=== PATIENT | male | born 1955 | race Caucasian/White ===

== ENCOUNTER → 2018-05-10 00:47 | Outpatient (CLI) | payer MEDICAID, SELFPAY ==
--- NOTE | 2018-05-10 09:48 | DI.REPORT_ITS ---
SYMPTOM/DIAGNOSIS: NECK PAIN, M54.2 MRI CERVICAL SPINE: Routine noncontrast examination was performed. There is patient motion artifact despite multiple repeat sequences. There is normal signal in the spinal cord. No evidence of tonsillar ectopia present. At C7-T1 there is no focal disc herniation, central spinal canal or neural foraminal stenosis. At C6-C7 there is no focal disc herniation, central spinal canal or neural foraminal stenosis present. At C5-C6 there is no focal disc herniation or central spinal canal stenosis. There are hypertrophic changes seen at the uncovertebral joint on the left causing moderate left neural foraminal stenosis. No right neural foraminal stenosis is present. At C4-C5 there is mild prominence of the osteophyte disc complex but no central spinal canal stenosis or focal disc herniation present. There is no significant neural foraminal stenosis. At C3-C4 there is no focal disc herniation or central spinal canal stenosis. There are hypertrophic changes seen at the uncovertebral joints bilaterally causing mild to moderate bilateral neural foraminal stenosis. At C2-C3 there is no focal disc herniation, central spinal canal or neural foraminal stenosis. Marrow signal is within normal limits. IMPRESSION: Multi-level degenerative changes in the cervical spine resulting in multi-level neural foraminal stenosis as described above.
== END ==
PROVIDERS: PCP Physician Assistant Medical; Visit Provider Physician Assistant Medical
DX: M54.2 Cervicalgia (principal); M47.812 Spondylosis without myelopathy or radiculopathy, cervical region; M48.02 Spinal stenosis, cervical region
CPT/HCPCS: 72141

== ENCOUNTER → 2018-05-13 01:04 | Outpatient (CLI) | payer MEDICAID, SELFPAY ==
--- NOTE | 2018-05-13 09:32 | DI.REPORT_ITS ---
SYMPTOM/DIAGNOSIS: ABD PAIN RIGHT UPPER QUADRANT, R10.11 ABDOMINAL ULTRASOUND: The aorta and vena cava are normal. The liver is mildly echogenic consistent with fatty infiltration. The gallbladder is normal. There are no stones or evidence of ductal dilatation. The body and head of the pancreas are echogenic. The tail is not seen. The findings are consistent with fatty infiltration. The spleen is unremarkable. The kidneys are unremarkable. There is no evidence of abdominal free fluid. SUMMARY: There is somewhat limited visualization of the liver which rests quite high in the abdomen. There are findings consistent with fatty infiltration. There is no evidence of gallbladder disease, cholelithiasis or biliary obstruction.
== END ==
PROVIDERS: PCP Physician Assistant Medical; Visit Provider Physician Assistant Medical
DX: R10.11 Right upper quadrant pain (principal); K76.0 Fatty (change of) liver, not elsewhere classified
CPT/HCPCS: 76700

== ENCOUNTER → 2018-05-26 12:03 | Outpatient (REF) | payer MEDICAID, SELFPAY ==
[2018-05-26 20:37] LABS: Abs Immature Grans 0.01 k/cumm (0.0-0.09); Absolute Basophil Count 0.04 k/cumm (0.0-0.2); Absolute Eosinophil Count 0.13 k/cumm (0.0-0.7); Absolute Lymphocyte Count 2.04 k/cumm (1.2-3.4); Absolute Monocyte Count 0.48 k/cumm (0.11-0.7); Absolute Neutrophil Count 1.78 k/cumm (1.2-6.7); Basophils % 0.9; Eosinophils % 2.9; Immature Grans % 0.2; Lymphocytes % 45.5; Mean Corp. HGB Concentration 29.4 g/dL (32.0-36.0); Mean Corpuscular Hemoglobin 21.2 pg (27.0-33.0); Mean Corpuscular Volume 72.2 fL (80-95); Mean Platelet Volume 10.5 fL (8.0-11.0); Monocytes % 10.7; Neutrophils % 39.8; Platelet Count 318 x1000/uL (130-400); RBC 4.71 m/cumm (4.50-6.00); RBC Distribution Width 17.9 % (11.8-14.1); White Blood Cell Count 4.48 k/cumm (4.4-10.8)
[2018-05-28 16:08] LABS: HCV RNA Detection Quantitative Undetected IU/mL (UNDECT)
== END ==
LOC: NCHCN 12:03
PROVIDERS: PCP Physician Assistant Medical; Visit Provider Physician Assistant Medical
DX: K76.0 Fatty (change of) liver, not elsewhere classified (principal); D64.9 Anemia, unspecified
CPT/HCPCS: 86803; 85025; 87522

== ENCOUNTER 2018-05-29 18:34 | Emergency (ER) | payer MEDICAID, SELFPAY ==
[2018-05-29] VITALS (27 sets, daily range): BP systolic 103–137; BP diastolic 63–84; PULSE 67–85; RESP 9–22; TEMP 36.8–37.2; O2SAT 91–99
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
--- NOTE | 2018-05-29 19:22 | DI.RPTCT_ITS ---
SYMPTOM/DIAGNOSIS: DIZZINESS NONCONTRAST HEAD CT: Comparison is made with 10/26/17. A noncontrast cranial CT was performed. The ventricular system is normal in appearance. There is no evidence of an intracranial mass lesion. There is no evidence of a subdural or epidural hematoma. No focal areas of decreased attenuation are seen. CONCLUSION: Normal noncontrast Cranial CT.
--- NOTE | 2018-05-29 19:47 | DI.VRAD_ITS ---
EXAM: CT Head Without Intravenous Contrast CLINICAL HISTORY: 62 years old, male; Signs and symptoms; Dizziness TECHNIQUE: Axial computed tomography images of the head/brain without intravenous contrast. Coronal and sagittal reformatted images were created and reviewed. COMPARISON: CT - HEAD AND CSPINE W/O CONTRAST 10/26/2017 6:58 PM FINDINGS: Brain: No intracranial hemorrhage or extra-axial fluid collection. No evidence of mass effect or midline shift. Vasquez-white matter differentiation is normal. Ventricles: Unremarkable. No ventriculomegaly. Bones/joints: Unremarkable. No acute fracture. Soft tissues: Unremarkable. Sinuses: Unremarkable as visualized. No acute sinusitis. Mastoid air cells: Unremarkable as visualized. No mastoid effusion. IMPRESSION: No acute intracranial pathology. Dictated and Authenticated by: Osorio Oliva MD. Ordering:LATISHA VACA MD
[2018-05-29] MEDS: Meclizine 25 MG TAB PO (19:55)
[2018-05-29] MEDS: MORPHine 10 MG/ML VIAL 4 MG IVP (20:21)
[2018-05-29] MEDS: Normal Saline 1,000 ML 1000 ML IV (20:21)
[2018-05-29 20:30] LABS: Abs Immature Grans 0.01 k/cumm (0.0-0.09); HCT 31.2 % (40.0-50.0); HGB 9.6 g/dL (13.5-17.5); Mean Corp. HGB Concentration 30.8 g/dL (32.0-36.0); Mean Corpuscular Hemoglobin 21.6 pg (27.0-33.0); Mean Corpuscular Volume 70.1 fL (80-95); Mean Platelet Volume 9.4 fL (8.0-11.0); Platelet Count 272 x1000/uL (130-400); RBC 4.45 m/cumm (4.50-6.00); RBC Distribution Width 17.7 % (11.8-14.1); White Blood Cell Count 5.99 k/cumm (4.4-10.8)
[2018-05-29 20:43] LABS: ALT 32 U/L (12-78); AST 24 U/L (15-37); Albumin 3.8 g/dL (3.4-5.0); Alkaline Phosphatase 133 U/L (46-116); Anion Gap 4.6 mmol/L (3-11); BUN 8 mg/dL (7-18); Bilirubin, Total 0.5 mg/dL (0.2-1.0); CO2 29.4 mmol/L (21.0-32.0); CREATININE 0.86 mg/dL (0.70-1.30); Calcium 8.8 mg/dL (8.5-10.1); Chloride 99 mmol/L (98-107); Glucose 87 mg/dL (70-100); Magnesium 1.9 mg/dL (1.8-2.4); Potassium 3.6 mmol/L (3.5-5.1); Sodium 133 mmol/L (136-145); Total Protein 7.8 g/dL (6.4-8.2)
[2018-05-29 20:45] LABS: Troponin I < 0.02 ng/mL (0.00-0.06)
[2018-05-29] MEDS: HYDROcodone 5/Acetaminophen 325 TAB PO (21:07)
[2018-05-29 21:46] LABS: Anisocytosis 2+
[2018-05-29 21:47] LABS: Hypochromasia 2+; Microcytosis 2+; Ovalocytes 2+; Poikilocytes 2+
[2018-05-30 07:19] LABS: Absolute Lymphocyte Count 1.98 k/cumm (1.2-3.4); Absolute Neutrophil Count 3.59 k/cumm (1.2-6.7); Atypical Lymphocytes % 2
[2018-05-30 07:20] LABS: Absolute Eosinophil Count 0.06 k/cumm (0.0-0.7); Absolute Monocyte Count 0.24 k/cumm (0.11-0.7); Nucleated RBC 1 /100WBC
[2018-05-30 07:22] LABS: Diff Comment Manual Differential
--- NOTE | 2018-05-31 09:56 | PDOC.ERCMPRO ---
Care Management Progress Note 05/31-Nohemy Grant, Caregiver for Annette, called stating that Annette had been seen in the ED over the weekend for vertigo. She states that Annette needed more medication for vertigo. Nohemy states she called the ED and was told that Dr. Otero was going to fax a script to [facility] in [place]. [facility] in [place] states they do not have a script. Discussed with Nohemy that Dr Otero was not here and that I would reach out to [facility] and have them call her. Called [facility] and they stated they would reach out to Nohemy about the medication.
--- NOTE | 2018-05-31 09:59 | CMPROGNOTE_ITS ---
Care Management Progress Note 05/31-Nohemy Grant, Caregiver for Annette, called stating that Annette had been seen in the ED over the weekend for vertigo. She states that Annette needed more medication for vertigo. Nohemy states she called the ED and was told that Dr. Otero was going to fax a script to [facility] in [place]. [facility] in [place] states they do not have a script. Discussed with Nohemy that Dr Otero was not here and that I would reach out to [facility] and have them call her. Called [facility] and they stated they would reach out to Nohemy about the medication.
== END 2018-05-29 21:44 | disposition home or self-care (01) ==
PROVIDERS: Emergency Provider Emergency Medicine; PCP Physician Assistant Medical
DX: S16.1XXA Strain of muscle, fascia and tendon at neck level, initial encounter (principal); R42 Dizziness and giddiness; X58.XXXA Exposure to other specified factors, initial encounter
CPT/HCPCS: 36415; 80053; 93005; 96361; 96374; 99285; 70450; 83735; 84484; 85025; 93010; 99284; J2270

== ENCOUNTER 2018-06-17 13:43 | Outpatient (REF) | payer MEDICAID, SELFPAY ==
[2018-06-17 21:49] LABS: Iron 40 ug/dL (50-175); Total Iron Binding Capacity 452 ug/dL (250-450); Transferrin Sat 9 % (20-55)
[2018-06-17 22:04] LABS: Ferritin 10 ng/mL (8-388)
[2018-06-17 22:09] LABS: Folate > 20.0 ng/mL (8.6-20.0)
== END 2018-06-17 14:03 ==
LOC: NCHCN 13:43
PROVIDERS: PCP Physician Assistant Medical; Visit Provider Physician Assistant Medical
DX: D64.9 Anemia, unspecified (principal)
CPT/HCPCS: 82728; 82746; 83540; 83550

== ENCOUNTER 2018-08-06 02:07 | Outpatient (CLI) | payer MEDICAID, SELFPAY ==
[2018-08-06 15:12] LABS: Iron 161 ug/dL (50-175); Total Iron Binding Capacity 371 ug/dL (250-450); Transferrin Sat 43 % (20-55)
[2018-08-06 15:31] LABS: Ferritin 11 ng/mL (8-388)
== END 2018-08-06 02:27 ==
PROVIDERS: PCP Physician Assistant Medical; Visit Provider Family Medicine
DX: D64.9 Anemia, unspecified (principal)
CPT/HCPCS: 36415; 82728; 83540; 83550

== ENCOUNTER 2018-08-23 16:31 | Outpatient (REF) | payer MEDICAID, SELFPAY ==
[2018-08-23 21:07] LABS: Abs Immature Grans 0.03 k/cumm (0.0-0.09); Absolute Basophil Count 0.05 k/cumm (0.0-0.2); Absolute Eosinophil Count 0.36 k/cumm (0.0-0.7); Absolute Lymphocyte Count 2.29 k/cumm (1.2-3.4); Absolute Monocyte Count 0.38 k/cumm (0.11-0.7); Absolute Neutrophil Count 2.74 k/cumm (1.2-6.7); Basophils % 0.9; Eosinophils % 6.2; HCT 38.7 % (40.0-50.0); HGB 12.2 g/dL (13.5-17.5); Immature Grans % 0.5; Lymphocytes % 39.1; Mean Corp. HGB Concentration 31.5 g/dL (32.0-36.0); Mean Corpuscular Hemoglobin 24.2 pg (27.0-33.0); Mean Corpuscular Volume 76.6 fL (80-95); Mean Platelet Volume 9.9 fL (8.0-11.0); Monocytes % 6.5; Neutrophils % 46.8; Platelet Count 339 x1000/uL (130-400); RBC 5.05 m/cumm (4.50-6.00); RBC Distribution Width 20.9 % (11.8-14.1); White Blood Cell Count 5.85 k/cumm (4.4-10.8)
[2018-08-23 21:39] LABS: Anisocytosis 1+
== END 2018-08-23 16:51 ==
LOC: NCHCN 16:31
PROVIDERS: PCP Physician Assistant Medical; Visit Provider Nurse Practitioner Family
DX: D64.9 Anemia, unspecified (principal); R51 Headache
CPT/HCPCS: 85025

== ENCOUNTER 2018-09-02 15:36 | Outpatient (REF) | payer MEDICAID, SELFPAY ==
[2018-09-09 11:55] LABS: Helicobacter pylori Ag, Feces Positive (NEGAT)
== END 2018-09-02 15:56 ==
LOC: NCHCN 15:36
PROVIDERS: PCP Physician Assistant Medical; Visit Provider Nurse Practitioner Family
DX: R14.0 Abdominal distension (gaseous) (principal)
CPT/HCPCS: 87338

== ENCOUNTER 2018-09-16 15:06 | Outpatient (REF) | payer MEDICAID, SELFPAY | END 2018-09-16 15:26 | LOC: NCHCN 15:06 | PROVIDERS: PCP Physician Assistant Medical; Visit Provider Nurse Practitioner Family | DX: J02.9 Acute pharyngitis, unspecified (principal) | CPT/HCPCS: 87077; 87070 ==

== ENCOUNTER 2018-10-27 09:21 | Outpatient (CLI) | payer MEDICAID, SELFPAY ==
--- NOTE | 2018-10-27 09:03 | DI.RAD_ITS ---
SYMPTOMS/DIAGNOSIS: EVALUATE LEFT SHOULDER PAIN LEFT SHOULDER: The bony structures are normally mineralized. There are mild degenerative changes involving the glenohumeral joint and moderately severe DJD involving the acromioclavicular joint. On the frontal image, there is a question regarding a small soft tissue calcification adjacent to the greater tuberosity, which could represent peritendinitis calcarea. There is no evidence in this patient of a fracture or dislocation. 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
== END 2018-10-27 09:41 ==
PROVIDERS: PCP Physician Assistant Medical; Visit Provider Student in an Organized Health Care Education/Training Program
DX: M25.512 Pain in left shoulder (principal); M19.012 Primary osteoarthritis, left shoulder
CPT/HCPCS: 73030

== ENCOUNTER 2018-10-28 09:14 | Outpatient (CLI) | payer MEDICAID, SELFPAY ==
--- NOTE | 2018-10-28 09:23 | DI.RAD_ITS ---
SYMPTOMS/DIAGNOSIS: TENDINITIS OF LEFT ROTATOR CUFF, M75.82, OTHER SHOULDER LESIONS, LEFT SHOULDER LEFT SHOULDER INJECTION: Fluoroscopy Time: 27 sec Under fluoroscopic guidance, Dr. Hammond injected contrast material into the left shoulder joint. Please see the procedure report for further information.
[2018-10-28] MEDS: Omnipaque 300 MG/ML 10 ML BTL IJ (09:54)
[2018-10-28] MEDS: Bupivacaine 0.5% Pres-Free 10 ML VIAL 6 ML IJ (09:55)
[2018-10-28] MEDS: methylPREDNISolone ACETATE 80 MG/ML VIAL IM (09:55)
--- NOTE | 2018-10-28 22:34 | OPPNE_ITS ---
Date of service: 10/28/18 Time of Service: 11:33 Procedure Note Date of procedure: 10/28/18 Procedure: Left Shoulder Injection Surgeon/Proceduralist/Physician: Rogelio Hammond Procedure Indications: Annette has had persistent pain of the LEFT shoulder. Noninvasive measures have been tried. To serve as both diagnostic and therapeutic, an injection under fluoroscopy was recommended. I had discussed the risks of the procedure and the patient elected to proceed. Procedure Description: Annette was greeted in the flouroscopy room. The correct side was identified and the consent was reviewed with the patient and signed. The patient was then placed in the supine position on the fluoroscopy table. The LEFT shoulder was then prepped with Chloraprep. The anterior injection starting point was identiifed by bony landmarks and fluoroscopy. The skin and soft tissue in the tract of the injection was anesthetized with 1% Lidocaine. A spinal needle was then inserted deep into the shoulder joint at the level of the recess between the glenoid and superior humeral head. A small amount of Omnipaque solution was injected to confirm intraarticular placement. Once confirmed, the shoulder was injected with 4cc of 0.5% Bupivicaine and 80mg of Depo-Medrol. A bandaid was placed on the injection site. The patient tolerated the procedure well and noted improvement in pre- injection pain.
== END 2018-10-28 09:34 ==
PROVIDERS: PCP Physician Assistant Medical; Visit Provider Student in an Organized Health Care Education/Training Program
DX: M25.512 Pain in left shoulder (principal); M75.82 Other shoulder lesions, left shoulder
CPT/HCPCS: 20610; 77002; J1040

== ENCOUNTER 2018-11-15 01:04 | Emergency (ER) | payer MEDICAID, SELFPAY ==
[2018-11-15 01:14] VITALS: BP 133/79; PULSE 63; RESP 16; TEMP 36.4; O2SAT 97
[2018-11-15 01:22] VITALS: RESP 16
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
[2018-11-15] MEDS: diphenhydrAMINE 25 MG CAP PO (02:00)
[2018-11-15] MEDS: Acetaminophen 500 MG TAB 1000 MG PO (02:01)
[2018-11-15] MEDS: Meclizine 25 MG TAB PO (02:01)
[2018-11-15] MEDS: Ketorolac 30 MG/ML VIAL 15 MG IVP (02:04)
[2018-11-15] MEDS: methylPREDNISolone SUCC 125 MG VIAL IVP (02:05)
[2018-11-15] MEDS: Normal Saline 1,000 ML 1000 ML IV (02:06)
[2018-11-15] MEDS: Prochlorperazine 10 MG/2 ML VIAL IVP (02:08)
[2018-11-15 03:06] VITALS: BP 115/74; PULSE 66; RESP 16; O2SAT 96
== END 2018-11-15 03:05 | disposition home or self-care (01) ==
PROVIDERS: Emergency Provider Student in an Organized Health Care Education/Training Program; PCP Physician Assistant Medical
DX: G43.909 Migraine, unspecified, not intractable, without status migrainosus (principal); R42 Dizziness and giddiness
CPT/HCPCS: 96361; 96374; 96375; 99284; J0780; J1885; J2930

== ENCOUNTER 2018-11-17 17:18 | Outpatient (REF) | payer MEDICAID, SELFPAY ==
[2018-11-25 14:46] LABS: Helicobacter pylori Ag, Feces Positive (NEGAT)
== END 2018-11-17 17:38 ==
LOC: NCHCN 17:18
PROVIDERS: PCP Physician Assistant Medical; Visit Provider Nurse Practitioner Family
DX: Z87.19 Personal history of other diseases of the digestive system (principal)
CPT/HCPCS: 87338

== ENCOUNTER 2018-12-28 10:00 | Outpatient (REF) | payer MEDICAID, SELFPAY ==
[2018-12-30 14:03] LABS: Helicobacter pylori Ag, Feces Negative (NEGAT)
== END 2018-12-28 10:20 ==
LOC: NCHCN 10:00
PROVIDERS: PCP Physician Assistant Medical; Visit Provider Nurse Practitioner Family
DX: Z87.19 Personal history of other diseases of the digestive system (principal)
CPT/HCPCS: 87338

== ENCOUNTER 2019-02-14 16:00 | Outpatient (REF) | payer MEDICAID, SELFPAY ==
[2019-02-14 22:33] LABS: HGB 14.1 g/dL (13.5-17.5); Mean Corp. HGB Concentration 35.3 g/dL (32.0-36.0); Mean Corpuscular Hemoglobin 29.8 pg (27.0-33.0); Mean Corpuscular Volume 84.6 fL (80-95); Mean Platelet Volume 10.4 fL (8.0-11.0); Platelet Count 268 x1000/uL (130-400); RBC 4.73 m/cumm (4.50-6.00); RBC Distribution Width 13.2 % (11.8-14.1); White Blood Cell Count 4.74 k/cumm (4.4-10.8)
[2019-02-14 22:45] LABS: ALT 32 U/L (12-78); AST 24 U/L (15-37); Albumin 3.7 g/dL (3.4-5.0); Alkaline Phosphatase 118 U/L (46-116); Anion Gap 10.5 mmol/L (3-11); BUN 12 mg/dL (7-18); Bilirubin, Total 0.5 mg/dL (0.2-1.0); CO2 27.5 mmol/L (21.0-32.0); CREATININE 0.78 mg/dL (0.70-1.30); Chloride 101 mmol/L (98-107); Glucose 86 mg/dL (70-100); Potassium 4.2 mmol/L (3.5-5.1); Sodium 139 mmol/L (136-145); Total Protein 6.8 g/dL (6.4-8.2)
== END 2019-02-14 16:20 ==
LOC: NCHCN 16:00
PROVIDERS: PCP Physician Assistant Medical; Visit Provider Nurse Practitioner Family
DX: I95.1 Orthostatic hypotension (principal); R89.9 Unspecified abnormal finding in specimens from other organs, systems and tissues
CPT/HCPCS: 80053; 85027

== ENCOUNTER 2020-07-23 17:47 | Outpatient (REF) | payer MEDICAID, SELFPAY ==
[2020-07-23 19:20] LABS: HCT 39.5 % (40.0-50.0); HGB 13.8 g/dL (13.5-17.5); MCH 30.7 pg (27.0-33.0); MCHC 34.9 % (32.0-36.0); MPV 9.8 fL (8.0-11.0); Platelet Count 181 10^3/uL (130-400); RBC 4.49 10^6/uL (4.36-5.78); RDW 12.5 % (11.8-14.1); RDW-SD 40.2 fL; WBC 3.13 10^3/uL (4.4-10.8)
[2020-07-23 19:48] LABS: ALT 58 U/L (16-63); AST 58 U/L (15-37); Albumin 3.7 g/dL (3.4-5.0); Alkaline Phosphatase 106 U/L (46-116); BUN 12 mg/dL (7-18); Bilirubin, Total 0.5 mg/dL (0.2-1.0); CREATININE 0.82 mg/dL (0.70-1.30); Calcium 8.9 mg/dL (8.5-10.1); Chloride 101 mmol/L (98-107); Cholesterol 271 mg/dL (<200); Glucose 94 mg/dL (74-106); HDL Cholesterol 41 mg/dL (40-60); Potassium 3.9 mmol/L (3.5-5.1); Sodium 140 mmol/L (136-145); TSH (W/Ref FT4) 1.78 uIU/mL (0.36-3.74); Triglyceride 872 mg/dL (<150)
[2020-07-23 20:32] LABS: LDL CHOLESTEROL 93 mg/dL (<100)
== END 2020-07-23 18:07 ==
LOC: NCHCN 17:47
PROVIDERS: PCP Physician Assistant Medical; Visit Provider Nurse Practitioner Family
DX: I10 Essential (primary) hypertension (principal); R14.0 Abdominal distension (gaseous); R89.9 Unspecified abnormal finding in specimens from other organs, systems and tissues; R11.10 Vomiting, unspecified
CPT/HCPCS: 80053; 80061; 83721; 85027; 84443

== ENCOUNTER 2020-07-30 00:39 | Outpatient (CLI) | payer MEDICAID, SELFPAY ==
--- NOTE | 2020-07-30 | DI.US_ITS ---
EXAM: US THYROID CLINICAL HISTORY: F/U THYROID NODULES, E04.1 TECHNIQUE: Ultrasound performed using standard protocol. COMPARISON: US ABDOMEN ULTRASOUND (P) from 05/13/2018 FINDINGS: Thyroid ultrasound was performed according to the usual protocol. Thyroid parenchyma is moderately h eterogeneous. Right thyroid lobe measures 38 x 10 x 16 millimeters and left thyroid lobe measures 35 x 10 x 14 millimeters. There are multiple small nodules, the largest is a 6 millimeter in diameter left thyroid lobe midpole nodule, TR 3 by TI-RADS classification, mildly hypoechoic. No suspicious n odule identified. IMPRESSION: No suspicious thyroid nodule identified. No additional follow-up recommended. DATA REPOSITORY:
== END 2020-07-30 00:59 ==
PROVIDERS: PCP Physician Assistant Medical; Visit Provider Nurse Practitioner Family
DX: E04.2 Nontoxic multinodular goiter (principal)
CPT/HCPCS: 76536

== ENCOUNTER 2020-10-27 23:28 | Observation (INO) | payer OTHER, MEDICAID, SELFPAY ==
[2020-10-27 23:30] VITALS: BP 131/62; PULSE 89; RESP 16; TEMP 36; O2SAT 97
--- NOTE | 2020-10-27 23:30 | DI.RAD_ITS ---
EXAM: XR HAND LT COMPLETE CLINICAL HISTORY: dog bite. TECHNIQUE: 2D digital imaging was performed. COMPARISON: No exams were available for comparison FINDINGS: There is no evidence of obvious fracture nor dislocation no radiopaque foreign body. No osseous lesi ons nor erosions evident. IMPRESSION: DATA REPOSITORY: RADIATION DOSE DELIVERED:
--- NOTE | 2020-10-27 23:30 | DI.RAD_ITS ---
EXAM: XR FOREARM RT CLINICAL HISTORY: dog bite. TECHNIQUE: 2D digital imaging was performed. COMPARISON: No exams were available for comparison FINDINGS: There is no evidence of fracture or dislocation. No abnormal soft tissue densities. Chronic appeari ng finding off the lateral aspect of the radial head and upper lateral epicondyle. IMPRESSION: DATA REPOSITORY: RADIATION DOSE DELIVERED:
--- NOTE | 2020-10-27 23:46 | W.ED.GENAD ---
Discharge Plan Disposition Patient Disposition: [facility] INPATIENT Condition: Fair Discharge Details Clinical Impression: Dog bite of left hand, Alcohol intoxication Primary Care Provider: Abiola Cole ED Provider: Martín Trejo [place] Meds and New Rx's Prescriptions: No Action citalopram [Celexa] 40 MG tablet 40 mg PO HS RF: 0 methocarbamol [Robaxin-750] 750 MG tablet 1,500 mg PO BID RF: 0 sucralfate 1 gram Tablet 1 g PO PRN PRNRF: 0 tryptophan 500 mg Tablet 500 mg PO PRN PRNRF: 0 meclizine 25 mg tablet 25 mg PO TID Qty: 14 RF: 0 hydroxyzine pamoate 50 MG capsule 100 mg PO HS PRNRF: 0 pantoprazole 40 MG tablet,delayed release (DR/EC) 40 mg PO DAILY Qty: 30 RF: 0 Therapeutic-M 1 TAB tablet 1 ea PO DAILY Qty: 30 RF: 0 metoprolol succinate 25 MG tablet extended release 24 hr 50 mg PO DAILY Qty: 30 RF: 0 Medical Decision Making Patient with bilateral upper extremity dog bites. Right arm is not extremely worrisome. Will bruising and slight puncture wound. Left hand significantly injured with concern for joint involvement specifically the long finger. Difficult to ascertain full extent of injury because of pain. Also some alcohol on board. Will place IV and give morphine for pain control. Unasyn for antibiotic coverage. He is up-to-date on tetanus. Will obtain x-rays and will need to discuss with orthopedics. X-rays have returned negative for fracture or foreign body. With morphine on board able to get a little better exam of the hand. There appears to be no Lacs or punctures on the palmar aspect. He has two 1 cm lacerations just proximal to the second metacarpal head. He has laceration puncture into the webspace between the second and third finger. He has deep laceration/puncture dorsally base of the third finger extending to the metacarpal joint, about 1.5 cm. Discussed with orthopedics, Dr. Hammond. Will place in observation status for pain control, arm elevation, antibiotics and evaluation by him in the morning. For now will place in wet-to-dry bulky dressing. We will keep n.p.o. We will start fluids at 150 an hour. HPI General Mode of arrival: ambulatory. Date/Time Provider Initiated Documentation: 10/27/20 23:29. Limitations to Documentation: no limitations. Information obtained by: patient and RN notes reviewed. HPI Narrative: Patient presents to the ED with dog bites to his upper extremities. His dog apparently got into a fight over puppies. He tried to break them up. He suffered dog bites to the right forearm and the left hand. He is right-hand dominant. His right forearm is not that bad. Left hand, however, is extremely painful, swollen, hard to move. The dogs are up-to-date on immunizations. He is up-to-date on tetanus. He denies other injury. He has been drinking alcohol tonight and drinks pretty much every night. Related Data Home Medications Medication Instructions Recorded Confirmed citalopram [Celexa] 40 mg PO HS tab-cap 06/22/17 10/27/20 Therapeutic-M 1 ea PO DAILY #30 tab 11/01/17 11/15/18 metoprolol succinate 50 mg PO DAILY #30 tab.er.24h 11/01/17 10/27/20 pantoprazole 40 mg PO DAILY #30 tabcr 11/01/17 10/27/20 methocarbamol [Robaxin-750] 1,500 mg PO BID tab-cap 01/28/18 10/27/20 meclizine 25 mg PO TID #14 tab 11/15/18 10/27/20 sucralfate 1 g PO PRN PRN 11/15/18 10/27/20 tryptophan 500 mg PO PRN PRN 11/15/18 11/15/18 hydroxyzine pamoate 100 mg PO HS PRN 10/27/20 10/27/20 Previous Rx's Medication Instructions Recorded Therapeutic-M 1 ea PO DAILY #30 tab 11/01/17 metoprolol succinate 50 mg PO DAILY #30 tab.er.24h 11/01/17 pantoprazole 40 mg PO DAILY #30 tabcr 11/01/17 meclizine 25 mg PO TID #14 tab 11/15/18 Allergies Allergy/AdvReac Type Severity Reaction Status Date / Time escitalopram oxalate Allergy Severe Unverified 10/27/20 23:35 [From Lexapro] General Stated Complaint: AnimalBite GLENN: 3 Review of Systems Narrative: As documented in HPI otherwise negative as below. Const: no fever, chills, weakness Resp: no cough, SOB, pleuritic pain CV: no CP, diaphoresis, edema, syncope GI: no abdominal pain, nausea, vomiting, diarrhea Neuro: no headache, numbness, focal weakness, confusion PFSH Medical History Acquired insufficiency of aortic valve Alcohol abuse Animal bite Aortic aneurysm Appendicitis Chest pain Constipation Cough Diverticulosis Electrolyte imbalance Fatigue Fractured nose GERD (gastroesophageal reflux disease) GI bleed Hemorrhoids Hemothorax History of tobacco abuse Hyperlipidemia Hypertension Hypoalbuminemia Left thyroid nodule Nausea Neck pain Phobia Post-traumatic headache Postconcussion syndrome Right rib fracture Seizure after head injury Skin lesion of face Vertigo Visual changes Surgical History Appendectomy EGD - MAC Social History Smoking/Tobacco Use Status: Former Tobacco Use Smoking risk assessment performed?: Yes Alcohol Intake: current Alcohol Intake frequency: 0-2 drinks per day Drug use: Daily Substance use type: marijuana Do you feel safe at home: Yes Do you feel safe in your relationship?: Yes Exam Narrative Exam Narrative: Const: WDWN male in pain. HEENT: NC/AT. Normal facial exam. Neck: Supple. Trachea midline. Lungs: Normal respiratory effort Cor: RRR Good radial pulses. Neuro: A+O x 3. Normal speech, mentation, gait. Cranial nerves II - XII grossly intact. No gross motor or sensory deficit. Ext: Right upper extremity with puncture barber and bruising mid forearm. Neurovascularly intact distally. No apparent tendon injury distally. Left hand with multiple punctures and lacs that are difficult to fully visualize. Marked swelling and pain over the index and long metacarpal heads. Puncture wound appears to go right into the long metacarpal joint. Difficulty extending or flexing any of the fingers because of pain. Reports some decreased sensation along finger only. Wrist normal. Skin: Puncture wound right forearm. Puncture wound and lacerations left hand. Course Vital Signs Vital signs: Vital Signs Temperature 96.8 F L 10/27/20 23:30 Pulse 89 10/27/20 23:30 Respiratory Rate 16 10/27/20 23:30 Blood Pressure 131/62 10/27/20 23:30 Pulse Oximetry 97 10/27/20 23:30 Temperature 96.8 F L 10/27/20 23:30 Temperature Source Skin 10/27/20 23:30 Pulse 89 10/27/20 23:30 Respiratory Rate 16 10/27/20 23:30 Respiratory Effort Non-Labored 10/27/20 23:44 Blood Pressure 131/62 10/27/20 23:30 Blood Pressure Position Sitting 10/27/20 23:30 Pulse Oximetry 97 10/27/20 23:30 Oxygen Delivery Method Room Air 10/27/20 23:30 Oxygen Flow Rate 0 10/27/20 23:30 Pain Level 6 10/27/20 23:30
[2020-10-28] LABS: HCT 41.3 % (40.0-50.0); HGB 14.5 g/dL (13.5-17.5); MCH 30.7 pg (27.0-33.0); MCHC 35.1 % (32.0-36.0); MCV 87.3 fL (80-95); MPV 9.6 fL (8.0-11.0); Platelet Count 262 10^3/uL (130-400); RBC 4.73 10^6/uL (4.36-5.78); RDW 13.2 % (11.8-14.1); WBC 6.96 10^3/uL (4.4-10.8)
[2020-10-28 00:11] LABS: Anion Gap 12.5 mmol/L (3-11); BUN 11 mg/dL (7-18); CO2 23.5 mmol/L (21.0-32.0); CREATININE 0.78 mg/dL (0.70-1.30); Chloride 101 mmol/L (98-107); Glucose 110 mg/dL (74-106); Potassium 4.7 mmol/L (3.5-5.1); Sodium 137 mmol/L (136-145)
[2020-10-28] MEDS: AMPICILLIN/SULBACTAM 3 GM in Normal Saline 100 ML IVPB ×2 (00:18→06:09)
--- NOTE | 2020-10-28 00:20 | DI.VRAD_ITS ---
PROCEDURE INFORMATION: Exam: XR Right Forearm Exam date and time: 10/27/2020 12:16 AM Age: 64 years old Clinical indication: Injury or trauma; Other: Dog bite; Arm, lower; Right TECHNIQUE: Imaging protocol: XR Right forearm. Views: 2 views. COMPARISON: CR RIGHT ELBOW COMPLETE 08/28/2016 8:15 PM FINDINGS: Bones/joints: Normal. Soft tissues: Normal. IMPRESSION: No acute findings. Dictated and Authenticated by: Jeff Genao MD. Ordering:NYDIA Resendiz MD
--- NOTE | 2020-10-28 00:21 | DI.VRAD_ITS ---
PROCEDURE INFORMATION: Exam: XR Left Hand Exam date and time: 10/27/2020 12:16 AM Age: 64 years old Clinical indication: Injury or trauma; Other: Dog bite; Hand; Left TECHNIQUE: Imaging protocol: XR Left hand. Views: 3 or more views. COMPARISON: No relevant prior studies available. FINDINGS: Bones/joints: Normal. Soft tissues: Normal. IMPRESSION: No acute findings. Dictated and Authenticated by: Jeff Genao MD. Ordering:NYDIA Resendiz MD
[2020-10-28] MEDS: Normal Saline Flush 10 ML SYR IVP ×3 (00:26→06:08)
[2020-10-28 00:54] VITALS: BP 119/80; PULSE 96; RESP 20; O2SAT 93
[2020-10-28] MEDS: hydrOXYzine PAMOATE 25 MG CAP 50 MG PO (01:58)
[2020-10-28] MEDS: Normal Saline 1,000 ML 150 ML IV (01:59)
[2020-10-28 02:04] VITALS: BP 136/72; PULSE 91; RESP 22; O2SAT 97
[2020-10-28 02:09] VITALS: TEMP 36.5
[2020-10-28 02:45] VITALS: BP 133/81; PULSE 87; RESP 18; TEMP 36.6; O2SAT 93
[2020-10-28] MEDS: MORPHine 2 MG/ML SYR 4 MG IVP ×4 (03:26→07:17)
[2020-10-28 03:54] VITALS: BP 133/81; PULSE 87; RESP 18; TEMP 36.6; O2SAT 93
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
--- NOTE | 2020-10-28 05:54 | NUR.NOTE ---
opened chart to note acct. 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
[2020-10-28] MEDS: Ondansetron 4 MG/2 ML VIAL IVP (07:17)
[2020-10-28] MEDS: diazePAM 5 MG TAB PO (07:33)
--- NOTE | 2020-10-28 07:55 | W.PM.DS.N ---
Date of service: 10/28/20 Time of Service: 07:55 DS: Diagnosis Discharge Diagnosis (1) Dog bite of left hand: Status: Acute Discharge Plan Disposition Patient Disposition: HOME Condition: Stable Discharge Details Reason For Visit: DOG BITE TO HAND; ALCOHOL INTOXICATION Admit Date/Time: 10/28/20 00:57 Admit Provider: Rogelio Hammond Attending Provider: Rogelio Hammond Primary Care Provider: Marta Bojorquez Hospital Course Hospital Course: Rolf was admitted to the medical surgical floor from the emergency department for pain control and observation. He kept the hand elevated overnight but did have notable pain. His pain regimen was increased to include a narcotic medications to help out with his pain relief. He showed no signs of acute withdrawal while he was hospitalized. I evaluated the hand in the morning and there were no signs of gross infection nor gross tendon involvement. There was some swelling but no continued drainage from the wounds and therefore it was determined that this could be treated conservatively with very close follow-up in another 5 days. He did have some nausea while he was admitted which was treated with ondansetron with good results. His pain regimen included ketorolac, acetaminophen, IV morphine, and oxycodone. Home Meds and New Rx's Prescriptions: New acetaminophen 500 mg tablet 1,000 mg PO Q8H PRN (Reason: pain) Qty: 60 RF: 3 oxycodone 5 mg tablet 5 mg PO Q6H MDD 20mg Qty: 12 RF: 0 meloxicam 15 mg tablet 15 mg PO DAILY Qty: 30 RF: 0 amoxicillin-pot clavulanate [Augmentin] 875-125 mg tablet 1 tab PO BID Qty: 14 RF: 0 Continued citalopram [Celexa] 40 MG tablet 40 mg PO HS RF: 0 sucralfate 1 gram Tablet 1 g PO PRN PRNRF: 0 tryptophan 500 mg Tablet 500 mg PO PRN PRNRF: 0 hydroxyzine pamoate 50 MG capsule 100 mg PO HS PRNRF: 0 multivitamin Tablet 1 tab PO DAILY RF: 0 meclizine 25 mg tablet 25 mg PO TID PRNRF: 0 pantoprazole 20 mg Tablet,Delayed Release (Dr/Ec) 20 mg PO BID RF: 0 Therapeutic-M 1 TAB tablet 1 ea PO DAILY Qty: 30 RF: 0 metoprolol succinate 25 MG tablet extended release 24 hr 50 mg PO DAILY Qty: 30 RF: 0 Discharge Instructions Additional Instructions: Activity: Keep your hand elevated at all times. Use pillows or a chairback to rest the hand where it is always above the elbow. Do not try to move your fingers too much but attempting some gentle motion is okay. Dressings: Keep the initial dressing in place until your follow-up. If the FELIPE wrap or dressing loosens, just rewrap or call Dr. Hammond's office. Medications: - You have Augmentin to take twice a day to prevent against infection. - You should take Tylenol and Meloxicam around the clock as prescribed for baseline pain relief. - You have Oxycodone prescribed for breakthrough pain control. Take only as needed and limit use as much as possible. This may cause constipation. Follow-up: THURSDAY for wound check and dressing change. Stand Alone Forms: Nursing Discharge Form Referrals: Rogelio Hammond MD [ [facility] STAFF PHYSICIAN] - Activity:: Keep left hand elevated Equipment/Supplies:: No Equipment Needed Diet:: As Tolerated Discharge Orders Discharge Orders: Discharge Order (Routine); Ordered 10/28/20 Ordered By: Rogelio Hammond DS: Summary Status at Discharge Functional status at discharge: independent ambulation Overall status at discharge: patient is progressing back to baseline Mental Status: mental status grossly normal Speech and Movement: speech and movement normal Mood: congruent mood Affect: normal affect Exam Psych Mental Status: mental status grossly normal Speech and Movement: speech and movement normal Mood: congruent mood Affect: normal affect DS: Data Vitals/I&O Vitals and I&O: Vital Signs Temperature 36.6 C 10/28/20 03:54 Temperature Source Tympanic 10/28/20 03:54 Pulse 87 10/28/20 03:54 Respiratory Rate 18 10/28/20 03:54 Respiratory Effort Non-Labored 10/28/20 02:45 Respiratory Depth Normal 10/28/20 02:45 Respiratory Pattern Normal 10/28/20 02:45 Blood Pressure 133/81 10/28/20 03:54 Blood Pressure Position Sitting 10/27/20 23:30 Pulse Oximetry 93 10/28/20 03:54 Oxygen Delivery Method Room Air 10/28/20 03:54 Oxygen Flow Rate 0 10/28/20 03:54 Pain Level 7 10/28/20 07:17 Intake & Output 10/27/20 10/27/20 10/28/20 11:59 23:59 11:59 Intake Total 757.5 / 757.5 Output Total 50 / 50 Balance 707.5 / 707.5 Weight 87.543 kg 86 kg Intake: IV 757.5 / 757.5 Output: Urine 50 / 50 Other: Urine Color Yellow Urine Appearance Clear Voiding Methods Urinal Data Completed and Pending Labs on day of discharge: Labs from last 24 hours 10/28/20 10/27/20 10/27/20 01:40 23:50 23:50 WBC 6.96 RBC 4.73 Hgb 14.5 Hct 41.3 MCV 87.3 MCH 30.7 MCHC 35.1 RDW 13.2 Plt Count 262 MPV 9.6 Sodium 137 Potassium 4.7 Chloride 101 Carbon Dioxide 23.5 Anion Gap 12.5 H BUN 11 Creatinine 0.78 Estimated GFR/1.73 m2 >= 60.00 Glucose 110 H Calcium 9.0 Ethyl Alcohol 216.0 SARS-CoV-2 (PCR) Pending Nasopharyn COVID-19 PCR Pending Ref Test Perform Site Pending [facility] Medical History Acquired insufficiency of aortic valve Alcohol abuse Animal bite Aortic aneurysm Appendicitis Chest pain Constipation Cough Diverticulosis Electrolyte imbalance Fatigue Fractured nose GERD (gastroesophageal reflux disease) GI bleed Hemorrhoids Hemothorax History of tobacco abuse Hyperlipidemia Hypertension Hypoalbuminemia Left thyroid nodule Nausea Neck pain Phobia Post-traumatic headache Postconcussion syndrome Right rib fracture Seizure after head injury Skin lesion of face Vertigo Visual changes Surgical History Appendectomy EGD - MAC Social History Smoking/Tobacco Use Status: Former Tobacco Use Smoking risk assessment performed?: Yes Alcohol Intake: current Alcohol Intake frequency: 0-2 drinks per day Drug use: Daily Substance use type: marijuana Do you feel safe at home: Yes Do you feel safe in your relationship?: Yes
[2020-10-28 08:35] VITALS: BP 110/44; PULSE 74; RESP 19; TEMP 36.1; O2SAT 91
--- NOTE | 2020-10-28 09:14 | NUR.NOTE ---
Nursing Note: [facility] Officer Molly To notified of the incident. Animal bite report faxed to [facility] Office. Brandi Humphrey
[2020-10-28] MEDS: Metoprolol CR 50 MG TABCR PO (09:22)
[2020-10-28] MEDS: Pantoprazole 20 MG TABCR PO (09:22)
[2020-10-28] MEDS: Multivitamin w/Minerals TAB 1 TAB PO (09:22)
[2020-10-28] MEDS: Meclizine 25 MG TAB PO (09:46)
--- NOTE | 2020-10-28 12:50 | INITIAL_ITS ---
- If Service Date Differs Date of service: 10/28/20 Time of Service: 12:51 Care Management Initial Assess REASON FOR HOSPITALIZATION:: dog bite PAST MEDICAL HISTORY/PAST SURGICAL HISTORY:: Medical History . Acquired insufficiency of aortic valve. Alcohol abuse. Animal bite. Aortic aneurysm. Appendicitis. Chest pain. Constipation. Cough. Diverticulosis. Electrolyte imbalance. Fatigue. Fractured nose. GERD (gastroesophageal reflux disease). GI bleed. Hemorrhoids. Hemothorax. History of tobacco abuse. Hyperlipidemia. Hypertension. Hypoalbuminemia. Left thyroid nodule. Nausea. Neck pain. Phobia. Post-traumatic headache. Postconcussion syndrome. Right rib fracture. Seizure after head injury. Skin lesion of face. Vertigo. Visual changes. Surgical History . Appendectomy. EGD - [facility] [place] PREVIOUS FUNCTIONAL STATUS/SOCIAL/FAMILY SUPPORTS:: Annette lives in [place] with his flight attendant ramp. He denies that he receives community services. he states that he pays his flight attendant ramp a little money when he can. He is unemployed and receives disability. Annette does not drive but is otherwise independent with ADLs. CURRENT FUNCTIONAL STATUS:: Annette was sitting up in bed when CM met with him. He stated that he was anxious to go home. He shared that he hope he could leave early. When nursing and provider completed paperwork, CM brought him to the entrance to meet his flight attendant ramp who was taking him home. ADVANCE DIRECTIVES:: none Has patient been provided with info about the portal/API?: No Did the patient sign up for the portal?: No CODE STATUS:: Full Code INSURANCE COVERAGE / FINANCIAL ISSUES:: self pay CURRENT HOME/COMMUNITY SERVICES/EQUIPMENT:: none PRIMARY CARE PHYSICIAN:: Marta Bojorquez PATIENT/FAMILY EDUCATION NEEDS:: discharge plan, limitations, follow up plan and appointments, self care concerns, Ask Me [employer] TRANSPORTATION:: via private vehicle with caregiver PLAN:: Annette will be discharged home with no new services. He will follow up with his community providers and transport with his caregiver.
--- NOTE | 2020-10-28 13:00 | PDOC.CMDIS ---
- If Service Date Differs Date of service: 10/28/20 Time of Service: 13:00 LACE Index Scoring Tool - Questions: Length of Stay (in days): 1 Acuity (Admit via E.D.?): Yes E.D. Visits: 1 - Answers: Total Score: 5 Risk of Readmission: Low Risk Care Management Discharge Reason for Hospitalization: dog bite Discharge Plan: Annette will be discharged home with no new services. He will follow up with his community providers and transport with his caregiver. cc: Patient/Family Education Needs: discharge plan, limitations, follow up plan and appointments, self care concerns, Ask Me Three
[2020-10-29 00:05] LABS: COVID-19 RT-PCR UVMMC Result Negative (Negative)
== END 2020-10-28 10:57 | disposition home or self-care (01) ==
LOC: ER 10-28 01:39 → MS 10-28 02:33
PROVIDERS: Admitting Provider Student in an Organized Health Care Education/Training Program; Emergency Provider Emergency Medicine; PCP Nurse Practitioner Family; Visit Provider Student in an Organized Health Care Education/Training Program
DX: S61.452A Open bite of left hand, initial encounter (principal); W54.0XXA Bitten by dog, initial encounter; Z11.52 Encounter for screening for COVID-19; F10.129 Alcohol abuse with intoxication, unspecified; S51.851A Open bite of right forearm, initial encounter; I10 Essential (primary) hypertension; E78.5 Hyperlipidemia, unspecified; K21.9 Gastro-esophageal reflux disease without esophagitis
CPT/HCPCS: 36415; 80048; 85027; 96361; 96365; 96375; 99253; 99285; NC; U0003; 73090; 73130; 80320; 99284; G0378; J0295; J2270; J2405

== ENCOUNTER 2020-11-08 18:28 | Emergency (ER) | payer OTHER, MEDICAID, SELFPAY ==
[2020-11-08 18:34] VITALS: BP 138/93; PULSE 89; TEMP 36.3; O2SAT 97
--- NOTE | 2020-11-08 18:44 | W.ED.GENAD ---
Discharge Plan Disposition Patient Disposition: HOME Condition: Improving Discharge Details Clinical Impression: Dog bite of left hand Primary Care Provider: Marta Bojorquez ED Provider: Sterling Otero Home Meds and New Rx's Prescriptions: New amoxicillin-pot clavulanate 875-125 mg tablet 1 tab PO BID 9 Days Qty: 18 RF: 0 Continued citalopram [Celexa] 40 MG tablet 40 mg PO HS RF: 0 sucralfate 1 gram Tablet 1 g PO PRN PRNRF: 0 tryptophan 500 mg Tablet 500 mg PO PRN PRNRF: 0 hydroxyzine pamoate 50 MG capsule 100 mg PO HS PRNRF: 0 multivitamin Tablet 1 tab PO DAILY RF: 0 meclizine 25 mg tablet 25 mg PO TID PRNRF: 0 pantoprazole 20 mg Tablet,Delayed Release (Dr/Ec) 20 mg PO BID RF: 0 acetaminophen 500 mg tablet 1,000 mg PO Q8H PRN (Reason: pain) Qty: 60 RF: 3 oxycodone 5 mg tablet 5 mg PO Q6H MDD 20mg Qty: 12 RF: 0 meloxicam 15 mg tablet 15 mg PO DAILY Qty: 30 RF: 0 Therapeutic-M 1 TAB tablet 1 ea PO DAILY Qty: 30 RF: 0 metoprolol succinate 25 MG tablet extended release 24 hr 50 mg PO DAILY Qty: 30 RF: 0 Discharge Instructions Instructions: Animal Bite (ED) Additional Instructions: Return if you have a fever, foul-smelling discharge from the wound or any other acute concerns. You need to continue to take the Augmentin as prescribed. I recommend you take an [id number] probiotic once daily in the middle of the day while on the antibiotic. We will refer you back to Dr. Hammond for outpatient follow-up. Please call the office at [phone] for an appointment time. May leave current dressing in place for 48 hours, then remove and replace with bandage. Discharge Data Discharge Date/Time-TO BE ENTERED AT DEPARTURE: 11/08/20 19:26 Medical Decision Making 64-year-old male who has both parents at home as pets. He was bitten in his left hand on October 27 for which she was treated with antibiotics after an overnight admission with successful recovery. Tonight he states he was letting the dog out and again his left hand was bit. The dog has been immunized and has not been ill in any way. Mr. Patrick's tetanus is up-to-date and he has otherwise been well. He does not have any motor weakness or numbness. Primary puncture wounds and superficial lacerations to the index and long finger. No exposed tendons and does not appear to involve the joints. Wound was thoroughly irrigated and cleansed, dressed with Xeroform and bacitracin and I will place the patient back on Augmentin. As he previously saw Dr. Hammond for the previous dog bite I do feel it is reasonable for him to follow-up in clinic for 1 more outpatient checkup. HPI General Mode of arrival: ambulatory. Date/Time Provider Initiated Documentation: 11/08/20 18:28. Limitations to Documentation: no limitations. Information obtained by: patient. History of Present Illness 64 year old M presents to the emergency department with the chief complaint of Left hand dog bite, described as moderate and similar to prior episodes, Quality is described as dull and constant, and is localized to the left and upper extremity. Patient reports no radiation. Patient started experiencing this minute(s) and it has been constant. No relieving factors improve symptom(s), No exacerbating factors reported . Patient notes denies fever/chills. Patient did receive the following treatments prior to arrival, none and other (Tetanus up-to-date) Related Data Home Medications Medication Instructions Recorded Confirmed citalopram [Celexa] 40 mg PO HS tab-cap 06/22/17 11/08/20 Therapeutic-M 1 ea PO DAILY #30 tab 11/01/17 11/08/20 metoprolol succinate 50 mg PO DAILY #30 tab.er.24h 11/01/17 11/08/20 sucralfate 1 g PO PRN PRN 11/15/18 11/08/20 tryptophan 500 mg PO PRN PRN 11/15/18 11/08/20 hydroxyzine pamoate 100 mg PO HS PRN 10/27/20 11/08/20 acetaminophen 1,000 mg PO Q8H PRN #60 tab 10/28/20 11/08/20 meclizine 25 mg PO TID PRN 10/28/20 11/08/20 meloxicam 15 mg PO DAILY #30 tab 10/28/20 11/08/20 multivitamin 1 tab PO DAILY 10/28/20 11/08/20 oxycodone 5 mg PO Q6H #12 tab MDD 20mg 10/28/20 11/08/20 pantoprazole 20 mg PO BID 10/28/20 11/08/20 amoxicillin-pot clavulanate 1 tab PO BID 9 Days #18 tab 11/08/20 Previous Rx's Medication Instructions Recorded Therapeutic-M 1 ea PO DAILY #30 tab 11/01/17 metoprolol succinate 50 mg PO DAILY #30 tab.er.24h 11/01/17 acetaminophen 1,000 mg PO Q8H PRN #60 tab 10/28/20 meloxicam 15 mg PO DAILY #30 tab 10/28/20 oxycodone 5 mg PO Q6H #12 tab MDD 20mg 10/28/20 amoxicillin-pot clavulanate 1 tab PO BID 9 Days #18 tab 11/08/20 Allergies Allergy/AdvReac Type Severity Reaction Status Date / Time escitalopram oxalate Allergy Severe Unverified 11/08/20 18:39 [From Ritot] General Stated Complaint: AnimalBite GLENN: 3 Review of Systems Narrative: Tetanus up-to-date. No numbness or tingling. Previous lacerations have been healing. Not taking antibiotics at this time. The animal is immunized. [facility] Medical History Acquired insufficiency of aortic valve Alcohol abuse Animal bite Aortic aneurysm Appendicitis Chest pain Constipation Cough Diverticulosis Electrolyte imbalance Fatigue Fractured nose GERD (gastroesophageal reflux disease) GI bleed Hemorrhoids Hemothorax History of tobacco abuse Hyperlipidemia Hypertension Hypoalbuminemia Left thyroid nodule Nausea Neck pain Phobia Post-traumatic headache Postconcussion syndrome Right rib fracture Seizure after head injury Skin lesion of face Vertigo Visual changes Surgical History Appendectomy EGD - [facility] Social History Smoking/Tobacco Use Status: Former Tobacco Use Smoking risk assessment performed?: Yes Alcohol Intake: current Alcohol Intake frequency: 0-2 drinks per day Drug use: Daily Substance use type: marijuana Current gender identity: male Do you feel safe at home: Yes Do you feel safe in your relationship?: Yes Exam Narrative Exam Narrative: GEN: awake, alert, oriented 3. Pleasant, well groomed, interactive. HEAD: Normocephalic, atraumatic EYES: PERRL, EOMI CHEST/RESP: No respiratory distress EXT: Full ROM, sensation tact throughout. There are punctate and superficial lacerations of the index and long finger of the left hand. Range of motion is within normal limits, sensation intact throughout, no exposed tendons. Neuro: Grossly normal neurologic exam, conversant, interactive. Psych: Speech fluent, thoughts congruent, affect normal Course Vital Signs Vital signs: Vital Signs Temperature 36.3 C L 11/08/20 18:34 Pulse 89 11/08/20 18:34 Blood Pressure 138/93 H 11/08/20 18:34 Pulse Oximetry 97 11/08/20 18:34 Temperature 36.3 C L 11/08/20 18:34 Pulse 89 11/08/20 18:34 Respiratory Effort Non-Labored 11/08/20 18:38 Blood Pressure 138/93 H 11/08/20 18:34 Blood Pressure Position Sitting 11/08/20 18:34 Pulse Oximetry 97 11/08/20 18:34 Oxygen Delivery Method Room Air 11/08/20 18:34 Oxygen Flow Rate 0 11/08/20 18:34 Pain Level 5 11/08/20 18:34
[2020-11-08] MEDS: Amox. 875/Clav. 125, 2 TABS/BTL 1 TAB PO (19:26)
[2020-11-08 19:27] VITALS: BP 138/93; PULSE 89; TEMP 36.3; O2SAT 97
--- NOTE | 2020-11-08 19:35 | NUR.NOTE ---
Nursing Note: Animal bite report form faxed to [facility]. Message left for [facility] health officer about the animal bite. Brandi Humphrey
== END 2020-11-08 19:26 | disposition home or self-care (01) ==
PROVIDERS: Emergency Provider Emergency Medicine; PCP Nurse Practitioner Family
DX: S61.231A Puncture wound without foreign body of left index finger without damage to nail, initial encounter (principal); S61.233A Puncture wound without foreign body of left middle finger without damage to nail, initial encounter; W54.0XXA Bitten by dog, initial encounter
CPT/HCPCS: 99283

== ENCOUNTER → 2020-11-16 10:33 | Outpatient (BNVA) | payer OTHER, MEDICAID, SELFPAY | PROVIDERS: PCP Nurse Practitioner Family; Referring Provider Student in an Organized Health Care Education/Training Program; Visit Provider Physician Assistant | DX: S61.253A Open bite of left middle finger without damage to nail, initial encounter (principal); W54.0XXA Bitten by dog, initial encounter | CPT/HCPCS: 99214 ==

== ENCOUNTER 2021-01-09 20:12 | Outpatient (REF) | payer OTHER, MEDICAID, SELFPAY ==
[2021-01-09 21:54] LABS: ALT 95 U/L (16-63); AST 73 U/L (15-37); Anion Gap 12.4 mmol/L (3-11); BUN 12 mg/dL (7-18); CO2 27.6 mmol/L (21.0-32.0); CREATININE 0.8 mg/dL (0.70-1.30); Calcium 9.5 mg/dL (8.5-10.1); Calculated LDL 169 mg/dL (<100); Chloride 99 mmol/L (98-107); Cholesterol 274 mg/dL (<200); Glucose 98 mg/dL (74-106); HDL Cholesterol 61 mg/dL (40-60); Sodium 139 mmol/L (136-145); Triglyceride 221 mg/dL (<150)
[2021-01-09 23:11] LABS: Creatine Kinase 93 U/L (39-308)
== END 2021-01-09 20:13 | disposition home or self-care (01) ==
LOC: NCHCN 20:12
PROVIDERS: PCP Nurse Practitioner Family; Visit Provider Nurse Practitioner Family
DX: I10 Essential (primary) hypertension (principal)
CPT/HCPCS: 80048; 80061; 82550; 84450; 84460

== ENCOUNTER 2021-01-17 18:01 | Outpatient (REF) | payer OTHER, MEDICAID, SELFPAY ==
[2021-01-17 18:18] LABS: Anion Gap 8.6 mmol/L (3-11); BUN 11 mg/dL (7-18); CO2 29.4 mmol/L (21.0-32.0); CREATININE 0.8 mg/dL (0.70-1.30); Calcium 9.4 mg/dL (8.5-10.1); Chloride 100 mmol/L (98-107); Glucose 92 mg/dL (74-106); Potassium 4.5 mmol/L (3.5-5.1); Sodium 138 mmol/L (136-145)
== END 2021-01-17 18:02 | disposition home or self-care (01) ==
LOC: NCHCN 18:01
PROVIDERS: PCP Nurse Practitioner Family; Visit Provider Nurse Practitioner Family
DX: I10 Essential (primary) hypertension (principal)
CPT/HCPCS: 80048

== ENCOUNTER 2021-03-27 15:43 | Outpatient (REF) | payer OTHER, MEDICAID, SELFPAY ==
[2021-03-27 20:31] LABS: ALT 86 U/L (16-63); AST 67 U/L (15-37); HDL Cholesterol 87 mg/dL (40-60); LDL CHOLESTEROL 106 mg/dL (<100)
[2021-03-27 21:01] LABS: Creatine Kinase 121 U/L (39-308)
== END 2021-03-27 15:44 | disposition home or self-care (01) ==
LOC: NCHCN 15:43
PROVIDERS: PCP Nurse Practitioner Family; Visit Provider Nurse Practitioner Family
DX: E78.5 Hyperlipidemia, unspecified (principal)
CPT/HCPCS: 82550; 83721; 83718; 84450; 84460

== ENCOUNTER 2021-05-15 18:24 | Emergency (ER) | payer MEDICARE, MEDICAID, SELFPAY ==
[2021-05-15] VITALS (44 sets, daily range): BP systolic 66–108; BP diastolic 36–91; PULSE 75–87; RESP 10–21; TEMP 36.6; O2SAT 89–97
--- NOTE | 2021-05-15 18:45 | RT.EKG_ITS ---
APPROVED REPORT Exam: Resting ECG Reason for Exam: dizzy Patient Location: E HR:77 bpm ECG Measurements Heart Rate 77 AXIS IN 186 P 64 QRSd 110 QRS 1 QT 395 T 23 QTc 446 Conclusion Sinus rhythm...normal P axis, V-rate 60- 99 Anteroseptal infarct, age indeterminate...Q >35mS, T neg, V1-V2 Normal [place] I have reviewed and interpreted ECG and agree with software generated interpretation.
--- NOTE | 2021-05-15 19:00 | DI.CT_ITS ---
Exam(s) CT HEAD WO EXAM: CT HEAD WO CLINICAL HISTORY: headache. TECHNIQUE: Imaging Protocol: Axial computed tomography images with coronal and sagittal reformatted images were created and reviewed COMPARISON: CT HEAD WITHOUT CONTRAST from 05/29/2018 FINDINGS: Ventricles and Extra axial spaces: Normal in size and morphology for the patient's age. Hemorrhage: None. Cerebral parenchyma: No acute territorial infarct is identified. There are areas of decreased attenu ation in the white matter most consistent with mild chronic microvascular ischemic disease. Midline shift: None. Brainstem/Cerebellum: Normal. Calvarium: Normal. Visualized Paranasal sinuses/Mastoids: Clear. Soft Tissues: Unremarkable. IMPRESSION: No acute intracranial process. RADIATION DOSE DELIVERED: 754.82mGy.cm Total DLP DATA REPOSITORY: All CT scans at this facility are submitted to the National Radiology Data Registry (NRDR) Dose Index Registry (DIR) with the [employer] (ACR). RADIATION OPTIMIZATION: All CT scans at this facility use at least one of these dose optimization te chniques: automated exposure control; mA and/or kV adjustment per patient size (includes targeted exa ms where dose is matched to clinical indication); or iterative reconstruction.
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
[2021-05-15] MEDS: Prochlorperazine 10 MG/2 ML VIAL IVP (19:19)
[2021-05-15] MEDS: Lactated Ringers 2,000 ML 1000 ML IV (19:20)
[2021-05-15 19:36] LABS: Abs Immature Grans 0.04 10^3/uL (0.0-0.06); Absolute Basophil Count 0.04 10^3/uL (0.0-0.2); Absolute Lymphocyte Count 2.12 10^3/uL (1.2-3.4); Absolute Monocyte Count 0.47 10^3/uL (0.1-0.8); Absolute Neutrophil Count 3.15 10^3/uL (1.2-6.7); Basophils % 0.7; Eosinophils % 1.7; HCT 35.6 % (40.0-50.0); HGB 12.2 g/dL (13.5-17.5); Immature Grans % 0.7; Lymphocytes % 35.8; MCH 32.4 pg (27.0-33.0); MCHC 34.3 % (32.0-36.0); MCV 94.4 fL (80-95); MPV 9.4 fL (8.0-11.0); Monocytes % 7.9; Neutrophils % 53.2; Nucleated RBC 0 %; Platelet Count 306 10^3/uL (130-400); RBC 3.77 10^6/uL (4.36-5.78); RDW 12.9 % (11.8-14.1); RDW-SD 44.6 fL; WBC 5.92 10^3/uL (4.4-10.8)
[2021-05-15 19:51] LABS: ALT 61 U/L (16-63); AST 50 U/L (15-37); Albumin 3.7 g/dL (3.4-5.0); Alkaline Phosphatase 107 U/L (46-116); Anion Gap 9.8 mmol/L (3-11); BUN 10 mg/dL (7-18); Bilirubin, Total 0.2 mg/dL (0.2-1.0); CO2 26.2 mmol/L (21.0-32.0); CREATININE 1.4 mg/dL (0.70-1.30); Calcium 8.5 mg/dL (8.5-10.1); Chloride 100 mmol/L (98-107); Estimated GFR 51.18 (mL/min/1.73m2); Glucose 99 mg/dL (74-106); Magnesium 2.1 mg/dL (1.8-2.4); Potassium 3.6 mmol/L (3.5-5.1); Sodium 136 mmol/L (136-145); Troponin I < 0.05 ng/mL (<0.06)
[2021-05-15 19:57] LABS: PTT Activated 24.1 sec (21.0-27.5); Prothrombin Time 10.4 sec (9.3-11.0)
--- NOTE | 2021-05-15 20:16 | DI.VRAD_ITS ---
PROCEDURE INFORMATION: Exam: CT Head Without Contrast Exam date and time: 05/15/2021 7:15 PM Age: 65 years old Clinical indication: Pain; Headache TECHNIQUE: Imaging protocol: Computed tomography of the head without contrast. Other technique: STROKE PROTOCOL was implemented. COMPARISON: CT HEAD WITHOUT CONTRAST 05/29/2018 7:24 PM FINDINGS: Brain: There are areas of diminished density in the white matter bilaterally . Findings likely represent foci of chronic small vessel ischemic changes. No acute intracranial hemorrhage. Vasquez/white matter differentiation is unremarkable. Cisterns are unremarkable. Brainstem is unremarkable. No suprasellar mass. No mass lesion. No mass effect. Thalamus and hypothalamus are unremarkable. Cerebellum is unremarkable. Cerebral ventricles: No ventriculomegaly. Paranasal sinuses: Visualized sinuses are unremarkable. No fluid levels. Mastoid air cells: Visualized mastoid air cells are well aerated. Bones/joints: Unremarkable. No acute fracture. Soft tissues: Unremarkable. IMPRESSION: 1. Areas of diminished density in bilateral white matter likely representing chronic small vessel ischemic changes. 2. No evidence of acute pathology. ASSESSMENT: ASPECTS ([place] Stroke Program Early CT Score) is 10. Dictated and Authenticated by: Nunu Quinteros MD. Ordering:NYDIA Resendiz MD
[2021-05-15 20:36] LABS: ETHANOL BLOOD 355.1 mg/dL (<3)
[2021-05-15] MEDS: Lactated Ringers 1,000 ML 200 ML IV (21:30)
[2021-05-15 21:49] LABS: *AMPHETAMINES SCREEN URINE Negative (Negative); *BARBITURATES SCREEN URINE Negative (Negative); *BENZODIAZEPINES SCREEN URINE Negative (Negative); Cannabinoids THC Negative (Negative); Cocaine Screen,Urine Negative (Negative); METHADONE URINE SCREEN Negative (Negative); OPIATES URINE SCREEN Negative (Negative)
[2021-05-15 21:50] LABS: Tricyclic Antidepressants Negative (Negative)
[2021-05-15 22:19] LABS: HCT 33.9 % (40.0-50.0); HGB 11.6 g/dL (13.5-17.5)
[2021-05-15 22:33] LABS: Troponin I < 0.05 ng/mL (<0.06)
== END 2021-05-15 23:00 | disposition home or self-care (01) ==
PROVIDERS: Emergency Provider Emergency Medicine; PCP Nurse Practitioner Family
DX: R51.9 Headache, unspecified (principal); R42 Dizziness and giddiness; E86.0 Dehydration; F10.20 Alcohol dependence, uncomplicated; H53.9 Unspecified visual disturbance; F10.220 Alcohol dependence with intoxication, uncomplicated
CPT/HCPCS: 80053; 80307; 93005; 96361; 96374; 99284; 70450; 80320; 83735; 84484; 85014; 85018; 85025; 85610; 85730; 93010; J0780

== ENCOUNTER 2021-06-03 20:58 | Outpatient (REF) | payer MEDICARE, MEDICAID, SELFPAY ==
[2021-06-03 20:20] LABS: Triglyceride 177 mg/dL (<150)
== END 2021-06-03 20:59 | disposition home or self-care (01) ==
LOC: NCHCN 20:58
PROVIDERS: PCP Nurse Practitioner Family; Visit Provider Nurse Practitioner Family
DX: E78.5 Hyperlipidemia, unspecified (principal); I10 Essential (primary) hypertension; F10.10 Alcohol abuse, uncomplicated
CPT/HCPCS: 84478

== ENCOUNTER 2021-06-29 04:09 | Inpatient (IN) | payer MEDICARE, MEDICAID, SELFPAY ==
[2021-06-29] VITALS (124 sets, daily range): BP systolic 112–161; BP diastolic 55–99; PULSE 70–140; RESP 11–27; TEMP 35.9–36.9; O2SAT 80–97
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
--- NOTE | 2021-06-29 04:30 | RT.EKG_ITS ---
APPROVED REPORT Exam: Resting ECG Reason for Exam: tachycardia Patient Location: E HR:105 bpm ECG Measurements Heart Rate 105 AXIS RI 190 P 83 QRSd 110 QRS -1 QT 355 T 50 QTc 469 Conclusion Sinus tachycardia...rate> [address] [place] [address]-T changes, Nonspecific
[2021-06-29 05:00] LABS: Source Nasal/Nares
[2021-06-29 05:17] LABS: Abs Immature Grans 0.01 10^3/uL (0.0-0.06); Absolute Basophil Count 0.03 10^3/uL (0.0-0.2); Absolute Eosinophil Count 0.03 10^3/uL (0.0-0.7); Absolute Monocyte Count 0.55 10^3/uL (0.1-0.8); Absolute Neutrophil Count 1.57 10^3/uL (1.2-6.7); Basophils % 0.8; Eosinophils % 0.8; HCT 32.3 % (40.0-50.0); HGB 10.9 g/dL (13.5-17.5); Immature Grans % 0.3; MCH 32.7 pg (27.0-33.0); MCHC 33.7 % (32.0-36.0); MPV 8.8 fL (8.0-11.0); Monocytes % 15.3; Neutrophils % 43.8; Nucleated RBC 0 %; Platelet Count 113 10^3/uL (130-400); RBC 3.33 10^6/uL (4.36-5.78); RDW-SD 49.8 fL; WBC 3.59 10^3/uL (4.4-10.8)
[2021-06-29 05:19] LABS: Prothrombin Time 10.5 sec (9.3-11.0)
[2021-06-29 05:20] LABS: *AMPHETAMINES SCREEN URINE Negative (Negative); *BARBITURATES SCREEN URINE Negative (Negative); *BENZODIAZEPINES SCREEN URINE Negative (Negative); ALT 129 U/L (16-63); AST 200 U/L (15-37); Alkaline Phosphatase 118 U/L (46-116); Anion Gap 10.5 mmol/L (3-11); BUN 8 mg/dL (7-18); Bilirubin, Total 0.6 mg/dL (0.2-1.0); CO2 29.5 mmol/L (21.0-32.0); CREATININE 0.8 mg/dL (0.70-1.30); Calcium 8.5 mg/dL (8.5-10.1); Cannabinoids THC Positive (Negative); Chloride 102 mmol/L (98-107); Cocaine Screen,Urine Negative (Negative); Glucose 105 mg/dL (74-106); Lipase 237 U/L (73-393); METHADONE URINE SCREEN Negative (Negative); Magnesium 1.7 mg/dL (1.8-2.4); OPIATES URINE SCREEN Negative (Negative); Potassium 3.7 mmol/L (3.5-5.1); Sodium 142 mmol/L (136-145); Total Protein 7.1 g/dL (6.4-8.2)
[2021-06-29 05:23] LABS: ETHANOL BLOOD 342.4 mg/dL (<3); Tricyclic Antidepressants Negative (Negative)
[2021-06-29] MEDS: Lactated Ringers 1,000 ML 1000 ML IV (05:53)
[2021-06-29] MEDS: MAGNESIUM SULFATE 8.12 MEQ, MULTIVITAMIN 10 ML, THIAMINE 100 MG, FOLIC ACID 1 MG in Nor... 168.867 MG IV (06:16)
[2021-06-29 09:00] LABS: COVID-19 PCR Negative (Negative)
[2021-06-29] MEDS: Metoprolol CR 25 MG TABCR PO (10:15)
[2021-06-29] MEDS: Pantoprazole 20 MG TABCR PO ×2 (10:15→20:35)
[2021-06-29] MEDS: Acetaminophen 500 MG TAB 1000 MG PO (10:22)
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
[2021-06-29] MEDS: Magnesium Citrate 300 ML BTL 150 ML PO (13:15)
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
--- NOTE | 2021-06-29 16:16 | NUR.NOTE ---
Seizure pads are applied to bed. Patient is sleeping.Nursing Note:
[2021-06-29] MEDS: Normal Saline Flush 10 ML SYR IVP ×2 (16:28→18:02)
[2021-06-29] MEDS: PHENobarbital 130 MG/ML VIAL IVP (18:02)
[2021-06-29] MEDS: Pravastatin 20 MG TAB PO (20:35)
[2021-06-29] MEDS: Citalopram 20 MG TAB 40 MG PO (20:35)
[2021-06-30] VITALS (63 sets, daily range): BP systolic 67–160; BP diastolic 49–97; PULSE 71–102; RESP 13–24; TEMP 35.9–37.5; O2SAT 90–98
[2021-06-30] MEDS: PHENobarbital 130 MG/ML VIAL IVP ×2 (04:20→08:44)
[2021-06-30 07:25] LABS: ALT 112 U/L (16-63); AST 148 U/L (15-37); Albumin 3.4 g/dL (3.4-5.0); Alkaline Phosphatase 119 U/L (46-116); Anion Gap 9.4 mmol/L (3-11); BUN 3 mg/dL (7-18); Bilirubin, Direct 0.2 mg/dL (0.0-0.2); Bilirubin, Total 1.1 mg/dL (0.2-1.0); CO2 26.6 mmol/L (21.0-32.0); CREATININE 0.6 mg/dL (0.70-1.30); Calcium 8.3 mg/dL (8.5-10.1); Chloride 100 mmol/L (98-107); Glucose 85 mg/dL (74-106); Magnesium 2.2 mg/dL (1.8-2.4); Potassium 3.6 mmol/L (3.5-5.1); Sodium 136 mmol/L (136-145); Total Protein 6.7 g/dL (6.4-8.2)
[2021-06-30] MEDS: Thiamine 100 MG TAB PO (08:44)
[2021-06-30] MEDS: Metoprolol CR 25 MG TABCR PO (08:44)
[2021-06-30] MEDS: Multivitamin TAB 1 TAB PO (08:44)
[2021-06-30] MEDS: Pantoprazole 20 MG TABCR PO ×2 (08:44→20:19)
--- NOTE | 2021-06-30 09:59 | PGE_ITS ---
Date of Service Date of service: 06/30/21 Time of Service: 09:59 Assessment and Plan Assessment and plan (1) Acute alcoholic hepatitis: Status: Acute Assessment and plan: Alcohol abstinence. AST and ALT improving. Bilirubin now mildly elevated at 1.1 Monitor LFTs Sparingly will use acetaminophen if needed. (2) Pancytopenia: Status: Acute Assessment and plan: Related to Etoh abuse. Monitor. No bleeding noted other than some BRB with hard BM. Monitor CBC (3) Alcohol intoxication: Status: Acute Assessment and plan: Restlessness noted on admission. Phenobarbitol protocol for Etoh withdrawal. Banana bag initiated in ED x 1 liter. Oral thiamine, folate and MVI initiated. Received one dose of IV phenobarbitol yesterday afternoon and one overnight. Improvement in generalized restlessness. Remains oriented. (4) Benign hypertension: Status: Active Assessment and plan: SBP 130's - 150's today Cont metoprolol and restart lisinopril 10mg daily. Monitor. (5) Hypercholesterolemia: Status: Active Assessment and plan: Cont pravastatin. (6) Constipation: Status: None Assessment and plan: Romance bloated yesterday. Mgcitrate administered. Has had 2 soft BMs. Miralax daily starting today Dulcolox suppository prn. M.O.M. prn. Subjective Subjective Patient reports: no new complaints, tolerating a regular diet and afebrile; denies nausea and vomiting Interval history since last seen: Intermittently restless. Exam Const General: cooperative, disheveled and other (restless) Nutritional Appearance: average body habitus Orientation: alert and oriented x3 HENMT Head: normocephalic and atraumatic Eyes Sclera: sclerae normal Pupils: PERRL Resp Effort & Inspection: normal respiratory effort Auscultation: clear to auscultation bilaterally Cardio Rate: tachycardic Rhythm: regular rhythm Heart Sounds: S1 normal and S2 normal GI Inspection: distended (mild) Palpation: nontender Auscultation: normal bowel sounds Skin General skin exam: no rashes or lesions noted Extrem General: no pedal edema and no calf tenderness Psych Appearance: grossly normal Mental Status: mental status grossly normal Speech and Movement: speech clear Affect: anxious affect (Mild) Objective Last Vital Signs Temp 35.9 C L 06/30/21 08:55 Pulse 95 H 06/30/21 08:55 Resp 19 06/30/21 08:55 BP 130/82 06/30/21 08:55 Pulse Ox 97 06/30/21 08:55 Laboratory Results - last 24 hr 06/30/21 06:18 Sodium 136 Potassium 3.6 Chloride 100 Carbon Dioxide 26.6 Anion Gap 9.4 BUN 3 L Creatinine 0.6 L Estimated GFR/1.73 m2 >= 60.00 Glucose 85 Calcium 8.3 L Magnesium 2.2 Total Bilirubin 1.1 H Conjugated Bilirubin 0.2 AST 148 H ALT 112 H Alkaline Phosphatase 119 H Total Protein 6.7 Albumin 3.4
[2021-06-30] MEDS: Lisinopril 10 MG TAB PO (11:12)
[2021-06-30] MEDS: Normal Saline Flush 10 ML SYR IVP ×2 (14:34→20:31)
--- NOTE | 2021-06-30 14:43 | NUR.NOTE ---
18 gauge in patient's right AC was causing patient pain. Per patient's request, said IV is dc'd.Nursing Note:
[2021-06-30] MEDS: hydrOXYzine HCL 25 MG TAB PO ×2 (16:13→20:18)
[2021-06-30] MEDS: Citalopram 20 MG TAB 40 MG PO (20:18)
[2021-06-30] MEDS: Pravastatin 20 MG TAB PO (20:19)
[2021-07-01] VITALS (24 sets, daily range): BP systolic 103–129; BP diastolic 59–82; PULSE 67–92; RESP 13–24; TEMP 36.3–36.7; O2SAT 82–100
[2021-07-01] MEDS: hydrOXYzine HCL 25 MG TAB PO ×2 (06:24→11:11)
[2021-07-01 07:12] LABS: Abs Immature Grans 0.01 10^3/uL (0.0-0.06); Absolute Basophil Count 0.02 10^3/uL (0.0-0.2); Absolute Eosinophil Count 0.17 10^3/uL (0.0-0.7); Absolute Lymphocyte Count 1.19 10^3/uL (1.2-3.4); Absolute Monocyte Count 0.35 10^3/uL (0.1-0.8); Absolute Neutrophil Count 1.84 10^3/uL (1.2-6.7); Basophils % 0.6; Eosinophils % 4.7; HCT 37.1 % (40.0-50.0); HGB 12.5 g/dL (13.5-17.5); Immature Grans % 0.3; Lymphocytes % 33.2; MCH 32.5 pg (27.0-33.0); MCHC 33.7 % (32.0-36.0); MCV 96.4 fL (80-95); MPV 10.2 fL (8.0-11.0); Monocytes % 9.8; Neutrophils % 51.4; Nucleated RBC 0 %; Platelet Count 121 10^3/uL (130-400); RBC 3.85 10^6/uL (4.36-5.78); RDW 13.1 % (11.8-14.1); RDW-SD 46.1 fL; WBC 3.58 10^3/uL (4.4-10.8)
[2021-07-01 07:44] LABS: ALT 95 U/L (16-63); AST 86 U/L (15-37); Albumin 3.4 g/dL (3.4-5.0); Alkaline Phosphatase 119 U/L (46-116); Anion Gap 9.6 mmol/L (3-11); BUN 7 mg/dL (7-18); Bilirubin, Total 0.9 mg/dL (0.2-1.0); CO2 26.4 mmol/L (21.0-32.0); CREATININE 0.8 mg/dL (0.70-1.30); Calcium 8.6 mg/dL (8.5-10.1); Chloride 100 mmol/L (98-107); Glucose 93 mg/dL (74-106); Potassium 3.7 mmol/L (3.5-5.1); Sodium 136 mmol/L (136-145)
[2021-07-01] MEDS: Multivitamin TAB 1 TAB PO (08:05)
[2021-07-01] MEDS: Thiamine 100 MG TAB PO (08:06)
[2021-07-01] MEDS: Metoprolol CR 25 MG TABCR PO (08:06)
[2021-07-01] MEDS: Lisinopril 10 MG TAB PO (08:06)
[2021-07-01] MEDS: Pantoprazole 20 MG TABCR PO (08:06)
[2021-07-01] MEDS: Polyethylene Glycol 3350 17 GM PACKET PO (08:06)
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
--- NOTE | 2021-07-01 10:26 | CMDISCH_ITS ---
- If Service Date Differs Date of service: 07/01/21 Time of Service: 10:26 LACE Index Scoring Tool - Questions: Length of Stay (in days): 2 Acuity (Admit via E.D.?): Yes Comorbidities: Congestive Heart Failure E.D. Visits: 4 - Answers: Total Score: 11 Risk of Readmission: High Risk Care Management Discharge Reason for Hospitalization: Alcohol Withdrawal Discharge Plan: Discharge home via private vehicle with caregiver after meeting with the rhythmic gymnastics coach coordinated by CM. Out patient follow up with rhythmic gymnastics coach, PCP and discharge plan of care. Patient/Family Education Needs: Review discharge instructions and plan to follow up with community providers. ask me three.
--- NOTE | 2021-07-01 10:58 | NUR.NOTE ---
Pt preparing for discharge- all monitoring equipment removed, IV d/c. pt dressing for discharge.
== END 2021-07-01 11:45 | disposition home or self-care (01) | DRG 433 ==
LOC: ER 08:10 → ICU 08:22
PROVIDERS: Admitting Provider Family Medicine; Emergency Provider Emergency Medicine; PCP Nurse Practitioner Family; Visit Provider Family Medicine
DX: K70.10 Alcoholic hepatitis without ascites (principal); D61.818 Other pancytopenia; F10.139 Alcohol abuse with withdrawal, unspecified; E78.00 Pure hypercholesterolemia, unspecified; I10 Essential (primary) hypertension; K59.00 Constipation, unspecified; F10.129 Alcohol abuse with intoxication, unspecified; I35.0 Nonrheumatic aortic (valve) stenosis; K21.9 Gastro-esophageal reflux disease without esophagitis; E78.5 Hyperlipidemia, unspecified; Z87.891 Personal history of nicotine dependence; Z20.822 Contact with and (suspected) exposure to COVID-19
CPT/HCPCS: 36415; 80048; 80053; 80076; 80307; 83690; 87635; 93005; 96361; 96365; 96366; 99291; 80320; 83735; 85025; 85610; 93010; 99223; 99233; 99239; J2560

== ENCOUNTER 2021-09-02 14:53 | Outpatient (REF) | payer MEDICARE, MEDICAID, SELFPAY ==
[2021-09-02 20:28] LABS: HCT 38.8 % (40.0-50.0); HGB 13.1 g/dL (13.5-17.5); MCH 31.2 pg (27.0-33.0); MCHC 33.8 % (32.0-36.0); MCV 92.4 fL (80-95); MPV 10.2 fL (8.0-11.0); Platelet Count 263 10^3/uL (130-400); RDW 12.3 % (11.8-14.1); RDW-SD 41.8 fL; WBC 5.33 10^3/uL (4.4-10.8)
[2021-09-02 20:36] LABS: ALT 34 U/L (16-63); AST 27 U/L (15-37); Albumin 3.8 g/dL (3.4-5.0); Alkaline Phosphatase 82 U/L (46-116); Bilirubin, Direct 0.1 mg/dL (0.0-0.2); Bilirubin, Total 0.4 mg/dL (0.2-1.0); Total Protein 6.9 g/dL (6.4-8.2)
== END 2021-09-02 14:54 | disposition home or self-care (01) ==
LOC: NCHCN 14:53
PROVIDERS: PCP Nurse Practitioner Family; Visit Provider Nurse Practitioner Family
DX: D64.9 Anemia, unspecified (principal); K76.0 Fatty (change of) liver, not elsewhere classified
CPT/HCPCS: 80076; 85027

== ENCOUNTER 2021-10-28 09:17 | Emergency (ER) | payer MEDICARE, MEDICAID, SELFPAY ==
[2021-10-28] VITALS (30 sets, daily range): BP systolic 126–164; BP diastolic 78–103; PULSE 69–84; RESP 12–26; TEMP 36.7; O2SAT 95–98
--- NOTE | 2021-10-28 09:30 | RT.EKG_ITS ---
APPROVED REPORT Exam: Resting ECG Reason for Exam: covid Patient Location: E HR:81 bpm ECG Measurements Heart Rate 81 AXIS MA 199 P 64 QRSd 117 QRS 1 QT 391 T 43 QTc 456 Conclusion Sinus rhythm...normal P axis, V-rate 60- 99 Nonspecific intraventricular conduction delay...QRSd >115mS, not LBBB/RBBB sinus rhythm at 81, normal axis, no STEMI, nondiagnostic EKG
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
[2021-10-28 10:12] LABS: Lactate 1.3 mmol/L (0.6-1.4)
[2021-10-28 10:13] LABS: Abs Immature Grans 0.06 10^3/uL (0.0-0.06); Absolute Basophil Count 0.02 10^3/uL (0.0-0.2); Absolute Eosinophil Count 0.11 10^3/uL (0.0-0.7); Absolute Monocyte Count 0.58 10^3/uL (0.1-0.8); Basophils % 0.4; Eosinophils % 1.9; HCT 38.4 % (40.0-50.0); Immature Grans % 1.1; Lymphocytes % 47.6; MCHC 33.9 % (32.0-36.0); MCV 88.7 fL (80-95); MPV 9.4 fL (8.0-11.0); Monocytes % 10.2; Neutrophils % 38.8; Nucleated RBC 0 %; Platelet Count 223 10^3/uL (130-400); RBC 4.33 10^6/uL (4.36-5.78); RDW 13.2 % (11.8-14.1); RDW-SD 42.4 fL; WBC 5.67 10^3/uL (4.4-10.8)
[2021-10-28] MEDS: THIAMINE 100 MG in Normal Saline 100 ML 200 MG IVPB (10:30)
[2021-10-28] MEDS: Normal Saline 1,000 ML 1000 ML IV (10:30)
[2021-10-28 10:34] LABS: ALT 49 U/L (16-63); AST 40 U/L (15-37); Albumin 3.8 g/dL (3.4-5.0); Alkaline Phosphatase 105 U/L (46-116); BUN 16 mg/dL (7-18); Bilirubin, Total 0.3 mg/dL (0.2-1.0); CREATININE 0.8 mg/dL (0.70-1.30); Chloride 101 mmol/L (98-107); ETHANOL BLOOD 209.5 mg/dL (<10); Glucose 107 mg/dL (74-106); Magnesium 2.1 mg/dL (1.8-2.4); PHOSPHORUS 3.7 mg/dL (2.6-4.7); Potassium 3.7 mmol/L (3.5-5.1); Sodium 137 mmol/L (136-145); Total Protein 7.7 g/dL (6.4-8.2); Troponin I < 50 ng/L (<or=60)
[2021-10-28 10:51] LABS: D-Dimer 648 ng/mlFEU (<500)
--- NOTE | 2021-10-28 11:00 | DI.CT_ITS ---
Exam(s) CT CHEST PE CTA EXAM: CT CHEST PE CTA CLINICAL HISTORY: SOB, COVID +. TECHNIQUE: Imaging Protocol: CT angiography of the chest was performed using pulmonary embolus ritesh col. Multi planar reconstructions were performed. CONTRAST MATERIAL: Intravenous: Omnipaque 350 Contrast volume: 73 cc COMPARISON: CT CHEST ABD PELVIS WITH CONTRAST from 03/03/2017 FINDINGS: CHEST: PULMONARY ARTERIES: There are no intraluminal filling defects to suggest acute pulmonary emboli. LUNGS: Mild patchy infiltrate left upper lobe. No prominent bilateral infiltrates and no pleural eff usions. No pneumothorax. No significant focal findings in trachea and mainstem bronchi.. There are no pleural effusions. MEDIASTINUM: There is no hilar nor mediastinal adenopathy. Visualized thyroid unremarkable. CARDIAC: Heart size is upper normal. There is no pericardial effusion.Caliber of the sending thoraci c aorta is enlarged, measuring 5 cm. There is no significant shift of the interventricular septum. PARTIALLY VISUALIZED UPPERMOST ABDOMEN: Partially included finding in the left hepatic lobe probably a cyst measuring 2.5 x 2.3 cm, not fully included in the field of view of this study OSSEOUS: Multiple right-sided rib fusion plates evident.Also multiple healed fractures of the opposit e-left rib cage. No obvious acute rib fractures. No compression fractures. IMPRESSION: 1. No evidence of acute pulmonary emboli. No evidence of pulmonary infarction.No pleural effusions. 2. Mild increased markings in the left lung. 3. No intrathoracic adenopathy. Enlarged ascending thoracic aorta which exhibits maximum diameter 5 cm. RADIATION DOSE DELIVERED: 379.2mGy.cm Total DLP DATA REPOSITORY: All CT scans at this facility are submitted to the National Radiology Data Registry (NRDR) Dose Index Registry (DIR) with the [employer] ([employer]). RADIATION OPTIMIZATION: All CT scans at this facility use at least one of these dose optimization te chniques: automated exposure control; mA and/or kV adjustment per patient size (includes targeted exa ms where dose is matched to clinical indication); or iterative reconstruction.
[2021-10-28] MEDS: Omnipaque 350 MG/ML 100 ML BTL IJ (12:54)
--- NOTE | 2021-10-28 13:00 | RT.EKG_ITS ---
APPROVED REPORT Exam: Resting ECG Reason for Exam: second EKG Patient Location: E HR:76 bpm ECG Measurements Heart Rate 76 AXIS OR 196 P 4 QRSd 104 QRS -7 QT 403 T 26 QTc 453 Conclusion Sinus rhythm...normal P axis, V-rate 60- 99 sinus rhythm at 76, normal axis, no acute ischemic changes, nondiagnostic EKG
[2021-10-28 13:42] LABS: Troponin I < 50 ng/L (<or=60)
== END 2021-10-28 14:30 | disposition home or self-care (01) ==
PROVIDERS: Emergency Provider Student in an Organized Health Care Education/Training Program; PCP Nurse Practitioner Family
DX: U07.1 COVID-19 (principal); R06.02 Shortness of breath; F10.20 Alcohol dependence, uncomplicated; F10.229 Alcohol dependence with intoxication, unspecified; Y90.7 Blood alcohol level of 200-239 mg/100 ml
CPT/HCPCS: 36415; 71275; 80053; 87040; 93005; 96361; 96365; 99285; 80320; 83605; 83735; 84100; 84484; 85025; 85379; 93010; 99284; J3490

== ENCOUNTER 2022-02-12 14:14 | Outpatient (REF) | payer MEDICARE, MEDICAID, SELFPAY ==
[2022-02-12 20:58] LABS: CREATININE 0.9 mg/dL (0.70-1.30)
== END 2022-02-12 14:15 | disposition home or self-care (01) ==
LOC: NCHCN 14:14
PROVIDERS: PCP Nurse Practitioner Family; Visit Provider Nurse Practitioner Family
DX: I71.4 Abdominal aortic aneurysm, without rupture (principal); I71.2 Thoracic aortic aneurysm, without rupture
CPT/HCPCS: 82565

== ENCOUNTER 2022-02-12 14:36 | Outpatient (REF) | payer MEDICARE, MEDICAID, SELFPAY | END 2022-02-12 14:37 | disposition home or self-care (01) | LOC: LBN 14:36 | PROVIDERS: PCP Nurse Practitioner Family; Visit Provider Thoracic Surgery (Cardiothoracic Vascular Surgery) ==

== ENCOUNTER 2022-03-27 17:46 | Outpatient (REF) | payer MEDICARE, MEDICAID, SELFPAY ==
[2022-03-27 20:30] LABS: Abs Immature Grans 0.01 10^3/uL (0.0-0.06); Absolute Basophil Count 0.03 10^3/uL (0.0-0.2); Absolute Eosinophil Count 0.07 10^3/uL (0.0-0.7); Absolute Monocyte Count 0.36 10^3/uL (0.1-0.8); Absolute Neutrophil Count 1.75 10^3/uL (1.2-6.7); Basophils % 0.8; Eosinophils % 1.8; HCT 40.9 % (40.0-50.0); HGB 14.4 g/dL (13.5-17.5); Immature Grans % 0.3; Lymphocytes % 41.9; MCH 32.5 pg (27.0-33.0); MCHC 35.2 % (32.0-36.0); MCV 92 fL (80-95); MPV 9.5 fL (8.0-11.0); Monocytes % 9.4; Neutrophils % 45.8; Platelet Count 184 10^3/uL (130-400); RBC 4.43 10^6/uL (4.36-5.78); RDW 13.1 % (11.8-14.1); RDW-SD 44.4 fL; WBC 3.82 10^3/uL (4.4-10.8)
[2022-03-27 21:23] LABS: ALT 62 U/L (16-63); AST 65 U/L (15-37); Alkaline Phosphatase 116 U/L (46-116); Anion Gap 12.3 mmol/L (3-11); BUN 12 mg/dL (7-18); Bilirubin, Total 0.6 mg/dL (0.2-1.0); CO2 26.7 mmol/L (21.0-32.0); Calcium 8.6 mg/dL (8.5-10.1); Chloride 99 mmol/L (98-107); Glucose 108 mg/dL (74-106); Potassium 4.2 mmol/L (3.5-5.1); Sodium 138 mmol/L (136-145); Total Protein 7.3 g/dL (6.4-8.2)
== END 2022-03-27 17:47 | disposition home or self-care (01) ==
LOC: LBN 17:46
PROVIDERS: PCP Nurse Practitioner Family; Visit Provider Physician Assistant Medical
DX: K62.5 Hemorrhage of anus and rectum (principal); F10.10 Alcohol abuse, uncomplicated; I10 Essential (primary) hypertension; D64.9 Anemia, unspecified
CPT/HCPCS: 80053; 85025

== ENCOUNTER 2022-04-26 07:29 | Inpatient (IN) | payer MEDICARE, MEDICAID, SELFPAY ==
[2022-04-26] VITALS (28 sets, daily range): BP systolic 107–156; BP diastolic 67–127; PULSE 71–103; RESP 15–28; TEMP 35.4–37.5; O2SAT 91–99
--- NOTE | 2022-04-26 07:45 | DI.CT_ITS ---
Exam(s) CT ABDOMEN PELVIS WO EXAM: CT ABDOMEN PELVIS WO CLINICAL HISTORY: severe abdominal pain, etoh binge hx of laparotomy. TECHNIQUE: Imaging Protocol: Axial computed tomography images with coronal and sagittal reformatted images were created and reviewed. COMPARISON: CT CHEST ABD PELVIS WITH CONTRAST from 03/03/[address] CHEST PE CTA from 10/28/2021 FINDINGS: ABDOMEN: Lung Bases: Multiple calcified granuloma and parenchymal scarring. Coronary artery calcification is present. Liver: There is fatty infiltration of the liver. There are stable hypodensities in the liver. These were present on the examination from 03/03/2017 and consistent with cysts. The hypodense lesion in t he posterior segment of the right lobe of the liver may represent hemangioma. Gallbladder and biliary tract: No radiodense calculus or biliary ductal dilation. Pancreas: There are inflammatory changes seen around the body in the tail of the pancreas. No focal fluid collection is seen to suggest an abscess. The findings are suspicious for acute pancreatitis. Spleen: Calcified granuloma are seen in the spleen. Kidneys: Normal size, contour and axis.No radiodense stones or obstructive uropathy. No masses seen. Adrenal glands: No mass is seen. Lymph nodes: Within normal limits. Abdominal Aorta: Abdominal portion non-dilated. Atherosclerosis is present. PELVIS: Bladder:Symmetric distention, no gross wall thickening. Bowel: No obstruction or bowel wall thickening. There is no evidence of appendicitis. There is divert iculosis seen in the sigmoid colon, but no evidence of acute diverticulitis. Peritoneal cavity: There is infiltration in the mesentery particularly around the pancreas. No focal fluid collection is seen. No free air. Reproductive organs: Unremarkable as visualized. Bones: Within normal limits. There again seen side plates and screws transfixing old right rib fractu res. There is L5 spondylolysis but no evidence of a spondylolisthesis. Soft Tissues: Within normal limits. There are small bilateral fat containing inguinal hernia. IMPRESSION: Findings most suggestive of acute pancreatitis. RADIATION DOSE DELIVERED: 900.54mGy.cm Total DLP DATA REPOSITORY: All CT scans at this facility are submitted to the National Radiology Data Registry (NRDR) Dose Index Registry (DIR) with the [employer] ([employer]). RADIATION OPTIMIZATION: All CT scans at this facility use at least one of these dose optimization te chniques: automated exposure control; mA and/or kV adjustment per patient size (includes targeted exa ms where dose is matched to clinical indication); or iterative reconstruction.
[2022-04-26] MEDS: Normal Saline 1,000 ML 1000 ML IV (08:03)
[2022-04-26 08:06] LABS: Abs Immature Grans 0.06 10^3/uL (0.0-0.06); Absolute Basophil Count 0.02 10^3/uL (0.0-0.2); Absolute Lymphocyte Count 0.81 10^3/uL (1.2-3.4); Absolute Neutrophil Count 10.35 10^3/uL (1.2-6.7); Basophils % 0.2; HCT 43.9 % (40.0-50.0); HGB 15.4 g/dL (13.5-17.5); Immature Grans % 0.5; Lymphocytes % 6.8; MCH 32.3 pg (27.0-33.0); MCHC 35.1 % (32.0-36.0); MCV 92 fL (80-95); MPV 9.8 fL (8.0-11.0); Monocytes % 5.1; Neutrophils % 87.4; Platelet Count 168 10^3/uL (130-400); RBC 4.77 10^6/uL (4.36-5.78); RDW 13.1 % (11.8-14.1); RDW-SD 44.4 fL; WBC 11.84 10^3/uL (4.4-10.8)
[2022-04-26] MEDS: Ondansetron 4 MG/2 ML VIAL IVP (08:10)
[2022-04-26] MEDS: MORPHine 4 MG/ML SYR IVP ×5 (08:10→20:57)
[2022-04-26] MEDS: FAMOTIDINE 20 MG in Normal Saline 100 ML 400 MG IVPB (08:10)
[2022-04-26] MEDS: Famotidine 20 MG/2 ML VIAL IV (08:26)
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
[2022-04-26 08:58] LABS: Bilirubin Small (Negative); Blood Negative (Negative); Clarity Clear (Clear); Glucose Negative (Negative); Ketones Trace mg/dL (Negative); Leukocyte Esterase Negative (Negative); Nitrite Negative (Negative); Specific Gravity >= 1.030 (1.005-1.025)
[2022-04-26] MEDS: LORazepam 20 MG/10 ML VIAL IVP (09:02)
[2022-04-26 09:10] LABS: Bacteria Negative HPF (Negative); C & S Indicated? No; Casts 10-20 Hyaline LPF (Negative); Crystals Negative HPF (Negative); Epithelial Cells Negative HPF (Negative); Mucus Heavy (Negative); RBC 0-2 HPF (0-2); WBC 0-2 HPF (0-5)
[2022-04-26 09:35] LABS: ALT 131 U/L (16-63); Albumin 2.9 g/dL (3.4-5.0); Alkaline Phosphatase 129 U/L (46-116); Anion Gap 11.1 mmol/L (3-11); BUN 20 mg/dL (7-18); Bilirubin, Total 1.5 mg/dL (0.2-1.0); CO2 21.9 mmol/L (21.0-32.0); CREATININE 1.1 mg/dL (0.70-1.30); Calcium 7.8 mg/dL (8.5-10.1); Chloride 101 mmol/L (98-107); ETHANOL BLOOD < 3.0 mg/dL (<10); Glucose 129 mg/dL (74-106); Potassium 3.5 mmol/L (3.5-5.1); Sodium 134 mmol/L (136-145); Troponin I < 50 ng/L (<or=60)
--- NOTE | 2022-04-26 09:41 | DI.VRAD_ITS ---
PROCEDURE INFORMATION: Exam: CT Abdomen And Pelvis Without Contrast Exam date and time: 04/26/2022 8:21 AM Age: 66 years old Clinical indication: Other: Severe abdominal pain, ETOH binge HX of laparotomy TECHNIQUE: Imaging protocol: Computed tomography of the abdomen and pelvis without contrast. COMPARISON: CT CHEST ABD PELVIS WITH CONTRAST 03/03/2017 5:40 PM FINDINGS: Lungs: Parenchymal scarring at the right lung base is stable. Liver: Low-density lesions in the left lobe of the liver representing cysts are unchanged from 10/28/2021. Gallbladder and bile ducts: Normal. No calcified stones. No ductal dilation. Pancreas: There is extensive inflammatory change about the pancreatic tail, with small layering fluid in the left paracolic gutter, likely representing acute pancreatitis. Spleen: Normal. No splenomegaly. Adrenal glands: Normal. No mass. Kidneys and ureters: Normal. No hydronephrosis. Stomach and bowel: Unremarkable. No obstruction. No mucosal thickening. Appendix: No evidence of appendicitis. Intraperitoneal space: There is no intra-abdominal free air. There is no extraluminal fluid collection. Vasculature: Unremarkable. No abdominal aortic aneurysm. Lymph nodes: Unremarkable. No enlarged lymph nodes. Urinary bladder: Unremarkable as visualized. Reproductive: Unremarkable as visualized. Bones/joints: Screw and plate fixation of right lateral lower ribs are in place, and unchanged from 10/28/2021. There are multilevel degenerative changes of the visualized thoracolumbar spine. There is no acute osseous pathology. Soft tissues: Unremarkable. IMPRESSION: 1. Findings consistent with acute pancreatitis. 2. Stable hepatic cysts. No further follow-up is recommended. 3. Degenerative changes. Dictated and Authenticated by: Steve Ibanez MD. Ordering:VELASQUEZ Tamayo MD
[2022-04-26] MEDS: Lidocaine 2% Viscous 15 ML CUP PO (09:42)
[2022-04-26] MEDS: Mylanta Suspension 30 ML CUP PO (09:42)
[2022-04-26 09:47] LABS: AST 147 U/L (15-37)
[2022-04-26 09:48] LABS: Lipase 4553 U/L (73-393)
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
[2022-04-26 11:03] LABS: Source Nasal/Nares
[2022-04-26] MEDS: Enoxaparin 40 MG/0.4 ML SYR SC (11:47)
[2022-04-26 11:55] LABS: COVID-19 PCR Negative (Negative)
[2022-04-26 13:44] LABS: *AMPHETAMINES SCREEN URINE Negative (Negative); *BARBITURATES SCREEN URINE Negative (Negative); *BENZODIAZEPINES SCREEN URINE Negative (Negative); Cannabinoids THC Negative (Negative); Cocaine Screen,Urine Negative (Negative); METHADONE URINE SCREEN Negative (Negative); OPIATES URINE SCREEN Positive (Negative)
[2022-04-26 13:45] LABS: Tricyclic Antidepressants Negative (Negative)
[2022-04-26] MEDS: Folic Acid 1 MG TAB PO (14:08)
[2022-04-26] MEDS: Thiamine 100 MG TAB PO (14:08)
[2022-04-26] MEDS: Normal Saline Flush 10 ML SYR ×3 (14:08→20:56)
[2022-04-26] MEDS: Pantoprazole 40 MG VIAL IVP (15:37)
[2022-04-26] MEDS: Lactated Ringers 1,000 ML 100 ML IV (15:38)
[2022-04-26 16:41] LABS: PHOSPHORUS 2.7 mg/dL (2.6-4.7)
[2022-04-26] MEDS: PHENobarbital 130 MG in Normal Saline 50 ML 100 MG IVPB ×2 (16:48→19:29)
[2022-04-26] MEDS: Pravastatin 40 MG TAB (20:46)
[2022-04-26] MEDS: Polyethylene Glycol 3350 17 GM PACKET PO (20:56)
[2022-04-26] MEDS: Citalopram 20 MG TAB 40 MG PO (22:42)
[2022-04-27] VITALS (15 sets, daily range): BP systolic 97–138; BP diastolic 8–94; PULSE 94–118; RESP 14–24; TEMP 35.9–37.9; O2SAT 87–96
[2022-04-27] MEDS: MORPHine 4 MG/ML SYR IVP ×4 (00:53→10:57)
[2022-04-27] MEDS: Normal Saline Flush 10 ML SYR IVP ×6 (01:01→22:53)
[2022-04-27] MEDS: Acetaminophen 325 MG TAB PO ×2 (01:04→10:57)
[2022-04-27] MEDS: Lactated Ringers 1,000 ML 100 ML IV ×3 (02:24→21:50)
[2022-04-27] MEDS: PHENobarbital 130 MG/ML VIAL 260 MG IVP ×4 (02:43→22:53)
[2022-04-27 06:49] LABS: Abs Immature Grans 0.07 10^3/uL (0.0-0.06); Absolute Basophil Count 0.03 10^3/uL (0.0-0.2); Absolute Eosinophil Count 0.04 10^3/uL (0.0-0.7); Absolute Lymphocyte Count 1.12 10^3/uL (1.2-3.4); Absolute Neutrophil Count 8.68 10^3/uL (1.2-6.7); Basophils % 0.3; Eosinophils % 0.4; HCT 36.4 % (40.0-50.0); HGB 12.5 g/dL (13.5-17.5); Immature Grans % 0.7; Lymphocytes % 10.7; MCH 32.7 pg (27.0-33.0); MCHC 34.3 % (32.0-36.0); MCV 95 fL (80-95); MPV 9.9 fL (8.0-11.0); Monocytes % 4.8; Neutrophils % 83.1; Platelet Count 101 10^3/uL (130-400); RBC 3.82 10^6/uL (4.36-5.78); RDW 13.4 % (11.8-14.1); RDW-SD 46.9 fL; WBC 10.44 10^3/uL (4.4-10.8)
[2022-04-27 07:09] LABS: ALT 87 U/L (16-63); AST 71 U/L (15-37); Albumin 2.7 g/dL (3.4-5.0); Alkaline Phosphatase 103 U/L (46-116); BUN 14 mg/dL (7-18); Bilirubin, Total 1.9 mg/dL (0.2-1.0); CREATININE 1.2 mg/dL (0.70-1.30); Calcium 7.8 mg/dL (8.5-10.1); Chloride 95 mmol/L (98-107); Glucose 93 mg/dL (74-106); Magnesium 1.2 mg/dL (1.8-2.4); Potassium 4.2 mmol/L (3.5-5.1); Sodium 132 mmol/L (136-145); Total Protein 5.9 g/dL (6.4-8.2)
[2022-04-27] MEDS: Ondansetron 4 MG/2 ML VIAL IVP ×2 (08:31→21:50)
[2022-04-27] MEDS: Metoprolol CR 25 MG TABCR 50 MG PO (08:33)
[2022-04-27] MEDS: Polyethylene Glycol 3350 17 GM PACKET PO (08:33)
[2022-04-27] MEDS: Magnesium Chloride 64 MG TABCR PO ×2 (08:33→18:22)
[2022-04-27] MEDS: Multivitamin TAB 1 TAB PO (08:33)
[2022-04-27] MEDS: Folic Acid 1 MG TAB PO (08:33)
[2022-04-27] MEDS: Lisinopril 10 MG TAB PO (08:34)
[2022-04-27] MEDS: Thiamine 100 MG TAB PO (08:34)
[2022-04-27] MEDS: Umeclidinium 7 CAP INHALER IH (09:18)
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
[2022-04-27] MEDS: MAGNESIUM SULFATE 4 GM/100 ML BAG IVPB (10:57)
[2022-04-27] MEDS: Enoxaparin 40 MG/0.4 ML SYR SC (12:10)
--- NOTE | 2022-04-27 12:30 | W.PM.PROGNOT ---
Date of Service Date of service: 04/27/22 Time of Service: 12:30 Assessment and Plan Assessment and plan (1) Pancreatitis, acute: Status: Acute Assessment and plan: cont. clear liquids, he is not ready to advance his diet yet. cont. analgesic, antiemetic; PPI, monitor daily labs Professional time spent interviewing and examining patient, discussion of goals of care with hospital team (care management, nursing and consulting professionals) was 30 minutes. (2) Alcohol dependence with withdrawal: Status: Acute Assessment and plan: patient needs more parenteral phenobarbital. I will dc any po orders since he has the pancreatitis and I am not sure he is fully absorbing the meds. Given his higher scoring, I will give him a now dose of phenobarbital 260 mg. He can go up to 2100 mg total before we would need to stop giving the phenobarbital w/out checking levels. (3) Benign hypertension: Status: Active Assessment and plan: Patient is metoprolol succinate and lisinopril (4) Acute alcoholic hepatitis: Status: Acute Assessment and plan: improving; continue to monitor; giving protonix for GI protection (5) DVT prophylaxis: Status: Acute Assessment and plan: Lovenox subcu Subjective Subjective Interval history since last seen: Patient denies any nausea or vomiting although he is only had a little bit of oral fluid intake. He still required narcotic analgesics for his abdominal pain from his pancreatitis. He still scoring on the CIWA scale Scores a 13 last night and up to 12 at noon. He is diaphoretic but is not hallucinating. He is only up to 970 mg cumulative dose of phenobarbital. His soft stop is 1400 mg in the hard stop at 2100 mg. Exam Narrative Exam Narrative: Alert and oriented person place time circumstance. He was able to correctly state the name of the hospital the month year. He understands he is going through alcohol withdrawal. He denies hallucinations. Skin is diaphoretic Lungs are clear to auscultation Heart is regular rate and rhythm Abdomen is distended with hyperactive bowel sounds mild epigastric tenderness with no rebound tenderness. Extremities without edema or cyanosis Objective Last Vital Signs Temp 36.6 C 04/27/22 12:06 Pulse 110 H 04/27/22 12:06 Resp 20 04/27/22 12:06 BP 104/66 04/27/22 12:06 Pulse Ox 95 04/27/22 12:06 Laboratory Results - last 24 hr 04/26/22 04/26/22 04/27/22 08:35 16:20 06:14 WBC RBC Hgb Hct MCV MCH MCHC RDW Plt Count MPV Immature Gran % Neutrophils % Lymphocytes % Monocytes % Eosinophils % Basophils % Nucleated RBC % Absolute Neutrophils Absolute Lymphocytes Absolute Monocytes Absolute Eosinophils Absolute Basophils Sodium 132 L Potassium 4.2 Chloride 95 L Carbon Dioxide 29.0 Anion Gap 8.0 BUN 14 Creatinine 1.2 Estimated GFR/1.73 m2 >= 60.00 Glucose 93 Calcium 7.8 L Phosphorus 2.7 Magnesium 1.2 L Total Bilirubin 1.9 H AST 71 H ALT 87 H Alkaline Phosphatase 103 Total Protein 5.9 L Albumin 2.7 L Urine Opiates Screen Positive A Urine Methadone Screen Negative Ur Barbiturates Screen Negative Ur Tricyclics Screen Negative Ur Amphetamines Screen Negative U Benzodiazepines Scrn Negative Urine Cocaine Screen Negative Ur THC Screen Negative 04/27/22 06:14 WBC 10.44 RBC 3.82 L Hgb 12.5 L D Hct 36.4 L MCV 95 MCH 32.7 MCHC 34.3 RDW 13.4 Plt Count 101 L MPV 9.9 Immature Gran % 0.7 Neutrophils % 83.1 Lymphocytes % 10.7 Monocytes % 4.8 Eosinophils % 0.4 Basophils % 0.3 Nucleated RBC % 0.0 Absolute Neutrophils 8.68 H Absolute Lymphocytes 1.12 L Absolute Monocytes 0.50 Absolute Eosinophils 0.04 Absolute Basophils 0.03 Sodium Potassium Chloride Carbon Dioxide Anion Gap BUN Creatinine Estimated GFR/1.73 m2 Glucose Calcium Phosphorus Magnesium Total Bilirubin AST ALT Alkaline Phosphatase Total Protein Albumin Urine Opiates Screen Urine Methadone Screen Ur Barbiturates Screen Ur Tricyclics Screen Ur Amphetamines Screen U Benzodiazepines Scrn Urine Cocaine Screen Ur THC Screen PAWSS Have you Been Recently Intoxicated or Drunk Within the Last 30 days?: Yes Have you Ever Experienced Previous Episodes of Alcohol Withdrawal?: Yes Have you ever Experienced Withdrawal Seizures?: Unable to Obtain Have you ever Experienced Delirium Tremens(DT)s?: Unable to Obtain Have you ever undergone Alcohol Rehabilitation Treatment (i.e, inpt ot outpatient treatment programs)?: Yes Have you ever Experienced Blackouts?: Yes Have you ever Combined Alcohol with other Downers within the last 90 days?: No Have you ever Combined Alcohol with any other Substance of Abuse during the last 90 days?: No Positive Blood Alcohol level on Presentation? [PCS.BAL]: No Evidence of Increased Autonomic Activity (i.e. HR>120, tremor, sweating, agitation, nausea)?: Yes Result: 5
[2022-04-27] MEDS: Pantoprazole 40 MG VIAL IVP (14:06)
[2022-04-27] MEDS: Bisacodyl 10 MG SUPP PR (14:07)
[2022-04-27] MEDS: Methylnaltrexone 12 MG/0.6 ML VIAL SC (14:07)
--- NOTE | 2022-04-27 20:06 | NUR.NOTE ---
Nursing Note: This afternoon when this CODING MANAGER came on shift, I went in to assess patient, found him to be very altered and sleepy. Unable to hold a conversation at this time. Periodically rambling but unable to understand what he is saying. Found him trying to get out of bed and states I'm going home. Patient continues to be increasingly irritable this afternoon. Ate his dinner, did not remember and demanding we feed him more dinner. Pt offered food consistent with his clear liquid diet which made him upset and was demanding a fish dinner. Patient would then be grabbing at the air and claims he is eating. Pt denies hallucinations but has been grabbing at the air and talking/mumbling to self at times. Has been pulling at IV tubing, IV has been thoroughly wrapped. Pt has also been trying to push buttons on IV pump. Patient was then given phenobarbital, while scanning medications, this CODING MANAGER observed the patient grab his urinal and start drinking from hit. Patient immediately spit it out. Patient states he thought it was beer so he was going to drink it. Continues to be very impulsive and forgetful. Alarms on. SARAHN Ming colby.
[2022-04-27] MEDS: Pravastatin 20 MG TAB PO (20:39)
[2022-04-27] MEDS: Ketoconazole 2% CREAM 15 GM TUBE TP (20:40)
[2022-04-27] MEDS: Citalopram 20 MG TAB 40 MG PO (21:50)
--- NOTE | 2022-04-27 23:00 | W.EVENT ---
Date of service: 04/27/22 Time of Service: 23:00 Event Note: Patient developed increasing agitation, tachycardia, diaphoresis and hallucinations associated w/ his alcohol withdrawal. Patient has been titrated on his phenobarbital protocol and is approaching a hard stop cumulative dose of 30 mg/kg IBW which amounts to 215 mg (he has had 1870 mg total). Patient is being transferred to ICU for dexmedetomidine drip. He was medicated w/ ativan 2 mg IVP to acutely control his agitation for CIWA score of 23. He is now sedated. We will use low dose Precedex to keep him calm. Phenobarbital level will be measured in the morning w/ his other labs. The hard stop level was based on his IBW not his actual body weight, therefore his actual phenobarbital levels may not be above the upper threshold of 40. Time Spent with Patient Time spent in critical care(minutes): 30 Time Spent Included: Coordination of care, Documenting critically ill care, Time at immediate bedside and Discussing critically ill care with other medical staff
--- NOTE | 2022-04-27 23:24 | NUR.NOTE ---
Nursing Note: CIWA score 23. Continued agitation. MD states to give his last dose of phenobarb which will put him at his hard limit. Patient trying to pull out IVs, getting out of bed, trying to rip anything he can get his hands on including IV tubing, IV dressing, kerlix, seizure pads. Beginning to become more aggressive with nursing staff. Trying to go fishing with his IV. Thinks there is fish and beer in his bed. Thrashing around in bed, unable to rest or sit still. Uncooperative with nursing staff. Patient transferred to ICU at this time.
[2022-04-28] VITALS (43 sets, daily range): BP systolic 108–157; BP diastolic 57–114; PULSE 71–152; RESP 16; TEMP 36.6–37.2; O2SAT 85–99
[2022-04-28] MEDS: THIAMINE 500 MG in Normal Saline 100 ML 200 MG IVPB ×2 (00:33→10:19)
[2022-04-28] MEDS: MORPHine 4 MG/ML SYR IVP (00:34)
[2022-04-28] MEDS: LORazepam 20 MG/10 ML VIAL IVP (00:47)
[2022-04-28] MEDS: dexmedeTOMidine IN 0.9 % NACL 400 MCG/100 ML BTL IVPB ×2 (02:00→20:27)
[2022-04-28 08:14] LABS: Abs Immature Grans 0.11 10^3/uL (0.0-0.06); Absolute Basophil Count 0.01 10^3/uL (0.0-0.2); Absolute Eosinophil Count 0.15 10^3/uL (0.0-0.7); Absolute Lymphocyte Count 0.92 10^3/uL (1.2-3.4); Absolute Monocyte Count 0.68 10^3/uL (0.1-0.8); Absolute Neutrophil Count 6.97 10^3/uL (1.2-6.7); Basophils % 0.1; Eosinophils % 1.7; HCT 30.7 % (40.0-50.0); HGB 10.5 g/dL (13.5-17.5); Immature Grans % 1.2; Lymphocytes % 10.4; MCH 32.6 pg (27.0-33.0); MCHC 34.2 % (32.0-36.0); MCV 95 fL (80-95); MPV 10.3 fL (8.0-11.0); Monocytes % 7.7; Neutrophils % 78.9; RBC 3.22 10^6/uL (4.36-5.78); RDW 13.2 % (11.8-14.1); WBC 8.84 10^3/uL (4.4-10.8)
[2022-04-28 08:27] LABS: Platelet Count 76 10^3/uL (130-400)
[2022-04-28 08:28] LABS: ALT 63 U/L (16-63); AST 49 U/L (15-37); Albumin 2.3 g/dL (3.4-5.0); Alkaline Phosphatase 92 U/L (46-116); BUN 8 mg/dL (7-18); Bilirubin, Total 1.6 mg/dL (0.2-1.0); CREATININE 0.7 mg/dL (0.70-1.30); Calcium 7.7 mg/dL (8.5-10.1); Chloride 95 mmol/L (98-107); Glucose 81 mg/dL (74-106); Potassium 3.3 mmol/L (3.5-5.1); Sodium 129 mmol/L (136-145); Total Protein 5.5 g/dL (6.4-8.2)
[2022-04-28 08:38] LABS: PHENOBARBITAL 31.4 ug/mL (15.0-40.0)
[2022-04-28] MEDS: Lactated Ringers 1,000 ML 100 ML IV (09:00)
--- NOTE | 2022-04-28 09:13 | PUCC_ITS ---
General Date of Service Date of service: 04/28/22 Time of Service: 09:13 Reason for Admission to ICU: EtOH withdrawl Pancreatitis Assessment and Plan Assessment and plan (1) Pancreatitis, acute: Status: Acute (2) Acute alcoholic hepatitis: Status: Acute (3) Alcohol dependence with withdrawal: Status: Acute (4) Delirium: Status: Acute (5) Agitation: Status: Acute (6) Hypokalemia: Status: Acute Assessment and plan: This is a 66 yo man admitted to the ICU for EtOH withdrawl and pancreatitis with agitation. He has received enough phenobarbital to treat withdrawal and prevent seizures. He is on Precedex for agitation but was over sedated this morning so recommended weaning this down. This was done but he became more agitated and so the Precedex was increased again. His EtOH withdrawl was treated with phenobarb and I think what remains is agitation from hyperactive delerium and possibly pain. I will add some PO options for agitation to help liberate him from Precedex. Recommendations Pulmonary: Mild hypoxia - titrate sats >90% - I doubt he truly needs the oxygen - likely combination of sedation and splinting from abdominal pain COPD - continue Incruse - prn Proair Cardiac: Will get EKG to monitor QTc Renal: No acute concerns I&O: Intake & Output 04/25/22 04/26/22 04/27/22 04/28/22 23:59 23:59 23:59 23:59 Intake Total 1102.3077 / 1102.3077 3756.333 / 3756.333 105 / 105 Output Total 50 / 50 2175 / 2300 125 / 125 Balance 1052.3077 / 1052.3077 1581.333 / 1456.333 -20 / -20 Weight 83.915 kg 90.2 kg Daily Fluid Goal:: even GI Nutrition: Pancreatitis - Tylenol and morphine for pain control - has been resuscitated - D/C LR - normal diet Date of Last Bowel Movement: 04/27/22 Infectious Disease: No acute concerns Hematologic: No acute concerns Neurologic: EtOH Withdrawl - s/p phenobarbital - no further doses needed - avoid benzo's Delirium with agitation - on Precedex gtt - ordered background clinodine 0.1mg tid - Seroquel at night - EKG to monitor QTc Endocrine: No acute concerns Lines: PIV Prophylaxis: Lovenox Protonix - home med Code Status: Resuscitation Status Full Code Subjective Critical and life-threatening events over the past 24 hours: This is a 66 yo man admitted to the ICU for EtOH withdrawl and pancreatitis. He presented to the ED with abdominal pain, nausea and vomiting after an alcohol binge. Last drink was 04/25/22. His abdominal scan was consistent with pancreatitis and his lipase was very elevated. He was actively withdrawing and was started on a phenobarbital protocol and did receive the maximum dose. He was also started Precedex for agitation. On my assessment he is over sedated. He likely does not need more phenobarb so I d/c'ed this. I also had nursing wean down the Precedex as he was clearly over sedated. He did not awaken for interview. Exam Narrative Exam Narrative: Gen: NAD, sleeping, normal respiratory effort, well-nourished HENT: PERRL Chest: No respiratory distress, normal appearance of chest, clear to auscultation bilaterally, no crackles or wheezes, normal inspiratory effort Heart: regular rate and rhythym, no murmurs, rubs or gallops Abdomen: Non-distended, soft, non tender Extremities: No clubbing, edema, cyanosis, rashes Neuro: AAOx3 , non focal Psych: cooperative, appropriate mental affect Most Recent VS/Results Last Vital Signs Temp 36.6 C 04/28/22 00:00 Pulse 92 H 04/28/22 06:02 Resp 18 04/27/22 19:15 BP 157/98 H 04/28/22 06:02 Pulse Ox 99 04/28/22 06:02 Laboratory Results - last 24 hr 04/28/22 04/28/22 04/28/22 07:45 07:45 07:45 WBC 8.84 RBC 3.22 L Hgb 10.5 L D Hct 30.7 L MCV 95 MCH 32.6 MCHC 34.2 RDW 13.2 Plt Count 76 L MPV 10.3 Immature Gran % 1.2 Neutrophils % 78.9 Lymphocytes % 10.4 Monocytes % 7.7 Eosinophils % 1.7 Basophils % 0.1 Nucleated RBC % 0.0 Absolute Neutrophils 6.97 H Absolute Lymphocytes 0.92 L Absolute Monocytes 0.68 Absolute Eosinophils 0.15 Absolute Basophils 0.01 Sodium 129 L Potassium 3.3 L Chloride 95 L Carbon Dioxide 28.0 Anion Gap 6.0 BUN 8 Creatinine 0.7 Estimated GFR/1.73 m2 >= 60.00 Glucose 81 Calcium 7.7 L Magnesium Cancelled 2.0 Total Bilirubin 1.6 H AST 49 H ALT 63 Alkaline Phosphatase 92 Total Protein 5.5 L Albumin 2.3 L Phenobarbital 04/28/22 07:45 WBC RBC Hgb Hct MCV MCH MCHC RDW Plt Count MPV Immature Gran % Neutrophils % Lymphocytes % Monocytes % Eosinophils % Basophils % Nucleated RBC % Absolute Neutrophils Absolute Lymphocytes Absolute Monocytes Absolute Eosinophils Absolute Basophils Sodium Potassium Chloride Carbon Dioxide Anion Gap BUN Creatinine Estimated GFR/1.73 m2 Glucose Calcium Magnesium Total Bilirubin AST ALT Alkaline Phosphatase Total Protein Albumin Phenobarbital 31.4 Review of Systems Unobtainable due to mental status Time spent with patient Time spent in Critical Care: 40 Time spent in Critical care included: Chart review, Documenting critically ill care, Time at immediate bedside and Discussing critically ill care with other medical staff Multi-Disciplinary Checklist Lines/Tubes CENTRAL LINE: no ARTERIAL LINE: no COREAS: no ENDOTRACHEAL TUBE: no ICU Maintenance GLUCOSE 140-180mg/dL: yes NUTRITION AT GOAL: no, Reason/Intervention: delirium - not normal intake PRESSURE ULCER: no RESTRAINTS: no ANTIBIOTICS(if yes, consider Stewardship): No Social Issues FAMILY UPDATED: no, Reason/Intervention: deferred to hospitalist team GOALS/DISPOSITION/MANAGER SUPPLIER: yes CODE STATUS: Full Prophylaxis DVT PROPHYLAXIS: yes GI PROPHYLAXIS: yes, Indication: home med
--- NOTE | 2022-04-28 11:08 | CMPROGNOTE_ITS ---
- If Service Date Differs Date of service: 04/28/22 Time of Service: 11:08 Care Management Progress Note S/O: Annette is being closely monitored and treated in the ICU for ETOH withdrawal and pancreatitis. He is on CIWA, agitated and has limited comprehension. CM will discuss referral's to LADC and wrestling coach when patient is medically ready. A: 66 year old male admitted to [facility] on 04/26/22 for Pancreatitis. P: Annette will be discharged home with no new services when medically cleared by . He will follow up with his community providers and transport with his caregiver. LADC and Press Operator Heavy Duty consults to be initiated.
[2022-04-28] MEDS: Magnesium Chloride 64 MG TABCR PO (11:13)
[2022-04-28] MEDS: Folic Acid 1 MG TAB PO (11:13)
[2022-04-28] MEDS: Metoprolol CR 25 MG TABCR 50 MG PO (11:14)
[2022-04-28] MEDS: Multivitamin TAB 1 TAB PO (11:14)
--- NOTE | 2022-04-28 14:00 | RT.EKG_ITS ---
APPROVED REPORT Exam: Resting ECG Reason for Exam: QTc monitoring Patient Location: I HR:89 bpm ECG Measurements Heart Rate 89 AXIS NJ 196 P 70 QRSd 111 QRS 7 QT 367 T 23 QTc 447 Conclusion Sinus rhythm...normal P axis, V-rate 50- 99 Baseline wander in lead(s) V4,V6
[2022-04-28] MEDS: Normal Saline Flush 10 ML SYR IVP (14:12)
[2022-04-28] MEDS: cloNIDine 0.1 MG TAB PO ×2 (14:12→20:27)
[2022-04-28] MEDS: Pantoprazole 40 MG VIAL IVP (14:12)
[2022-04-28] MEDS: Enoxaparin 40 MG/0.4 ML SYR SC (14:12)
--- NOTE | 2022-04-28 14:59 | W.PM.PROGNOT ---
Date of Service Date of service: 04/28/22 Time of Service: 14:59 Assessment and Plan Assessment and plan (1) Pancreatitis, acute: Status: Acute Assessment and plan: Cont. clear liquids (however, he is somnolent). Cont. analgesic, antiemetic; PPI, monitor daily labs . (2) Alcohol dependence with withdrawal: Status: Acute Assessment and plan: He has obtained phenobarbitol for alcohol withdrawal; maximized dosage. Receivin precedex for agitation. (3) Benign hypertension: Status: Active Assessment and plan: Patient is metoprolol succinate and lisinopril (4) Acute alcoholic hepatitis: Status: Acute Assessment and plan: Improved. Can d/c monitoring. (5) DVT prophylaxis: Status: Acute Assessment and plan: Lovenox subcu Subjective Subjective Patient reports: afebrile; denies diarrhea or vomiting Interval history since last seen: Pt is lethargic d/t sedating medications. Exam Narrative Exam Narrative: Lying quietly in bed. Asleep Const General: no acute distress Orientation: not awake Resp Effort & Inspection: normal respiratory effort Auscultation: clear to auscultation bilaterally Cardio Rate: regular rate Rhythm: regular rhythm Heart Sounds: S1 normal and S2 normal Extrem General: no pedal edema Objective Last Vital Signs Temp 37.2 C 04/28/22 12:00 Pulse 92 H 04/28/22 06:02 Resp 16 04/28/22 08:00 BP 157/98 H 04/28/22 06:02 Pulse Ox 94 04/28/22 12:00 Laboratory Results - last 24 hr 04/28/22 04/28/22 04/28/22 07:45 07:45 07:45 WBC 8.84 RBC 3.22 L Hgb 10.5 L D Hct 30.7 L MCV 95 MCH 32.6 MCHC 34.2 RDW 13.2 Plt Count 76 L MPV 10.3 Immature Gran % 1.2 Neutrophils % 78.9 Lymphocytes % 10.4 Monocytes % 7.7 Eosinophils % 1.7 Basophils % 0.1 Nucleated RBC % 0.0 Absolute Neutrophils 6.97 H Absolute Lymphocytes 0.92 L Absolute Monocytes 0.68 Absolute Eosinophils 0.15 Absolute Basophils 0.01 Sodium 129 L Potassium 3.3 L Chloride 95 L Carbon Dioxide 28.0 Anion Gap 6.0 BUN 8 Creatinine 0.7 Estimated GFR/1.73 m2 >= 60.00 Glucose 81 Calcium 7.7 L Magnesium Cancelled 2.0 Total Bilirubin 1.6 H AST 49 H ALT 63 Alkaline Phosphatase 92 Total Protein 5.5 L Albumin 2.3 L Phenobarbital 04/28/22 04/28/22 07:45 09:56 WBC RBC Hgb Hct MCV MCH MCHC RDW Plt Count MPV Immature Gran % Neutrophils % Lymphocytes % Monocytes % Eosinophils % Basophils % Nucleated RBC % Absolute Neutrophils Absolute Lymphocytes Absolute Monocytes Absolute Eosinophils Absolute Basophils Sodium Potassium Chloride Carbon Dioxide Anion Gap BUN Creatinine Estimated GFR/1.73 m2 Glucose Calcium Magnesium Total Bilirubin AST ALT Alkaline Phosphatase Total Protein Albumin Phenobarbital 31.4 Cancelled PAWSS Have you Been Recently Intoxicated or Drunk Within the Last 30 days?: Yes Have you Ever Experienced Previous Episodes of Alcohol Withdrawal?: Yes Have you ever Experienced Withdrawal Seizures?: Unable to Obtain Have you ever Experienced Delirium Tremens(DT)s?: Unable to Obtain Have you ever undergone Alcohol Rehabilitation Treatment (i.e, inpt ot outpatient treatment programs)?: Yes Have you ever Experienced Blackouts?: Yes Have you ever Combined Alcohol with other Downers within the last 90 days?: No Have you ever Combined Alcohol with any other Substance of Abuse during the last 90 days?: No Positive Blood Alcohol level on Presentation? [PCS.BAL]: No Evidence of Increased Autonomic Activity (i.e. HR>120, tremor, sweating, agitation, nausea)?: Yes Result: 5
[2022-04-28] MEDS: Pravastatin 20 MG TAB PO (20:27)
[2022-04-28] MEDS: Citalopram 20 MG TAB 40 MG PO (21:11)
[2022-04-29] VITALS (42 sets, daily range): BP systolic 95–148; BP diastolic 59–106; PULSE 77–121; RESP 17–22; TEMP 36.4–37; O2SAT 83–94
[2022-04-29] MEDS: dexmedeTOMidine IN 0.9 % NACL 400 MCG/100 ML BTL IVPB (04:20)
--- NOTE | 2022-04-29 08:26 | CMPROGNOTE_ITS ---
- If Service Date Differs Date of service: 04/29/22 Time of Service: 08:26 Care Management Progress Note S/O: Annette is being closely monitored and treated in the ICU for ETOH withdrawal and pancreatitis. RASS protocol is in place. CM will discuss referral's to LADC and instructional coach when patient is medically ready. A: 66 year old male admitted to [facility] on 04/26/22 for Pancreatitis. P: Annette will be discharged home with no new services when medically cleared by . He will follow up with his community providers and transport with his caregiver. LADC and Automatic Riveting Machine Operator consults to be initiated.
[2022-04-29] MEDS: Magnesium Chloride 64 MG TABCR PO ×2 (08:57→20:24)
[2022-04-29] MEDS: Multivitamin TAB 1 TAB PO (08:57)
[2022-04-29] MEDS: cloNIDine 0.1 MG TAB PO ×3 (08:57→20:25)
[2022-04-29] MEDS: Folic Acid 1 MG TAB PO (08:57)
[2022-04-29] MEDS: Thiamine 100 MG TAB PO (08:58)
[2022-04-29] MEDS: Metoprolol CR 25 MG TABCR 50 MG PO (08:58)
[2022-04-29] MEDS: dexmedeTOMidine IN 0.9 % NACL 400 MCG/100 ML BTL 15.243 MCG IVPB (10:27)
[2022-04-29] MEDS: Haloperidol 5 MG/ML VIAL IM (11:06)
[2022-04-29] MEDS: Enoxaparin 40 MG/0.4 ML SYR SC (11:06)
--- NOTE | 2022-04-29 11:23 | W.PULMCC ---
General Date of Service Date of service: 04/29/22 Time of Service: 08:00 Reason for Admission to ICU: EtOH withdrawl Pancreatitis Assessment and Plan Assessment and plan (1) Pancreatitis, acute: Status: Acute (2) Acute alcoholic hepatitis: Status: Acute (3) Alcohol dependence with withdrawal: Status: Acute (4) Delirium: Status: Acute (5) Agitation: Status: Acute (6) Hypokalemia: Status: Acute Assessment and plan: This is a 66 yo man admitted to the ICU for EtOH withdrawl and pancreatitis with agitation. He has received enough phenobarbital to treat withdrawal and prevent seizures. He is on Precedex for agitation but was over sedated this morning so recommended weaning this down. This was done but he became more agitated and so the Precedex was increased again. His EtOH withdrawl was treated with phenobarb and I think what remains is agitation from hyperactive delirium and possibly pain. He remains to be agitated and delirious. We will add Haldol bid to try and liberate him from Precedex. Recommendations Pulmonary: Mild hypoxia, improving - titrate sats >90% - I doubt he truly needs the oxygen - likely combination of sedation and splinting from abdominal pain COPD - continue Incruse - prn Proair Cardiac: EKG to monitor QTc Renal: No acute concerns I&O: Intake & Output 04/26/22 04/27/22 04/28/22 04/29/22 23:59 23:59 23:59 23:59 Intake Total 1102.3077 / 1102.3077 3756.333 / 3756.333 1789.605 / 1789.605 98.533 / 98.533 Output Total 50 / 50 2175 / 2300 875 / 875 Balance 1052.3077 / 1052.3077 1581.333 / 1456.333 914.605 / 914.605 98.533 / 98.533 Weight 83.915 kg 90.2 kg 87 kg Daily Fluid Goal:: even GI Nutrition: Pancreatitis - Tylenol and morphine for pain control - has been resuscitated - normal diet Date of Last Bowel Movement: 04/27/22 Infectious Disease: No acute concerns Hematologic: No acute concerns Neurologic: EtOH Withdrawl - s/p phenobarbital - no further doses needed - avoid benzo's Delirium with agitation - on Precedex gtt - would not recommend more than 5 days - ordered background clinodine 0.1mg tid - Seroquel at night - add Haldol PO 2mg bid - EKG to monitor QTc Endocrine: No acute concerns Lines: PIV Prophylaxis: Lovenox Protonix - home med Code Status: Resuscitation Status Full Code Subjective Critical and life-threatening events over the past 24 hours: He was weaned from Precedex and became very agitated to the point of being unsafe and so the Precedex did have to increase again. This morning again he is sleeping and oversedated. Exam Narrative Exam Narrative: Gen: NAD, sleeping, normal respiratory effort, well-nourished HENT: PERRL Chest: No respiratory distress, normal appearance of chest, clear to auscultation bilaterally, no crackles or wheezes, some rhonchi, normal inspiratory effort Heart: regular rate and rhythym, no murmurs, rubs or gallops Abdomen: Non-distended, soft, non tender Extremities: No clubbing, edema, cyanosis, rashes Neuro: AAOx3 , non focal Psych: cooperative, appropriate mental affect Most Recent VS/Results Last Vital Signs Temp 36.4 C L 04/29/22 09:00 Pulse 88 04/29/22 11:01 Resp 17 04/29/22 11:01 BP 131/74 04/29/22 11:01 Pulse Ox 94 04/29/22 07:27 Review of Systems Unobtainable due to mental status Time spent with patient Time spent in Critical Care: 35 Time spent in Critical care included: Coordination of care, Chart review, Documenting critically ill care, Time at immediate bedside and Discussing critically ill care with other medical staff
--- NOTE | 2022-04-29 12:00 | RT.EKG_ITS ---
APPROVED REPORT Exam: Resting ECG Reason for Exam: monitor QTc Patient Location: I HR:82 bpm ECG Measurements Heart Rate 82 AXIS OH 200 P 62 QRSd 114 QRS -2 QT 394 T 34 QTc 461 Conclusion Sinus rhythm...normal P axis, V-rate 50- 99 Incomplete right bundle branch block...QRSd >112, terminal axis(90,270)
--- NOTE | 2022-04-29 12:51 | PHA.REVIEW ---
Pharmacy Admission Review - Admission Clinical Review (Last Updated 04/28/22 @ 13:55 by April Bonds MD) Delirium (Acute) Hypokalemia (Acute) Agitation (Acute) DVT prophylaxis (Acute) Pancreatitis, acute (Acute) Acute alcoholic hepatitis (Acute) Benign hypertension (Active) Alcohol dependence with withdrawal (Acute) escitalopram oxalate [From Lexapro] Allergy (Severe, Unverified 04/26/22 07:38) Resuscitation Status Full Code Height 5 ft 9 in Weight 87 kg - Renal Dosing Renal Dosing: BUN 8 mg/dL (7-18) 04/28/22 07:45 Creatinine 0.7 mg/dL (0.70-1.30) 04/28/22 07:45 Medications needing adjustments: N/A (crcl = 93, no dose adjustments necessary) - Anticoagulation Anticoagulation: Hgb 10.5 g/dL (13.5-17.5) L D 04/28/22 07:45 Hct 30.7 % (40.0-50.0) L 04/28/22 07:45 Plt Count 76 10^3/uL (130-400) L 04/28/22 07:45 Creatinine 0.7 mg/dL (0.70-1.30) 04/28/22 07:45 DVT Prophylaxis: Reviewed Medications: Enoxaparin (40 mg daily) - Opiate Usage Evaluate Pain Scale/Pains Meds: N/A (not on any opiates) - Relevant Labs Sodium 129 mmol/L (136-145) L 04/28/22 07:45 Potassium 3.3 mmol/L (3.5-5.1) L 04/28/22 07:45 Chloride 95 mmol/L (98-107) L 04/28/22 07:45 Phosphorus 2.7 mg/dL (2.6-4.7) 04/26/22 16:20 Magnesium 2.0 mg/dL (1.8-2.4) 04/28/22 07:45 Magnesium Cancelled 04/28/22 07:45 Electrolytes, C-Reactive P, ESR: Reviewed (Na+, K+ low) - DM Control DM Control: Glucose 81 mg/dL (74-106) 04/28/22 07:45 Insulin Dosing: N/A - Heart Failure/MN Heart Failure/MN: Troponin I < 50 ng/L (<or=60) 04/26/22 08:50 EF%, FELIPE's, B-Blockers, Diuretics: Reviewed (metoprolol succ 50 mg daily (home dose) ordered, also on lisinopril at home (not currently ordered) - BP is ok) - BP Control BP Control: Blood Pressure 131/74 Blood Pressure 131/74 Blood Pressure 148/81 Blood Pressure 130/80 Blood Pressure 148/81 If elevated: N/A List meds needing interventions: WNL - Qtc Review If Elevated: Reviewed (QTc = 461, watch closely as multiple medications can elongate QTc (citalopram, haldol, quetiapine) - IV to PO Switch IV Medications: Reviewed - Home Meds Home Med List reviewed: Reviewed - Current meds Current Medication Order Review: Reviewed (still on precedex drip, attempt was made to wean but he became agitated so rate was increased back. Now on scheduled haldol (2 mg TID) which should help the ability to wean precedex. Clonidine 0.1 mg TID also added. Was on phenobarb for EtOh WD, now dc'd (reached 30 mg/kg hard stop)) - Comments Comments/Follow Ups: watch QT
[2022-04-29] MEDS: Pantoprazole 40 MG VIAL IVP (13:38)
[2022-04-29] MEDS: Haloperidol 1 MG TAB 2 MG PO ×2 (13:40→20:24)
--- NOTE | 2022-04-29 17:58 | W.PM.PROGNOT ---
Date of Service Date of service: 04/29/22 Time of Service: 17:58 Assessment and Plan Assessment and plan (1) Pancreatitis, acute: Status: Acute Assessment and plan: No longer c/o abd pain. No N/V Tolerating intake. . (2) Alcohol dependence with withdrawal: Status: Acute Assessment and plan: He has obtained phenobarbitol for alcohol withdrawal; maximized dosage. Receiving precedex for agitation. To assist in weaning off precedex clonidine 0.1mg TID initiated. Also given IM haldol 5mg then 2mg po TID. Monitor QTc. (3) Benign hypertension: Status: Active Assessment and plan: Patient is metoprolol succinate and lisinopril (4) Acute alcoholic hepatitis: Status: Acute Assessment and plan: Improved. Can d/c monitoring. (5) DVT prophylaxis: Status: Acute Assessment and plan: Lovenox subcu Subjective Subjective Patient reports: afebrile; denies diarrhea, vomiting or shortness of breath Interval history since last seen: Pt sedated with Precedex. Wakes with verbal stimulation but doesn't verbalize. Has verbalized to nursing and has taken pills and had some po food/drink intake. Required ongoing Precex d/t agitation, but now weaning off. Has required soft restraints. Exam Narrative Exam Narrative: Lying quietly in bed. Asleep. Wakens to verbal stimuli. Const General: no acute distress Nutritional Appearance: overweight Resp Effort & Inspection: normal respiratory effort Auscultation: clear to auscultation bilaterally Cardio Rate: regular rate Rhythm: regular rhythm Heart Sounds: S1 normal and S2 normal Extrem General: no pedal edema Objective Last Vital Signs Temp 36.6 C 04/29/22 15:46 Pulse 87 04/29/22 16:01 Resp 17 04/29/22 15:00 BP 131/73 04/29/22 16:01 Pulse Ox 92 04/29/22 11:45 PAWSS Have you Been Recently Intoxicated or Drunk Within the Last 30 days?: Yes Have you Ever Experienced Previous Episodes of Alcohol Withdrawal?: Yes Have you ever Experienced Withdrawal Seizures?: Unable to Obtain Have you ever Experienced Delirium Tremens(DT)s?: Unable to Obtain Have you ever undergone Alcohol Rehabilitation Treatment (i.e, inpt ot outpatient treatment programs)?: Yes Have you ever Experienced Blackouts?: Yes Have you ever Combined Alcohol with other Downers within the last 90 days?: No Have you ever Combined Alcohol with any other Substance of Abuse during the last 90 days?: No Positive Blood Alcohol level on Presentation? [PCS.BAL]: No Evidence of Increased Autonomic Activity (i.e. HR>120, tremor, sweating, agitation, nausea)?: Yes Result: 5
[2022-04-29] MEDS: Pravastatin 20 MG TAB PO (20:25)
[2022-04-29] MEDS: Acetaminophen 325 MG TAB PO (22:40)
[2022-04-29] MEDS: Citalopram 20 MG TAB 40 MG PO (22:41)
--- NOTE | 2022-04-29 23:06 | NUR.NOTE ---
Nursing Note: pt's partner Adelfo called to check on pt. Adelfo states she is a recovered alcoholic and her niece and niece's partner are also in recovery. She reports that they will both be happy to take him to AA meetings with them. Pt could use contact with recovery\AA discharge planning. Adelfo reports she knows he has to quit drinking now, she is very supportive of him being sober.
[2022-04-30] VITALS (21 sets, daily range): BP systolic 98–127; BP diastolic 46–76; PULSE 0–98; RESP 18–24; TEMP 36.4–38.2; O2SAT 92–96
[2022-04-30 06:53] LABS: Abs Immature Grans 0.13 10^3/uL (0.0-0.06); Absolute Basophil Count 0.02 10^3/uL (0.0-0.2); Absolute Eosinophil Count 0.12 10^3/uL (0.0-0.7); Absolute Lymphocyte Count 1.01 10^3/uL (1.2-3.4); Absolute Monocyte Count 0.71 10^3/uL (0.1-0.8); Absolute Neutrophil Count 5.37 10^3/uL (1.2-6.7); Basophils % 0.3; Eosinophils % 1.6; HCT 28.6 % (40.0-50.0); Immature Grans % 1.8; Lymphocytes % 13.7; MCV 94 fL (80-95); MPV 9.7 fL (8.0-11.0); Monocytes % 9.6; Platelet Count 112 10^3/uL (130-400); RBC 3.03 10^6/uL (4.36-5.78); RDW 13.5 % (11.8-14.1); RDW-SD 46.5 fL; WBC 7.36 10^3/uL (4.4-10.8)
[2022-04-30 07:09] LABS: Lipase 443 U/L (73-393)
[2022-04-30 07:12] LABS: ALT 80 U/L (16-63); AST 79 U/L (15-37); Albumin 2.2 g/dL (3.4-5.0); Alkaline Phosphatase 150 U/L (46-116); Anion Gap 5.2 mmol/L (3-11); BUN 6 mg/dL (7-18); Bilirubin, Total 0.9 mg/dL (0.2-1.0); CO2 30.8 mmol/L (21.0-32.0); CREATININE 0.8 mg/dL (0.70-1.30); Calcium 8.3 mg/dL (8.5-10.1); Chloride 97 mmol/L (98-107); Glucose 96 mg/dL (74-106); Sodium 133 mmol/L (136-145)
[2022-04-30 07:18] LABS: Magnesium 1.8 mg/dL (1.8-2.4)
[2022-04-30] MEDS: Metoprolol CR 25 MG TABCR 50 MG PO (07:39)
[2022-04-30] MEDS: Multivitamin TAB 1 TAB PO (07:39)
[2022-04-30] MEDS: cloNIDine 0.1 MG TAB PO ×2 (07:39→20:52)
[2022-04-30] MEDS: Haloperidol 1 MG TAB 2 MG PO ×2 (07:39→20:52)
[2022-04-30] MEDS: Thiamine 100 MG TAB PO (07:39)
[2022-04-30] MEDS: Folic Acid 1 MG TAB PO (07:40)
[2022-04-30] MEDS: Magnesium Chloride 64 MG TABCR PO (07:40)
[2022-04-30] MEDS: Umeclidinium 7 CAP INHALER IH (08:05)
--- NOTE | 2022-04-30 08:44 | PDOC.CMPRO ---
- If Service Date Differs Date of service: 04/30/22 Time of Service: 08:44 Care Management Progress Note S/O: Annette is being closely monitored and treated for ETOH withdrawal and pancreatitis. At this time, Annette is awake, alert and is interested in discussing inpatient treatment options. [place] [facility] met with patient today and provided him with recourses and contact numbers. Annette verbalized understanding that inpatient treatment will need to be initiated by him personally and is encouraged to reach out to [facility]. In addition, SANDRA sent a referral to [facility] and a [employer] will also meet with Annette today. A: 66 year old male admitted to [facility] on 04/26/22 for Pancreatitis. P: Anticipate, Annette will be discharged home with no new services when medically cleared by MD. [facility] and [place] [facility] are consulting patient during this admission. Annette is looking into inpatient treatment.
--- NOTE | 2022-04-30 11:46 | CMPROGNOTE_ITS ---
- If Service Date Differs Date of service: 04/30/22 Time of Service: 11:47 Care Management Progress Note SBIRT screen in ICU. Positive for Alcohol severe (AUDIT 41), Depression severe (PHQ-9:17), Anxiety severe( BENJA 18). Pt reports no other drug use except cannabis once or twice in the past year. Pt endorses all items on the trauma scale. Pt reports difficulty with sleep, nightmares, startle response, avoidance, detachment. We discussed alcohol as an ineffective coping mechanism. Pt expresses a desire for inpatient treatment and states he wants to stop drinking. Pt mentioned [facility] [place] as a program that has been recommended to him and SBIRT staff supplied Pt and other staff with numbers for treatment programs in [place] and encouraged him to call for a phone intake when he is able to.
[2022-04-30] MEDS: Enoxaparin 40 MG/0.4 ML SYR SC (12:28)
--- NOTE | 2022-04-30 13:02 | W.PM.PROGNOT ---
Date of Service Date of service: 04/30/22 Time of Service: 13:02 Assessment and Plan Assessment and plan (1) Pancreatitis, acute: Status: Acute Assessment and plan: No longer c/o abd pain. No N/V Lipase down from 4553 to 443. Tolerating intake. . (2) Alcohol dependence with withdrawal: Status: Acute Assessment and plan: Now off precedex. No behavioral issues. Cont oral haldol 2mg BID today then stop. Cont nightly Seroquel. Cont. clonidine BID today then stop. No QT prolongation noted. He is interested in inpatient alcohol dependence treatment. SBIRT screen obtained. (3) Benign hypertension: Status: Active Assessment and plan: Patient is metoprolol succinate and lisinopril (4) Acute alcoholic hepatitis: Status: Acute Assessment and plan: Improved. Can d/c monitoring. (5) DVT prophylaxis: Status: Acute Assessment and plan: Lovenox subcu (6) Discharge planning issues: Status: Acute Assessment and plan: Now med-surg status. Likely d/c tomorrow. He has information on inpatient treatment options for alcohol dependence. Subjective Subjective Patient reports: no new complaints, feels better, tolerating a regular diet and afebrile; denies nausea or vomiting Exam Narrative Exam Narrative: Sitting in chair eating. Const General: cooperative and no acute distress Nutritional Appearance: overweight Orientation: alert, oriented to person and oriented to place (Hospital) Eyes General: appearance normal, both eyes and all related structures Sclera: sclerae normal Resp Effort & Inspection: normal respiratory effort Auscultation: clear to auscultation bilaterally Cardio Rate: regular rate Rhythm: regular rhythm Heart Sounds: S1 normal and S2 normal Extrem General: no pedal edema Objective Last Vital Signs Temp 37.6 C H 04/30/22 12:32 Pulse 79 04/30/22 12:15 Resp 24 04/30/22 12:32 BP 98/46 L 04/30/22 12:15 Pulse Ox 96 04/30/22 12:32 Laboratory Results - last 24 hr 04/30/22 04/30/22 04/30/22 06:02 06:02 06:02 WBC 7.36 RBC 3.03 L Hgb 10.0 L Hct 28.6 L MCV 94 MCH 33.0 MCHC 35.0 RDW 13.5 Plt Count 112 L MPV 9.7 Immature Gran % 1.8 Neutrophils % 73.0 Lymphocytes % 13.7 Monocytes % 9.6 Eosinophils % 1.6 Basophils % 0.3 Nucleated RBC % 0.0 Absolute Neutrophils 5.37 Absolute Lymphocytes 1.01 L Absolute Monocytes 0.71 Absolute Eosinophils 0.12 Absolute Basophils 0.02 Sodium 133 L Potassium 3.0 L Chloride 97 L Carbon Dioxide 30.8 Anion Gap 5.2 BUN 6 L Creatinine 0.8 Estimated GFR/1.73 m2 >= 60.00 Glucose 96 Calcium 8.3 L Magnesium Total Bilirubin 0.9 AST 79 H ALT 80 H Alkaline Phosphatase 150 H Total Protein 6.0 L Albumin 2.2 L Lipase 443 H 04/30/22 06:02 WBC RBC Hgb Hct MCV MCH MCHC RDW Plt Count MPV Immature Gran % Neutrophils % Lymphocytes % Monocytes % Eosinophils % Basophils % Nucleated RBC % Absolute Neutrophils Absolute Lymphocytes Absolute Monocytes Absolute Eosinophils Absolute Basophils Sodium Potassium Chloride Carbon Dioxide Anion Gap BUN Creatinine Estimated GFR/1.73 m2 Glucose Calcium Magnesium 1.8 Total Bilirubin AST ALT Alkaline Phosphatase Total Protein Albumin Lipase PAWSS Have you Been Recently Intoxicated or Drunk Within the Last 30 days?: Yes Have you Ever Experienced Previous Episodes of Alcohol Withdrawal?: Yes Have you ever Experienced Withdrawal Seizures?: Unable to Obtain Have you ever Experienced Delirium Tremens(DT)s?: Unable to Obtain Have you ever undergone Alcohol Rehabilitation Treatment (i.e, inpt ot outpatient treatment programs)?: Yes Have you ever Experienced Blackouts?: Yes Have you ever Combined Alcohol with other Downers within the last 90 days?: No Have you ever Combined Alcohol with any other Substance of Abuse during the last 90 days?: No Positive Blood Alcohol level on Presentation? [PCS.BAL]: No Evidence of Increased Autonomic Activity (i.e. HR>120, tremor, sweating, agitation, nausea)?: Yes Result: 5
[2022-04-30] MEDS: Pantoprazole 40 MG VIAL IVP (14:58)
[2022-04-30] MEDS: Potassium Chloride 20 MEQ TABCR PO ×2 (17:00→20:52)
[2022-04-30] MEDS: Citalopram 20 MG TAB 40 MG PO (20:52)
[2022-04-30] MEDS: Ketoconazole 2% CREAM 15 GM TUBE TP (20:52)
[2022-04-30] MEDS: Pravastatin 20 MG TAB PO (20:53)
[2022-04-30] MEDS: Normal Saline Flush 10 ML SYR IVP (20:53)
[2022-05-01 03:35] VITALS: BP 129/71; PULSE 89; RESP 18; TEMP 37.1; O2SAT 95
[2022-05-01 07:00] LABS: Anion Gap 5.4 mmol/L (3-11); BUN 6 mg/dL (7-18); CO2 28.6 mmol/L (21.0-32.0); Calcium 8.8 mg/dL (8.5-10.1); Chloride 100 mmol/L (98-107); Glucose 105 mg/dL (74-106); Sodium 134 mmol/L (136-145)
[2022-05-01 07:10] LABS: Potassium 5.2 mmol/L (3.5-5.1)
[2022-05-01 07:32] VITALS: BP 97/61; PULSE 100
[2022-05-01] MEDS: Umeclidinium 7 CAP INHALER IH (08:20)
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
[2022-05-01] MEDS: Multivitamin TAB 1 TAB PO (09:08)
[2022-05-01] MEDS: Thiamine 100 MG TAB PO (09:08)
[2022-05-01] MEDS: Folic Acid 1 MG TAB PO (09:08)
[2022-05-01] MEDS: Magnesium Chloride 64 MG TABCR PO (09:09)
[2022-05-01] MEDS: Metoprolol CR 25 MG TABCR 50 MG PO (09:09)
[2022-05-01] MEDS: Ketoconazole 2% CREAM 15 GM TUBE TP (09:10)
[2022-05-01] MEDS: Normal Saline Flush 10 ML SYR IVP (09:10)
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
--- NOTE | 2022-05-01 09:40 | PDOC.HHF2F_ITS ---
Home Health Certification Home Health Certification: 1. Encounter Date and Reason I certify that Annette Patrick was seen by Roni Aguilar MD on 05/01/22 and that I had a [id number] encounter with this patient that meets the physician face to face encounter requirements. 2. Clinical Findings Supporting Skilled Need and Homebound Status I certify that home health services are medically necessary, include either intermittent prison and/or physical/speech therapy, and that this harleye nt is homebound in that absences from the home require considerable and taxing effort and are infrequent or of short duration, or are attributable to the need to receive medical care. [X] (a) Attached documentation from encounter provides clinical findings supporting skilled need and homebound status (including what assistance patient requires to leave the home). The encounter with the patient was in whole, or in part, for the following medical condition, which is the primary reason for home health care: Acute Pancreatitis, Alcohol withdrawal Shelter: Monitor condition post-ICU hospitalization for alcohol withdrawal. Physical Therapy:Evaluate and treat for generalized deconditioned state post-ICU hospitalization. Speech Therapy: Homebound: Requires assistance of another person out of the home. 3. Certification and Authentication I certify that I composed the above information based on my clinical judgement relating to this patient's medical condition and, if applicable, clinical findings communicated to me by the NPP or inpatient physician who performed the Home Health Referral. All further orders will be obtained through Marta Bojorquez (Community Based Physician - PCP)
--- NOTE | 2022-05-01 10:51 | PDOC.CMDIS ---
- If Service Date Differs Date of service: 05/01/22 Time of Service: 10:51 LACE Index Scoring Tool - Questions: Length of Stay (in days): 4 - 6 Acuity (Admit via E.D.?): Yes E.D. Visits: 4 - Answers: Total Score: 11 Risk of Readmission: High Risk Care Management Discharge Reason for Hospitalization: Pancreatitis Discharge Plan: Annette is discharged home following his phone interview with Arun Gomez. New [facility] RN/PT services are ordered. New RXs transmitted to [facility] in [place]. Annette will follow up with his PCP on 05/14/22, as scheduled. Annette will follow up with [facility] and is encouraged to continue to seek inpatient treatment. Annette understands that it remains his personal responsibility to reach out to ct facilities. In addition, [facility] has offered to help support Annette through this process. Patient/Family Education Needs: Review discharge instructions, limitations, medications and plan to follow up with community providers. ask me three.
--- NOTE | 2022-05-01 13:27 | PDOC.CMPRO ---
- If Service Date Differs Date of service: 05/01/22 Time of Service: 13:27 Care Management Progress Note SBIRT follow up visit with Pt regarding next steps ins recovery. SBIRT facilitated patient contact with Arun Gomez and set up a phone intake at 11:30 today. Time and extention # were written down for Pt. Pt agreed to have SBIRT follow up with him by phone tomorrow for continued support and encouragement to follow through with referral.
--- NOTE | 2022-05-02 09:32 | PDOC.HHF2F_ITS ---
Home Health Certification Home Health Certification: 1. Encounter Date and Reason I certify that Annette Patrick was seen by Roni Aguilar MD on 05/01/22 and that I had a [id number] encounter with this patient that meets the physician face to face encounter requirements. 2. Clinical Findings Supporting Skilled Need and Homebound Status I certify that home health services are medically necessary, include either intermittent senior care and/or physical/speech therapy, and that this patie nt is homebound in that absences from the home require considerable and taxing effort and are infrequent or of short duration, or are attributable to the need to receive medical care. [X] (a) Attached documentation from encounter provides clinical findings supporting skilled need and homebound status (including what assistance patient requires to leave the home). The encounter with the patient was in whole, or in part, for the following medical condition, which is the primary reason for home health care: Acute Pancreatitis, Alcohol withdrawal [facility]: Assess for exacerbation of medical condition, instruct patient/caregivers on signs and symptoms to report for early detection. Physical Therapy:To restore the patient's ability to ambulate independently and safely. Speech Therapy: Homebound:He requires assitance with ambulation when outside of the home; d/t recent deterioration of strength and stability after hospitalization. 3. Certification and Authentication I certify that I composed the above information based on my clinical judgement relating to this patient's medical condition and, if applicable, clinical findings communicated to me by the NPP or inpatient physician who performed the Home Health Referral. All further orders will be obtained through Mrata Bojorquez (Community Based Physician - PCP)
== END 2022-05-01 10:22 | disposition home health service (06) | DRG 896 ==
LOC: ER 10:36 → MS 11:12 → ICU 04-27 23:43
PROVIDERS: Family Medicine; Admitting Provider Internal Medicine; Emergency Provider Emergency Medicine; PCP Nurse Practitioner Family; Visit Provider Internal Medicine
DX: F10.231 Alcohol dependence with withdrawal delirium (principal); K85.20 Alcohol induced acute pancreatitis without necrosis or infection; D61.818 Other pancytopenia; F10.251 Alcohol dependence with alcohol-induced psychotic disorder with hallucinations; K70.10 Alcoholic hepatitis without ascites; I10 Essential (primary) hypertension; I71.9 Aortic aneurysm of unspecified site, without rupture; J44.9 Chronic obstructive pulmonary disease, unspecified; E04.1 Nontoxic single thyroid nodule; R09.02 Hypoxemia; E86.0 Dehydration; F12.90 Cannabis use, unspecified, uncomplicated; M54.2 Cervicalgia; G89.29 Other chronic pain; E87.6 Hypokalemia; D53.9 Nutritional anemia, unspecified; E78.00 Pure hypercholesterolemia, unspecified; I35.0 Nonrheumatic aortic (valve) stenosis; K21.9 Gastro-esophageal reflux disease without esophagitis; Z87.891 Personal history of nicotine dependence; E78.5 Hyperlipidemia, unspecified; K64.8 Other hemorrhoids
CPT/HCPCS: 36410; 36415; 80048; 80053; 80307; 83690; 87635; 94640; 96361; 96374; 96375; 97161; 97530; 99285; J1650; 74176; 80184; 80320; 81003; 81015; 83735; 84100; 84484; 85025; 93005; 93010; 99222; 99232; 99233; 99239; 99291; J1630; J2270; J2405; J2560; J3475; J3490

== ENCOUNTER 2022-06-11 14:35 | Outpatient (REF) | payer MEDICARE, MEDICAID, SELFPAY ==
[2022-06-11 21:35] LABS: ALT 40 U/L (16-63); AST 27 U/L (15-37); HDL Cholesterol 46 mg/dL (40-60); LDL CHOLESTEROL 136 mg/dL (<100)
[2022-06-11 21:48] LABS: Creatine Kinase 146 U/L (39-308)
== END 2022-06-11 14:36 | disposition home or self-care (01) ==
LOC: NCHCN 14:35
PROVIDERS: PCP Nurse Practitioner Family; Visit Provider Nurse Practitioner Family
DX: E78.5 Hyperlipidemia, unspecified (principal)
CPT/HCPCS: 82550; 83721; 83718; 84450; 84460

== ENCOUNTER 2022-09-03 15:39 | Outpatient (REF) | payer MEDICARE, MEDICAID, SELFPAY ==
[2022-09-03 17:08] LABS: ALT 41 U/L (16-63); AST 35 U/L (15-37); HDL Cholesterol 57 mg/dL (40-60); LDL CHOLESTEROL 115 mg/dL (<100)
[2022-09-03 17:22] LABS: Creatine Kinase 212 U/L (39-308)
== END 2022-09-03 15:40 | disposition home or self-care (01) ==
LOC: NCHCN 15:39
PROVIDERS: PCP Nurse Practitioner Family; Visit Provider Nurse Practitioner Family
DX: E78.5 Hyperlipidemia, unspecified (principal)
CPT/HCPCS: 82550; 83721; 83718; 84450; 84460

== ENCOUNTER 2022-10-01 14:56 | Outpatient (REF) | payer MEDICARE, MEDICAID, SELFPAY ==
[2022-10-01 20:17] LABS: HCT 39.9 % (40.0-50.0); HGB 13.5 g/dL (13.5-17.5); MCH 29.9 pg (27.0-33.0); MCHC 33.8 % (32.0-36.0); MCV 88 fL (80-95); MPV 10.2 fL (8.0-11.0); Platelet Count 236 10^3/uL (130-400); RBC 4.52 10^6/uL (4.36-5.78); RDW 12.4 % (11.8-14.1); RDW-SD 40.2 fL; WBC 3.73 10^3/uL (4.4-10.8)
[2022-10-01 20:42] LABS: Ferritin 40 ng/mL (26-388)
== END 2022-10-01 14:57 | disposition home or self-care (01) ==
LOC: NCHCN 14:56
PROVIDERS: PCP Nurse Practitioner Family; Visit Provider Nurse Practitioner Family
DX: K62.5 Hemorrhage of anus and rectum (principal)
CPT/HCPCS: 85027; 82728

== ENCOUNTER 2022-11-06 15:15 | Emergency (ER) | payer MEDICARE, MEDICAID, SELFPAY ==
[2022-11-06 15:27] VITALS: BP 122/76; PULSE 80; RESP 18; TEMP 36.8; O2SAT 96
--- NOTE | 2022-11-06 15:30 | DI.RAD_ITS ---
Exam(s) XR WRIST RT COMPLETE EXAM: XR WRIST RT COMPLETE CLINICAL HISTORY: Radial wrist pain. TECHNIQUE: 2D digital imaging was performed. Three views. COMPARISON: CR XR HAND RT COMPLETE from 11/06/2022 FINDINGS: BONES: No acute fracture is present. No bony destructive lesion is seen. JOINTS: The carpal bones are normally aligned. Moderate degenerative changes SOFT TISSUE: Normal. IMPRESSION: No acute abnormality. DATA REPOSITORY: RADIATION DOSE DELIVERED:
--- NOTE | 2022-11-06 15:30 | DI.RAD_ITS ---
Exam(s) XR HAND RT COMPLETE EXAM: XR HAND RT COMPLETE CLINICAL HISTORY: 1st and 2nd digit pain. TECHNIQUE: 2D digital imaging was performed. Three views. COMPARISON: CR,XR XR HAND LT COMPLETE from 10/28/2020 FINDINGS: BONES: No acute fracture is present. No bony destructive lesion is seen. JOINTS: No dislocation present. Degenerative changes of the interphalangeal joints of the fingers. SOFT TISSUE: Normal. IMPRESSION: No acute abnormality. DATA REPOSITORY: RADIATION DOSE DELIVERED:
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
[2022-11-06] MEDS: oxyCODONE 5 mg/Acetaminophen 325 mg TAB 1 TAB PO (15:53)
== END 2022-11-06 16:43 | disposition home or self-care (01) ==
PROVIDERS: Emergency Provider Registered Nurse Emergency; PCP Nurse Practitioner Family
DX: M19.031 Primary osteoarthritis, right wrist (principal); I10 Essential (primary) hypertension
CPT/HCPCS: 29125; 99283; 73110; 73130; 99284

== ENCOUNTER → 2022-12-01 11:15 | Outpatient (BNVA) | payer MEDICARE, MEDICAID, SELFPAY | PROVIDERS: PCP Nurse Practitioner Family; Referring Provider Nurse Practitioner Family; Visit Provider Physician Assistant | DX: M19.031 Primary osteoarthritis, right wrist (principal); M18.11 Unilateral primary osteoarthritis of first carpometacarpal joint, right hand; M65.4 Radial styloid tenosynovitis [de Quervain] | CPT/HCPCS: 20550; J1030 ==

== ENCOUNTER 2022-12-03 16:44 | Outpatient (REF) | payer MEDICARE, MEDICAID, SELFPAY ==
[2022-12-03 20:13] LABS: HDL Cholesterol 57 mg/dL (40-60); LDL CHOLESTEROL 120 mg/dL (<100)
== END 2022-12-03 16:45 | disposition home or self-care (01) ==
LOC: NCHCN 16:44
PROVIDERS: PCP Nurse Practitioner Family; Visit Provider Nurse Practitioner Family
DX: R07.89 Other chest pain (principal)
CPT/HCPCS: 83721; 83718

== ENCOUNTER 2022-12-21 21:49 | Emergency (ER) | payer MEDICARE, MEDICAID, SELFPAY ==
[2022-12-21 21:58] VITALS: BP 117/67; PULSE 65; RESP 16; TEMP 35.8; O2SAT 97
--- NOTE | 2022-12-21 22:00 | DI.RAD_ITS ---
Exam(s) XR HIP LT COMPLETE AP PELVIS EXAM: XR HIP LT COMPLETE AP PELVIS CLINICAL HISTORY: Left hip pain. TECHNIQUE: 2D digital imaging was performed. COMPARISON: CT CT CHEST PE CTA from 10/28/2021 FINDINGS: 3 views No evidence of acute pelvic nor hip fracture. However, there are degenerative changes in the hips, m ore so on the left side where there is moderate narrowing of the superior aspect of hip joint space a nd degenerative subarticular cysts in the superior aspect of the acetabulum. No osteophytes. Degene rative change also noted in the opposite-right hip but appearing slightly less than on the side. No fractures. No osseous lesions. IMPRESSION: Osteoarthritic degenerative changes of both hips, more so on the left side. No fractures evident. DATA REPOSITORY: RADIATION DOSE DELIVERED:
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
[2022-12-21] MEDS: Cyclobenzaprine 10 MG TAB PO (22:38)
[2022-12-21] MEDS: oxyCODONE 5 mg/Acetaminophen 325 mg TAB 1 TAB PO (22:38)
[2022-12-21] MEDS: Lidocaine 5% Patch 1 PATCH TP (22:39)
--- NOTE | 2022-12-21 23:10 | DI.VRAD_ITS ---
PROCEDURE INFORMATION: Exam: XR Left Hip Exam date and time: 12/21/2022 10:54 PM Age: 67 years old Clinical indication: Patient HX: Left hip pain TECHNIQUE: Imaging protocol: Radiologic exam of the left hip. Views: 2 or 3 views hip with pelvis when performed. COMPARISON: CT ABDOMEN PELVIS WO 04/26/2022 8:21 AM FINDINGS: Bones/joints: No fracture. Osteophytes at both hips. Moderate superior joint space narrowing on the left. [id number] superior joint space narrowing on the right. Soft tissues: No significant abnormality IMPRESSION: 1. Moderate left hip osteoarthritis. 2. [id number] right hip osteoarthritis Dictated and Authenticated by: Jose Trinh MD. Ordering:RODRIGO Liang MD
[2022-12-21] MEDS: Cyclobenzaprine 10 MG TAB, 3 TABS/BTL PO (23:51)
[2022-12-22 00:03] LABS: Bilirubin Negative (Negative); Blood Negative (Negative); Clarity Clear (Clear); Glucose Negative (Negative); Ketones Negative (Negative); Leukocyte Esterase Negative (Negative); Nitrite Negative (Negative); Specific Gravity >= 1.030 (1.005-1.025); Urobilinogen 0.2 mg/dL (Up to 0.2); pH 5.5 (5-8)
== END 2022-12-21 23:47 | disposition home or self-care (01) ==
PROVIDERS: Emergency Provider Registered Nurse Emergency; PCP Nurse Practitioner Family
DX: M16.12 Unilateral primary osteoarthritis, left hip (principal); I10 Essential (primary) hypertension; Z79.899 Other long term (current) drug therapy
CPT/HCPCS: 99283; 73502; 81003; 99284

== ENCOUNTER → 2022-12-29 13:58 | Outpatient (BNVA) | payer MEDICARE, MEDICAID, SELFPAY | PROVIDERS: PCP Nurse Practitioner Family; Referring Provider Nurse Practitioner Family; Visit Provider Student in an Organized Health Care Education/Training Program | DX: M16.12 Unilateral primary osteoarthritis, left hip; M18.11 Unilateral primary osteoarthritis of first carpometacarpal joint, right hand | CPT/HCPCS: 99213 ==

== ENCOUNTER 2023-01-01 01:17 | Outpatient (CLI) | payer MEDICARE, MEDICAID, SELFPAY ==
--- NOTE | 2023-01-01 15:32 | W.PROCNOTE ---
Date of service: 01/01/23 Time of Service: 15:32 Procedure Note Procedure: Left Hip Injection with Fluoroscopic Guidance Surgeon/Proceduralist/Physician: Rogelio Hammond Procedure Diagnosis: Left Hip Osteoarthritis Procedure Indications: Annette has had persistent pain of the LEFT hip and groin. Noninvasive measures have been tried. To serve as both diagnostic and therapeutic, an injection under fluoroscopy was recommended. I had discussed the risks of the procedure and the patient elected to proceed. Procedure Description: Annette was greeted in the flouroscopy room. The correct side was identified and the consent was reviewed with the patient and signed. The patient was then placed in the supine position on the fluoroscopy table. The LEFT hip was then prepped with Chloraprep. The anterolateral injection starting point was identiifed by bony landmarks and fluoroscopy. The skin and soft tissue in the tract of the injection was anesthetized with 1% Lidocaine. A spinal needle was then inserted deep into the hip joint at the level of the lateral femoral neck under fluoroscopic guidance. A small amount of Omnipaque solution was injected to confirm intraarticular placement. Once confirmed, the hip was injected with 5cc of 0.5% Bupivicaine and 80mg of Depo-Medrol. A bandaid was placed on the injection site. The patient tolerated the procedure well and noted improvement in pre-injection pain.
--- NOTE | 2023-01-01 15:33 | DI.RAD_ITS ---
Exam(s) RF JOINT INJECTION FLUORO GUID EXAM: RF JOINT INJECTION FLUORO GUID CLINICAL HISTORY: L HIP INJ UNDER FLUORO,oa, m16.9. TECHNIQUE: 2D and realtime digital imaging was performed. COMPARISON: No exams were available for comparison FINDINGS: Fluoroscopy was provided for Dr. Hammond for guidance with performing a left hip injection. Please see procedure note for details. Fluoro time: 6seconds RADIATION DOSE DELIVERED: Jose Ar=2.08 mGy
[2023-01-01] MEDS: Bupivacaine 0.5% Pres-Free 10 ML VIAL 5 ML IJ (15:38)
[2023-01-01] MEDS: methylPREDNISolone ACETATE 80 MG/ML VIAL IM (15:39)
== END 2023-01-01 01:37 ==
LOC: DI 01:17
PROVIDERS: PCP Nurse Practitioner Family; Visit Provider Student in an Organized Health Care Education/Training Program
DX: M25.552 Pain in left hip
CPT/HCPCS: 20610; 77002; J1040

== ENCOUNTER → 2023-01-28 12:48 | Outpatient (BNVA) | payer MEDICARE, MEDICAID, SELFPAY | PROVIDERS: PCP Nurse Practitioner Family; Referring Provider Nurse Practitioner Family; Visit Provider Physician Assistant | DX: M16.12 Unilateral primary osteoarthritis, left hip (principal); M70.62 Trochanteric bursitis, left hip | CPT/HCPCS: 20610; J1040 ==

== ENCOUNTER 2023-02-02 07:39 | Emergency (ER) | payer MEDICARE, MEDICAID, SELFPAY ==
[2023-02-02 07:55] VITALS: BP 173/100; PULSE 115; RESP 20; TEMP 37.1; O2SAT 95
--- NOTE | 2023-02-02 08:30 | RT.EKG_ITS ---
APPROVED REPORT Exam: Resting ECG Reason for Exam: Patient Location: E HR:100 bpm ECG Measurements Heart Rate 100 AXIS MN 183 P 63 QRSd 108 QRS -18 QT 356 T 41 QTc 463 Conclusion Sinus tachycardia...rate> 99 Ventricular premature complex...V complex w/ short R-R interval
--- NOTE | 2023-02-02 08:30 | W.ED.GENAD ---
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 Intake: current Alcohol Intake frequency: 3 or more drinks per day Alcohol type: hard liquor Drug use: Daily Substance use type: marijuana and opiates Details: states last drink 2 days ago Current gender identity: male Do you feel safe at home: Yes Do you feel safe in your relationship?: Yes Exam <MARIA DEL ROSARIO Gonzalez - Last Filed: 02/09/23 09:13> Const General: well developed, acute distress mild (very anxious, pacing), anxious, disheveled and intoxicated appearing Nutritional Appearance: average body habitus and well nourished Orientation: alert, awake and oriented x3 HENMT Head: normal to inspection Ears: hearing grossly normal bilaterally Mouth: moist mucous membranes Chest Chest: normal inspection of the chest, normal palpation of entire chest wall and no crepitus Resp Effort & Inspection: normal respiratory effort, able to speak in complete sentences and no respiratory distress Auscultation: clear to auscultation bilaterally, no rales, no rhonchi and no wheezes Cardio Rate: regular rate Rhythm: regular rhythm Heart Sounds: S1 normal and S2 normal GI Inspection: normal to inspection, no edema and non-distended Palpation: soft, no hepatosplenomegaly, not firm, no guarding, not rigid and nontender Auscultation: normal bowel sounds Back/Spine/Pelvis Back: no CVA tenderness Thoracic/Lumbar Spine: thoracic and lumbar spine normal to inspection Skin General skin exam: no rashes or lesions noted Trauma: no lacerations or abrasions Neuro General: patient alert, patient awake and patient oriented x3 Cognition: normal cognition Speech: speech normal Gait: normal gait Extrem General: normal to inspection, capillary refill normal, no pedal edema, no calf tenderness and normal gait Psych Appearance: disheveled Mental Status: mental status grossly normal Speech and Movement: agitated and restless Mood: anxious mood and irritable mood Affect: anxious affect Attitude: cooperative Thought Process: normal Thought Content: suicidality Insight: poor Judgment: poor Course <MARIA DEL ROSARIO Gonzalez - Last Filed: 02/09/23 09:13> Vital Signs Vital signs: Vital Signs Temperature 37.1 C 02/02/23 07:55 Pulse 115 H 02/02/23 07:55 Respiratory Rate 20 02/02/23 07:55 Blood Pressure 173/100 H 02/02/23 07:55 Pulse Oximetry 95 02/02/23 07:55 Temperature 37.1 C 02/02/23 07:55 Temperature Source Temporal Artery Scan 02/02/23 07:55 Pulse 115 H 02/02/23 07:55 Respiratory Rate 20 02/02/23 07:55 Respiratory Effort Normal, Non-Labored 02/02/23 08:11 Respiratory Pattern Normal 02/02/23 08:13 Blood Pressure 173/100 H 02/02/23 07:55 Blood Pressure Position Sitting 02/02/23 07:55 Pulse Oximetry 95 02/02/23 07:55 Oxygen Delivery Method Room Air 02/02/23 07:55 Oxygen Flow Rate 0 02/02/23 07:55 Sign Out <MARIA DEL ROSARIO Gonzalez - Last Filed: 02/09/23 09:13> Sign Out Data: Sign Out Comment: Care transition to Yoly Cole NP with mental health assessment pending. Patient here wanting to detox from alcohol. However, the time that patient was initially seen, he did express suicidal ideations. Waiting for him to sober up which would be about 12 hours from the time of arrival, for mental health evaluation. We will also request success coach to speak with patient. He would prefer outpatient management if possible based on mental health status. Last updated by Zulay Walden PA at 02/02/23 16:09
--- NOTE | 2023-02-02 08:45 | DI.CT_ITS ---
Exam(s) CT THORAX ABD/PEL CTA EXAM: CT THORAX ABD/PEL CTA CLINICAL HISTORY: CP, known ascending AA, last 5cm Lauro last year. TECHNIQUE: Imaging Protocol: Axial CT angiography was performed with multi-slice acquisition and m ulti-planar and/or 3D reconstructions. CONTRAST MATERIAL: Intravenous: Omnipaque 350 contrast volume:100 mL Oral: No COMPARISON: CT CT ABDOMEN PELVIS WO from 04/26/2022 FINDINGS: The examination is limited due to patient motion artifact. CHEST: Tracheobronchial tree: Patent where visualized. Pulmonary parenchyma: There are calcified granuloma. No focal consolidating infiltrates are seen. N o architectural distortion. Pulmonary Arteries: The segmental and subsegmental pulmonary arteries are not ideally visualized due to patient motion artifact. No central pulmonary embolus is seen. Mediastinum and Elisha: No dominant adenopathy or fluid collection. Visualized thyroid: Unremarkable. Pleura: No effusion or pneumothorax. Heart: The heart is not dilated. Coronary artery calcification is present. No pericardial effusion. Aorta: There is a 5 x 5.1 cm ascending thoracic aortic aneurysm. There is mild atherosclerosis. No evidence of dissection. Soft Tissues: Unremarkable. Bones: Within normal limits for the patient's age.Sideplate and screws are seen transfixing old right rib fractures. ABDOMEN AND PELVIS: Abdomen: Celiac axis/mesenteric arteries: No evidence of occlusion or significant stenosis. Renal Arteries: No evidence of occlusion or significant stenosis. There is a single renal artery per fusing each kidney. Mild atherosclerosis at the origin of the left renal artery. Aorta: No evidence of occlusion or significant stenosis. No aneurysm or dissection. Atherosclerosi s. Pelvis: Iliac Arteries: No evidence of occlusion or significant stenosis. Atherosclerosis. Common Femoral Arteries: No evidence of occlusion or significant stenosis. Atherosclerosis. ABDOMEN: Liver: Normal density. There are stable hepatic cysts. Gallbladder and Biliary Tract: No radiodense calculus or dilation. Pancreas: Normal density, no abnormal calcifications or inflammatory process. Spleen: Normal. Adrenals: No masses seen. Kidneys: Normal size, contour and axis. No radiodense stones or obstructive uropathy. No masses seen. Bowel: There is diverticulosis seen in the colon, however there is no evidence of acute diverticuliti s. No evidence of bowel obstruction or inflammation. No evidence of appendicitis. Peritoneal Cavity: No ascites, collection or mesenteric inflammatory response. No free air. Lymph Nodes: Within normal limits. Bones: Within normal limits for the patient's age. 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 Soft Tissues: Unremarkable. PELVIS: Bladder: Symmetric distention, no gross wall thickening. Reproductive Organs: Unremarkable as visualized. Lymph Nodes: Within normal limits. Bones: Within normal limits for the patient's age. IMPRESSION: 1. 5.1 x 5 cm ascending thoracic aortic aneurysm. No evidence of dissection. 2. Atherosclerosis in the abdominal aorta but no evidence of dissection or aneurysm. 3. No acute pulmonary process. No acute abdominal or pelvic process. 4. Findings were discussed with Zulay Walden at 10:10 a.m. on 02/02/2023. RADIATION DOSE DELIVERED: 1,340.44mGy.cm Total DLP DATA REPOSITORY: All CT scans at this facility are submitted to the National Radiology Data Registry (NRDR) Dose Index Registry (DIR) with the [employer] (ACR). RADIATION OPTIMIZATION: All CT scans at this facility use at least one of these dose optimization te chniques: automated exposure control; mA and/or kV adjustment per patient size (includes targeted exa ms where dose is matched to clinical indication); or iterative reconstruction.
[2023-02-02 08:49] LABS: Abs Immature Grans 0.05 10^3/uL (0.0-0.06); Absolute Basophil Count 0.03 10^3/uL (0.0-0.2); Absolute Eosinophil Count 0.01 10^3/uL (0.0-0.7); Absolute Lymphocyte Count 1.77 10^3/uL (1.2-3.4); Absolute Monocyte Count 0.41 10^3/uL (0.1-0.8); Basophils % 0.5; Eosinophils % 0.2; HCT 38.4 % (40.0-50.0); HGB 13.6 g/dL (13.5-17.5); Immature Grans % 0.9; Lymphocytes % 30.7; MCH 30.6 pg (27.0-33.0); MCHC 35.4 % (32.0-36.0); MCV 86 fL (80-95); MPV 8.8 fL (8.0-11.0); Monocytes % 7.1; Neutrophils % 60.6; Platelet Count 213 10^3/uL (130-400); RBC 4.45 10^6/uL (4.36-5.78); RDW 14.1 % (11.8-14.1); RDW-SD 43.8 fL; WBC 5.77 10^3/uL (4.4-10.8)
[2023-02-02] MEDS: LORazepam 2 MG/ML VIAL 0.5 MG IVP ×3 (08:55→21:25)
[2023-02-02] MEDS: LORazepam 2 MG/ML VIAL (08:56)
[2023-02-02] MEDS: Ondansetron 4 MG/2 ML VIAL IVP ×2 (08:58→21:25)
[2023-02-02] MEDS: Omnipaque 350 MG/ML 500 ML BTL-Imaging package IJ (09:11)
[2023-02-02] MEDS: Normal Saline - Diluent 50 ML VIAL IJ (09:12)
[2023-02-02 09:16] LABS: Acetaminophen < 2 ug/mL (10-30); Salicylate < 2.8 mg/dL (<2.8)
[2023-02-02 09:18] LABS: ALT 52 U/L (16-63); AST 40 U/L (15-37); Albumin 3.7 g/dL (3.4-5.0); Alkaline Phosphatase 128 U/L (46-116); Anion Gap 8.7 mmol/L (3-11); BUN 21 mg/dL (7-18); Bilirubin, Total 0.4 mg/dL (0.2-1.0); CO2 27.3 mmol/L (21.0-32.0); CREATININE 0.8 mg/dL (0.70-1.30); Calcium 8.3 mg/dL (8.5-10.1); Chloride 102 mmol/L (98-107); ETHANOL BLOOD 246.4 mg/dL (<10); Estimated GFR 98.21 (mL/min/1.73m2); Glucose 115 mg/dL (74-106); Potassium 3.7 mmol/L (3.5-5.1); Sodium 138 mmol/L (136-145); TSH (W/Ref FT4) 2.27 uIU/mL (0.36-3.74); Total Protein 7.3 g/dL (6.4-8.2); Troponin I < 50 ng/L (<or=60)
[2023-02-02] MEDS: Lactated Ringers 1,000 ML 250 ML IV (09:48)
[2023-02-02 11:07] VITALS: BP 169/83; PULSE 104; RESP 18; TEMP 36.6; O2SAT 96
[2023-02-02] MEDS: Lisinopril 10 MG TAB PO (11:22)
[2023-02-02] MEDS: Metoprolol 50 MG TAB PO (11:22)
[2023-02-02] MEDS: Thiamine 100 MG TAB PO (11:22)
[2023-02-02] MEDS: Meclizine 25 MG TAB PO (11:22)
[2023-02-02 12:08] LABS: Troponin I < 50 ng/L (<or=60)
[2023-02-02 12:55] LABS: Bilirubin Negative (Negative); Blood Trace-intact (Negative); Clarity Clear (Clear); Glucose Negative (Negative); Ketones Negative (Negative); Leukocyte Esterase Negative (Negative); Nitrite Negative (Negative); Specific Gravity 1.015 (1.005-1.025); Urobilinogen 0.2 mg/dL (Up to 0.2)
[2023-02-02 13:02] LABS: *AMPHETAMINES SCREEN URINE Negative (Negative); *BARBITURATES SCREEN URINE Negative (Negative); *BENZODIAZEPINES SCREEN URINE Negative (Negative); Cannabinoids THC Positive (Negative); Cocaine Screen,Urine Negative (Negative); METHADONE URINE SCREEN Negative (Negative); OPIATES URINE SCREEN Negative (Negative)
[2023-02-02 13:03] LABS: Tricyclic Antidepressants Negative (Negative)
[2023-02-02 13:06] LABS: Bacteria Negative HPF (Negative); C & S Indicated? No; Casts Negative LPF (Negative); Crystals Negative HPF (Negative); Epithelial Cells Rare HPF (Negative); Mucus Negative (Negative); RBC 0-2 HPF (0-2); WBC Negative HPF (0-5)
[2023-02-02] MEDS: LORazepam 2 MG/ML VIAL 1 MG IVP (13:17)
[2023-02-02 17:05] VITALS: BP 109/67; PULSE 79; RESP 14; TEMP 36.8; O2SAT 92
[2023-02-02 20:02] LABS: ETHANOL BLOOD 32.8 mg/dL (<10)
--- NOTE | 2023-02-02 20:21 | NUR.NOTE ---
Nursing Note:patient stood by side of bed to use urinal, was unsteady on feet, had to stabilize self on stretcher
[2023-02-02 20:32] VITALS: BP 137/84; PULSE 68; RESP 20; O2SAT 92
--- NOTE | 2023-02-02 21:53 | NUR.NOTE ---
Nursing Note: this nurse took patient to use toilet, patient had x1 small bm with small amount of cristine blood present in toilet. Provider SJ notified
--- NOTE | 2023-02-02 21:58 | PDOC.MHCN ---
Date of service: 02/02/23 Time of Service: 21:15 PHQ-9 Over the last 2 weeks, how often have you been bothered by any of the following problems? 1. Little interest or pleasure in doing things: nearly every day 2. Feeling down, depressed, or hopeless: several days 3. Trouble falling or staying asleep, or sleeping too much: nearly every day 4. Feeling tired or having little energy: nearly every day 5. Poor appetite or overeating: more than half the days 6. Feeling bad about yourself - or that you are a failure or have let yourself and your family down: more than half the days 7. Trouble concentrating on things, such as reading the newspaper or watching television: several days 8. Moving or speaking so slowly that other people could have noticed? - Or the opposite - being so fidgety or restless that you have been moving around a lot more than usual: several days 9. Thoughts that you would be better off or of hurting yourself in some way: several days Total score: 17 If you checked off any problems, how difficult have these problems made it for you to do your work, take care of things at home, or get along with other people?: somewhat difficult PHQ-9 Results: Positive Source: Developed by Drs. Martín Leon, Karen Fraser, Ish Shukla and colleagues, with an educational candace from [employer]. Suicide Severity Rate CSSRS Have you wished you were or wished you could go to sleep and not wake up?: Yes Have you actually had any thoughts of killing yourself?: Yes CSSRS2 Have you been thinking about how you might do this?: Yes Have you had these thoughts and had some intention of acting on them?: No Have you started to work out or worked out the details of how to kill yourself? Do you intend to carry out this plan?: No CSSRS3 Have you ever done anything, started to do anything or prepared to do anything to end your life?: No CSSRS4 Was this within the past three months?: No Screening Score Total Score: 4 Screening: Positive Mental Health Emergency Note Release [facility] release signed:: Yes Reason for Visit Client is a closed client of [facility]. Client presented to [facility] this morning intoxicated and reporting that he wanted to detox and to stop using alcohol daily. During triage at the hospital the client reports that he was having fleeting thoughts of suicide and reported that his plan would be to shoot himself with a firearm, however per his report he does not own a firearm and does not have access to firearms. At the time of this assessment client is medically cleared and clinically sober. This curriculum writer assesses the client via zoom. In the last 2 weeks has the pt presented for ES prior to today?: No Client Information Client is: New Non Suicidal Self Injury Current: No History: No Safety Risk/Harm to Self or Others Current Ideation to Harm Self or Others: No Risk: Does risk to harm exist?: No Risk: N/A Duty to warn indicated: No Asssessment/Mental Status Appearance: Disheveled and Poor hygiene Attitude: Cooperative Behavior: Unremarkable Speech: Soft, Slow and Hesitant Affect: Flat and Cogruent with mood Mood: Depressed and Anxious Thought process: Unremarkable Hallucinations: No Delusions: No Attention: Inattention Perception: Not impaired Orientation: Fully orientated Memory: Intact Insight: Poor Judgement: Poor Neurovegetative Symptoms Sleep: No change (Client reports that he was drinking liquor until he passed out. ) Appetitie: Decrease (Client reports poor appetite. ) Interests: No change Energy: Decrease (Client reports poor energy. ) Libido: Not applicable Substance Use: ETOH dependence (Client reports that he drinks 1/2 gallon of vodka daily. ) and Blood alcohol level (Upon arrival at the hospital this morning clients TAMIE was .264. ) Do you use nicotine?: No Have you used substances in the last 7 days?: yes, 1/2 gallon of vodka daily, marijuana and occasionally oxycodone. Additional Issues: Assaultive/Threatening Behavior: No Medical Concerns: No Client engaged in active self harm w/weapon: No Threatening to run away: No Child reported abuse/neglect: No Voluntarily presenting for services: Yes Domestic violence is a concern: No Extreme Psychosis or extreme behavior is present: No Impression Client is a 67 y/o single male that lives in [place], [place] independently. Per the clients report he is currently unemployed. Client presents with symptoms most congruent to alcohol misuse disorder as evidenced by Resources Reosurces reviewed and given:: 988 and [facility] (Referral for substance abuse therapy. ) Plan/Disposition Recommended Disposition: [facility] Services (Substance abuse therapy. ) [facility] Services: Therapy. Plan: Client denies SI/HI as well as intent and plan. The client reports that he does not wish to seek inpatient treatment, but is agreeable to a referral at [facility] for substance abuse therapy. Pro-active safety plan in place with the client. This curriculum writer will complete referral for substance abuse therapy and the client is provided with [facility] 24 hour phone number as well as [phone] to utilize as resources if needed. Person reported agreement to plan: Yes
== END 2023-02-02 23:24 | disposition home or self-care (01) ==
PROVIDERS: Physician Assistant; Emergency Provider Registered Nurse Emergency; PCP Nurse Practitioner Family
DX: F10.239 Alcohol dependence with withdrawal, unspecified (principal); I10 Essential (primary) hypertension; R45.851 Suicidal ideations; R07.9 Chest pain, unspecified; I71.20 Thoracic aortic aneurysm, without rupture, unspecified; Z79.899 Other long term (current) drug therapy
CPT/HCPCS: 36415; 71275; 80053; 80307; 93005; 96361; 96374; 96375; 96376; 99285; 74174; 80320; 80329; 81003; 81015; 83735; 84443; 84484; 85025; 93010; J2060; J2405

== ENCOUNTER 2023-02-03 21:48 | Emergency (ER) | payer MEDICARE, MEDICAID, SELFPAY ==
[2023-02-03] VITALS (14 sets, daily range): BP systolic 127–167; BP diastolic 74–126; PULSE 62–94; RESP 20; TEMP 36.3; O2SAT 92–98
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
[2023-02-03] MEDS: Normal Saline 1,000 ML 1000 ML IV (22:31)
[2023-02-03] MEDS: Ondansetron 4 MG/2 ML VIAL IVP (22:33)
[2023-02-03] MEDS: Pantoprazole 40 MG VIAL IVP (22:33)
[2023-02-03 22:51] LABS: ETHANOL BLOOD < 3.0 mg/dL (<10); Lipase > 375 U/L (16-77)
[2023-02-03] MEDS: MORPHine 4 MG/ML SYR IVP (23:37)
[2023-02-04] VITALS: O2SAT 94
[2023-02-04 00:01] VITALS: BP 144/99; PULSE 71; O2SAT 94
[2023-02-04 00:10] VITALS: O2SAT 91
[2023-02-04 00:16] VITALS: BP 127/107; PULSE 80; O2SAT 93
[2023-02-04 00:37] VITALS: BP 127/107; PULSE 80; RESP 20; O2SAT 93
== END 2023-02-04 00:40 | disposition home or self-care (01) ==
PROVIDERS: Emergency Provider Registered Nurse Emergency; PCP Nurse Practitioner Family
DX: R10.9 Unspecified abdominal pain (principal); K29.70 Gastritis, unspecified, without bleeding
CPT/HCPCS: 83690; 96361; 96374; 96375; 99284; 80320; J2270; J2405

== ENCOUNTER 2023-02-04 10:29 | Inpatient (IN) | payer MEDICARE, MEDICAID, SELFPAY ==
[2023-02-04] VITALS (25 sets, daily range): BP systolic 112–146; BP diastolic 68–89; PULSE 83–105; RESP 11–23; TEMP 36.5–37.9; O2SAT 82–96
[2023-02-04 11:30] LABS: Abs Immature Grans 0.06 10^3/uL (0.0-0.06); Absolute Basophil Count 0.02 10^3/uL (0.0-0.2); Absolute Eosinophil Count 0.02 10^3/uL (0.0-0.7); Absolute Lymphocyte Count 0.76 10^3/uL (1.2-3.4); Absolute Monocyte Count 0.33 10^3/uL (0.1-0.8); Basophils % 0.2; Eosinophils % 0.2; HCT 41.5 % (40.0-50.0); HGB 14.7 g/dL (13.5-17.5); Immature Grans % 0.6; MCH 30.6 pg (27.0-33.0); MCHC 35.4 % (32.0-36.0); MCV 87 fL (80-95); MPV 9.4 fL (8.0-11.0); Platelet Count 193 10^3/uL (130-400); RDW 14.2 % (11.8-14.1); RDW-SD 44.9 fL; WBC 10.87 10^3/uL (4.4-10.8)
--- NOTE | 2023-02-04 11:30 | RT.EKG_ITS ---
APPROVED REPORT Exam: Resting ECG Reason for Exam: abdominal pain Patient Location: E HR:90 bpm ECG Measurements Heart Rate 90 AXIS VA 166 P 68 QRSd 104 QRS -21 QT 362 T 30 QTc 444 Conclusion Sinus rhythm...normal P axis, V-rate 60- 99. Sinus. No STEMI. I have reviewed and interpreted ECG and agree with software generated interpretation.
[2023-02-04 11:32] LABS: Absolute Neutrophil Count 9.67 10^3/uL (1.2-6.7)
[2023-02-04 11:45] LABS: ALT 42 U/L (16-63); AST 23 U/L (15-37); Albumin 3.6 g/dL (3.4-5.0); Alkaline Phosphatase 113 U/L (46-116); Anion Gap 10.1 mmol/L (3-11); BUN 18 mg/dL (7-18); Bilirubin, Total 0.8 mg/dL (0.2-1.0); CO2 25.9 mmol/L (21.0-32.0); CREATININE 0.9 mg/dL (0.70-1.30); Calcium 9.3 mg/dL (8.5-10.1); Chloride 102 mmol/L (98-107); Estimated GFR 94.78 (mL/min/1.73m2); Glucose 115 mg/dL (74-106); Potassium 3.7 mmol/L (3.5-5.1); Sodium 138 mmol/L (136-145); Total Protein 7.3 g/dL (6.4-8.2)
[2023-02-04 11:50] LABS: Lipase > 375 U/L (16-77)
[2023-02-04] MEDS: Prochlorperazine 10 MG/2 ML VIAL IVP ×2 (11:59→14:54)
[2023-02-04] MEDS: HYDROmorphone 2 MG/ML SYR 1 MG IVP ×2 (12:04→18:01)
[2023-02-04 13:11] LABS: ETHANOL BLOOD < 3.0 mg/dL (<10)
[2023-02-04] MEDS: Normal Saline Flush 10 ML SYR ×2 (14:50→18:00)
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
[2023-02-04] MEDS: Pravastatin 20 MG TAB 40 MG PO (21:27)
[2023-02-04] MEDS: QUEtiapine 50 MG TAB PO (21:27)
[2023-02-04] MEDS: Citalopram 20 MG TAB 40 MG PO (21:27)
[2023-02-05] VITALS: PULSE 103
[2023-02-05] MEDS: HYDROmorphone 2 MG/ML SYR 1 MG IVP ×4 (02:19→18:06)
[2023-02-05] MEDS: Normal Saline Flush 10 ML SYR IVP ×5 (02:20→18:07)
[2023-02-05 03:06] VITALS: BP 130/81; PULSE 109; RESP 15; TEMP 37.5; O2SAT 92
[2023-02-05] MEDS: Ibuprofen 400 MG TAB 600 MG PO (05:53)
[2023-02-05 06:33] LABS: Abs Immature Grans 0.05 10^3/uL (0.0-0.06); Absolute Basophil Count 0.02 10^3/uL (0.0-0.2); Absolute Monocyte Count 0.45 10^3/uL (0.1-0.8); Basophils % 0.2; HCT 36.5 % (40.0-50.0); HGB 12.6 g/dL (13.5-17.5); Immature Grans % 0.5; Lymphocytes % 8.9; MCH 30.8 pg (27.0-33.0); MCHC 34.5 % (32.0-36.0); MCV 89 fL (80-95); MPV 9.2 fL (8.0-11.0); Monocytes % 4.4; Platelet Count 135 10^3/uL (130-400); RBC 4.09 10^6/uL (4.36-5.78); RDW 14.6 % (11.8-14.1); RDW-SD 46.6 fL; WBC 10.12 10^3/uL (4.4-10.8)
[2023-02-05 07:00] VITALS: PULSE 107
[2023-02-05 07:20] LABS: BUN 11 mg/dL (7-18); CREATININE 0.8 mg/dL (0.70-1.30); Calcium 8.4 mg/dL (8.5-10.1); Chloride 100 mmol/L (98-107); Estimated GFR 98.21 (mL/min/1.73m2); Glucose 91 mg/dL (74-106); Potassium 3.4 mmol/L (3.5-5.1); Sodium 136 mmol/L (136-145)
--- NOTE | 2023-02-05 08:32 | PDOC.MHCN_ITS ---
Date of service: 02/02/23 Time of Service: 21:15 PHQ-9 Over the last 2 weeks, how often have you been bothered by any of the following problems? 1. Little interest or pleasure in doing things: nearly every day 2. Feeling down, depressed, or hopeless: several days 3. Trouble falling or staying asleep, or sleeping too much: nearly every day 4. Feeling tired or having little energy: nearly every day 5. Poor appetite or overeating: more than half the days 6. Feeling bad about yourself - or that you are a failure or have let yourself and your family down: more than half the days 7. Trouble concentrating on things, such as reading the newspaper or watching television: several days 8. Moving or speaking so slowly that other people could have noticed? - Or the opposite - being so fidgety or restless that you have been moving around a lot more than usual: several days 9. Thoughts that you would be better off or of hurting yourself in some way: several days Total score: 17 If you checked off any problems, how difficult have these problems made it for you to do your work, take care of things at home, or get along with other people?: very difficult PHQ-9 Results: Positive Source: Developed by Drs. Martín Leon, Karen Fraser, Ish Shukla and colleagues, with an educational candace from [employer]. Suicide Severity Rate CSSRS Have you wished you were or wished you could go to sleep and not wake up?: Yes Have you actually had any thoughts of killing yourself?: Yes CSSRS2 Have you been thinking about how you might do this?: Yes Have you had these thoughts and had some intention of acting on them?: No Have you started to work out or worked out the details of how to kill yourself? Do you intend to carry out this plan?: No CSSRS3 Have you ever done anything, started to do anything or prepared to do anything to end your life?: No CSSRS4 Was this within the past three months?: No Screening Score Total Score: 4 Screening: Positive Mental Health Emergency Note Release [facility] release signed:: Yes Reason for Visit Client is a closed client of [facility]. Client presented to [facility] this morning intoxicated and reporting that he wanted to detox and to stop using alcohol daily. During triage at the hospital the client reports that he was having fleeting thoughts of suicide and reported that his plan would be to shoot himself with a firearm, however per his report he does not own a firearm and does not have access to firearms. At the time of this assessment client is medically cleared and clinically sober. This internal communications writer assesses the client via zoom. In the last 2 weeks has the pt presented for ES prior to today?: No Client Information Client is: New Non Suicidal Self Injury Current: No History: No Safety Risk/Harm to Self or Others Current Ideation to Harm Self or Others: No Risk: Risk: N/A Duty to warn indicated: No Asssessment/Mental Status Appearance: Disheveled and Poor hygiene Attitude: Guarded Behavior: Unremarkable Speech: Incoherent Affect: Cogruent with mood Mood: Anxious Thought process: Unremarkable Hallucinations: No Delusions: No Attention: Poor concentration Perception: Not impaired Orientation: Fully orientated Memory: Intact Insight: Fair Judgement: Fair Neurovegetative Symptoms Sleep: Decrease Appetitie: No change Interests: No change Energy: No change Libido: Not applicable Substance Use: ETOH dependence Do you use nicotine?: Yes Have you used substances in the last 7 days?: yes, 1/2 gallon of vodka daily Additional Issues: Assaultive/Threatening Behavior: No Medical Concerns: No Client engaged in active self harm w/weapon: No Threatening to run away: No Child reported abuse/neglect: No Voluntarily presenting for services: Yes Domestic violence is a concern: No Extreme Psychosis or extreme behavior is present: No Impression Client is a 67 y/o single male that lives in [place], [place] independently. Per the clients report he is currently unemployed. Client presents to [facility] ED under the influence of alcohol, however the client is now currently medically cleared and clinical sober. This internal communications writer assesses the client via zoom. Client presents with symptoms most congruent with alcohol abuse disorder as evidenced by the clients self-report that he drinks 1/2 gallon of vodka daily and clients report that he makes statements that he does not remember when intoxicated. This internal communications writer asks the client if he is having thoughts of wanting to by suicide or hurt himself and he denies, the client reports that he does not remember making these statements this morning when he arrived at the hospital intoxicated. The client denies intent or plan to intentionally hurt himself. The client reports that he wants to get be sober and to stop using substances. Per report of the client he talked to a leadership coach from [facility], however does not with to go back to [facility] as he states that he did not find it helpful. Client would benefit from outpatient therapy to learn coping skills that him will help him be successful in his sobriety. Resources Reosurces reviewed and given:: [phone] and [facility] (Referral for substance abuse therapy) Plan/Disposition Recommended Disposition: [facility] Services (substance abuse therapy) [facility] Services: Therapy. Plan: Client does not met criteria for inpatient treatment, however is open to a referral at [facility] for substance abuse therapy. Pro-active safety plan in place with the client. This internal communications writer will submit referral for substance abuse therapy. Client is provided with [facility] 24 hour phone number as well as [phone] to utilized as resources if needed. Person reported agreement to plan: Yes Reports/communication Outcome discussed with: ED/Personnel (Verbal passover given to ED provider Azul Magdaleno. )
[2023-02-05] MEDS: Thiamine 100 MG TAB PO (09:07)
[2023-02-05] MEDS: Lisinopril 10 MG TAB PO (09:07)
[2023-02-05] MEDS: Folic Acid 1 MG TAB PO (09:07)
[2023-02-05] MEDS: Magnesium Chloride 64 MG TABCR PO (09:07)
[2023-02-05] MEDS: Metoprolol CR 25 MG TABCR 50 MG PO (09:07)
[2023-02-05] MEDS: Pantoprazole 40 MG TABCR PO (09:08)
[2023-02-05 10:09] VITALS: BP 132/86; PULSE 90; RESP 20; TEMP 36.5; O2SAT 93
[2023-02-05] MEDS: Polyethylene Glycol 3350 17 GM PACKET PO ×2 (10:36→15:38)
--- NOTE | 2023-02-05 14:47 | W.PM.PROGNOT ---
Date of Service Date of service: 02/05/23 Time of Service: 14:47 Assessment and Plan Assessment and plan (1) Suicide ideation: Status: Acute Assessment and plan: Endorsed fleeting suicidal ideations at time of ED evaluation on 02/03/23. Mental health evaluated. Safety plan initiated. No current SI. Cont Citalopram and Quetiapine Affect is normal / bright. (2) Alcohol abuse: Assessment and plan: No CIWA scoring. Thiamine and Folate supp. (3) Hypertension: Assessment and plan: Cont metoprolol and lisinopril and monitor. (4) Pancreatitis, acute: Assessment and plan: Pain and nausea management. Clear liquids currently tolerated. Advanced diet at noon but wasn't well tolerated. Alcohol cessation. (5) GI bleed: Assessment and plan: Previous history. No c/o melena/hematochezia. Hgb 14.7 on admission; now 12.6. Dilutional. He was dehydrated at time of admission d/t lack of oral intake (pain from pancreatitis). Cont PPI. Subjective Subjective Patient reports: afebrile; denies bowel movement, diarrhea or shortness of breath Interval history since last seen: [place] much better this AM. Able to take in clear liquids. Abd pain was minimal. He did advance diet at noon and had abd pain requiring dose of dilaudid. Exam Narrative Exam Narrative: Sitting in recliner. Walks in the room / steady gait. Const General: cooperative and no acute distress Nutritional Appearance: obese Orientation: alert and oriented x3 HENMT Head: normocephalic and atraumatic Ears: hearing grossly normal bilaterally Eyes General: appearance normal, both eyes and all related structures Sclera: sclerae normal Resp Effort & Inspection: normal respiratory effort Auscultation: clear to auscultation bilaterally Cardio Rate: regular rate Rhythm: regular rhythm Heart Sounds: S1 normal and S2 normal GI Palpation: soft, no guarding and tender (mild) in the epigastrum and in the LUQ Auscultation: normal bowel sounds Skin General skin exam: no rashes or lesions noted Neuro General: no focal motor deficits Cognition: normal cognition Speech: speech normal Gait: normal gait Motor: no tremors Extrem General: no pedal edema and no calf tenderness Psych Mental Status: mental status grossly normal Speech and Movement: speech clear Affect: normal affect Objective Last Vital Signs Temp 36.5 C 02/05/23 10:09 Pulse 90 02/05/23 10:09 Resp 20 02/05/23 10:09 BP 132/86 02/05/23 10:09 Pulse Ox 93 02/05/23 10:09 Laboratory Results - last 24 hr 02/05/23 02/05/23 05:40 05:40 WBC 10.12 RBC 4.09 L Hgb 12.6 L D Hct 36.5 L MCV 89 MCH 30.8 MCHC 34.5 RDW 14.6 H Plt Count 135 MPV 9.2 Immature Gran % 0.5 Neutrophils % 85.0 Lymphocytes % 8.9 Monocytes % 4.4 Eosinophils % 1.0 Basophils % 0.2 Nucleated RBC % 0.0 Absolute Neutrophils 8.60 H Absolute Lymphocytes 0.90 L Absolute Monocytes 0.45 Absolute Eosinophils 0.10 Absolute Basophils 0.02 Sodium 136 Potassium 3.4 L Chloride 100 Carbon Dioxide 27.0 Anion Gap 9.0 BUN 11 Creatinine 0.8 Est GFR (CKD-EPI 2020) 98.21 Glucose 91 Calcium 8.4 L PAWSS Have you Been Recently Intoxicated or Drunk Within the Last 30 days?: Yes Have you Ever Experienced Previous Episodes of Alcohol Withdrawal?: Yes Have you ever Experienced Withdrawal Seizures?: Yes Have you ever Experienced Delirium Tremens(DT)s?: Yes Have you ever undergone Alcohol Rehabilitation Treatment (i.e, inpt ot outpatient treatment programs)?: Yes Have you ever Experienced Blackouts?: Yes Have you ever Combined Alcohol with other Downers within the last 90 days?: Yes Have you ever Combined Alcohol with any other Substance of Abuse during the last 90 days?: Yes Positive Blood Alcohol level on Presentation? [PCS.BAL]: No Evidence of Increased Autonomic Activity (i.e. HR>120, tremor, sweating, agitation, nausea)?: No Result: 8 Time Spent with Patient Time Spent with Patient: 25-34 minutes Time was spent: preparing to see the patient(eg.review tests), ordering medications,tests, procedures, referring, communicating with other health pediatric acute care unit nurse and counseling the patient
[2023-02-05 15:07] VITALS: BP 108/78; PULSE 87; RESP 20; TEMP 36.4; O2SAT 95
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
[2023-02-05] MEDS: Senna TAB 1 TAB PO (15:38)
[2023-02-05] MEDS: Ketorolac 30 MG/ML VIAL IM (18:05)
[2023-02-05] MEDS: Citalopram 20 MG TAB 40 MG PO (21:52)
[2023-02-05] MEDS: Pravastatin 20 MG TAB 40 MG PO (21:52)
[2023-02-05] MEDS: QUEtiapine 50 MG TAB PO (21:53)
--- NOTE | 2023-02-05 22:14 | NUR.NOTE ---
This nurse was charting when a request came to go into patient's room came over the speaker. Upon entering the room, this nurse saw pt visitor sitting on the floor. The nurse in the room stated that the patient was sliding out of the recliner and she and the LOCKSTITCH HEMMER assisted visitor to the floor. Visitor stated she didn't hit anything as she slid down to the floor. Visitor was assisted to a wheelchair and wheeled down to the ED to be assessed.
[2023-02-05 22:58] VITALS: BP 101/72; PULSE 90; RESP 18; TEMP 37.4; O2SAT 92
[2023-02-06] MEDS: Normal Saline Flush 10 ML SYR IVP (01:57)
[2023-02-06] MEDS: HYDROmorphone 2 MG/ML SYR 1 MG IVP ×2 (01:58→09:08)
[2023-02-06 06:50] VITALS: BP 146/70; PULSE 90; RESP 18; TEMP 37.2; O2SAT 93
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
[2023-02-06] MEDS: Thiamine 100 MG TAB PO (08:51)
[2023-02-06] MEDS: Polyethylene Glycol 3350 17 GM PACKET PO ×2 (08:51→09:49)
[2023-02-06] MEDS: Metoprolol CR 25 MG TABCR 50 MG PO (08:51)
[2023-02-06] MEDS: Lisinopril 10 MG TAB PO (08:51)
[2023-02-06] MEDS: Folic Acid 1 MG TAB PO (08:51)
[2023-02-06] MEDS: Magnesium Chloride 64 MG TABCR PO (08:51)
[2023-02-06] MEDS: Pantoprazole 40 MG TABCR PO (08:51)
[2023-02-06] MEDS: Potassium Chloride 20 MEQ TABCR 40 MEQ PO (09:48)
[2023-02-06] MEDS: Bisacodyl 10 MG SUPP PR (09:49)
[2023-02-06 10:36] VITALS: BP 108/66; PULSE 75; RESP 16; TEMP 36.6; O2SAT 95
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
== END 2023-02-06 13:53 | disposition home or self-care (01) | DRG 439 ==
LOC: ER 12:54 → MS 13:41
PROVIDERS: Admitting Provider Family Medicine; Emergency Provider Physician Assistant; PCP Nurse Practitioner Family; Visit Provider Family Medicine
DX: K85.20 Alcohol induced acute pancreatitis without necrosis or infection (principal); R45.851 Suicidal ideations; I10 Essential (primary) hypertension; F10.10 Alcohol abuse, uncomplicated; I71.21 Aneurysm of the ascending aorta, without rupture; D53.9 Nutritional anemia, unspecified; I35.0 Nonrheumatic aortic (valve) stenosis; Z87.891 Personal history of nicotine dependence; R11.2 Nausea with vomiting, unspecified; K29.00 Acute gastritis without bleeding; K21.9 Gastro-esophageal reflux disease without esophagitis; M70.62 Trochanteric bursitis, left hip; M16.12 Unilateral primary osteoarthritis, left hip; M65.4 Radial styloid tenosynovitis [de Quervain]; M18.11 Unilateral primary osteoarthritis of first carpometacarpal joint, right hand; R51.9 Headache, unspecified; E78.5 Hyperlipidemia, unspecified; E86.0 Dehydration
CPT/HCPCS: 36415; 80048; 80053; 83690; 93005; 96374; 96375; 99285; 80320; 83735; 85025; 93010; 99222; 99232; 99239; J0780; J1170; J1885; J3490

== ENCOUNTER 2023-02-18 14:11 | Inpatient (IN) | payer MEDICARE, MEDICAID, SELFPAY ==
[2023-02-18] VITALS (83 sets, daily range): BP systolic 67–138; BP diastolic 35–103; PULSE 52–150; RESP 8–28; TEMP 36.4–36.8; O2SAT 90–99
--- NOTE | 2023-02-18 14:15 | RT.EKG_ITS ---
APPROVED REPORT Exam: Resting ECG Reason for Exam: fall Patient Location: E HR:73 bpm ECG Measurements Heart Rate 73 AXIS W[place] [id number] P [id number] QRSd 155 QRS 10 QT 399 T 23 QTc 440 Conclusion Atrial fibrillation...? atrial activity IVCD, consider RBBB...QRSd>120mS, terminal axis(90,270) poor baseline with artifact, p waves followed by narrow complex QRS in several leads suggests sinus r hythm
--- NOTE | 2023-02-18 14:15 | DI.RAD_ITS ---
Exam(s) XR ANKLE RT COMPLETE EXAM: XR ANKLE RT COMPLETE CLINICAL HISTORY: Deformity, Fall. TECHNIQUE: 2D digital imaging was performed. Three views. COMPARISON: CR LEFT TIB/FIB from 12/29/2017 FINDINGS: A posterior splint is seen on the lateral view. There is a fracture of the distal fibula with mild d isplacement laterally. On the lateral view there is some deformity of the contour of the distal tibi a which could represent an old versus acute fracture. There is widening of the ankle mortise. There is spurring from the malleoli. No talar dome defect. Small heel spurs. IMPRESSION: Mildly displaced distal fibular fracture. Question of distal tibial fracture. Mild widening of the ankle mortise DATA REPOSITORY: RADIATION DOSE DELIVERED:
--- NOTE | 2023-02-18 14:15 | DI.CT_ITS ---
Exam(s) CT HEAD WO EXAM: CT HEAD WO CLINICAL HISTORY: Syncope. TECHNIQUE: Imaging Protocol: Axial computed tomography images with coronal and sagittal reformatted images were created and reviewed COMPARISON: CT CT HEAD WO from 05/15/2021 FINDINGS: Ventricles and Extra axial spaces: Normal in size and morphology for the patient's age. Hemorrhage: None. Cerebral parenchyma: Normal. Midline shift: None. Brainstem/Cerebellum: Normal. Calvarium: Normal. Visualized Paranasal sinuses/Mastoids: Clear. Soft Tissues: Unremarkable. IMPRESSION: No acute intracranial process. RADIATION DOSE DELIVERED: 827.8mGy.cm Total DLP DATA REPOSITORY: All CT scans at this facility are submitted to the National Radiology Data Registry (NRDR) Dose Index Registry (DIR) with the [employer] (A[employer]). RADIATION OPTIMIZATION: All CT scans at this facility use at least one of these dose optimization te chniques: automated exposure control; mA and/or kV adjustment per patient size (includes targeted exa ms where dose is matched to clinical indication); or iterative reconstruction.
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
[2023-02-18 14:50] LABS: Abs Immature Grans 0.17 10^3/uL (0.0-0.06); Absolute Basophil Count 0.08 10^3/uL (0.0-0.2); Absolute Eosinophil Count 0.18 10^3/uL (0.0-0.7); Absolute Lymphocyte Count 1.66 10^3/uL (1.2-3.4); Absolute Monocyte Count 0.51 10^3/uL (0.1-0.8); Absolute Neutrophil Count 5.92 10^3/uL (1.2-6.7); Basophils % 0.9; Eosinophils % 2.1; HCT 35.1 % (40.0-50.0); Lymphocytes % 19.5; MCH 30.5 pg (27.0-33.0); MCHC 34.2 % (32.0-36.0); MCV 89 fL (80-95); MPV 8.8 fL (8.0-11.0); Neutrophils % 69.5; Platelet Count 510 10^3/uL (130-400); RBC 3.94 10^6/uL (4.36-5.78); RDW 13.5 % (11.8-14.1); RDW-SD 44.1 fL; WBC 8.52 10^3/uL (4.4-10.8)
[2023-02-18 15:07] LABS: ALT 55 U/L (16-63); AST 38 U/L (15-37); Albumin 3.7 g/dL (3.4-5.0); Alkaline Phosphatase 107 U/L (46-116); Anion Gap 7.6 mmol/L (3-11); BUN 40 mg/dL (7-18); Bilirubin, Total 0.4 mg/dL (0.2-1.0); CO2 29.4 mmol/L (21.0-32.0); CREATININE 2.4 mg/dL (0.70-1.30); Calcium 9.3 mg/dL (8.5-10.1); Chloride 90 mmol/L (98-107); Estimated GFR 29.21 (mL/min/1.73m2); Glucose 128 mg/dL (74-106); Magnesium 1.5 mg/dL (1.8-2.4); Potassium 3.8 mmol/L (3.5-5.1); Sodium 127 mmol/L (136-145); Total Protein 7.7 g/dL (6.4-8.2); Troponin I < 50 ng/L (<or=60)
[2023-02-18] MEDS: Ondansetron 4 MG/2 ML VIAL IVP (15:11)
[2023-02-18] MEDS: fentaNYL 100 MCG/2 ML VIAL 50 MCG IVP (15:15)
[2023-02-18] MEDS: Normal Saline 1,000 ML 1000 ML IV ×3 (15:16→19:30)
[2023-02-18 15:21] LABS: ETHANOL BLOOD < 3.0 mg/dL (<10)
--- NOTE | 2023-02-18 15:45 | DI.RAD_ITS ---
Exam(s) XR PORTABLE CHEST AP EXAM: XR PORTABLE CHEST AP CLINICAL HISTORY: Hypoxia, Syncope TECHNIQUE: 2D digital imaging was performed. COMPARISON: CT CT CHEST PE CTA from 10/28/[address] THORAX ABD/PEL CTA from 02/02/2023 FINDINGS: LUNGS: Mild right-sided volume loss with elevation of the right diaphragm. Clear. No pleural abnorm ality seen. HEART: Normal size. AORTA: Normal diameter. BONES: Fixation plates along the right lateral ribs. Chronic appearing left upper rib deformities. Deformity distal right clavicle. Soft tissues: Unremarkable. IMPRESSION: No acute findings. DATA REPOSITORY: RADIATION DOSE DELIVERED:
[2023-02-18] MEDS: HYDROmorphone 2 MG/ML SYR 0.5 MG IVP (16:13)
--- NOTE | 2023-02-18 16:30 | DI.CT_ITS ---
Exam(s) CT LOWER EXTREMITY RT WO EXAM: CT LOWER EXTREMITY RT WO CLINICAL HISTORY: ankle fx. TECHNIQUE: Imaging Protocol: Axial computed tomography images with coronal and sagittal reformatted images were created and reviewed. COMPARISON: CR XR ANKLE RT COMPLETE from 02/18/2023 FINDINGS: Bones: There is an acute comminuted fracture of the posterior malleolus. There is an acute comminut ed fracture involving the junction of the middle and distal thirds of the right fibula. There is mil d lateral displacement of the distal fracture fragment. There is mild spurring of the anterior tibia distally. There is a small plantar calcaneal spur and enthesophyte at the posterior calcaneus. The re is a linear calcific density at the anterior lateral aspect of the distal tibia. It appears to be old. The surrounding bone appears appear intact. No lytic or sclerotic lesions are identified. Soft Tissues: There is soft tissue swelling around the ankle. IMPRESSION: 1. Comminuted mildly displaced fracture involving the posterior malleolus. 2. Acute displaced comminuted fracture at the junction of the middle and distal thirds of the right f ibula. 3. Soft tissue edema around the ankle. RADIATION DOSE DELIVERED: 455.59mGy.cm Total DLP 455.59mGy.cm Total DLP DATA REPOSITORY: All CT scans at this facility are submitted to the National Radiology Data Registry (NRDR) Dose Index Registry (DIR) with the [employer] ([employer]). RADIATION OPTIMIZATION: All CT scans at this facility use at least one of these dose optimization te chniques: automated exposure control; mA and/or kV adjustment per patient size (includes targeted exa ms where dose is matched to clinical indication); or iterative reconstruction.
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
[2023-02-18] MEDS: HYDROmorphone 2 MG/ML SYR 1 MG IVP (16:44)
[2023-02-18] MEDS: Magnesium Oxide 400 MG TAB PO (16:44)
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
[2023-02-18 19:02] LABS: *AMPHETAMINES SCREEN URINE Negative (Negative); *BARBITURATES SCREEN URINE Negative (Negative); *BENZODIAZEPINES SCREEN URINE Negative (Negative); Cannabinoids THC Negative (Negative); Cocaine Screen,Urine Negative (Negative); METHADONE URINE SCREEN Negative (Negative); OPIATES URINE SCREEN Negative (Negative)
[2023-02-18 19:03] LABS: Tricyclic Antidepressants Negative (Negative)
--- NOTE | 2023-02-18 19:05 | DI.VRAD_ITS ---
PROCEDURE INFORMATION: Exam: CT Right Lower Extremity Without Contrast Exam date and time: 02/18/2023 6:31 PM Age: 67 years old Clinical indication: Right fibular FX TECHNIQUE: Imaging protocol: CT of the right lower extremity without contrast was performed. COMPARISON: CR XR ANKLE RT COMPLETE 02/18/2023 3:37 PM FINDINGS: Bones/joints: Closed, acute, comminuted fracture of the right fibular distal shaft with mild lateral displacement the distal major fracture fragment. Closed, acute, comminuted fracture involving the posterior right tibial distal metaphysis and distal epiphysis / posterior malleolar region. Right calcaneal small posterior spur. Soft tissues: Right ankle region soft tissue edema. IMPRESSION: 1. Closed, acute, comminuted fracture of the right fibular distal shaft with mild lateral displacement the distal major fracture fragment. 2. Closed, acute, comminuted fracture involving the posterior right tibial distal metaphysis and distal epiphysis / posterior malleolar region. 3. Right ankle region soft tissue edema. Dictated and Authenticated by: Timbo Tomlin MD. Ordering:MARYELLEN Padilla MD
[2023-02-18] MEDS: MAGNESIUM SULFATE 2 GM/50 ML BAG IVPB (19:11)
[2023-02-18] MEDS: MORPHine 4 MG/ML SYR IVP (19:12)
[2023-02-18 19:32] LABS: HCT 30.1 % (40.0-50.0)
[2023-02-18] MEDS: Gabapentin 300 MG CAP PO (20:39)
[2023-02-18] MEDS: Docusate Sodium 100 MG CAP PO (20:39)
[2023-02-18] MEDS: Acetaminophen 325 MG TAB 650 MG PO (20:40)
[2023-02-18] MEDS: Pantoprazole 40 MG VIAL IVP (20:40)
[2023-02-18] MEDS: oxyCODONE 5 MG TAB PO (20:40)
[2023-02-18 20:41] LABS: Prothrombin Time 10.2 sec (9.3-11.0)
[2023-02-18] MEDS: Normal Saline Flush 10 ML SYR IVP (20:41)
[2023-02-18 20:49] LABS: Troponin I < 50 ng/L (<or=60)
[2023-02-18] MEDS: QUEtiapine 25 MG TAB 50 MG PO (23:24)
[2023-02-18] MEDS: Citalopram 20 MG TAB 40 MG PO (23:24)
[2023-02-18] MEDS: Lactated Ringers 500 ML IV (23:25)
[2023-02-19] VITALS (77 sets, daily range): BP systolic 68–130; BP diastolic 36–78; PULSE 57–155; RESP 8–23; TEMP 36.4–37.8; O2SAT 62–97
[2023-02-19 00:43] LABS: HCT 29.9 % (40.0-50.0)
[2023-02-19] MEDS: oxyCODONE 5 MG TAB PO ×3 (01:53→20:13)
[2023-02-19 06:43] LABS: Abs Immature Grans 0.09 10^3/uL (0.0-0.06); Absolute Basophil Count 0.05 10^3/uL (0.0-0.2); Absolute Eosinophil Count 0.19 10^3/uL (0.0-0.7); Absolute Lymphocyte Count 1.73 10^3/uL (1.2-3.4); Absolute Monocyte Count 0.58 10^3/uL (0.1-0.8); Basophils % 0.7; Eosinophils % 2.6; HCT 31.7 % (40.0-50.0); HGB 10.5 g/dL (13.5-17.5); Immature Grans % 1.2; Lymphocytes % 23.6; MCH 29.9 pg (27.0-33.0); MCHC 33.1 % (32.0-36.0); MCV 90 fL (80-95); Monocytes % 7.9; Platelet Count 341 10^3/uL (130-400); RBC 3.51 10^6/uL (4.36-5.78); RDW 13.7 % (11.8-14.1); RDW-SD 45.4 fL; WBC 7.34 10^3/uL (4.4-10.8)
[2023-02-19 07:01] LABS: ALT 45 U/L (16-63); AST 29 U/L (15-37); Alkaline Phosphatase 93 U/L (46-116); BUN 31 mg/dL (7-18); Bilirubin, Total 0.3 mg/dL (0.2-1.0); CREATININE 1.5 mg/dL (0.70-1.30); Calcium 8.7 mg/dL (8.5-10.1); Chloride 97 mmol/L (98-107); Estimated GFR 51.35 (mL/min/1.73m2); Glucose 94 mg/dL (74-106); Magnesium 1.8 mg/dL (1.8-2.4); Potassium 4.3 mmol/L (3.5-5.1); Sodium 131 mmol/L (136-145); Total Protein 6.5 g/dL (6.4-8.2)
--- NOTE | 2023-02-19 07:07 | PUCC_ITS ---
General Date of Service Date of service: 02/19/23 Time of Service: 07:07 Assessment and Plan Assessment and plan (1) Hypotension: Status: Acute (2) Closed right ankle fracture: Status: Acute (3) Right fibular fracture: Status: Acute (4) Acute kidney injury: Status: Acute (5) Gastritis: Status: Acute (6) Bicuspid aortic valve: Status: Acute (7) Aortic regurgitation: Status: Acute (8) Liver cirrhosis: Status: Acute (9) Alcohol abuse: (10) Hyponatremia: Status: Acute (11) Hypomagnesemia: Status: Acute (12) Anemia: Status: Chronic Assessment and plan: This is a 67 yo admitted to the ICU for hypotension in the setting of a right leg fracture. He states his blood pressure is normal on the low side, but on historical evaluation it has been normal. He does not appear to be bleeding, but would continue to monitor Hb closely for possible fracture adjacent bleed. He does not appear toxic, but I have ordered blood cultures and a procalcitonin (negative) for further assessment. I have also ordered a TSH (returned normal) and a random cortisol level. I think he is euvolemic at this point and would not recommend further IVF resuscitation unless his UOP decreases/mentation changes or on a repeat study is found to have collapsed IVC (however today is not collapsed) with persistent hypotension. He is not in acute on chronic liver failure. UA and CXR are also normal. He is on metoprolol at home, but is not being given this currently, so its possible is is metoprolol hanging around in his system, particularly since he does not have reflexive tachycardia. Recommendations Pulmonary: h/o COPD - Incruse - home med - prn albuterol Cardiac: Bicuspid aortic valve Aortic valve replacement POCUS with normal appearing EF this morning Hypotension - normal mentation and UOP - advise against vasopressors for hypotension with normal UOP and mentation, unless MAP <55mmhg persistently - patient seems to be euvolemic - random cortisol - normal procalcitonin, normal WBC - blood cultures ordered - strict I/O's - recommend glucagon trial for metoprolol antidote: 0.05mg/kg once and repeated once if not full effect Renal: MIKE - improved s/p IVF resuscitation Hyponatremia - continue to monitor Hypomagnesemia - replete to 2.0 I&O: Intake & Output 02/16/23 02/17/23 02/18/23 02/19/23 23:59 23:59 23:59 23:59 Intake Total 3193.333 / 3193.333 860 / 860 Output Total 700 / 700 865 / 865 Balance 2493.333 / 2493.333 -5 / -5 Weight 97.3 kg 93.1 kg Daily Fluid Goal:: even to slightly positive GI Nutrition: Liver cirrhosis - stage 3 fibrosis on [facility] assessment - no acute process h/o gastritis Date of Last Bowel Movement: 02/18/23 Infectious Disease: No clear infectious source, patient non toxic appearing Hematologic: Anemia - continue to monitor Neurologic: h/o alcohol use - no acute concern Endocrine: No acute concern Lines: PIV Prophylaxis: Protonix - home med defer chemical DVT ppx to ortho Code Status: Resuscitation Status Full Code Subjective Critical and life-threatening events over the past 24 hours: This is a 67 yo with EtOH liver fibrosis, h/o pancreatitis and aortic aneurysm (5.2cm, stable) who was admitted after a right ankle fracture. Ortho would like to take him to the OR if possible. His blood pressure is o nthe low side, however given the liver cirrhosis and per the patient, it is normally on the low side. That being said on historical evaluation he has had normal BP's in the past. His mentation is good, his UOP is sufficient. He was given IVF resuscitation which improved his MIKE (likely prerenal issues). Hb is stable today (some drift after hydration and ICU phlebotomy). Today he only complains of leg pain, but is overall doing better. He does think the PO oxycodone is sufficient for his pain. Exam Narrative Exam Narrative: Gen: NAD, normal respiratory effort, well-nourished HENT: PERRL Chest: No respiratory distress, normal appearance of chest, clear to auscultation bilaterally, no crackles or wheezes, normal inspiratory effort Heart: regular rate and rhythym, diastolic murmur Abdomen: Non-distended, soft, non tender Extremities: No clubbing, edema, cyanosis, rashes, defered right leg exam Neuro: AAOx3 , non focal Psych: cooperative, appropriate mental affect Most Recent VS/Results Last Vital Signs Temp 36.4 C L 02/19/23 06:50 Pulse 58 L 02/19/23 05:00 Resp 11 L 02/19/23 06:00 BP 91/46 L 02/19/23 05:00 Pulse Ox 62 L 02/19/23 04:00 Laboratory Results - last 24 hr 02/18/23 02/18/23 02/18/23 14:35 14:35 18:21 WBC 8.52 RBC 3.94 L Hgb 12.0 L Hct 35.1 L MCV 89 MCH 30.5 MCHC 34.2 RDW 13.5 Plt Count 510 H MPV 8.8 Immature Gran % 2.0 Neutrophils % 69.5 Lymphocytes % 19.5 Monocytes % 6.0 Eosinophils % 2.1 Basophils % 0.9 Nucleated RBC % 0.0 Absolute Neutrophils 5.92 Absolute Lymphocytes 1.66 Absolute Monocytes 0.51 Absolute Eosinophils 0.18 Absolute Basophils 0.08 PT INR Sodium 127 L Potassium 3.8 Chloride 90 L Carbon Dioxide 29.4 Anion Gap 7.6 BUN 40 H Creatinine 2.4 H Est GFR (CKD-EPI 2020) 29.21 Glucose 128 H Calcium 9.3 Magnesium 1.5 L Total Bilirubin 0.4 AST 38 H ALT 55 Alkaline Phosphatase 107 Troponin I < 50 Total Protein 7.7 Albumin 3.7 Urine Opiates Screen Negative Urine Methadone Screen Negative Ur Barbiturates Screen Negative Ur Tricyclics Screen Negative Ur Amphetamines Screen Negative U Benzodiazepines Scrn Negative Urine Cocaine Screen Negative Ur THC Screen Negative Ethyl Alcohol < 3.0 Patient ABO/Rh Antibody Screen 02/18/23 02/18/23 02/18/23 19:22 20:25 20:25 WBC RBC Hgb 10.0 L D Hct 30.1 L MCV MCH MCHC RDW Plt Count MPV Immature Gran % Neutrophils % Lymphocytes % Monocytes % Eosinophils % Basophils % Nucleated RBC % Absolute Neutrophils Absolute Lymphocytes Absolute Monocytes Absolute Eosinophils Absolute Basophils PT 10.2 INR 1.0 Sodium Potassium Chloride Carbon Dioxide Anion Gap BUN Creatinine Est GFR (CKD-EPI 2020) Glucose Calcium Magnesium Total Bilirubin AST ALT Alkaline Phosphatase Troponin I < 50 Total Protein Albumin Urine Opiates Screen Urine Methadone Screen Ur Barbiturates Screen Ur Tricyclics Screen Ur Amphetamines Screen U Benzodiazepines Scrn Urine Cocaine Screen Ur THC Screen Ethyl Alcohol Patient ABO/Rh Antibody Screen 02/18/23 02/19/23 02/19/23 20:25 00:37 06:17 WBC RBC Hgb 10.0 L Hct 29.9 L MCV MCH MCHC RDW Plt Count MPV Immature Gran % Neutrophils % Lymphocytes % Monocytes % Eosinophils % Basophils % Nucleated RBC % Absolute Neutrophils Absolute Lymphocytes Absolute Monocytes Absolute Eosinophils Absolute Basophils PT INR Sodium 131 L Potassium 4.3 Chloride 97 L Carbon Dioxide 28.0 Anion Gap 6.0 BUN 31 H Creatinine 1.5 H Est GFR (CKD-EPI 2020) 51.35 Glucose 94 Calcium 8.7 Magnesium 1.8 Total Bilirubin 0.3 AST 29 ALT 45 Alkaline Phosphatase 93 Troponin I Total Protein 6.5 Albumin 3.0 L Urine Opiates Screen Urine Methadone Screen Ur Barbiturates Screen Ur Tricyclics Screen Ur Amphetamines Screen U Benzodiazepines Scrn Urine Cocaine Screen Ur THC Screen Ethyl Alcohol Patient ABO/Rh B Positive Antibody Screen NEGATIVE 02/19/23 06:17 WBC 7.34 RBC 3.51 L Hgb 10.5 L Hct 31.7 L MCV 90 MCH 29.9 MCHC 33.1 RDW 13.7 Plt Count 341 MPV 9.0 Immature Gran % 1.2 Neutrophils % 64.0 Lymphocytes % 23.6 Monocytes % 7.9 Eosinophils % 2.6 Basophils % 0.7 Nucleated RBC % 0.0 Absolute Neutrophils 4.70 Absolute Lymphocytes 1.73 Absolute Monocytes 0.58 Absolute Eosinophils 0.19 Absolute Basophils 0.05 PT INR Sodium Potassium Chloride Carbon Dioxide Anion Gap BUN Creatinine Est GFR (CKD-EPI 2020) Glucose Calcium Magnesium Total Bilirubin AST ALT Alkaline Phosphatase Troponin I Total Protein Albumin Urine Opiates Screen Urine Methadone Screen Ur Barbiturates Screen Ur Tricyclics Screen Ur Amphetamines Screen U Benzodiazepines Scrn Urine Cocaine Screen Ur THC Screen Ethyl Alcohol Patient ABO/Rh Antibody Screen Review of Systems All systems reviewed & are unremarkable except as noted in HPI and below Time spent with patient Time spent in Critical Care: 60 Time spent in Critical care included: Performing procedures not included in c.c time, Chart review, Documenting critically ill care, Time at immediate bedside and Discussing critically ill care with other medical staff Pocus Exam Limited Cardiac Exam DATE OF EXAM: 02/19/23 TIME OF EXAM: 07:30 PROVIDER THAT PERFORMED THE STUDY: April Bonds IS THIS A REPEAT EXAM DURING THIS ENCOUNTER: no REASON FOR EXAM: Hypotension VISUALIZED STRUCTURES: four chambers, left atrium, left ventricle, LVOT, right atrium, right ventricle, aortic valve, mitral valve, Interventricular septum and IVC VIEW OBTAINED: Apical 4-Chamber, Parasternal long-axis, Parasternal short-axis and Subxiphoid PERTINENT FINDINGS/IMPRESSION: Other Bicuspid Aotric valve? ; No LV dysfunction, No pericardial effusion, No RV dilation and No RV dysfunction Exam complete Limited Thoracic Lung Exam DATE OF EXAM: 02/19/23 TIME OF EXAM: 07:40 PROVIDER THAT PERFORMED THE STUDY: April Bonds IS THIS A REPEAT EXAM DURING THIS ENCOUNTER: No REASON FOR EXAM: Hypotension VISUALIZED STRUCTURES: right anterior and left anterior PERTINENT FINDINGS/IMPRESSION: No apparent abnormalities Exam complete Multi-Disciplinary Checklist Lines/Tubes CENTRAL LINE: no ARTERIAL LINE: no COREAS: yes, Coreas #: 0 ENDOTRACHEAL TUBE: no ICU Maintenance GLUCOSE 140-180mg/dL: yes NUTRITION AT GOAL: yes PRESSURE ULCER: no RESTRAINTS: no ANTIBIOTICS(if yes, consider Stewardship): No Social Issues FAMILY UPDATED: no, Reason/Intervention: patient capable PT/OT: yes GOALS/DISPOSITION/MACHINE SHORTHAND REPORTER: yes CODE STATUS: Full Prophylaxis DVT PROPHYLAXIS: no Reason/Intervention: fracture, will defer to ortho GI PROPHYLAXIS: yes, Indication: home med
[2023-02-19 07:13] LABS: Lab Add On Test DONE
[2023-02-19 07:37] LABS: TSH (W/Ref FT4) 1.13 uIU/mL (0.36-3.74)
[2023-02-19 08:04] LABS: Procalcitonin < 0.1 ng/mL
--- NOTE | 2023-02-19 08:19 | PGE_ITS ---
Date of Service Date of service: 02/19/23 Time of Service: 08:19 Assessment and Plan Assessment and plan (1) Syncope: Status: Acute Assessment and plan: Unclear etiology for his syncope. ACS has been ruled out. While he is anemic the degree of anemia is not significant enough to cause syncope. Allegedly his thoracic aortic aneurysm is stable however the last evaluation was at [facility] about a year ago. We will get a formal echocardiogram I would also consider doing CTA not only to assess his aorta cannulae. I did order a D-dimer. Dr. Xiong ordered procalcitonin which came back normal she also ordered blood cultures although clinically does not seem to be septic. His white cell count is normal and procalcitonin level are normal. Is possible some his low blood pressure was secondary to aftereffects of pressure occasions he had been on lisinopril and metoprolol. I discussed this case with anesthesia and they do not feel comfortable taking the surgery given his ongoing hypotension. Despite his hypotension his mental status seems to be clear and he is making adequate urine output nevertheless his systolic pressures have been in the low 80s and sometimes high 70s. He may need an A-line to get more accurate central blood pressure readings. His rhythm seems to be sinus rhythm there is been no arrhythmias. Per POCUS exam performed with Dr. Bonds this morning his LV function appears to be normal. His IVC appears to be less than 2 cm although his cine film was not taken with his IVC so I cannot tell whether it was co llapsible by more than 50%. I attempted bedside POCUS exam cannot get adequate visualization of his IVC. I also attempted to obtain a VTI but could not get proper angle as the patient had to be scanned lying on his back. We will get a formal echocardiogram to evaluate LV and RV function. On giving him 500 mL bolus of LR but if his pressure does not improve then he will probably need vasopressors. Critical care time spent interviewing and examining the patient, reviewing studies, discussing case with patient's nurse and consulting physicians was 60 minutes (2) Hypotension: Status: Acute Assessment and plan: work up as above. If his bp does not respond to further fluids then need to consider arterial line to get accurate BP readings and may need vasopressors, however, I am holding off for now as he is maintaining his baseline cognition and has adequate urine output. (3) Acute kidney injury: Status: Acute Assessment and plan: Acute kidney injury. Baseline BUN and creatinine are 11 and 0.8 as of 02/05/2023. He presented with a BUN of 40 creatinine 2.4 clearly prerenal azotemia. He is now down to 31 and 1.5. Continue judicious IV fluid administration. (4) Closed right ankle fracture: Status: Acute Assessment and plan: surgery delayed pending evaluation and resolution of his hypotension (5) Anemia: Status: Chronic Assessment and plan: slight drop in his Hb from yesterday but no overt bleeding (6) Aortic regurgitation: Status: Acute Assessment and plan: will re-evaluate w/ echocardiogram (7) Aortic aneurysm: Assessment and plan: now that his creatinine is coming down, consider CTA of thoracic aorta to assess stability (8) Alcohol abuse: Status: Acute Assessment and plan: patient reportedly has been abstinent since his last hospitalization, i.e., 3 weeks Subjective Subjective Interval history since last seen: Patient remains hypotensive. he was given fluid bolus last night but not maintained on iv fluids overnight. No overt GI bleeding. Patient's rectal exam yesterday was heme negative. Hb 10.5 gm, drop from 12.6 on admission. Likely dilutional. he had over 4 L yesterday. Etiology of his hypotension unclear. Per nurse oxyacetylene torch operator, patient's BP for his C-scope and EGD in October this year at [facility] was normal in the 110's to 120's. [place] nurse oxyacetylene torch operator[place] [facility] [place], c-scope demonstrated single polyp in the hepatic flexure and sigmoid diverticulosis but no bleeding. Patient reported to us yesterday that he had couple days of bright red rectal bleeding he attibuted to hemorrhoidal bleeding associated w/ constipation. He does not seem to be septic and he is not actively bleeding. he has hx of aortic aneurysm that allegedly is stable at 5.2 cm ascending TAA as of 02/2022. Patient denies any CP or dyspnea Exam Narrative Exam Narrative: Mr. Patrick is alert, oriented, his only complaint is is right ankle pain Neck: supple, no JVD Lungs: clear Heart: RRR w/ faint soft murmur along LUSB Abdomen: soft, nontender, normal bowel sounds Legs/feet: right foot/ankle in splint, toes warm, intact senstation; no edema of thigh or knee; left leg w/out edema or cyanosis and intact pedal pulses' Neuro exam grossly normal Objective Last Vital Signs Temp 37.4 C 02/19/23 08:17 Pulse 58 L 02/19/23 05:00 Resp 11 L 02/19/23 06:00 BP 90/50 L 02/19/23 08:17 Pulse Ox 62 L 02/19/23 04:00 Laboratory Results - last 24 hr 02/18/23 02/18/23 02/18/23 14:35 14:35 18:21 WBC 8.52 RBC 3.94 L Hgb 12.0 L Hct 35.1 L MCV 89 MCH 30.5 MCHC 34.2 RDW 13.5 Plt Count 510 H MPV 8.8 Immature Gran % 2.0 Neutrophils % 69.5 Lymphocytes % 19.5 Monocytes % 6.0 Eosinophils % 2.1 Basophils % 0.9 Nucleated RBC % 0.0 Absolute Neutrophils 5.92 Absolute Lymphocytes 1.66 Absolute Monocytes 0.51 Absolute Eosinophils 0.18 Absolute Basophils 0.08 PT INR Sodium 127 L Potassium 3.8 Chloride 90 L Carbon Dioxide 29.4 Anion Gap 7.6 BUN 40 H Creatinine 2.4 H Est GFR (CKD-EPI 2020) 29.21 Glucose 128 H Calcium 9.3 Magnesium 1.5 L Total Bilirubin 0.4 AST 38 H ALT 55 Alkaline Phosphatase 107 Troponin I < 50 Total Protein 7.7 Albumin 3.7 Procalcitonin TSH Urine Opiates Screen Negative Urine Methadone Screen Negative Ur Barbiturates Screen Negative Ur Tricyclics Screen Negative Ur Amphetamines Screen Negative U Benzodiazepines Scrn Negative Urine Cocaine Screen Negative Ur THC Screen Negative Ethyl Alcohol < 3.0 Add-On Test Request Patient ABO/Rh Antibody Screen 02/18/23 02/18/23 02/18/23 19:22 20:25 20:25 WBC RBC Hgb 10.0 L D Hct 30.1 L MCV MCH MCHC RDW Plt Count MPV Immature Gran % Neutrophils % Lymphocytes % Monocytes % Eosinophils % Basophils % Nucleated RBC % Absolute Neutrophils Absolute Lymphocytes Absolute Monocytes Absolute Eosinophils Absolute Basophils PT 10.2 INR 1.0 Sodium Potassium Chloride Carbon Dioxide Anion Gap BUN Creatinine Est GFR (CKD-EPI 2020) Glucose Calcium Magnesium Total Bilirubin AST ALT Alkaline Phosphatase Troponin I < 50 Total Protein Albumin Procalcitonin TSH Urine Opiates Screen Urine Methadone Screen Ur Barbiturates Screen Ur Tricyclics Screen Ur Amphetamines Screen U Benzodiazepines Scrn Urine Cocaine Screen Ur THC Screen Ethyl Alcohol Add-On Test Request Patient ABO/Rh Antibody Screen 02/18/23 02/19/23 02/19/23 20:25 00:37 06:17 WBC RBC Hgb 10.0 L Hct 29.9 L MCV MCH MCHC RDW Plt Count MPV Immature Gran % Neutrophils % Lymphocytes % Monocytes % Eosinophils % Basophils % Nucleated RBC % Absolute Neutrophils Absolute Lymphocytes Absolute Monocytes Absolute Eosinophils Absolute Basophils PT INR Sodium 131 L Potassium 4.3 Chloride 97 L Carbon Dioxide 28.0 Anion Gap 6.0 BUN 31 H Creatinine 1.5 H Est GFR (CKD-EPI 2020) 51.35 Glucose 94 Calcium 8.7 Magnesium 1.8 Total Bilirubin 0.3 AST 29 ALT 45 Alkaline Phosphatase 93 Troponin I Total Protein 6.5 Albumin 3.0 L Procalcitonin TSH Urine Opiates Screen Urine Methadone Screen Ur Barbiturates Screen Ur Tricyclics Screen Ur Amphetamines Screen U Benzodiazepines Scrn Urine Cocaine Screen Ur THC Screen Ethyl Alcohol Add-On Test Request Patient ABO/Rh B Positive Antibody Screen NEGATIVE 02/19/23 02/19/23 02/19/23 06:17 06:17 06:17 WBC 7.34 RBC 3.51 L Hgb 10.5 L Hct 31.7 L MCV 90 MCH 29.9 MCHC 33.1 RDW 13.7 Plt Count 341 MPV 9.0 Immature Gran % 1.2 Neutrophils % 64.0 Lymphocytes % 23.6 Monocytes % 7.9 Eosinophils % 2.6 Basophils % 0.7 Nucleated RBC % 0.0 Absolute Neutrophils 4.70 Absolute Lymphocytes 1.73 Absolute Monocytes 0.58 Absolute Eosinophils 0.19 Absolute Basophils 0.05 PT INR Sodium Potassium Chloride Carbon Dioxide Anion Gap BUN Creatinine Est GFR (CKD-EPI 2020) Glucose Calcium Magnesium Total Bilirubin AST ALT Alkaline Phosphatase Troponin I Total Protein Albumin Procalcitonin TSH 1.13 Urine Opiates Screen Urine Methadone Screen Ur Barbiturates Screen Ur Tricyclics Screen Ur Amphetamines Screen U Benzodiazepines Scrn Urine Cocaine Screen Ur THC Screen Ethyl Alcohol Add-On Test Request DONE Patient ABO/Rh Antibody Screen 02/19/23 06:17 WBC RBC Hgb Hct MCV MCH MCHC RDW Plt Count MPV Immature Gran % Neutrophils % Lymphocytes % Monocytes % Eosinophils % Basophils % Nucleated RBC % Absolute Neutrophils Absolute Lymphocytes Absolute Monocytes Absolute Eosinophils Absolute Basophils PT INR Sodium Potassium Chloride Carbon Dioxide Anion Gap BUN Creatinine Est GFR (CKD-EPI 2020) Glucose Calcium Magnesium Total Bilirubin AST ALT Alkaline Phosphatase Troponin I Total Protein Albumin Procalcitonin < 0.1 TSH Urine Opiates Screen Urine Methadone Screen Ur Barbiturates Screen Ur Tricyclics Screen Ur Amphetamines Screen U Benzodiazepines Scrn Urine Cocaine Screen Ur THC Screen Ethyl Alcohol Add-On Test Request Patient ABO/Rh Antibody Screen PAWSS Have you Been Recently Intoxicated or Drunk Within the Last 30 days?: Yes Have you Ever Experienced Previous Episodes of Alcohol Withdrawal?: Yes Have you ever Experienced Withdrawal Seizures?: No Have you ever Experienced Delirium Tremens(DT)s?: Yes Have you ever undergone Alcohol Rehabilitation Treatment (i.e, inpt ot outpatient treatment programs)?: No Have you ever Experienced Blackouts?: No Have you ever Combined Alcohol with other Downers within the last 90 days?: No Have you ever Combined Alcohol with any other Substance of Abuse during the last 90 days?: No Result: 3 Time Spent with Patient Time Spent with Patient: >50 minutes Time was spent: preparing to see the patient(eg.review tests), obtaining and/or reviewing separately otained hiistory, ordering medications,tests, procedures, referring, communicating with other health menagerie caretaker (Discussion with anesthesia), indepentently interpreting results, counseling the patient and care coordination
[2023-02-19] MEDS: Pantoprazole 40 MG VIAL IVP ×2 (09:09→20:15)
[2023-02-19] MEDS: Normal Saline Flush 10 ML SYR IVP ×6 (09:10→20:16)
[2023-02-19] MEDS: Magnesium Chloride 64 MG TABCR PO (09:10)
[2023-02-19] MEDS: Acetaminophen 325 MG TAB 650 MG PO ×4 (09:11→20:13)
[2023-02-19] MEDS: Gabapentin 300 MG CAP PO ×2 (09:11→20:13)
[2023-02-19] MEDS: Rosuvastatin 10 MG TAB PO (09:11)
[2023-02-19] MEDS: Folic Acid 1 MG TAB PO (09:11)
[2023-02-19] MEDS: Thiamine 100 MG TAB PO (09:11)
[2023-02-19] MEDS: Umeclidinium 7 CAP INHALER 1 CAP IH (09:29)
[2023-02-19] MEDS: HYDROmorphone 2 MG/ML SYR 1 MG IVP ×5 (10:02→23:41)
[2023-02-19] MEDS: Lactated Ringers 500 ML 1000 ML IV (10:40)
[2023-02-19 11:19] LABS: D-Dimer 2490 ng/mlFEU (<500)
[2023-02-19] MEDS: Lactated Ringers 500 ML 100 ML IV (12:03)
[2023-02-19] MEDS: Glucagon 1 MG VIAL 3 MG IVP (12:13)
[2023-02-19] MEDS: Water,Injection,Sterile 10 ML VIAL (12:14)
[2023-02-19] MEDS: Ondansetron 4 MG/2 ML VIAL IVP (12:21)
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
[2023-02-19] MEDS: Omnipaque 350 MG/ML 100 ML BTL IJ (12:42)
[2023-02-19] MEDS: Normal Saline - Diluent 50 ML VIAL IJ ×2 (12:42→12:43)
--- NOTE | 2023-02-19 12:43 | DI.US_ITS ---
APPROVED REPORT EXAM: Comprehensive 2D, Doppler, and color-flow Echocardiogram Patient Location: In-Patient Room/Bed: 221 Chief Digital Officer: Jim Judd RDMS, RVT Indications: syncope, smoker, HTN, ascending aortic aneurysm seen on CT Other Information Study Quality: Fair. Technically limited study due to body habitus, inability to position patient exa m done bedside supine.. Conclusion Normal left ventricular wall thickness and chamber size. ejection fraction is 55 to 60%. Wall mel on appears normal Right ventricle appears normal in size and systolic function Both atria are normal in size Aortic valve is sclerotic and trileaflet with mild aortic stenosis. Peak gradient is 27, mean 15 mmH g. There is trace to mild aortic regurgitation Dilated ascending aorta measuring 4.66 cm Wall motion Left Ventricle The left ventricle is normal size. The overall left ventricular systolic function appears normal. T here is normal left ventricular wall thickness. There is normal LV segmental wall motion. There is no ventricular septal defect visualized. LVEF is 55-60% Right Ventricle Right ventricle is grossly normal in size. Right ventricular systolic function is grossly normal. Atria The left atrium size is normal. The right atrium size is normal. The interatrial septum is intact wit h no evidence for an atrial septal defect. Aortic Valve Aortic valve is calcified. Aortic valve is trileaflet. Mild aortic stenosis. Peak aortic valve gradie nt is 26.7 mmHg. Highest mean aortic valve gradient is 15.3 mmHg. Calculated UMA by the continuity eq uation is 2.18 cm2. Trace to mild aortic regurgitation. Mitral Valve The mitral valve is normal in structure. No evidence of mitral valve stenosis. Trace mitral regurgita tion. Tricuspid Valve The tricuspid valve is normal in structure. There is no tricuspid valve stenosis. Trace tricuspid reg urgitation. Pulmonic Valve The pulmonary valve is normal in structure. There is no pulmonic valvular stenosis. There is no pulmo dafne valvular regurgitation. Great Vessels The aortic root is normal in size. The ascending aorta is moderately dilated. The IVC was not visuali zed. Pericardium Technically limited subcostal imaging 2D Dimensions IVSD d PLAX 0.67 cm M: 0.6-1.2 LV Vol A2C d MOD 136.8 mL LVPW d PLAX 0.70 cm M: 0.6 - 1.2 LV Vol A4C d MOD 117.0 mL LVID d PLAX 5.19 cm M: 4.2 - 5.8 LV EF A4C MOD 51.6 % LVDs 3.90 cm M: 2.5 - 4.0 LV EF A2C MOD 51.3 % Ao Root d 3.76 cm M: 3.1 - 3.7 LV EF Biplane MOD 52.0 % Ao Asc Diam d 4.66 cm M: 2.6 - 3.4 SV 65.93 mL LV EF Teichholz 48.1 % LVEF (Coto's) 52.02 % M: 52 - 72 LV Volume 126.74 mL M: 62 - 150 LV Volume Index 59.50 mL/m2 M: 34 - 74 LV Vol Biplane MOD 126.7 mL FS 24.35 % M-Mode TAPSE 2.06 cm (M/F) >1.7 LV Diastology MV E' medial 0.074 (>0.07 m/s) E/A Ratio 0.9 LV E/e MED 7.30 (<14) MV E Vmax 0.54 (0.4-1.3 m/s) MV E' lateral 0.145 (>0.1 m/s) MV A Vmax 0.60 (0.4-1.3 m/s) LV E/e LAT 3.75 (<14) MV E/A Ratio 0.90 MV E/E' medial 7.30 MV E/E' lateral 3.75 Aortic Valve LVOT Area 3.56 cm2 AoV Area Vmax 2.18 cm2 LVOT Vmax 1.58 m/s UMA Mean Sachin. 1.92 cm2 LVOT Mean Sachin. 1.00 m/s LVOT Peak Grad 10.0 mmHg LVOT Mean Grad 4.8 mmHg LVOT VTI 0.293 m LVOT Diam s 2.10 cm AoV Vmax 2.58 m/s Velocity Ratio 0.61 AoV Mean Sachin. 1.86 m/s AoV Peak Grad 26.7 mmHg LVOT SV 104.47 mL AoV Mean Grad 15.3 mmHg AoV VTI 0.494 m AoV Area VTI 2.11 cm2 Mitral Valve MV DT 234 (160-240 msec) MV PHT 68 msec MV Area PHT 3.24 cm2 Pulmonary Valve PV Vmax 1.06 (0.5-1.5 m/s) RVOT Peak Gr. 1.29 mmHg PV Peak Grad 4.5 mmHg RVOT Mean Gr. 0.60 mmHg PV Mean Grad 2.4 mmHg RVOT VTI 0.103 m PV VTI 0.183 m RVOT Vmax 0.57 m/s Tricuspid Valve TR Peak Grad 17.1 mmHg TR Vmax 2.07 m/s
--- NOTE | 2023-02-19 13:00 | DI.CT_ITS ---
Exam(s) CT CHEST PE CTA EXAM: CT CHEST PE CTA CLINICAL HISTORY: HYPOTENSION, ELEVATED D-DIMER. TECHNIQUE: Imaging Protocol: Axial CT angiography was performed with multi-slice acquisition and mu lti-planar and/or 3D reconstructions. CONTRAST MATERIAL: Intravenous: Omnipaque 350 contrast volume:100 mL COMPARISON: CT CT THORAX ABD/PEL CTA from 02/02/2023 FINDINGS: Tracheobronchial tree: Patent where visualized. Pulmonary parenchyma: There are calcified granuloma in the lungs. No focal consolidating infiltrates . Dependent atelectasis is seen in the lung bases. No architectural distortion. Pulmonary Arteries: No evidence of filling defect to suggest pulmonary emboli. Mediastinum and Elisha: No dominant adenopathy or fluid collection. The esophagus is unremarkable. Th ere are calcified lymph nodes in the mediastinum consistent with prior granulomatous disease. Visualized thyroid gland: Unremarkable. Pleura: No effusion or pneumothorax. Heart: The heart is not dilated. Mild coronary artery calcification is present. No pericardial effus ion. Aorta: There is aneurysmal dilatation of the ascending thoracic aorta. It measures 5.2 x 5.0 cm. No evidence of dissection. Atherosclerosis is present. Upper abdomen: No acute abnormality. There are stable hepatic cysts. Soft tissues: Unremarkable. Bones: Within normal limits for the patient's age.There are side plates and screws transfixing old ri ght rib fractures. There are old left rib fractures. IMPRESSION: 1. There is no evidence of a pulmonary embolism. 2. Ascending thoracic aortic aneurysm measuring 5.2 x 5.0 cm. No evidence of dissection. RADIATION DOSE DELIVERED: 536.35mGy.cm Total DLP DATA REPOSITORY: All CT scans at this facility are submitted to the National Radiology Data Registry (NRDR) Dose Index Registry (DIR) with the [employer] [place] [employer] (ACR). RADIATION OPTIMIZATION: All CT scans at this facility use at least one of these dose optimization te chniques: automated exposure control; mA and/or kV adjustment per patient size (includes targeted exa ms where dose is matched to clinical indication); or iterative reconstruction.
[2023-02-19] MEDS: Lactated Ringers 1,000 ML 100 ML IV (15:04)
--- NOTE | 2023-02-19 17:12 | PT.INNT ---
PT Notes Visit Reasons: Syncope, MIKE Patient with R bimalleolar fracture on R sustained from a fall on 02/18/2023 and awaiting surgery once medically ready. Remains hypotensive and is being assessed ti rule out PE. Will plan on evaluating patient postoperatively for functional mobility training and physical rehabilitation as ordered.
[2023-02-19] MEDS: Heparin 5,000 UNITS/ML VIAL 5000 UNITS SC (20:14)
[2023-02-19] MEDS: QUEtiapine 25 MG TAB 50 MG PO (22:14)
[2023-02-19] MEDS: Citalopram 20 MG TAB 40 MG PO (22:14)
[2023-02-20] VITALS (33 sets, daily range): BP systolic 100–130; BP diastolic 48–63; PULSE 68–101; RESP 10–30; TEMP 36.6–37.6; O2SAT 76–91; BMI 30.7
--- NOTE | 2023-02-20 | DI.RAD_ITS ---
Exam(s) XR TIB/FIB RT EXAM: XR TIB/FIB RT CLINICAL HISTORY: f/u RT tib/fib fx.. TECHNIQUE: 2D digital imaging was performed of the right tibia and fibula. Four images were obtained . AP and lateral views were obtained. COMPARISON: CR LEFT TIB/FIB from 12/29/[address] LOWER EXTREMITY RT WO from 02/18/2023 FINDINGS: BONES: There is again seen a fracture of the junction of the middle and distal thirds of the right fi bula with mild lateral angulation and displacement of the distal fracture. The nondisplaced posterio r malleolar fracture is also noted. The patient's leg is in a cast. On the lateral view there is a nondisplaced fracture seen of the head of the fibula posteriorly. No bony destructive lesion is seen . Visualized portion of knee and ankle joints are unremarkable. SOFT TISSUE: Normal. IMPRESSION: 1. Stable distal fibular fracture. 2. Posterior malleolar fracture. 3. Nondisplaced fracture of the head of the right fibula best appreciated on the lateral view. DATA REPOSITORY: RADIATION DOSE DELIVERED:
[2023-02-20] MEDS: oxyCODONE 5 MG TAB PO ×2 (04:40→18:51)
[2023-02-20] MEDS: Heparin 5,000 UNITS/ML VIAL 5000 UNITS SC ×2 (04:42→12:35)
[2023-02-20] MEDS: HYDROmorphone 2 MG/ML SYR 1 MG IVP ×4 (05:00→16:45)
[2023-02-20] MEDS: Lactated Ringers 1,000 ML 100 ML IV (06:20)
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
[2023-02-20] MEDS: Umeclidinium 7 CAP INHALER 1 CAP IH (08:23)
[2023-02-20] MEDS: Normal Saline Flush 10 ML SYR IVP ×2 (09:11→16:45)
[2023-02-20] MEDS: Pantoprazole 40 MG VIAL IVP (09:11)
[2023-02-20] MEDS: Magnesium Chloride 64 MG TABCR PO (09:12)
[2023-02-20] MEDS: Rosuvastatin 10 MG TAB PO (09:12)
[2023-02-20] MEDS: Thiamine 100 MG TAB PO (09:13)
[2023-02-20] MEDS: Folic Acid 1 MG TAB PO (09:13)
[2023-02-20] MEDS: Gabapentin 300 MG CAP PO (09:13)
[2023-02-20] MEDS: Acetaminophen 325 MG TAB 650 MG PO ×3 (09:13→16:46)
[2023-02-20 09:18] LABS: Anion Gap 5.6 mmol/L (3-11); BUN 17 mg/dL (7-18); CO2 33.4 mmol/L (21.0-32.0); CREATININE 1.1 mg/dL (0.70-1.30); Calcium 8.2 mg/dL (8.5-10.1); Chloride 101 mmol/L (98-107); Glucose 99 mg/dL (74-106); Potassium 4.8 mmol/L (3.5-5.1); Sodium 140 mmol/L (136-145)
--- NOTE | 2023-02-20 09:46 | W.PULMCC ---
General Date of Service Date of service: 02/20/23 Time of Service: 09:47 Reason for Admission to ICU: Hypotension Assessment and Plan Assessment and plan (1) Hypotension: Status: Acute (2) Closed right ankle fracture: Status: Acute (3) Right fibular fracture: Status: Acute (4) Acute kidney injury: Status: Acute (5) Gastritis: Status: Acute (6) Bicuspid aortic valve: Status: Acute (7) Aortic regurgitation: Status: Acute (8) Liver cirrhosis: Status: Acute (9) Alcohol abuse: (10) Hyponatremia: Status: Acute (11) Hypomagnesemia: Status: Acute (12) Anemia: Status: Chronic Assessment and plan: This is a 67 yo admitted to the ICU for hypotension in the setting of a right leg fracture. His blood pressure did respond to glucagon. I think he was dehydrated and with metoprolol on board cause the light headedness and subsequent fall. His aortic aneurysm is beyond [facility] criteria for anesthesia here and so it was recommended for this surgery to be done at [facility] [place]. Since he is not getting surgery, he can have a diet and likely can be transferred to med/surg (since his blood pressure is improved). Recommendations Pulmonary: h/o COPD - Incruse - home med - prn albuterol Cardiac: Bicuspid aortic valve Aortic valve replacement Hypotension, improved - normal mentation and UOP - advise against vasopressors for hypotension with normal UOP and mentation, unless MAP <55mmhg persistently - patient seems to be euvolemic - random cortisol was normal per time collected - normal procalcitonin, normal WBC - blood cultures pending - strict I/O's Renal: MIKE - improved s/p IVF resuscitation Hyponatremia - continue to monitor Hypomagnesemia - replete to 2.0 I&O: Intake & Output 02/17/23 02/18/23 02/19/23 02/20/23 23:59 23:59 23:59 23:59 Intake Total 3193.333 / 3193.333 1900 / 1900 1415 / 1415 Output Total 700 / 700 3601 / 3601 1205 / 1205 Balance 2493.333 / 2493.333 -1701 / -1701 210 / 210 Weight 97.3 kg 93.1 kg 94.5 kg Daily Fluid Goal:: even GI Nutrition: Liver cirrhosis - stage 3 fibrosis on [facility] [place] assessment - no acute process h/o gastritis Date of Last Bowel Movement: 02/20/23 Infectious Disease: No clear infectious source, patient non toxic appearing Hematologic: Anemia - continue to monitor Neurologic: h/o alcohol use - no acute concern Endocrine: No acute concern Lines: PIV Prophylaxis: Protonix - home med heparin Code Status: Resuscitation Status Full Code Subjective Critical and life-threatening events over the past 24 hours: Annette is feeling fine. His blood presure responded nicely to glucagon, and although still low, it is much improved. Anesthesia has assessed the patient for possible ortho surgery, however his aneurysm is above their cut off to do at [facility] of 5.0cm (his is 5.2cm). They recommend he have his surgery at [facility] [place]. Annette is still complaining for ankle pain and is anxious to get his fracture fixed. Exam Narrative Exam Narrative: Gen: NAD, normal respiratory effort, well-nourished HENT: PERRL Chest: No respiratory distress, normal appearance of chest, clear to auscultation bilaterally, no crackles or wheezes, normal inspiratory effort Heart: regular rate and rhythym, diastolic murmur Abdomen: Non-distended, soft, non tender Extremities: No clubbing, edema, cyanosis, rashes, defered right leg exam Neuro: AAOx3 , non focal Psych: cooperative, appropriate mental affect Most Recent VS/Results Last Vital Signs Temp 37.3 C 02/20/23 07:49 Pulse 97 H 02/20/23 06:01 Resp 14 02/20/23 06:02 BP 100/54 L 02/20/23 06:01 Pulse Ox 78 L 02/20/23 06:02 Laboratory Results - last 24 hr 02/19/23 02/19/23 02/20/23 10:35 10:35 08:50 D-Dimer 2490 H Sodium 140 Potassium 4.8 Chloride 101 Carbon Dioxide 33.4 H Anion Gap 5.6 BUN 17 Creatinine 1.1 Est GFR (CKD-EPI 2020) 74.50 Glucose 99 Calcium 8.2 L Cortisol 4 Review of Systems All systems reviewed & are unremarkable except as noted in HPI and below Time spent with patient Time spent in Critical Care: 30 Time spent in Critical care included: Chart review, Documenting critically ill care, Time at immediate bedside and Discussing critically ill care with other medical staff Multi-Disciplinary Checklist Lines/Tubes CENTRAL LINE: no ARTERIAL LINE: no COREAS: yes, Coreas Day#: 1 ENDOTRACHEAL TUBE: no ICU Maintenance GLUCOSE 140-180mg/dL: yes NUTRITION AT GOAL: yes PRESSURE ULCER: no RESTRAINTS: no ANTIBIOTICS(if yes, consider Stewardship): No Social Issues FAMILY UPDATED: no, Reason/Intervention: patient capable PT/OT: yes GOALS/DISPOSITION/AUTHORIZATION REP: yes CODE STATUS: Full Prophylaxis DVT PROPHYLAXIS: yes GI PROPHYLAXIS: yes, Indication: home med
--- NOTE | 2023-02-20 09:53 | PDOC.CMPRO ---
Date of service: 02/20/23 Time of Service: 09:53 Care Management Progress Note Progress Note Text Progress Note Text: S/O: Rhe remains inpatient. Per MD, surgical ankle repair will require transfer due to anethesia concern with aortic stenosis. Anticipate Ortho will seek transfer. CM continues to follow. A: 67 year old male admitted to [facility] for syncope, MIKE P: Anticipate Rhe will transfer via EMS when a bed becomes available, coordinated by nursing board mill supervisor. CM continues to follow.
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
--- NOTE | 2023-02-20 17:44 | DI.VRAD_ITS ---
PROCEDURE INFORMATION: Exam: XR Right Tibia and Fibula Exam date and time: 02/20/2023 5:01 PM Age: 67 years old Clinical indication: S/P RT tib fib FX TECHNIQUE: Imaging protocol: Radiologic exam of the right tibia and fibula. Views: 2 views. COMPARISON: CT LOWER EXTREMITY RT WO 02/18/2023 6:31 PM FINDINGS: Bones/joints: There has been interval external casting of right leg for previously noted fractures. The fibular fracture alignment appears similar to prior CT examination with mild valgus orientation at the distal fibular fracture site. There is mild residual posterior displacement of the posterior butterfly fragment of the fibular fracture. There is apparent improved apposition of the posterior malleolar fracture on the tibia. There is a possible nondisplaced fracture at the head neck junction of the fibula, not evaluated on prior CT. No joint dislocation. Soft tissues: Not well evaluated due to overlying casting material. IMPRESSION: 1. Similar appearance of distal fibular fracture when compared to prior examination. 2. Posterior malleolar tibial fracture demonstrates slightly improved alignment. 3. Possible nondisplaced fracture at the head neck junction of the proximal fibula, not imaged on the prior CT. Dictated and Authenticated by: Pamela Berumen MD. Ordering:FARHAN Tamayo MD
--- NOTE | 2023-02-20 17:46 | PDOC.HHF2F_ITS ---
Home Health Referral Home Health Orders Clinical synopsis of why skilled professionals are needed: Right fibular fracture incurred from fall d/t orthostasis. Orthostasis secondary to volume depletion. Acute kidney injury noted on admission. Hypotension improved and MIKE resolved. Planning [facility] f/u for repair of fracture. D/T ascending aortic aneurysm, not a surgical candidate at [facility]. He will be using a walker, non-weightbearing. ASA 81mg BID for DVT prophylaxis. Medical diagnosis necessitation home health referral: Fibular fracture. Physical Therapist: Check all that apply Fall reduction therapy program for patient with history of frequent falls: Ordered Home safety evaluation and teaching/gait training including stair management (if applicable): Ordered Home Bound Status Requires the aid of supportive device (check all that apply): Walker Assistance of another person (Describe assistance and medical necessity): Ankle/fibular fx with splint. Non-weightbearing. Standby assist required if goes outside of home. Describe why leaving home would require a considerable and taxing effort: Side effects from pain medication (sedation/drowsiness) and Safety Concerns: describe (ankle fracture with non-weightbearing status. New use of walker. ) Encounter Date and Reason: I certify that a FTF encounter for this patient was performed on February 20, 2023 and that such encounter was related to the primary reason the patient requires home health services. The encounter was conducted in the following manner: * By me as the certifying physician, FORM BUILDING SUPERVISOR, PA or * By an inpatient physician, FORM BUILDING SUPERVISOR or PA during an inpatient stay who communicated findings to me, Certification And Authentication I certify that I composed the above information based on my clinical judgment relating to this patient's medical condition and, if applicable, clinical findings communicated to me by the NPP or inpatient physician who performed the FTF encounter. Name of Provider that will be monitoring home health services: Rnoi Aguilar
== END 2023-02-20 19:00 | disposition home or self-care (01) | DRG 683 ==
LOC: ER 18:10 → ICU 19:42
PROVIDERS: Family Medicine; Internal Medicine; Nurse Practitioner Acute Care; Registered Nurse Emergency; Student in an Organized Health Care Education/Training Program; Admitting Provider Internal Medicine; Emergency Provider Nurse Practitioner Family; PCP Nurse Practitioner Family; Visit Provider Internal Medicine
DX: N17.9 Acute kidney failure, unspecified (principal); E87.1 Hypo-osmolality and hyponatremia; I95.1 Orthostatic hypotension; F10.10 Alcohol abuse, uncomplicated; K29.70 Gastritis, unspecified, without bleeding; S82.831A Other fracture of upper and lower end of right fibula, initial encounter for closed fracture; W19.XXXA Unspecified fall, initial encounter; E78.00 Pure hypercholesterolemia, unspecified; D53.9 Nutritional anemia, unspecified; E83.42 Hypomagnesemia; K74.60 Unspecified cirrhosis of liver; M16.12 Unilateral primary osteoarthritis, left hip; G89.29 Other chronic pain; M54.2 Cervicalgia; I10 Essential (primary) hypertension; K21.9 Gastro-esophageal reflux disease without esophagitis; E78.5 Hyperlipidemia, unspecified; S82.51XA Displaced fracture of medial malleolus of right tibia, initial encounter for closed fracture; F12.90 Cannabis use, unspecified, uncomplicated; E86.0 Dehydration; I71.20 Thoracic aortic aneurysm, without rupture, unspecified; J44.9 Chronic obstructive pulmonary disease, unspecified; Z95.4 Presence of other heart-valve replacement; I35.0 Nonrheumatic aortic (valve) stenosis
CPT/HCPCS: 29515; 36415; 71275; 76604; 80048; 80053; 80307; 82533; 84145; 86850; 86900; 86901; 87040; 93005; 93308; 94640; 96361; 96365; 96375; 96376; 97162; 99223; 99285; 70450; 71045; 73590; 73610; 73700; 80320; 83735; 84443; 84484; 85014; 85018; 85025; 85379; 85610; 93010; 93306; 94664; 99239; 99291; J1170; J1610; J1644; J2270; J2405; J3010; J3490

== ENCOUNTER 2023-02-22 17:25 | Emergency (ER) | payer MEDICARE, MEDICAID, SELFPAY ==
[2023-02-22 17:27] VITALS: BP 90/56; PULSE 102; RESP 16; TEMP 36.3; O2SAT 93
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
--- NOTE | 2023-02-22 18:15 | DI.RAD_ITS ---
Exam(s) XR ANKLE RT COMPLETE EXAM: XR ANKLE RT COMPLETE CLINICAL HISTORY: recent R ankle fx/splinted. TECHNIQUE: 2D digital imaging was performed of the right ankle. Three images were obtained. AP, la teral and oblique views were obtained. COMPARISON: CR XR ANKLE RT COMPLETE from 02/18/2023 CR,XR XR TIB/FIB RT from 02/20/2023 FINDINGS: The patient's ankle is in a cast. BONES: There has been no change in alignment of the distal fibular fracture. The posterior malleolar fracture is also stable. No new fractures identified. No bony destructive lesion is seen. JOINTS: The ankle mortise is normally aligned. SOFT TISSUE: There is soft tissue swelling present. IMPRESSION: Distal fibular and tibial fractures are unchanged. No new fracture. DATA REPOSITORY: RADIATION DOSE DELIVERED:
--- NOTE | 2023-02-22 18:44 | DI.VRAD_ITS ---
PROCEDURE INFORMATION: Exam: XR Right Ankle Exam date and time: 02/22/2023 18:35 Age: 67 years old Clinical indication: Screening exam; Recent ankle FX, reassess for any worsening displacement; Patient HX: Recent ankle fx/splinted - reassess for any worsening displacement TECHNIQUE: Imaging protocol: Radiologic exam of the right ankle. Views: 3 or more views. COMPARISON: CT LOWER EXTREMITY RT WO 02/18/2023 18:31 FINDINGS: Bones/joints: Overlying splint obscures the bony detail. The acute fracture of the distal fibular diaphysis with mild apex lateral angulation is in similar alignment. Acute fracture of the posterior malleolus of the tibia is essentially anatomic. Plantar calcaneal spur. Posterior calcaneal spur. Minor prominence of the tibiotalar interval is stable compared to initial imaging. Soft tissues: Generalized soft tissue swelling. IMPRESSION: The acute fracture of the distal fibular diaphysis with mild apex lateral angulation is in similar alignment. Acute fracture of the posterior malleolus of the tibia is essentially anatomic. Dictated and Authenticated by: Sumaya Aguilar MD. Ordering:SHAISTA Sanders MD
== END 2023-02-22 20:26 | disposition home or self-care (01) ==
PROVIDERS: Emergency Provider Physician Assistant; PCP Nurse Practitioner Family
DX: S82.891D Other fracture of right lower leg, subsequent encounter for closed fracture with routine healing (principal); X58.XXXD Exposure to other specified factors, subsequent encounter
CPT/HCPCS: 29515; 99283; 73610

== ENCOUNTER 2023-03-10 17:31 | Emergency (ER) | payer MEDICARE, MEDICAID, SELFPAY ==
[2023-03-10 17:39] VITALS: PULSE 86; RESP 18; TEMP 36.8; O2SAT 94
[2023-03-10 17:41] VITALS: BP 112/57
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
--- NOTE | 2023-03-10 18:15 | DI.RAD_ITS ---
Exam(s) XR TIB/FIB RT EXAM: XR TIB/FIB RT CLINICAL HISTORY: Fall, S/P Fracture repair. TECHNIQUE: 2D digital imaging was performed of the right tibia and fibula. Three images were obtaine d. AP and lateral views were obtained. COMPARISON: CR,XR XR TIB/FIB RT from 02/20/2023 CR,XR XR ANKLE RT COMPLETE from 02/22/2023 FINDINGS: BONES: There has been interval reduction and internal fixation of the distal fibular and tibial fract ures. Alignment appears anatomic. The orthopedic hardware appears in good position. No new fractur e or dislocation is seen. No bony destructive lesion is seen. Visualized portion of knee and ankle j oints are unremarkable. SOFT TISSUE: Skin karel are present. There is soft tissue swelling around the ankle. IMPRESSION: Status post reduction and internal fixation of the distal tibial and fibular fractures. DATA REPOSITORY: RADIATION DOSE DELIVERED:
[2023-03-10] MEDS: oxyCODONE 5 MG TAB PO (19:23)
--- NOTE | 2023-03-10 19:41 | DI.VRAD_ITS ---
PROCEDURE INFORMATION: Exam: XR Right Tibia and Fibula Exam date and time: 03/10/2023 7:15 PM Age: 67 years old Clinical indication: Pain; Lower leg; Right; Patient HX: Fall, S/P fracture repair TECHNIQUE: Imaging protocol: Radiologic exam of the right tibia and fibula. Views: 2 views. COMPARISON: CR XR TIB/FIB RT 02/20/2023 5:01 PM FINDINGS: Bones/joints: Baseline postoperative exam. Fractures at the distal tibia and fibula show near anatomic alignment. A plate is present at the lateral fibula, with multiple screws. A plate is present in the posterior tibia, with multiple screws. Syndesmotic screws are noted. The ankle mortise is near anatomic. Soft tissues: Skin karel are noted. Soft tissue swelling is noted throughout the calf. No abnormal soft tissue gas. IMPRESSION: Baseline radiographs following repair of distal tibia/fibula fractures. Near anatomic alignment. No complications observed. Dictated and Authenticated by: Jfef Velasquez MD. Ordering:RODRIGO Liang MD
--- NOTE | 2023-03-10 19:50 | NUR.NOTE ---
Nursing Note: Pt splinted by this RN and provider. CSM intact at d/c. Pt given thorough instructions on care of splint and need for followup.
== END 2023-03-10 19:51 | disposition home or self-care (01) ==
PROVIDERS: Emergency Provider Registered Nurse Emergency; PCP Nurse Practitioner Family
DX: Z47.89 Encounter for other orthopedic aftercare (principal); S82.891D Other fracture of right lower leg, subsequent encounter for closed fracture with routine healing; X58.XXXD Exposure to other specified factors, subsequent encounter
CPT/HCPCS: 29515; 29700; 99283; 73590

== ENCOUNTER 2023-07-29 16:28 | Emergency (ER) | payer MEDICARE, MEDICAID, SELFPAY ==
[2023-07-29 16:37] VITALS: BP 124/67; PULSE 90; RESP 22; TEMP 36.7; O2SAT 99
[2023-07-29] MEDS: Droperidol 5 MG/2 ML VIAL (16:57)
[2023-07-29] MEDS: Midazolam 10 MG/2 ML VIAL NS (16:57)
--- NOTE | 2023-07-29 16:58 | NUR.NOTE ---
Nursing Note: Pt is agitated, yelling and thrashing on stretcher. Pt states he is going to whack out at any moment. Unable to follow commands due to level of intoxication. Verbal orders received and given IM per MD. Pt is currently laying on stretcher in paper scrubs, sister at bedside with patient
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
[2023-07-29 19:01] VITALS: BP 112/91; PULSE 114; RESP 18; TEMP 36.4; O2SAT 97
--- NOTE | 2023-07-29 19:30 | NUR.NOTE ---
1800: BRADEN Castano noted that pt was severely obtunded and apneic w/ notable central cyanosis s/p medication for agitation and aggressive behaviors towards staff and self. Pt sat upright and 15lpm via NRB provided. Pt arouses to noxious stim and opens eyes SNOW but does not answer questions, just yells for his sister. Falls quickly back asleep and demonstrates apnea when seated upright. HOB adjusted and O2 therapy continued to maintain SpO2 >90%. Pt placed on bedside monitor to ensure VS remain WDL. 1935: Pt arouses somewhat more easily and continues to SNOW to command, but quickly becomes agitated. Quickly falls back asleep when not stimulated. VSS. Will continue to monitor
[2023-07-29 19:37] LABS: Abs Immature Grans 0.02 10^3/uL (0.0-0.06); Absolute Basophil Count 0.03 10^3/uL (0.0-0.2); Absolute Eosinophil Count 0.06 10^3/uL (0.0-0.7); Absolute Lymphocyte Count 1.49 10^3/uL (1.2-3.4); Absolute Monocyte Count 0.28 10^3/uL (0.1-0.8); Absolute Neutrophil Count 1.13 10^3/uL (1.2-6.7); HGB 12.9 g/dL (13.5-17.5); Immature Grans % 0.7; Lymphocytes % 49.5; MCHC 32.3 % (32.0-36.0); MCV 87 fL (80-95); MPV 9.2 fL (8.0-11.0); Monocytes % 9.3; Neutrophils % 37.5; Platelet Count 195 10^3/uL (130-400); RDW 15.3 % (11.8-14.1); RDW-SD 48.7 fL; WBC 3.01 10^3/uL (4.4-10.8)
[2023-07-29 19:41] VITALS: BP 112/86; PULSE 99; RESP 14; O2SAT 93
[2023-07-29 19:59] LABS: ALT 37 U/L (16-63); AST 35 U/L (15-37); Albumin 3.6 g/dL (3.4-5.0); Alkaline Phosphatase 144 U/L (46-116); Anion Gap 11.1 mmol/L (3-11); BUN 18 mg/dL (7-18); Bilirubin, Total 0.3 mg/dL (0.2-1.0); CO2 24.9 mmol/L (21.0-32.0); Calcium 8.5 mg/dL (8.5-10.1); Chloride 102 mmol/L (98-107); Estimated GFR 83.52 (mL/min/1.73m2); Glucose 156 mg/dL (74-106); Potassium 3.4 mmol/L (3.5-5.1); Sodium 138 mmol/L (136-145); Total Protein 7.4 g/dL (6.4-8.2)
[2023-07-29 20:01] LABS: ETHANOL BLOOD 341.1 mg/dL (<10)
[2023-07-29 20:03] LABS: Salicylate < 2.8 mg/dL (<2.8)
[2023-07-29 20:04] LABS: Acetaminophen < 2 ug/mL (10-30)
[2023-07-30 02:35] VITALS: BP 112/91; PULSE 114; RESP 18; TEMP 36.4; O2SAT 97
--- NOTE | 2023-07-30 06:01 | W.EDPROG ---
Date of service: 07/30/23 Time of Service: 06:01 Medical Decision Making Patient resting comfortably no acute distress. Clinically sober. No psychiatric complaints. Family contacted lives too far away to come pick him up. Patient will take [facility] bus Sign Out Sign Out Data: Sign Out Comment: Intoxicated, made suicidal statement. History violent behavior. Chemically restrained on arrival 10 IM versed 10 IM droperidol. Needs sober reassessment. Last updated by Candis Bradford MD at 07/29/23 23:46 Discharge Plan Disposition Patient Disposition: Home Condition: Improving Discharge Details Chief Complaint: ETOHWithdr Clinical Impression: Alcohol intoxication Primary Care Provider: Marta Bojorquez ED Provider: Roni Villarreal Home Meds and New Rx's Prescriptions: No Action citalopram [Celexa] 40 MG tablet 20 mg PO HS multivitamin Tablet 1 tab PO DAILY pantoprazole 20 mg Tablet,Delayed Release (Dr/Ec) 20 mg PO DAILY thiamine HCl (vitamin B1) [Vitamin B-1] 100 mg Tablet 100 mg PO DAILY lisinopril 10 mg tablet 10 mg PO DAILY Patient Comments: Take 1 tablet by mouth once a day Acetaminophen [Tylenol] 500 mg PO Q8H PRN PRNQty: 0 0RF metoprolol succinate 25 mg tablet extended release 24 hr 50 mg PO DAILY Hold Instructions: Hold until further orthopedic follow up. Mag 64 64 mg tablet,delayed release (DR/EC) 1 tab PO DAILY Patient Comments: TAKE 1 TABLET BY MOUTH ONCE A DAY quetiapine 50 mg tablet 50 mg PO QHS Qty: 30 0RF gabapentin 300 mg capsule 300 mg PO BID Patient Comments: TAKE 1 CAPSULE BY MOUTH TWICE DAILY FOR NECK PAIN OR HEADACHE rosuvastatin [Crestor] 10 mg tablet 10 mg PO DAILY Patient Comments: Take 1 tablet by mouth every night aspirin [Children's Aspirin] 81 mg Tablet,Chewable 81 mg PO BID Qty: 0 0RF Discharge Instructions Instructions: Alcohol Intoxication (ED)
== END 2023-07-30 06:38 | disposition home or self-care (01) ==
PROVIDERS: Student in an Organized Health Care Education/Training Program; Emergency Provider Emergency Medicine; PCP Nurse Practitioner Family
DX: R45.1 Restlessness and agitation (principal); Z78.1 Physical restraint status; F10.129 Alcohol abuse with intoxication, unspecified; Y90.8 Blood alcohol level of 240 mg/100 ml or more; Z79.82 Long term (current) use of aspirin; Z79.899 Other long term (current) drug therapy; I10 Essential (primary) hypertension; F10.139 Alcohol abuse with withdrawal, unspecified
CPT/HCPCS: 00123; 80053; 96372; 99285; 80320; 80329; 85025; J1790

== ENCOUNTER 2023-09-17 15:04 | Inpatient (IN) | payer MEDICARE, SELFPAY ==
[2023-09-17] VITALS (85 sets, daily range): BP systolic 51–112; BP diastolic 31–77; PULSE 54–91; RESP 7–23; TEMP 35.7; O2SAT 72–100
--- NOTE | 2023-09-17 15:00 | RT.EKG_ITS ---
APPROVED REPORT Exam: Resting ECG Reason for Exam: hypotension Patient Location: E HR:74 bpm ECG Measurements Heart Rate 74 AXIS OR 186 P 17 QRSd 113 QRS 30 QT 393 T 39 QTc 438 Conclusion Sinus rhythm...normal P axis, V-rate 60- 99 NSR, NO STEMI,SLIGHT ST DEPRESSION LESS THAN 1 MM IN III (ISOLATED) OTHERWISE NONSPECIFIC STTW CHANGE S, IMPROVED FROM PREVIOUS
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
--- NOTE | 2023-09-17 15:37 | DI.CT_ITS ---
Exam(s) CT HEAD CERVICAL SPINE WO EXAM: CT HEAD CERVICAL SPINE WO CLINICAL HISTORY: fall neck pain. TECHNIQUE: Imaging Protocol: Axial computed tomography images with coronal and sagittal reformatted images were created and reviewed COMPARISON: CT CT HEAD WO from 02/18/2023 FINDINGS: Head CT Ventricles and Extra axial spaces: Normal in size and morphology for the patient's age. Hemorrhage: None. Cerebral parenchyma: No evidence of mass or acute infarct. Mild atrophy. Mild white matter change s of small vessel disease. Midline shift: None. Brainstem/Cerebellum: Normal. Calvarium: Normal. Visualized Paranasal sinuses/Mastoids: Clear. Soft tissues: Unremarkable. Cervical Spine CT BONES: Vertebral body heights are maintained. Alignment is normal. There is no evidence of acute frac ture. Degenerative disc changes and facet degenerative changes are seen . SOFT TISSUES: No paraspinal hematoma. The airway appears intact. No pneumothorax is seen at the lung apices. IMPRESSION: Head CT: No acute abnormality. C-spine CT: Degenerative changes, no acute abnormality. RADIATION DOSE DELIVERED: Total DLP DATA REPOSITORY: All CT scans at this facility are submitted to the National Radiology Data Registry (NRDR) Dose Index Registry (DIR) with the [employer] (ACR). RADIATION OPTIMIZATION: All CT scans at this facility use at least one of these dose optimization te chniques: automated exposure control; mA and/or kV adjustment per patient size (includes targeted exa ms where dose is matched to clinical indication); or iterative reconstruction.
[2023-09-17] MEDS: Normal Saline 1,000 ML 1000 ML IV ×2 (15:45→18:56)
[2023-09-17 15:57] LABS: Abs Immature Grans 0.07 10^3/uL (0.0-0.06); Absolute Basophil Count 0.05 10^3/uL (0.0-0.2); Absolute Eosinophil Count 0.16 10^3/uL (0.0-0.7); Absolute Lymphocyte Count 1.32 10^3/uL (1.2-3.4); Absolute Monocyte Count 0.66 10^3/uL (0.1-0.8); Absolute Neutrophil Count 5.88 10^3/uL (1.2-6.7); Basophils % 0.6; HCT 34.5 % (40.0-50.0); HGB 11.8 g/dL (13.5-17.5); Immature Grans % 0.9; Lymphocytes % 16.2; MCH 29.4 pg (27.0-33.0); MCHC 34.2 % (32.0-36.0); MCV 86 fL (80-95); MPV 9.2 fL (8.0-11.0); Monocytes % 8.1; Neutrophils % 72.2; Platelet Count 256 10^3/uL (130-400); RBC 4.02 10^6/uL (4.36-5.78); RDW 14.7 % (11.8-14.1); RDW-SD 45.3 fL; WBC 8.14 10^3/uL (4.4-10.8)
[2023-09-17 16:24] LABS: ALT 47 U/L (16-63); AST 34 U/L (15-37); Albumin 3.7 g/dL (3.4-5.0); Alkaline Phosphatase 115 U/L (46-116); Anion Gap 14.8 mmol/L (3-11); BUN 69 mg/dL (7-18); Bilirubin, Total 0.7 mg/dL (0.2-1.0); CO2 26.2 mmol/L (21.0-32.0); Calcium 8.9 mg/dL (8.5-10.1); Chloride 81 mmol/L (98-107); Estimated GFR 10.57 (mL/min/1.73m2); Glucose 108 mg/dL (74-106); Magnesium 1.9 mg/dL (1.8-2.4); Potassium 3.3 mmol/L (3.5-5.1); Total Protein 7.7 g/dL (6.4-8.2); Troponin I < 50 ng/L (<or=60)
[2023-09-17 16:28] LABS: CREATININE 5.6 mg/dL (0.70-1.30); Sodium 122 mmol/L (136-145)
[2023-09-17] MEDS: ACETAMINOPHEN 1,000 MG/100 ML BTL 400 MG IVPB (16:30)
[2023-09-17 16:33] LABS: Lipase 66 U/L (16-77)
[2023-09-17 16:46] LABS: ETHANOL BLOOD < 3.0 mg/dL (<10)
--- NOTE | 2023-09-17 17:50 | DI.RAD_ITS ---
Exam(s) XR FOOT RT COMPLETE EXAM: XR FOOT RT COMPLETE CLINICAL HISTORY: trauma falls. TECHNIQUE: 2D digital imaging was performed. Three views. COMPARISON: CR,XR XR ANKLE RT COMPLETE from 02/22/2023 CR,XR XR TIB/FIB RT from 03/10/2023 FINDINGS: BONES: Fracture of the head of the 4th metatarsal with only slight displacement. Additional acute fr acture at the base of the 5th proximal phalanx which is nondisplaced with extends to the articular gillette rface. No significant separation at the articular surface. No bony destructive lesion is seen. Geoff dware again noted in distal tibia and fibula. JOINTS: No dislocation present. Degenerative changes 1st MTP joint and intertarsal joints.. SOFT TISSUE: Normal. IMPRESSION: Acute fractures of the 4th metatarsal head and base of 5th proximal phalanx. DATA REPOSITORY: RADIATION DOSE DELIVERED:
[2023-09-17 18:02] LABS: BE (Venous) 2 mmol/L (-2-3); HCO3 (Venous) 27 mmol/L (23-28); O2 Sat (Venous) 43 %; TCO2 (Venous) 26 mmol/L (24-29); pCO2 (Venous) 52 mmHg (41-51); pH (Venous) 7.33 (7.31-7.41); pO2 (Venous) 29 mmHg
[2023-09-17] MEDS: fentaNYL 100 MCG/2 ML VIAL 50 MCG IVP ×3 (18:17→23:35)
[2023-09-17 18:21] LABS: Bilirubin Negative (Negative); Blood Small (Negative); Clarity Clear (Clear); Glucose Negative (Negative); Ketones Negative (Negative); Leukocyte Esterase Negative (Negative); Nitrite Negative (Negative); Specific Gravity 1.025 (1.005-1.025); Urobilinogen 0.2 mg/dL (Up to 0.2)
[2023-09-17 18:29] LABS: Bacteria Rare HPF (Negative); Crystals Negative HPF (Negative); Epithelial Cells Negative HPF (Negative); Mucus Negative (Negative); WBC Negative HPF (0-5)
--- NOTE | 2023-09-17 18:29 | DI.CT_ITS ---
Exam(s) CT CHEST/ABD/PEL WO CT THORACIC LUMBAR SPINE REC EXAM: CT CHEST/ABD/PEL WO CLINICAL HISTORY: falls, back pain. TECHNIQUE: Imaging Protocol: Axial computed tomography images with coronal and sagittal reformatted images were created and reviewed Axial, sagittal and coronal images of the thoracic and lumbar spine were reconstructed from the chest abdomen pelvic CT utilizing bone algorithm. CONTRAST MATERIAL: Noncontrast COMPARISON: CT CHEST ABD PELVIS WITH CONTRAST from 03/03/[address] CHEST PE CTA from 02/19/[address] THORACIC LUMBAR SPINE REC from 09/17/2023 FINDINGS: CHEST: Tracheobronchial tree: Patent where visualized. Pulmonary parenchyma: No consolidation or dominant measurable mass. Scattered calcified granulomata. Pleura: No effusion or pneumothorax. Lymph nodes: Calcified mediastinal lymph nodes again noted. Aorta: Ascending aorta dilated to 5 cm. Aortic valvular calcifications. Heart: No pericardial effusion. Bones: Metallic plates again noted in multiple right ribs. Old bilateral rib fractures. No acute ri b fractures identified. Degenerative changes in the spine. No lytic or blastic lesions.No compressi on fractures. Soft tissues: ABDOMEN and PELVIS: Liver: Normal density. Stable hepatic cysts. No follow-up recommended. Gallbladder and biliary tract: No evidence of stones or wall thickening. No biliary dilatation. Pancreas: Normal density, no abnormal calcifications or inflammatory process. Spleen: Normal. Kidneys: Normal size, contour and axis. No radiodense stones hip. No obstructive uropathy. No suspic ious masses seen. Adrenal glands: No masses seen. Aorta: Abdominal portion non-dilated. Lymph nodes: Within normal limits. Soft tissues: Unremarkable. Bladder: Unremarkable. Bowel: No obstruction or bowel wall thickening. Diverticulosis. No evidence of diverticulitis. Peritoneal cavity: No ascites. No focal collection. No mesenteric inflammatory response. Bones: Degenerative changes in the hips and spine. No acute fractures. Disc spaces are maintained. Endplate osteophytes. Bilateral L5 spondylolysis and slight L5-S1 spondylolisthesis, unchanged. Reproductive organs: Within normal limits. IMPRESSION: No acute abnormality in the chest, abdomen or pelvis.. RADIATION DOSE DELIVERED: Total DLP DATA REPOSITORY: All CT scans at this facility are submitted to the National Radiology Data Registry (NRDR) Dose Index Registry (DIR) with the [employer] (ACR). RADIATION OPTIMIZATION: All CT scans at this facility use at least one of these dose optimization te chniques: automated exposure control; mA and/or kV adjustment per patient size (includes targeted exa ms where dose is matched to clinical indication); or iterative reconstruction.
[2023-09-17 18:30] LABS: C & S Indicated? No; Casts 3-5 Hyaline LPF (Negative)
[2023-09-17] MEDS: PANTOPRAZOLE 80 MG in Normal Saline 100 ML 10 MG IV (18:56)
[2023-09-17 19:09] LABS: Troponin I < 50 ng/L (<or=60)
[2023-09-17] MEDS: MAGNESIUM SULFATE 8.12 MEQ, MULTIVITAMIN 10 ML, THIAMINE 100 MG, FOLIC ACID 1 MG in Nor... 168.867 MG IV (19:20)
[2023-09-17 20:45] LABS: Abs Immature Grans 0.04 10^3/uL (0.0-0.06); Absolute Basophil Count 0.02 10^3/uL (0.0-0.2); Absolute Eosinophil Count 0.08 10^3/uL (0.0-0.7); Absolute Monocyte Count 0.52 10^3/uL (0.1-0.8); Absolute Neutrophil Count 5.01 10^3/uL (1.2-6.7); Basophils % 0.3; Eosinophils % 1.2; HCT 28.8 % (40.0-50.0); HGB 9.9 g/dL (13.5-17.5); Immature Grans % 0.6; MCH 29.6 pg (27.0-33.0); MCHC 34.4 % (32.0-36.0); MCV 86 fL (80-95); MPV 9.1 fL (8.0-11.0); Monocytes % 7.8; Neutrophils % 75.1; Platelet Count 187 10^3/uL (130-400); RBC 3.34 10^6/uL (4.36-5.78); RDW 14.6 % (11.8-14.1); RDW-SD 45.9 fL; WBC 6.67 10^3/uL (4.4-10.8)
[2023-09-17 20:57] LABS: Anion Gap 8.4 mmol/L (3-11); BUN 69 mg/dL (7-18); CO2 26.6 mmol/L (21.0-32.0); Calcium 7.7 mg/dL (8.5-10.1); Chloride 90 mmol/L (98-107); Estimated GFR 17.96 (mL/min/1.73m2); Glucose 114 mg/dL (74-106); Potassium 3.7 mmol/L (3.5-5.1); Sodium 125 mmol/L (136-145)
[2023-09-17 20:58] LABS: CREATININE 3.6 mg/dL (0.70-1.30)
[2023-09-17 20:59] LABS: Prothrombin Time 10.4 sec (9.1-11.1)
--- NOTE | 2023-09-17 22:39 | NUR.NOTE ---
ate a ham sandwich and drank a can of gregg arash.Nursing Note:
[2023-09-18] VITALS (68 sets, daily range): BP systolic 80–123; BP diastolic 44–72; PULSE 75–95; RESP 12–27; TEMP 35.9–36.3; O2SAT 78–97
[2023-09-18] MEDS: CALCIUM GLUCONATE in NaCl 1 GM/50 ML BAG IVPB
[2023-09-18] MEDS: Citalopram 20 MG TAB (00:15)
[2023-09-18] MEDS: QUEtiapine 50 MG TAB PO ×2 (00:23→21:30)
[2023-09-18] MEDS: Normal Saline 1,000 ML 1000 ML IV (01:00)
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
[2023-09-18] MEDS: Acetaminophen 500 MG TAB 1000 MG PO (01:23)
[2023-09-18] MEDS: oxyCODONE 10 MG TAB PO ×4 (01:24→21:30)
[2023-09-18] MEDS: Normal Saline 1,000 ML 125 ML IV (02:47)
[2023-09-18 05:12] LABS: Lactate 0.4 mmol/L (0.6-1.4)
[2023-09-18 05:13] LABS: Abs Immature Grans 0.02 10^3/uL (0.0-0.06); Absolute Basophil Count 0.02 10^3/uL (0.0-0.2); Absolute Eosinophil Count 0.09 10^3/uL (0.0-0.7); Absolute Lymphocyte Count 1.02 10^3/uL (1.2-3.4); Absolute Monocyte Count 0.41 10^3/uL (0.1-0.8); Absolute Neutrophil Count 2.55 10^3/uL (1.2-6.7); Basophils % 0.5; Eosinophils % 2.2; HCT 26.5 % (40.0-50.0); HGB 8.9 g/dL (13.5-17.5); Immature Grans % 0.5; Lymphocytes % 24.8; MCH 29.4 pg (27.0-33.0); MCHC 33.6 % (32.0-36.0); MCV 88 fL (80-95); MPV 9.3 fL (8.0-11.0); Platelet Count 160 10^3/uL (130-400); RBC 3.03 10^6/uL (4.36-5.78); RDW 14.9 % (11.8-14.1); RDW-SD 47.4 fL; WBC 4.11 10^3/uL (4.4-10.8)
[2023-09-18 05:22] LABS: Anion Gap 9.7 mmol/L (3-11); BUN 61 mg/dL (7-18); CO2 25.3 mmol/L (21.0-32.0); Calcium 7.7 mg/dL (8.5-10.1); Chloride 97 mmol/L (98-107); Estimated GFR 36.36 (mL/min/1.73m2); Glucose 108 mg/dL (74-106); Potassium 3.6 mmol/L (3.5-5.1); Sodium 132 mmol/L (136-145)
[2023-09-18 08:35] LABS: HCT 30.5 % (40.0-50.0); HGB 10.2 g/dL (13.5-17.5); MCH 29.4 pg (27.0-33.0); MCHC 33.4 % (32.0-36.0); MCV 88 fL (80-95); Platelet Count 161 10^3/uL (130-400); RBC 3.47 10^6/uL (4.36-5.78); RDW-SD 47.8 fL; WBC 4.18 10^3/uL (4.4-10.8)
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
[2023-09-18] MEDS: Acetaminophen 325 MG TAB PO ×2 (13:54→19:50)
[2023-09-18] MEDS: Pantoprazole 40 MG VIAL IVP (13:57)
--- NOTE | 2023-09-18 15:46 | PT.INTREAT ---
Date of service: 09/18/23 Time of Service: 15:19 PT Notes Visit Reasons: Anemia Inpatient Physical Therapy Treatment Note [facility] Date: 09/18/23 PRECAUTIONS: Fall, standard, activity as tolerated. WBAT RLE with FWW and SHORT CAM BOOT. SUBJECTIVE: Patient reports feeling pretty good. Eager to shower. OBJECTIVE: Supine?in bed, agreeable to therapy. ? PAIN: Reports some pain initially, but reports it loosens up and feels better with more ambulation. VITALS: monitored by nursing staff ? BED MOBILITY/TRANSFERS? Rolling L/R: independent Supine-sit: independent ? Sit-supine: independent ? Sit-stand: SBA with set up - help to don CAM boot RLE ? Stand-sit: SBA with set up - help to don CAM boot RLE ? Bed-Chair: SBA with set up - help to don CAM boot RLE ? Chair-bed: SBA with set up - help to don CAM boot RLE ? Therapeutic Exercises (94473e4): Direct one-on-one instruction in therapeutic exercises to develop strength, endurance, range of motion and flexibility. Ambulation ? Assistive Device: FWW? Weight bearing: full Assist: SBA and setup - assist to don CAM boot ? Distance:? 700 feet? Deviation: asymmetric, antalgic gait pattern, intermittently hinged forward at the hip. Initially a step-to pattern with RLE leading, gradually becomes asymmetric step through pattern still with RLE leading. One seated rest, 2 standing rests. Patient also maneuvers backwards a total of 10 feet, with 1 LOB which he is able to independently correct. Verbal and visual cues provided for appropriate backing up with FWW.? Provided skilled instruction in proper exercise performance Provided skilled manual cues to facilitate proper muscle recruitment and/or form. ASSESSMENT:? Patient tolerates therapy well, states that he feels much better for having done something. Reports that he does not expect to be able to sleep tonight. PLAN: Continue global strengthening per plan of care until patient is medically cleared for discharge. TREATMENT CODE/TIME: 22 minutes beginning at 15:19.
--- NOTE | 2023-09-18 16:56 | NUR.NOTE ---
Accessed chart to determine orders for EKG and to determine whether or not one needs to be cancelled. Duplicate order cancelled. Nursing Note:
[2023-09-18] MEDS: Gabapentin 300 MG CAP PO (19:51)
[2023-09-18] MEDS: Normal Saline Flush 10 ML SYR IVP (19:51)
[2023-09-18] MEDS: Citalopram 20 MG TAB PO (21:30)
[2023-09-19 04:35] VITALS: BP 95/59; PULSE 93; RESP 18; TEMP 36; O2SAT 95
[2023-09-19 07:09] VITALS: BP 134/84; PULSE 80; RESP 18; TEMP 36.2; O2SAT 97
[2023-09-19 08:00] LABS: HCT 25.6 % (40.0-50.0); HGB 8.6 g/dL (13.5-17.5); MCH 30.2 pg (27.0-33.0); MCHC 33.6 % (32.0-36.0); MCV 90 fL (80-95); MPV 9.5 fL (8.0-11.0); Platelet Count 167 10^3/uL (130-400); RBC 2.85 10^6/uL (4.36-5.78); RDW-SD 49.1 fL; WBC 2.97 10^3/uL (4.4-10.8)
[2023-09-19 08:14] LABS: Anion Gap 6.4 mmol/L (3-11); BUN 31 mg/dL (7-18); CO2 30.6 mmol/L (21.0-32.0); CREATININE 0.9 mg/dL (0.70-1.30); Calcium 8.7 mg/dL (8.5-10.1); Chloride 99 mmol/L (98-107); Estimated GFR 94.78 (mL/min/1.73m2); Glucose 99 mg/dL (74-106); Magnesium 1.6 mg/dL (1.8-2.4); Potassium 3.7 mmol/L (3.5-5.1); Sodium 136 mmol/L (136-145)
[2023-09-19] MEDS: Normal Saline Flush 10 ML SYR IVP ×2 (08:31→12:36)
[2023-09-19] MEDS: Metoprolol CR 25 MG TABCR 50 MG PO (08:31)
[2023-09-19] MEDS: Gabapentin 300 MG CAP PO (08:31)
[2023-09-19] MEDS: Acetaminophen 325 MG TAB PO (08:50)
[2023-09-19 11:26] VITALS: BP 100/65; PULSE 78; RESP 17; TEMP 36.5; O2SAT 96
[2023-09-19 12:22] LABS: HCT 27.5 % (40.0-50.0)
[2023-09-19] MEDS: Pantoprazole 40 MG VIAL IVP (12:34)
--- NOTE | 2023-09-19 12:35 | PT.INTREAT ---
Date of service: 09/19/23 Time of Service: 08:50 PT Notes Visit Reasons: Anemia Inpatient Physical Therapy Treatment Note [facility] Date: 09/19/2023 PRECAUTIONS:Fall, standard, Activities as able to tolerate, WBAT right LE with FWW and short Cam boot SUBJECTIVE: Right foot hurts some when attempting to toe off despite use of Cam boot. Advised to decrease weight bearing on right to help avoid this. OBJECTIVE: ? PAIN: 4 out of 10 at times when walking. Therapeutic Activities (12833e1): Direct one-on-one instruction in dynamic activities to improve functional performance. ?? BED MOBILITY/TRANSFERS? Rolling L/R: independent Supine-sit: independent ? Sit-supine: independent ? Sit-stand: SBA with set up - help to don CAM boot RLE ? Stand-sit: SBA ? Ambulation ? Assistive Device: FWW? Weight bearing: full Assist: SBA and setup - assist to don CAM boot ? Distance:? 700 feet? Deviation: asymmetric, antalgic gait pattern, continued intermittently hinged forward at the hip. Patient also maneuvers backwards a total of 5 feet to get to toilet, without LOB. Required repeated verbal cueing to slow down gait pattern for better control and weight reduction on right LE. ? Provided skilled instruction in proper exercise performance Provided skilled manual cues to facilitate proper muscle recruitment and/or form. ASSESSMENT:?Feel patient would have less discomfort if he would slow down pace and distribute more weight on his UEs while using FWW. PLAN: Continue global strengthening per plan of care until patient is medically cleared for discharge. TREATMENT CODE/TIME: 52298v6 - 8:50 to 9:15 (25 minutes) ??
--- NOTE | 2023-09-19 12:56 | PDOC.HHF2F_ITS ---
Home Health Referral Home Health Orders Clinical synopsis of why skilled professionals are needed: Recent hospitalization for hypotension, hyponatremia and right foot fracture Registered Nurse: Check all that apply Instruct on new or changed medication(s)/assess compliance: Ordered Assess for exacerbation of medical condition, instruct patient/caregivers on signs and symptoms to report for early detection: Ordered Physical Therapist: Check all that apply Fall reduction therapy program for patient with history of frequent falls: Ordered Home safety evaluation and teaching/gait training including stair management (if applicable): Ordered Home Bound Status Requires the aid of supportive device (check all that apply): Walker Encounter Date and Reason: I certify that a FTF encounter for this patient was performed on September 19, 2023 and that such encounter was related to the primary reason the patient requires home health services. The encounter was conducted in the following manner: * By me as the certifying physician, CENTER MEDICAL AND LAB DIRECTOR, PA or * By an inpatient physician, CENTER MEDICAL AND LAB DIRECTOR or PA during an inpatient stay who communicated findings to me, Certification And Authentication I certify that I composed the above information based on my clinical judgment relating to this patient's medical condition and, if applicable, clinical findings communicated to me by the NPP or inpatient physician who performed the FTF encounter. Name of Provider that will be monitoring home health services: Marta Bojorquez
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
--- NOTE | 2023-09-19 13:30 | PDOC.CMDIS ---
Date of service: 09/19/23 Time of Service: 13:30 LACE Index Scoring Tool Questions: Length of Stay (in days): 1 Was the patient admitted via the E.D.?: Yes Comorbidities: Liver or Renal Disease E.D. Visits: 9 Answers: Total Score: 13 Risk of Readmission: High Risk Care Management Discharge Plan Reason for Hospitalization: Acute hyponatremia Discharge Plan: Annette will return home via private vehicle with his sister. He will have new orders for home health PT; CM notified [facility]. Comprehensive discharge planning discussion with Annette about his care needs as well as his partners with the following referrals initiated: SASH: referral as Annette reports struggling to complete paperwork with his partner for services to begin COA: MOW and Options: Annette reports losing [employer] support due to working at [employer] for one day. He also reports difficulty in navigating costs of utilities and supporting his partner in paying her bills as well. Annette states current income limited to SSDI only. [facility]NA PT: Annette is agreeable to services. CM notified [facility]. DONNA: Team based care support, follow up support post discharge to ensure Annette and his partner have support with ongoing service connection. Electronics Lead: has not been helpful in past CM reviewed services, Annette reports he will outreach for connection support as needed. Further discussion re: harm reduction tactics I've cut out liquor and down to three beers but still got sick in my belly, CM provided positive reinforcement for harm reduction and validated current life stressors. Annette reviewed tasks to cut down on demands in both households including reducing the number of dogs he and his partner have and engaging with support services. Annette will follow up with community providers, PCP and plan of care as prescribed. CM provided contact card for follow up as needed. Patient/Family Education Needs: Review discharge instructions, community based supports, self care needs upon discharge [employer]. Services Needed at Discharge: Home Delivered Meals and Home Health Care Services
== END 2023-09-19 13:44 | disposition home health service (06) | DRG 378 ==
LOC: ER 09-18 08:44 → MS 09-18 09:52
PROVIDERS: Emergency Medicine Emergency Medical Services; Admitting Provider Family Medicine; Emergency Provider Student in an Organized Health Care Education/Training Program; PCP Nurse Practitioner Family; Visit Provider Family Medicine
DX: K92.2 Gastrointestinal hemorrhage, unspecified (principal); E87.1 Hypo-osmolality and hyponatremia; N17.9 Acute kidney failure, unspecified; Q23.1 Congenital insufficiency of aortic valve; K74.60 Unspecified cirrhosis of liver; I95.9 Hypotension, unspecified; R29.6 Repeated falls; I10 Essential (primary) hypertension; S92.341A Displaced fracture of fourth metatarsal bone, right foot, initial encounter for closed fracture; S92.511A Displaced fracture of proximal phalanx of right lesser toe(s), initial encounter for closed fracture; W19.XXXA Unspecified fall, initial encounter; M16.12 Unilateral primary osteoarthritis, left hip; E78.00 Pure hypercholesterolemia, unspecified; G89.29 Other chronic pain; M54.2 Cervicalgia; D53.9 Nutritional anemia, unspecified; F10.20 Alcohol dependence, uncomplicated; Z87.891 Personal history of nicotine dependence; R51.9 Headache, unspecified
CPT/HCPCS: 00123; 36415; 71250; 80048; 80053; 82805; 83690; 85027; 86850; 86900; 86901; 93005; 96365; 96366; 96368; 96375; 96376; 97110; 97162; 97530; 99285; 70450; 72125; 73630; 74176; 80320; 81003; 81015; 83605; 83735; 84443; 84484; 85014; 85018; 85025; 85610; 85730; 93010; 99223; 99239; J0131; J3010

== ENCOUNTER 2023-09-20 13:26 | Inpatient (IN) | payer MEDICARE, SELFPAY ==
[2023-09-20] VITALS (18 sets, daily range): BP systolic 125–165; BP diastolic 70–86; PULSE 66–119; RESP 12–20; TEMP 36.4–37.2; O2SAT 92–99
--- NOTE | 2023-09-20 13:30 | RT.EKG_ITS ---
APPROVED REPORT Exam: Resting ECG Reason for Exam: palpitations Patient Location: E HR:104 bpm ECG Measurements Heart Rate 104 AXIS RI 195 P 78 QRSd 106 QRS 11 QT 341 T 17 QTc 449 Conclusion Sinus tachycardia...rate> 99 Nonspecific T abnormalities, inferior leads...T <-0.10mV, II III aVF Sinus tachycardia at a rate of 104 with interventricular conduction delay and a QRS of 106 ms. Ronel l axis. RI and QTc is within normal limits. No ST segment abnormalities. Compared to prior interve ntricular conduction delay is persistent. No acute injury pattern.
--- NOTE | 2023-09-20 13:30 | DI.CT_ITS ---
Exam(s) CT ABDOMEN PELVIS WO/W EXAM: CT ABDOMEN PELVIS WO/W CLINICAL HISTORY: GI bleeding protocol. TECHNIQUE: Imaging Protocol: Axial computed tomography images with coronal and sagittal reformatted images were created and reviewed CONTRAST MATERIAL: Intravenous: Omnipaque-350 100cc Oral: None COMPARISON: CT CT CHEST PE CTA from 02/19/[address] CHEST/ABD/PEL WO from 09/17/[address] THORACIC LUMBAR SPINE REC from 09/17/2023 FINDINGS: VISUALIZED LUNG BASES: No nodules nor pleural effusions evident. Multiple right rib fixation plates noted. ABDOMEN: There is no ascites. No evidence of mesenteric nor bowel wall hematoma. No evidence of retroperiton eal hematoma. LIVER: Previously described left hepatic lobe cysts are again noted and remain unchanged from CT scan of 02/19/2023. GALLBLADDER/BILIARY: Gallbladder appears somewhat distended but not edematous and there is no pericho lecystic fluid. No radiopaque gallstones within the gallbladder lumen. CBD is not dilated. PANCREAS: No evidence of pancreatic mass nor dilatation of the pancreatic duct. SPLEEN: Spleen is not enlarged. No obvious intrasplenic lesions. Splenic and portal veins are paten t. ADRENALS: There are no significant adrenal masses. KIDNEYS:No cysts evident. No solid renal masses. No calculi nor hydronephrosis.. ABDOMINAL AORTA: Abdominal aorta is not enlarged. LYMPH NODES:There is no retroperitoneal nor paraaortic adenopathy. ABDOMINAL WALL: No evidence of significant anterior abdominal wall nor inguinal hernia. GI: There is no evidence of bowel obstruction, free air, nor abscess. PELVIS: GI: No evidence of appendicitis.There are sigmoid diverticuli. No obvious acute diverticulitis. LYMPH NODES: There is no intrapelvic nor inguinal adenopathy. REPRODUCTIVE: Mildly enlarged prostate. No obturator adenopathy. Seminal vesicles unremarkable. URINARY BLADDER: No calculi nor obvious masses evident OSSEOUS: Benign-appearing bony excrescence off the outer aspect of the right iliac bone noted. No ly tic nor blastic osseous lesions identified. There is a healed fracture of the right transverse proce ss of L3. There are pars defects at L5 level. Mild anterolisthesis L5 upon S1. No significant osseous lesions . IMPRESSION: 1. Compared to the prior non few CT scan of 09/17/2023 the gallbladder appears slightly distended but not edematous. No obvious radiopaque gallstones noted. CBD not dilated. If clinically indicated f ollow-up ultrasound can be performed. 2. Sigmoid diverticulosis without evidence of acute diverticulitis. 3. Stable benign-appearing cysts in the left hepatic lobe Called to floor. RADIATION DOSE DELIVERED: Total DLP DATA REPOSITORY: All CT scans at this facility are submitted to the National Radiology Data Registry (NRDR) Dose Index Registry (DIR) with the [employer] (ACR). RADIATION OPTIMIZATION: All CT scans at this facility use at least one of these dose optimization te chniques: automated exposure control; mA and/or kV adjustment per patient size (includes targeted exa ms where dose is matched to clinical indication); or iterative reconstruction.
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
[2023-09-20] MEDS: Pantoprazole 40 MG VIAL 80 MG IVP (14:20)
[2023-09-20] MEDS: Normal Saline 1,000 ML 1000 ML IV (14:21)
[2023-09-20 14:25] LABS: Lactate 1.4 mmol/L (0.6-1.4)
[2023-09-20 14:27] LABS: Abs Immature Grans 0.05 10^3/uL (0.0-0.06); Absolute Basophil Count 0.03 10^3/uL (0.0-0.2); Absolute Eosinophil Count 0.06 10^3/uL (0.0-0.7); Absolute Lymphocyte Count 0.85 10^3/uL (1.2-3.4); Absolute Neutrophil Count 3.78 10^3/uL (1.2-6.7); Basophils % 0.6; Eosinophils % 1.1; HCT 21.7 % (40.0-50.0); HGB 7.1 g/dL (13.5-17.5); Immature Grans % 0.9; Lymphocytes % 16.1; MCH 29.5 pg (27.0-33.0); MCHC 32.7 % (32.0-36.0); MCV 90 fL (80-95); MPV 8.8 fL (8.0-11.0); Monocytes % 9.5; Neutrophils % 71.8; Platelet Count 180 10^3/uL (130-400); RBC 2.41 10^6/uL (4.36-5.78); RDW 15.1 % (11.8-14.1); RDW-SD 49.8 fL; WBC 5.27 10^3/uL (4.4-10.8)
[2023-09-20 14:32] LABS: ESR 7 mm/hr (0-20)
[2023-09-20 14:50] LABS: ALT 36 U/L (16-63); AST 35 U/L (15-37); Albumin 3.3 g/dL (3.4-5.0); Alkaline Phosphatase 75 U/L (46-116); Anion Gap 5.3 mmol/L (3-11); BUN 29 mg/dL (7-18); Bilirubin, Total 0.2 mg/dL (0.2-1.0); CO2 29.7 mmol/L (21.0-32.0); CREATININE 0.9 mg/dL (0.70-1.30); Calcium 9.1 mg/dL (8.5-10.1); Chloride 100 mmol/L (98-107); Estimated GFR 94.78 (mL/min/1.73m2); Glucose 127 mg/dL (74-106); Lipase 45 U/L (16-77); Magnesium 1.6 mg/dL (1.8-2.4); Sodium 135 mmol/L (136-145); Total Protein 6.6 g/dL (6.4-8.2); Troponin I < 50 ng/L (<or=60)
[2023-09-20 14:53] LABS: Diff Comment RBC Morph Reviewed; Polychromasia Present
[2023-09-20 14:59] LABS: Creatine Kinase 92 U/L (39-308); NT-proBNP 213 pg/mL (<300)
[2023-09-20 15:03] LABS: Bilirubin Negative (Negative); Blood Negative (Negative); Clarity Clear (Clear); Glucose 250 mg/dL (Negative); Ketones Trace mg/dL (Negative); Leukocyte Esterase Negative (Negative); Nitrite Negative (Negative); Urobilinogen 0.2 mg/dL (Up to 0.2)
[2023-09-20] MEDS: Omnipaque 350 MG/ML 100 ML BTL IJ (15:32)
[2023-09-20] MEDS: Normal Saline - Diluent 50 ML VIAL IJ (15:32)
[2023-09-20 16:36] LABS: HCT 18.6 % (40.0-50.0); HGB 6.2 g/dL (13.5-17.5)
[2023-09-20 16:39] LABS: INR 1.1 (0.9-1.1); PTT Activated 18.8 sec (23.6-32.8); Prothrombin Time 11.2 sec (9.1-11.1)
--- NOTE | 2023-09-20 16:40 | DI.VRAD_ITS ---
PROCEDURE INFORMATION: Exam: CT Abdomen And Pelvis Without And With Contrast Exam date and time: 09/20/2023 3:26 PM Age: 67 years old Clinical indication: Other: Gi bleed TECHNIQUE: Imaging protocol: Computed tomography of the abdomen and pelvis without and with contrast. Contrast material: OMNIPAQUE; Contrast volume: 100 ml; Contrast route: INTRAVENOUS (IV); COMPARISON: CT CHEST/ABD/PEL WO 09/17/2023 5:14 PM FINDINGS: Lungs: Mild right lower lobe lateral fibrosis consistent with prior trauma. Liver: Low-density hepatic lesions consistent with cysts. Gallbladder and bile ducts: Normal. No calcified stones. No ductal dilation. Pancreas: Normal. No ductal dilation. Spleen: Normal. No splenomegaly. Adrenal glands: Normal. No mass. Kidneys and ureters: Normal. No hydronephrosis. Stomach and bowel: Diverticulosis without acute diverticulitis. No evidence to suggest active GI hemorrhage. No abnormal bowel distention. Appendix: No evidence of appendicitis. Intraperitoneal space: Unremarkable. No free air. No significant fluid collection. Vasculature: Mild atherosclerotic change present in the vasculature. Lymph nodes: Unremarkable. No enlarged lymph nodes. Urinary bladder: Unremarkable as visualized. Reproductive: Unremarkable as visualized. Bones/joints: There is postsurgical change involving the right ribs consistent with previous trauma. Soft tissues: Unremarkable. IMPRESSION: No evidence for acute abnormality. Dictated and Authenticated by: Diana Perez MD. Ordering:PENG Woods MD
--- NOTE | 2023-09-20 17:05 | ED.PROG_ITS ---
Date of service: 09/20/23 Time of Service: 16:00 Medical Decision Making Patient received in signout pending review of hemoglobin and high suspicion of admission. Hemoglobin was less than 7 and given active GI bleed 2 units was ordered and patient gave consent. Did start patient on octreotide and spoke to hospitalist for admission of patient. Patient blood pressure remained stable, heart rate was in the 90s before transfusion so I do feel this is reassuring also did consult with anesthesia to ensure that they were comfortable taking the case given some of his complex medical history and after review of echo and speaking about condition at this time they were comfortable given patient stays stable. Hospitalist admitted patient and no rapid deterioration the patient was noted while in the emergency department. Imaging Data Radiologic Study: Imaging: CT Scan Radiologist's impression: Exam(s) PROCEDURE INFORMATION: Exam: CT Abdomen And Pelvis Without And With Contrast Exam date and time: 09/20/2023 3:26 PM Age: 67 years old Clinical indication: Other: Gi bleed TECHNIQUE: Imaging protocol: Computed tomography of the abdomen and pelvis without and with contrast. Contrast material: OMNIPAQUE; Contrast volume: 100 ml; Contrast route: INTRAVENOUS (IV); COMPARISON: CT CHEST/ABD/PEL WO 09/17/2023 5:14 PM FINDINGS: Lungs: Mild right lower lobe lateral fibrosis consistent with prior trauma. Liver: Low-density hepatic lesions consistent with cysts. Gallbladder and bile ducts: Normal. No calcified stones. No ductal dilation. Pancreas: Normal. No ductal dilation. Spleen: Normal. No splenomegaly. Adrenal glands: Normal. No mass. Kidneys and ureters: Normal. No hydronephrosis. Stomach and bowel: Diverticulosis without acute diverticulitis. No evidence to suggest active GI hemorrhage. No abnormal bowel distention. Appendix: No evidence of appendicitis. Intraperitoneal space: Unremarkable. No free air. No significant fluid collection. Vasculature: Mild atherosclerotic change present in the vasculature. Lymph nodes: Unremarkable. No enlarged lymph nodes. Urinary bladder: Unremarkable as visualized. Reproductive: Unremarkable as visualized. Bones/joints: There is postsurgical change involving the right ribs consistent with previous trauma. Soft tissues: Unremarkable. IMPRESSION: No evidence for acute abnormality. Dictated and Authenticated by: Diana Perez MD. Lab Data Lab results reviewed: Yes I reviewed the patient's lab results. Exam Const General: cooperative, no acute distress and not ill appearing Orientation: alert and awake Resp Effort & Inspection: normal respiratory effort, able to speak in complete sentences and no respiratory distress Neuro General: patient alert, patient awake, moves all extremities and no focal motor deficits Sign Out Sign Out Data: Sign Out Comment: Pending repeat H&H after 1L IVF, PT/PTT pending for likely 1 unit packed RBCs. Discharged yesterday at HgB 9.0, now at 7.1 <24 hours later. Very dark stools, was only discharged on 20mg QD protonix PO. Likely needs transfusion, EGD/colonoscopy consult, and admission. Signed out to Lionel uMeller at shift-change Last updated by Chuck Angulo PA at 09/20/23 16:02 Discharge Plan Disposition Patient Disposition: Admit to [facility] Discharge Details Chief Complaint: GI Bleed Clinical Impression: Fracture, Anemia, Alcohol use disorder, Liver cirrhosis, Blood loss anemia Admit Date/Time: 09/20/23 17:25 Admit Provider: David Mosher Attending Provider: Davdi Mosher Primary Care Provider: Marta Bojorquez ED Provider: Randy Mueller Discharge Data Discharge Date/Time-TO BE ENTERED AT DEPARTURE: 09/20/23 18:43
[2023-09-20] MEDS: Octreotide 100 MCG/ML VIAL IVP (17:18)
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
[2023-09-20] MEDS: OCTREOTIDE 250 MCG in Normal Saline 245 ML 25 MCG IV (18:42)
[2023-09-20] MEDS: Normal Saline Flush 10 ML SYR IVP (21:45)
[2023-09-21] VITALS (15 sets, daily range): BP systolic 112–148; BP diastolic 50–91; PULSE 67–105; RESP 14–19; TEMP 36.1–37; O2SAT 95–98; BMI 26.6
[2023-09-21] MEDS: Acetaminophen 325 MG TAB PO (00:03)
[2023-09-21 06:47] LABS: HCT 24.2 % (40.0-50.0); HGB 8.4 g/dL (13.5-17.5); MCH 30.4 pg (27.0-33.0); MCHC 34.7 % (32.0-36.0); MCV 88 fL (80-95); MPV 9.6 fL (8.0-11.0); Platelet Count 164 10^3/uL (130-400); RBC 2.76 10^6/uL (4.36-5.78); RDW 15.9 % (11.8-14.1); RDW-SD 50.9 fL; WBC 4.29 10^3/uL (4.4-10.8)
[2023-09-21 07:08] LABS: Anion Gap 6.7 mmol/L (3-11); BUN 18 mg/dL (7-18); CO2 27.3 mmol/L (21.0-32.0); CREATININE 0.7 mg/dL (0.70-1.30); Calcium 8.5 mg/dL (8.5-10.1); Chloride 102 mmol/L (98-107); Estimated GFR 102.25 (mL/min/1.73m2); Glucose 121 mg/dL (74-106); Magnesium 1.6 mg/dL (1.8-2.4); Potassium 3.9 mmol/L (3.5-5.1); Sodium 136 mmol/L (136-145)
--- NOTE | 2023-09-21 09:14 | W.PM.PROGNOT ---
Date of Service Date of service: 09/21/23 Time of Service: 09:14 Assessment and Plan Assessment and plan (1) GI bleed: Status: Resolved Assessment and plan: -Patient recently been hospitalized from 09/18 09/19 for concern of GI bleed, however his hemoglobin remained stable during hospitalization and he did not have any further bloody or dark stools, and at the time of patient was eager to go home and would have followed up with general surgery for outpatient endoscopy -However, shortly after returning home patient had an increase in frequency and dark stools and became fatigued -Hemoglobin in the emergency department initially 7.1 and decreased, he has been ordered 2 units packed red blood cells -Hb this AM 8.4, will continue to check H/H Q6hr -Will follow-up repeat H&H posttransfusion and will give additional units if hemoglobin is less than 7 -Patient was also discussed with anesthesia who agreed patient would be appropriate to have endoscopies performed at this facility -Surgery has been consulted and performed upper endoscopy and found the patient had a GJ anastomosis, but no obvious signs of bleeding -Surgery also spoke with anesthesia and given the amount of bile in the patient's stomach, and his anastomosis they did not feel comfortable doing colonoscopy here as they were required patient to be intubated -Plan is to continue to monitor patient's hemoglobin and to discharge him if it remains stable with outpatient colonoscopy set up -However, if hemoglobin decreases, plan would be to transfer him to [facility] for colonoscopy with intubation and general anesthesia assistance -Patient was given octreotide and Protonix in the emergency department, will continue -As per general surgery, patient is now on regular diet Qualifiers: GI bleed type/associated pathology: unspecified gastrointestinal hemorrhage type Qualified Code(s): K92.2 - Gastrointestinal hemorrhage, unspecified (2) Blood loss anemia: Status: Acute Assessment and plan: - Likely due to GI bleed as noted above (3) Liver cirrhosis: Status: Acute (4) Fracture: Status: Acute Assessment and plan: - Patient found to have fracture of his right foot during previous hospitalization -Has been placed in a walking boot and will work with PT and can be weightbearing as tolerated (5) Alcohol use disorder: Status: Acute Assessment and plan: - Will monitor CIWA scores and initiate treatment if needed Subjective Subjective Interval history since last seen: Patient states that he is doing well this morning. Though he does state he did not get much sleep and that he just had a large dark tarry bowel movement. Exam Narrative Exam Narrative: Well-appearing older gentleman in no acute distress, does appear older than stated age, a and O x 4, heart rate regular rate and rhythm, lungs clear to auscultation bilaterally, abdomen soft, nontender nondistended Objective Last Vital Signs Temp 97.2 F L 09/21/23 08:20 Pulse 83 09/21/23 08:20 Resp 18 09/21/23 08:20 BP 137/82 09/21/23 08:20 Pulse Ox 97 09/21/23 08:20 Laboratory Results - last 24 hr 09/20/23 09/20/23 09/20/23 14:15 14:19 16:19 WBC 5.27 RBC 2.41 L Hgb 7.1 L 6.2 L* Hct 21.7 L 18.6 L* MCV 90 MCH 29.5 MCHC 32.7 RDW 15.1 H Plt Count 180 MPV 8.8 Immature Gran % 0.9 Neutrophils % 71.8 Lymphocytes % 16.1 Monocytes % 9.5 Eosinophils % 1.1 Basophils % 0.6 Nucleated RBC % 0.0 Absolute Neutrophils 3.78 Absolute Lymphocytes 0.85 L Absolute Monocytes 0.50 Absolute Eosinophils 0.06 Absolute Basophils 0.03 RBC Morphology See Below Polychromasia Present ESR 7 PT 11.2 H INR 1.1 APTT 18.8 L VBG Lactate 1.4 Sodium 135 L Potassium 4.0 Chloride 100 Carbon Dioxide 29.7 Anion Gap 5.3 BUN 29 H Creatinine 0.9 Est GFR (CKD-EPI 2020) 94.78 Glucose 127 H Calcium 9.1 Magnesium 1.6 L Total Bilirubin 0.2 AST 35 ALT 36 Alkaline Phosphatase 75 Creatine Kinase 92 Troponin I < 50 C-Reactive Protein 1.50 H NT-Pro-B Natriuret Pep 213 Total Protein 6.6 Albumin 3.3 L Lipase 45 Urine Color Yellow Urine Clarity Clear Urine pH 6.0 Ur Specific [place] 1.010 Urine Protein Negative Urine Ketones Trace H Urine Blood Negative Urine Nitrite Negative Urine Bilirubin Negative Urine Urobilinogen 0.2 Ur Leukocyte Esterase Negative Urine Glucose 250 H Patient ABO/Rh B Positive Antibody Screen NEGATIVE Crossmatch See Detail 09/21/23 06:02 WBC 4.29 L RBC 2.76 L Hgb 8.4 L D Hct 24.2 L MCV 88 MCH 30.4 MCHC 34.7 RDW 15.9 H Plt Count 164 MPV 9.6 Immature Gran % Neutrophils % Lymphocytes % Monocytes % Eosinophils % Basophils % Nucleated RBC % Absolute Neutrophils Absolute Lymphocytes Absolute Monocytes Absolute Eosinophils Absolute Basophils RBC Morphology Polychromasia ESR PT INR APTT VBG Lactate Sodium 136 Potassium 3.9 Chloride 102 Carbon Dioxide 27.3 Anion Gap 6.7 BUN 18 Creatinine 0.7 Est GFR (CKD-EPI 2020) 102.25 Glucose 121 H Calcium 8.5 Magnesium 1.6 L Total Bilirubin AST ALT Alkaline Phosphatase Creatine Kinase Troponin I C-Reactive Protein NT-Pro-B Natriuret Pep Total Protein Albumin Lipase Urine Color Urine Clarity Urine pH Ur Specific [place] Urine Protein Urine Ketones Urine Blood Urine Nitrite Urine Bilirubin Urine Urobilinogen Ur Leukocyte Esterase Urine Glucose Patient ABO/Rh Antibody Screen Crossmatch PAWSS Have you Been Recently Intoxicated or Drunk Within the Last 30 days?: Yes Have you Ever Experienced Previous Episodes of Alcohol Withdrawal?: Yes Have you ever Experienced Withdrawal Seizures?: Unable to Obtain Have you ever Experienced Delirium Tremens(DT)s?: Yes Have you ever undergone Alcohol Rehabilitation Treatment (i.e, inpt ot outpatient treatment programs)?: Unable to Obtain Have you ever Experienced Blackouts?: Yes Have you ever Combined Alcohol with other Downers within the last 90 days?: Unable to Obtain Have you ever Combined Alcohol with any other Substance of Abuse during the last 90 days?: Unable to Obtain Result: 4 Time Spent with Patient Time Spent with Patient: >50 minutes Time was spent: preparing to see the patient(eg.review tests), obtaining and/or reviewing separately otained hiistory, ordering medications,tests, procedures, referring, communicating with other health patient care provider, indepentently interpreting results, counseling the patient and care coordination
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
[2023-09-21 11:42] LABS: HGB 8.5 g/dL (13.5-17.5)
[2023-09-21] MEDS: Pantoprazole 40 MG VIAL IVP ×2 (12:13→21:11)
[2023-09-21] MEDS: Normal Saline Flush 10 ML SYR IVP ×2 (12:13→21:11)
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
[2023-09-21] MEDS: Lactated Ringers 1,000 ML 30 ML IV (13:53)
--- NOTE | 2023-09-21 14:35 | ENDO_ITS ---
Date of service: 09/21/23 Time of Service: 14:35 Endoscopy Report DATE OF PROCEDURE: 09/21/23 PRE-OP DIAGNOSIS: Gastrointestinal bleeding POST-OP DIAGNOSIS: other (Gastritis, with evidence of previous gastrojejunostomy) PROCEDURE: EGD SURGEON: Kenny To ANESTHESIA TYPE: General:No Airway ESTIMATED BLOOD LOSS: 0 PATHOLOGY: none sent COMPLICATIONS: None DISPOSITION: PACU INDICATIONS: Annette is 67 years old, and has had multiple episodes of melena with associated acute blood loss anemia. PROCEDURE START TIME: 14:01 PROCEDURE END TIME: 14:17 FINDINGS: Gastritis with unsuspected gastrojejunostomy PROCEDURE DESCRIPTION: After the induction of general anesthesia by natural airway, and with the assistance of bite-block, I advanced a gastroscope through the mouth down through the esophagus. The esophagus was normal-appearing, with maybe just some mild evidence of grade 1 esophageal varices. Certainly, there was no evidence of any bleeding, or worrisome pathology here there was some mild irregularity of the GE junction around 38 cm from the incisors. Advance the scope down into the stomach. The stomach was filled with bile, and partially digested material. This was carefully evacuated. Once the stomach was emptied, I attempted to insufflated. Gastric mucosa was mildly erythematous, but not particularly friable. I advanced down towards the incisura angularis. Along the greater curvature was what appeared to be an anastomosis. It was carefully examined. There appeared to be 2 limbs with this, consistent with a loop gastrojejunostomy. I did not see any evidence of anastomotic ulcers. I advanced down through both limbs of the anastomosis. Both were pink, well- perfused, and I saw no evidence of active inflammation. I brought the camera back up into the stomach, and advanced towards the pylorus. The mucosa around the pylorus was a bit prominent, but I could not traverse the pylorus without any difficulty. The duodenum down through the third portion appeared totally normal. There was bile here. I saw no evidence of any ulceration or bleeding. I brought the camera back up into the stomach, and performed retroflexion. There is no evidence of hiatal hernia. I did find 1 punctate area of erythema that I suppose could represent a peptic ulcer. Narrowband imaging was used to assess it. There were no concerning features. Because of the patient's recent bleeding, I did not perform any biopsies today. I then evacuated the stomach as best I could, and backed the camera out along the length of the esophagus.
--- NOTE | 2023-09-21 14:48 | W.ANESPOSTOP ---
Postoperative Evaluation Date, Time and Location Date Performed: 09/21/23 Time Performed: 14:48 Patient Location: PACU Vital Signs Most Recent Imported Vital Signs: Most Recent Vital Signs Temp Pulse Resp BP Pulse Ox 36.7 C 79 16 129/59 L 96 09/21/23 14:40 09/21/23 14:40 09/21/23 14:40 09/21/23 14:40 09/21/23 14:40 Pain Score Most Recent Pain Score: Most Recent Pain Score Pain Level 0 09/21/23 14:40 Assessment Mental Status: Awake (Alert & Oriented to Patient Baseline) Airway and Respiratory Function: Patent airway with normal (patient baseline) respiratory exam Cardiovascular Function: Hemodynamically Stable Hydration Status: Adequately Hydrated Nausea & Vomiting: No Nausea or Vomiting Pain: Pt. Denies Any Pain Peripheral Nerve Block: Patient did not receive a nerve block
[2023-09-21] MEDS: MAGNESIUM SULFATE 2 GM/50 ML BAG IVPB (17:15)
[2023-09-21 17:40] LABS: HCT 27.1 % (40.0-50.0); HGB 9.1 g/dL (13.5-17.5)
[2023-09-21] MEDS: Gabapentin 300 MG CAP PO (21:11)
[2023-09-21] MEDS: QUEtiapine 100 MG TAB PO (21:11)
[2023-09-21 23:04] LABS: HCT 24.8 % (40.0-50.0); HGB 8.3 g/dL (13.5-17.5)
[2023-09-22] VITALS (7 sets, daily range): BP systolic 106–158; BP diastolic 66–89; PULSE 66–102; RESP 17–19; TEMP 36.2–37.2; O2SAT 94–100
[2023-09-22] MEDS: Melatonin 3 MG TAB 9 MG PO ×3 (00:32→23:40)
[2023-09-22] MEDS: Lactated Ringers 1,000 ML 30 ML IV (03:09)
[2023-09-22 05:49] LABS: HCT 25.2 % (40.0-50.0); HGB 8.2 g/dL (13.5-17.5); MCHC 32.5 % (32.0-36.0); MCV 89 fL (80-95); MPV 9.1 fL (8.0-11.0); Platelet Count 171 10^3/uL (130-400); RBC 2.83 10^6/uL (4.36-5.78); RDW 15.6 % (11.8-14.1); RDW-SD 49.5 fL; WBC 3.92 10^3/uL (4.4-10.8)
[2023-09-22 05:57] LABS: Anion Gap 6.2 mmol/L (3-11); BUN 8 mg/dL (7-18); CO2 28.8 mmol/L (21.0-32.0); CREATININE 0.7 mg/dL (0.70-1.30); Calcium 8.5 mg/dL (8.5-10.1); Chloride 103 mmol/L (98-107); Estimated GFR 102.25 (mL/min/1.73m2); Glucose 113 mg/dL (74-106); Potassium 3.5 mmol/L (3.5-5.1); Sodium 138 mmol/L (136-145)
[2023-09-22] MEDS: Gabapentin 300 MG CAP PO ×2 (08:19→20:07)
[2023-09-22] MEDS: Pantoprazole 40 MG VIAL IVP ×2 (08:31→20:13)
--- NOTE | 2023-09-22 09:15 | W.PM.PROGNOT ---
Date of Service Date of service: 09/22/23 Time of Service: 13:54 Assessment and Plan Assessment and plan (1) GI bleed: Status: Resolved Assessment and plan: -Patient recently been hospitalized from 09/18 09/19 for concern of GI bleed, however his hemoglobin remained stable during hospitalization and he did not have any further bloody or dark stools, and at the time of patient was eager to go home and would have followed up with general surgery for outpatient endoscopy -However, shortly after returning home patient had an increase in frequency and dark stools and became fatigued -Hemoglobin in the emergency department initially 7.1 and decreased, he has been ordered 2 units packed red blood cells -Hb this AM 8.2, will continue to check CBC daily -Patient was also discussed with anesthesia who agreed patient would be appropriate to have endoscopies performed at this facility -Surgery has been consulted and performed upper endoscopy and found the patient had a GJ anastomosis, but no obvious signs of bleeding -Surgery also spoke with anesthesia and given the amount of bile in the patient's stomach, and his anastomosis they did not feel comfortable doing colonoscopy here as they were required patient to be intubated -Plan is to continue to monitor patient's hemoglobin and to discharge him if it remains stable with outpatient colonoscopy set up -However, if hemoglobin decreases, plan would be to transfer him to tertiary care center for colonoscopy with intubation and general anesthesia assistance -Patient was given octreotide and Protonix in the emergency department, will continue -As per general surgery, patient is now on regular diet Qualifiers: GI bleed type/associated pathology: unspecified gastrointestinal hemorrhage type Qualified Code(s): K92.2 - Gastrointestinal hemorrhage, unspecified (2) Blood loss anemia: Status: Acute Assessment and plan: - Likely due to GI bleed as noted above (3) Liver cirrhosis: Status: Acute (4) Fracture: Status: Acute Assessment and plan: - Patient found to have fracture of his right foot during previous hospitalization -Has been placed in a walking boot and will work with PT and can be weightbearing as tolerated (5) Alcohol use disorder: Status: Acute Assessment and plan: - Will monitor CIWA scores and initiate treatment if needed Subjective Subjective Interval history since last seen: Patient states that he is feeling well this morning and had a large brown-colored, nonbloody bowel movement. However, given that he had multiple dark stools yesterday and he had recurrence of his bleeding shortly after previous discharge, he understands importance of remaining hospitalized for an additional 24 hours to continue to monitor his bowel movements and hemoglobin Exam Narrative Exam Narrative: Well-appearing older gentleman in no acute distress, does appear older than stated age, a and O x 4, heart rate regular rate and rhythm, lungs clear to auscultation bilaterally, abdomen soft, nontender nondistended Objective Last Vital Signs Temp 97.2 F L 09/22/23 08:00 Pulse 86 09/22/23 08:00 Resp 18 09/22/23 08:00 BP 158/89 H 09/22/23 08:00 Pulse Ox 96 09/22/23 08:00 Laboratory Results - last 24 hr 09/21/23 09/21/23 09/21/23 11:20 17:31 22:57 WBC RBC Hgb 8.5 L 9.1 L 8.3 L Hct 25.0 L 27.1 L 24.8 L MCV MCH MCHC RDW Plt Count MPV Sodium Potassium Chloride Carbon Dioxide Anion Gap BUN Creatinine Est GFR (CKD-EPI 2020) Glucose Calcium 09/22/23 05:25 WBC 3.92 L RBC 2.83 L Hgb 8.2 L Hct 25.2 L MCV 89 MCH 29.0 MCHC 32.5 D RDW 15.6 H Plt Count 171 MPV 9.1 Sodium 138 Potassium 3.5 Chloride 103 Carbon Dioxide 28.8 Anion Gap 6.2 BUN 8 Creatinine 0.7 Est GFR (CKD-EPI 2020) 102.25 Glucose 113 H Calcium 8.5 PAWSS Have you Been Recently Intoxicated or Drunk Within the Last 30 days?: Yes Have you Ever Experienced Previous Episodes of Alcohol Withdrawal?: Yes Have you ever Experienced Withdrawal Seizures?: Unable to Obtain Have you ever Experienced Delirium Tremens(DT)s?: Yes Have you ever undergone Alcohol Rehabilitation Treatment (i.e, inpt ot outpatient treatment programs)?: Unable to Obtain Have you ever Experienced Blackouts?: Yes Have you ever Combined Alcohol with other Downers within the last 90 days?: Unable to Obtain Have you ever Combined Alcohol with any other Substance of Abuse during the last 90 days?: Unable to Obtain Result: 4 Time Spent with Patient Time Spent with Patient: >50 minutes Time was spent: preparing to see the patient(eg.review tests), obtaining and/or reviewing separately [facility] hiistory, ordering medications,tests, procedures, referring, communicating with other health ostomy care nurse, indepentently interpreting results, counseling the patient and care coordination
[2023-09-22] MEDS: Normal Saline Flush 10 ML SYR IVP ×2 (10:11→20:13)
[2023-09-22] MEDS: Metoprolol CR 50 MG TABCR PO (10:11)
--- NOTE | 2023-09-22 10:42 | PGE_ITS ---
Date of Service Date of service: 09/22/23 Time of Service: 07:55 Assessment and Plan Assessment and plan (1) Blood loss anemia: Status: Acute Assessment and plan: The patient is a 67-year-old gentleman who came in with acute on chronic anemia. This is his second admission in a short period of time secondary to bleeding. Unfortunately EGD did not find a source of his bleeding. He had another small bowel movement today which did have a small amount of blood in it. Discussed case with my partner who stated that anesthesia did not want to move forward with colonoscopy secondary to the patient's 5 cm thoracic aorta. I will try to talk to anesthesia and confirm this. If anesthesia feels this patient is too high risk for colonoscopy at our facility then he may may need to be transferred as an outpatient if he continues to be spate stable or he might need to be a inpatient or there and back transfer. I will place an addendum on this note once I have spoken to anesthesia. Subjective Subjective Interval history since last seen: Annette is a pleasant 67-year-old gentleman who was admitted by the hospitalist group on September 20 for anemia. He underwent EGD yesterday which was pretty unremarkable. There were no ulcers and no source of bleeding noted. His hemog lobin has been stable over the last few days but it does look like he still bleeding. Per patient the blood is small amounts but bright red. He is otherwise doing okay. He does not complain of abdominal pain, nausea or vomiting. He has been drinking fluids since yesterday and had dinner last night. Exam Const General: cooperative, comfortable and no acute distress Nutritional Appearance: average body habitus Orientation: alert and oriented x3 [facility] Head: normocephalic and atraumatic Resp Effort & Inspection: normal respiratory effort Auscultation: clear to auscultation bilaterally GI Palpation: soft, no hepatosplenomegaly and nontender Objective Last Vital Signs Temp 97.2 F L 09/22/23 08:00 Pulse 86 09/22/23 08:00 Resp 18 09/22/23 08:00 BP 158/89 H 09/22/23 08:00 Pulse Ox 96 09/22/23 08:00 Laboratory Results - last 24 hr 09/21/23 09/21/23 09/21/23 11:20 17:31 22:57 WBC RBC Hgb 8.5 L 9.1 L 8.3 L Hct 25.0 L 27.1 L 24.8 L MCV MCH MCHC RDW Plt Count MPV Sodium Potassium Chloride Carbon Dioxide Anion Gap BUN Creatinine Est GFR (CKD-EPI 2020) Glucose Calcium 09/22/23 05:25 WBC 3.92 L RBC 2.83 L Hgb 8.2 L Hct 25.2 L MCV 89 MCH 29.0 MCHC 32.5 D RDW 15.6 H Plt Count 171 MPV 9.1 Sodium 138 Potassium 3.5 Chloride 103 Carbon Dioxide 28.8 Anion Gap 6.2 BUN 8 Creatinine 0.7 Est GFR (CKD-EPI 2020) 102.25 Glucose 113 H Calcium 8.5 PAWSS Have you Been Recently Intoxicated or Drunk Within the Last 30 days?: Yes Have you Ever Experienced Previous Episodes of Alcohol Withdrawal?: Yes Have you ever Experienced Withdrawal Seizures?: Unable to Obtain Have you ever Experienced Delirium Tremens(DT)s?: Yes Have you ever undergone Alcohol Rehabilitation Treatment (i.e, inpt ot outpatient treatment programs)?: Unable to Obtain Have you ever Experienced Blackouts?: Yes Have you ever Combined Alcohol with other Downers within the last 90 days?: Unable to Obtain Have you ever Combined Alcohol with any other Substance of Abuse during the last 90 days?: Unable to Obtain Result: 4 Time Spent with Patient Time Spent with Patient: <25 minutes Time was spent: obtaining and/or reviewing separately otained hiistory, indepentently interpreting results, counseling the patient and care coordination
--- NOTE | 2023-09-22 10:47 | PDOC.CMPRO ---
Date of service: 09/22/23 Time of Service: 10:47 Care Management Progress Note Progress Note Text Progress Note Text: S/O:
--- NOTE | 2023-09-22 11:51 | CMPROGNOTE_ITS ---
Date of service: 09/22/23 Time of Service: 11:51 Care Management Progress Note Progress Note Text Progress Note Text: S/O: Annette was up walking the halls all day; CM met with him on one of his walks, as he was going to visit his partner, who is also hospitalized. Annette stated that per MD, he will likely be discharged tomorrow, if he continues to improve. He stated that he just needs to not drink alcohol. CM asked if he is interested in connecting with the technology coach while inpatient, and he agreed to meet with them tomorrow morning, prior to discharge. He stated that transportation can be a challenge for himself and his partner; CM offered support to find him a ride home. CM will continue to follow. A: Annette is a 67 year old male admitted to [facility] on 09/20/23 for acute blood loss anemia, GI bleed. P: Anticipate Annette will return home once medically cleared. He will have a resumption of services, which were ordered upon his previous discharge on 09/19/23. He will follow up with his PCP and discharge plan of care, and will transport via private vehicle. CM will continue to follow.
--- NOTE | 2023-09-22 12:30 | NUR.NOTE ---
Nursing Note: pt had a normal bm without blood for 1st time since admission, pt states I am ready to go home there is nothing wrong with me this is d/t my drinking, get the doctor in here so he can send me home I let the pt know I will get the doctor. Charge nurse notified of pts request @[phone] on 09/22/23
[2023-09-22] MEDS: Acetaminophen 325 MG TAB PO (13:43)
[2023-09-22] MEDS: Pravastatin 40 MG TAB PO (20:07)
[2023-09-22] MEDS: QUEtiapine 50 MG TAB PO (22:22)
[2023-09-23 03:16] VITALS: BP 111/66; PULSE 70; RESP 19; TEMP 36.3; O2SAT 96
[2023-09-23 06:44] LABS: HGB 8.8 g/dL (13.5-17.5); MCH 30.4 pg (27.0-33.0); MCHC 33.8 % (32.0-36.0); MCV 90 fL (80-95); MPV 9.4 fL (8.0-11.0); Platelet Count 189 10^3/uL (130-400); RBC 2.89 10^6/uL (4.36-5.78); RDW 15.7 % (11.8-14.1); WBC 3.32 10^3/uL (4.4-10.8)
[2023-09-23 07:20] VITALS: BP 106/66; PULSE 76; RESP 18; TEMP 36.7; O2SAT 96
[2023-09-23] MEDS: Pantoprazole 40 MG VIAL IVP (08:29)
[2023-09-23] MEDS: Normal Saline Flush 10 ML SYR IVP (08:29)
[2023-09-23] MEDS: Thiamine 100 MG TAB PO (08:30)
[2023-09-23] MEDS: Gabapentin 300 MG CAP PO (08:30)
[2023-09-23] MEDS: Metoprolol CR 50 MG TABCR PO (08:30)
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
--- NOTE | 2023-09-23 16:26 | PDOC.CMDIS ---
Date of service: 09/23/23 Time of Service: 16:26 LACE Index Scoring Tool Questions: Length of Stay (in days): 3 Was the patient admitted via the E.D.?: Yes Care Management Discharge Plan Reason for Hospitalization: Acute blood loss anemia, GI bleed Discharge Plan: Annette will return home via W/C van with his significant other. COA: MINERVA and Options: Annette reports losing [employer] support due to working at [employer]) for one day. He also reports difficulty in navigating costs of utilities and supporting his partner in paying her bills as well. Annette states current income limited to SSDI only. DONNA: Team based care support, follow up support post discharge to ensure Annette and his partner have support with ongoing service connection. Met with [employer] Specialist prior to discharge. Patient/Family Education Needs: Review discharge instructions, discuss Ask Me Three. Services Needed at Discharge: Home Delivered Meals and Transportation
== END 2023-09-23 11:51 | disposition home health service (06) | DRG 378 ==
LOC: ER 17:29 → MS 18:29
PROVIDERS: Physician Assistant; Surgery; Admitting Provider Family Medicine; Emergency Provider Nurse Practitioner Family; PCP Nurse Practitioner Family; Visit Provider Family Medicine
PROC: 0DJ68ZZ Inspection of Stomach, Via Natural or Artificial Opening Endoscopic (ICD-10-PCS; CPT 43235; principal; 2023-09-21 13:45)
DX: K92.1 Melena; D62 Acute posthemorrhagic anemia; Q23.1 Congenital insufficiency of aortic valve; I85.10 Secondary esophageal varices without bleeding; Z79.899 Other long term (current) drug therapy; I10 Essential (primary) hypertension; K70.30 Alcoholic cirrhosis of liver without ascites; D53.9 Nutritional anemia, unspecified; F10.20 Alcohol dependence, uncomplicated; M70.62 Trochanteric bursitis, left hip; M16.12 Unilateral primary osteoarthritis, left hip; G89.29 Other chronic pain; M54.2 Cervicalgia; E78.00 Pure hypercholesterolemia, unspecified; K21.9 Gastro-esophageal reflux disease without esophagitis; Z87.891 Personal history of nicotine dependence; Z98.0 Intestinal bypass and anastomosis status; K29.70 Gastritis, unspecified, without bleeding; S92.514D Nondisplaced fracture of proximal phalanx of right lesser toe(s), subsequent encounter for fracture with routine healing; S92.341D Displaced fracture of fourth metatarsal bone, right foot, subsequent encounter for fracture with routine healing; X58.XXXD Exposure to other specified factors, subsequent encounter; I77.810 Thoracic aortic ectasia
CPT/HCPCS: 43235; 00123; 36415; 80048; 80053; 82550; 83690; 85027; 85652; 86850; 86900; 86901; 86920; 93005; 96361; 96374; 96375; 99223; 99231; 99285; 74178; 81003; 83605; 83735; 83880; 84484; 85014; 85018; 85025; 85610; 85730; 86140; 93010; 99233; 99239; J2354; J2371; J3010; J3490; P9016

== ENCOUNTER 2023-11-11 01:13 | Inpatient (IN) | payer MEDICARE, SELFPAY ==
[2023-11-11] VITALS (87 sets, daily range): BP systolic 138–188; BP diastolic 86–107; PULSE 61–119; RESP 9–20; TEMP 36.1–36.5; O2SAT 79–100
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
--- NOTE | 2023-11-11 01:15 | DI.CT_ITS ---
Exam(s) CT CHEST/ABD/PEL WO EXAM: CT CHEST/ABD/PEL WO CLINICAL HISTORY: fall, vomiting, drunk. TECHNIQUE: Imaging Protocol: Axial computed tomography images with coronal and sagittal reformatted images were created and reviewed CONTRAST MATERIAL: Intravenous: none Oral: None COMPARISON: CT CT ABDOMEN PELVIS WO/W from 09/20/2023 FINDINGS: CHEST: LUNGS: No evidence of confluent infiltrates nor pleural effusions. No lung contusions. No pneumotho rax. No significant findings in the trachea and mainstem bronchi.. MEDIASTINUM: No evidence of acute sternal fracture or mediastinal hematoma .No hilar nor mediastinal adenopathy. Thyroid unremarkable. CARDIAC: Heart size upper normal. No pericardial effusion.The diameter of the ascending thoracic aor ta is significantly enlarged, measuring 5.2 cm. The diameter of the aortic arch is mildly prominent measuring 3 cm. Diameter of the descending thoracic aorta also measures 3 cm. OSSEOUS: There are multiple right-sided rib plates and healed rib fractures. No obvious acute fractu res. Chronic nonacute rib fractures noted bilaterally. No acute vertebral body fractures. No acute transverse process fractures.. ABDOMEN: There is no ascites. No evidence of mesenteric nor bowel wall hematoma. LIVER: No liver lacerations evident. A few cysts in the liver are again noted. GALLBLADDER/BILIARY: No obvious gallbladder pathology. CBD is not dilated. PANCREAS: No evidence of obvious pancreatic mass nor dilatation of the pancreatic duct. SPLEEN: No splenic lacerations. Normal spleen size. Tiny calcified granuloma in the spleen noted. No concerning splenic lesions. ADRENALS: No adrenal masses nor evidence of adrenal hemorrhage. KIDNEYS: No renal lacerations nor evidence of subcapsular hematomas. No significant focal findings i n the kidneys and no hydronephrosis.. ABDOMINAL AORTA: Unremarkable and no evidence of abdominal aortic aneurysm nor significant focal aneu rysmal dilatation of the iliac arteries. LYMPH NODES: There is no retroperitoneal nor para-aortic adenopathy. ABDOMINAL WALL/GI: No evidence of significant anterior abdominal wall nor inguinal hernia. No evidence of bowel obstruction. PELVIS: LYMPH NODES: There is no intrapelvic nor inguinal adenopathy. GI: No evidence of appendicitis.No evidence of sigmoid diverticulitis. URINARY BLADDER: No calculi nor obvious masses evident REPRODUCTIVE: Prostate size upper normal. Seminal vesicles unremarkable. OSSEOUS: Bilateral pars defects at L5 noted. Minimal listhesis. No compression fractures. IMPRESSION: 1. No significant acute trauma sequelae in the chest, abdomen, and pelvis 2. Incidentally noted is aneurysmal dilatation of the ascending thoracic aorta which exhibits diamete r of 5.2 cm. Cannot assess for dissection without IV contrast. 3. Bilateral pars interarticularis defects are noted at L5 level with minimal listhesis. 4. Multiple healed bilateral rib fractures and nonacute appearing right transverse process fractures in the lumbar spine. No acute fractures identified. RADIATION DOSE DELIVERED: 1,409.25mGy.cm Total DLP DATA REPOSITORY: All CT scans at this facility are submitted to the National Radiology Data Registry (NRDR) Dose Index Registry (DIR) with the [employer] (ACR). RADIATION OPTIMIZATION: All CT scans at this facility use at least one of these dose optimization te chniques: automated exposure control; mA and/or kV adjustment per patient size (includes targeted exa ms where dose is matched to clinical indication); or iterative reconstruction.
[2023-11-11 01:22] LABS: Abs Immature Grans 0.05 10^3/uL (0.0-0.06); Absolute Basophil Count 0.01 10^3/uL (0.0-0.2); Absolute Lymphocyte Count 0.44 10^3/uL (1.2-3.4); Absolute Monocyte Count 0.31 10^3/uL (0.1-0.8); Basophils % 0.1; HGB 9.6 g/dL (13.5-17.5); Immature Grans % 0.6; Lymphocytes % 5.2; MCH 24.1 pg (27.0-33.0); MCV 80 fL (80-95); MPV 8.4 fL (8.0-11.0); Monocytes % 3.6; Neutrophils % 90.5; Platelet Count 235 10^3/uL (130-400); RBC 3.99 10^6/uL (4.36-5.78); RDW 15.9 % (11.8-14.1); RDW-SD 46.4 fL; WBC 8.51 10^3/uL (4.4-10.8)
[2023-11-11] MEDS: Lactated Ringers 1,000 ML 1000 ML IV (01:23)
[2023-11-11] MEDS: Ondansetron 4 MG/2 ML VIAL IVP ×2 (01:24→03:21)
[2023-11-11 01:44] LABS: ALT 34 U/L (16-63); AST 33 U/L (15-37); Alkaline Phosphatase 114 U/L (46-116); Anion Gap 17.4 mmol/L (3-11); BUN 16 mg/dL (7-18); Bilirubin, Total 0.2 mg/dL (0.2-1.0); CO2 23.6 mmol/L (21.0-32.0); Calcium 8.6 mg/dL (8.5-10.1); Chloride 101 mmol/L (98-107); ETHANOL BLOOD 107.9 mg/dL (<10); Estimated GFR 83.52 (mL/min/1.73m2); Glucose 153 mg/dL (74-106); Lipase 228 U/L (16-77); Potassium 3.8 mmol/L (3.5-5.1); Sodium 142 mmol/L (136-145); Total Protein 8.1 g/dL (6.4-8.2)
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
--- NOTE | 2023-11-11 02:23 | DI.VRAD_ITS ---
PROCEDURE INFORMATION: Exam: CT Chest Without Contrast; Diagnostic Exam date and time: 11/11/2023 1:49 AM Age: 67 years old Clinical indication: Injury or trauma; Blunt; Generalized; Other: Unknown; Injury date: 11/11/23; Injury details: Fall, vomiting, drunk; Prior surgery; Surgery date: 6+ months; Surgery type: Chest TECHNIQUE: Imaging protocol: Diagnostic computed tomography of the chest without contrast. Radiation optimization: All CT scans at this facility use at least one of these dose optimization techniques: automated exposure control; mA and/or kV adjustment per patient size (includes targeted exams where dose is matched to clinical indication); or iterative reconstruction. COMPARISON: CT CHEST/ABD/PEL WO 09/17/2023 5:14 PM FINDINGS: Lungs: Aside from mild subsegmental atelectasis/scarring, the lungs are clear. No pulmonary contusion. Pleural spaces: No pneumothorax or hemothorax. Heart: See Vasculature finding. Lymph nodes: Unremarkable. No enlarged lymph nodes. Vasculature: 5 cm fusiform aneurysmal dilatation of the ascending aorta. No rupture. No traumatic aortic injury. No mediastinal hematoma, pneumomediastinum, or hemopericardium. Bones/joints: Internal fixation hardware of multiple right ribs. Chronic nonunited fracture deformity/pseudoarthrosis of the right scapula. Multiple healed left-sided rib fracture deformities. No acute fracture. Soft tissues: Unremarkable. IMPRESSION: No acute traumatic injury. PROCEDURE INFORMATION: Exam: CT Abdomen And Pelvis Without Contrast Exam date and time: 11/11/2023 1:49 AM Age: 67 years old Clinical indication: Injury or trauma; Blunt; Generalized; Other: Unknown; Injury date: 11/11/23; Injury details: Fall, vomiting, drunk; Prior surgery; Surgery date: 6+ months; Surgery type: Chest TECHNIQUE: Imaging protocol: Computed tomography of the abdomen and pelvis without contrast. Radiation optimization: All CT scans at this facility use at least one of these dose optimization techniques: automated exposure control; mA and/or kV adjustment per patient size (includes targeted exams where dose is matched to clinical indication); or iterative reconstruction. COMPARISON: CT ABDOMEN PELVIS WO/W 09/20/2023 3:26 PM FINDINGS: Liver: Incidental hepatic cysts. Gallbladder and bile ducts: Normal. No calcified stones. No ductal dilation. Pancreas: Unremarkable. Spleen: Normal. Adrenal glands: Normal. No mass. Kidneys and ureters: Normal. No hydronephrosis. Stomach and bowel: Colonic diverticulosis. No diverticulitis. No bowel wall thickening or intestinal obstruction. Appendix: Normal appendix. Intraperitoneal space: No hemoperitoneum, pneumoperitoneum, mesenteric/omental contusion, or retroperitoneal hematoma. Vasculature: Unremarkable. Lymph nodes: Unremarkable. Urinary bladder: Unremarkable as visualized. Reproductive: Unremarkable as visualized. Bones/joints: Unremarkable. No acute fracture. Soft tissues: Unremarkable. Other findings: No traumatic organ injury. IMPRESSION: No acute traumatic injury. Dictated and Authenticated by: Noe Brown MD. Ordering:JESSICA Woods MD
[2023-11-11] MEDS: LORazepam 2 MG/ML VIAL 5 MG IVP (03:20)
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
[2023-11-11] MEDS: Lactated Ringers 1,000 ML 125 ML IV ×3 (05:25→22:00)
[2023-11-11] MEDS: Pantoprazole 40 MG VIAL IVP (06:44)
[2023-11-11 06:54] LABS: HCT 29.4 % (40.0-50.0); HGB 8.7 g/dL (13.5-17.5); MCH 23.6 pg (27.0-33.0); MCHC 29.6 % (32.0-36.0); MCV 80 fL (80-95); MPV 8.9 fL (8.0-11.0); Platelet Count 214 10^3/uL (130-400); RBC 3.68 10^6/uL (4.36-5.78); RDW 15.9 % (11.8-14.1); RDW-SD 46.8 fL; WBC 6.58 10^3/uL (4.4-10.8)
[2023-11-11 07:26] LABS: Anion Gap 11.6 mmol/L (3-11); BUN 13 mg/dL (7-18); CO2 26.4 mmol/L (21.0-32.0); CREATININE 0.8 mg/dL (0.70-1.30); Calcium 8.4 mg/dL (8.5-10.1); Chloride 104 mmol/L (98-107); Estimated GFR 98.21 (mL/min/1.73m2); Glucose 121 mg/dL (74-106); Lipase 110 U/L (16-77); Potassium 4.1 mmol/L (3.5-5.1); Sodium 142 mmol/L (136-145)
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
[2023-11-11] MEDS: Sucralfate 1 GM TAB PO ×3 (07:55→18:47)
[2023-11-11] MEDS: Metoprolol 12.5 MG TAB PO ×3 (07:55→19:40)
[2023-11-11] MEDS: MAGNESIUM SULFATE 8.12 MEQ, MULTIVITAMIN 10 ML, THIAMINE 100 MG, FOLIC ACID 1 MG in Nor... 168.867 MG IV (08:58)
[2023-11-11] MEDS: Normal Saline Flush 10 ML SYR IVP ×2 (08:58→19:40)
[2023-11-11 09:55] LABS: *AMPHETAMINES SCREEN URINE Negative (Negative); *BARBITURATES SCREEN URINE Negative (Negative); *BENZODIAZEPINES SCREEN URINE Negative (Negative); Cannabinoids THC Negative (Negative); Cocaine Screen,Urine Positive (Negative); METHADONE URINE SCREEN Negative (Negative); OPIATES URINE SCREEN Negative (Negative)
[2023-11-11 10:00] LABS: Tricyclic Antidepressants Negative (Negative)
--- NOTE | 2023-11-11 10:38 | TELEP.MEDREC ---
Date of service: 11/11/23 Time of Service: 10:39 Telepharmacy Home Med Rec Allergies Allergies: escitalopram oxalate [From Lexapro] Allergy (Severe, Unverified 11/11/23 03:24) Dizziness/Lighthead Interview Person Interviewed: Patient Quality Quality of Interview/Accuracy of Medication List: Poor Changes made to Home Medication List: ADDITIONS: None DELETIONS: Sucralfate CHANGES: None Additional Notes Additional Notes: Patient was very hard to understand, it was unclear Recommended Changes Attestation: The home medication list is now updated to the best of my knowledge and is ready to be reconciled by the provider. Please contact the TelePharmacy Medication Reconciliation Pharmacist at for any questions.
--- NOTE | 2023-11-11 10:52 | W.PM.PROGNOT ---
Date of Service Date of service: 11/11/23 Time of Service: 10:52 Assessment and Plan Assessment and plan (1) Alcohol withdrawal: Status: Acute Assessment and plan: Await phenobarbital level prior to making a decision re 3rd dose of phenobarbital due to my concern for oversedation. Continue to monitor in the ICU. (2) Acute pancreatitis: Status: Acute Assessment and plan: I am not clinically impressed. CT abdomen also did not show pancreatitis. I think that once his mental status is better, he can be trialed on a diet. He may have had mild pancreatitis, gastritis, or simply alcohol withdrawal contributing to the n/v. (3) Fall: Status: Acute Assessment and plan: In setting of alcohol intoxication. When he is more clinically appropriate, a PT consult is indicated. (4) Closed head injury: Status: Acute Assessment and plan: Monitor mental status (5) Alcohol use disorder: Status: Chronic Assessment and plan: The patient should receiving counseling once he is able to participate in this. For now, we will supplement thiamine and MVI. Check B12/folate levels. (6) Polysubstance use disorder: Status: Chronic Assessment and plan: As above (7) Anemia: Status: Chronic Assessment and plan: Check anemia studies. (8) Liver cirrhosis: Status: Chronic Assessment and plan: Check INR. Careful monitoring of the phenobarbital levels. (9) DVT prophylaxis: Status: Acute Assessment and plan: SCDs Avoid chemical DVT ppx due to a recent closed head injury If mental status stable tomorrow, would start on a chemical DVT ppx at that point. (10) Discharge planning issues: Status: Acute Assessment and plan: Full code Keep in the ICU. Total Critical Care Time 35 minutes. Has 10 dogs at home; care management is aware as the patient's is also hospitalized. Subjective Subjective Interval history since last seen: Mr Patrick is arousable but somnolent. He denies any pain or shortness of breath, but then falls asleep and does not answer the remainder of my questions. He had finished his 2nd dose of phenobarbital, remains somewhat tremulous. His last CIWA score was reported as 4. At this point, his phenobarbital level is pending. He cannot tell me who is taking care of their dogs. Exam Narrative Exam Narrative: General: Somnolent, arousable middle-aged male, slurring words, tremulous, on 2L of O2 by NC HEENT: EOMI, dry MM Heart: RRR, ESTEFANÍA Lungs: snoring loudly, CTAB anteriorly Abdomen: soft, nontender, nondistended, has a well healed midline abdominal incision Extremities: no edema BLEs Objective Last Vital Signs Temp 36.5 C 11/11/23 07:15 Pulse 97 H 11/11/23 08:01 Resp 17 11/11/23 08:50 BP 169/99 H 11/11/23 08:01 Pulse Ox 96 11/11/23 08:50 Laboratory Results - last 24 hr 11/11/23 11/11/23 11/11/23 01:15 06:10 09:10 WBC 8.51 6.58 RBC 3.99 L 3.68 L Hgb 9.6 L 8.7 L Hct 32.0 L 29.4 L MCV 80 80 MCH 24.1 L 23.6 L MCHC 30.0 L 29.6 L RDW 15.9 H 15.9 H Plt Count 235 214 MPV 8.4 8.9 Immature Gran % 0.6 Neutrophils % 90.5 Lymphocytes % 5.2 Monocytes % 3.6 Eosinophils % 0.0 Basophils % 0.1 Nucleated RBC % 0.0 Absolute Neutrophils 7.70 H Absolute Lymphocytes 0.44 L Absolute Monocytes 0.31 Absolute Eosinophils 0.00 Absolute Basophils 0.01 Sodium 142 142 Potassium 3.8 4.1 Chloride 101 104 Carbon Dioxide 23.6 26.4 Anion Gap 17.4 H 11.6 H BUN 16 13 Creatinine 1.0 0.8 Est GFR (CKD-EPI 2020) 83.52 98.21 Glucose 153 H 121 H Calcium 8.6 8.4 L Total Bilirubin 0.2 AST 33 ALT 34 Alkaline Phosphatase 114 Total Protein 8.1 Albumin 4.0 Lipase 228 H 110 H Urine Opiates Screen Negative Urine Methadone Screen Negative Ur Barbiturates Screen Negative Ur Tricyclics Screen Negative Ur Amphetamines Screen Negative U Benzodiazepines Scrn Negative Urine Cocaine Screen Positive A Ur THC Screen Negative Ethyl Alcohol 107.9 H PAWSS Have you Been Recently Intoxicated or Drunk Within the Last 30 days?: Yes Have you Ever Experienced Previous Episodes of Alcohol Withdrawal?: Unable to Obtain Have you ever Experienced Withdrawal Seizures?: Unable to Obtain Have you ever Experienced Delirium Tremens(DT)s?: Unable to Obtain Have you ever undergone Alcohol Rehabilitation Treatment (i.e, inpt ot outpatient treatment programs)?: Unable to Obtain Have you ever Experienced Blackouts?: Unable to Obtain Have you ever Combined Alcohol with other Downers within the last 90 days?: Unable to Obtain Have you ever Combined Alcohol with any other Substance of Abuse during the last 90 days?: Unable to Obtain Positive Blood Alcohol level on Presentation? [PCS.BAL]: Unable to Obtain Evidence of Increased Autonomic Activity (i.e. HR>120, tremor, sweating, agitation, nausea)?: Unable to Obtain Result: 1 Time Spent with Patient Time Spent with Patient: 35-49 minutes Time was spent: preparing to see the patient(eg.review tests), obtaining and/or reviewing separately otained hiistory, ordering medications,tests, procedures, referring, communicating with other health aged or disabled carer, indepentently interpreting results, counseling the patient and care coordination
--- NOTE | 2023-11-11 11:50 | PHA.REVIEW2 ---
Pharmacy Admission Review Admission Clinical Review Admission Pharmacy Review: (Updated 11/11/23 @ 03:35 by Chuck Marcos DO) Alcohol withdrawal (Acute) Acute pancreatitis (Acute) Fall (Acute) escitalopram oxalate [From Lexapro] Allergy (Severe, Unverified 11/11/23 03:24) Dizziness/Lighthead Resuscitation Status Full Code Height 5 ft 10.08 in Weight 90.2 kg Pharmacy Admission Review Renal Dosing Renal Dosing: BUN 13 mg/dL (7-18) 11/11/23 06:10 Creatinine 0.8 mg/dL (0.70-1.30) 11/11/23 06:10 Medications needing adjustments: Reviewed (CrCl 83.32 mL/min) Anticoagulation Anticoagulation: Hgb 8.7 g/dL (13.5-17.5) L 11/11/23 06:10 Hct 29.4 % (40.0-50.0) L 11/11/23 06:10 Plt Count 214 10^3/uL (130-400) 11/11/23 06:10 Creatinine 0.8 mg/dL (0.70-1.30) 11/11/23 06:10 DVT Prophylaxis: Intervened (None at this time, MD aware and will put in order if necessary) Relevant Labs Relevant Labs: Sodium 142 mmol/L (136-145) 11/11/23 06:10 Potassium 4.1 mmol/L (3.5-5.1) 11/11/23 06:10 Chloride 104 mmol/L (98-107) 11/11/23 06:10 Electrolytes, C-Reactive P, ESR: Reviewed (Hgb 8.7) Cardiac Review Cardiac Review: Blood Pressure 156/96 1201 Blood Pressure 159/101 1153 Blood Pressure 151/92 1117 Blood Pressure 138/93 1001 Blood Pressure 169/99 0801 BP, HR, EF%: Reviewed (HR WNL, BP 151/92, RR 11, Nasal cannula 2) QTc Review QTc: Reviewed (Last EKG was 09/20/23 was QTc of 449) IV to PO Switch IV Medications: Reviewed Home Meds Home Med List reviewed: Intervened Relevent Home Meds Not ordered & why?: No home meds ordered at this time, reached out to provider who is aware Current Meds Current Medication Order Review: Reviewed Comments: Phenobarbital for alcohol withdrawal Soft stop: 1097.76mg Hard stop: 1463.68mg Total so far (1213): 510mg Has not yet received the 3rd loading dose, per morning meeting patient somnolent and provider wanted to check phenobarb level (pending) before giving 3rd dose Last CIWA score was 4 at 1057
[2023-11-11 13:33] LABS: PHENOBARBITAL 7.8 ug/mL (15.0-40.0)
[2023-11-11] MEDS: PHENobarbital 130 MG/ML VIAL IVP (20:09)
[2023-11-12] VITALS (23 sets, daily range): BP systolic 119–157; BP diastolic 72–95; PULSE 62–90; RESP 10–20; TEMP 36.1–36.4; O2SAT 90–98
[2023-11-12] MEDS: Metoprolol 12.5 MG TAB PO ×2 (01:32→08:19)
[2023-11-12] MEDS: Sucralfate 1 GM TAB PO ×4 (01:32→20:20)
[2023-11-12] MEDS: Ondansetron 4 MG/2 ML VIAL IVP ×2 (01:42→11:43)
[2023-11-12] MEDS: Normal Saline Flush 10 ML SYR IVP ×2 (01:43→20:20)
[2023-11-12] MEDS: Lactated Ringers 1,000 ML 125 ML IV (06:01)
[2023-11-12 06:48] LABS: Abs Immature Grans 0.02 10^3/uL (0.0-0.06); Absolute Basophil Count 0.02 10^3/uL (0.0-0.2); Absolute Eosinophil Count 0.08 10^3/uL (0.0-0.7); Absolute Lymphocyte Count 0.88 10^3/uL (1.2-3.4); Absolute Monocyte Count 0.79 10^3/uL (0.1-0.8); Absolute Neutrophil Count 4.08 10^3/uL (1.2-6.7); Basophils % 0.3; Eosinophils % 1.4; HCT 28.4 % (40.0-50.0); HGB 8.5 g/dL (13.5-17.5); Immature Grans % 0.3; MCH 24.3 pg (27.0-33.0); MCHC 29.9 % (32.0-36.0); MCV 81 fL (80-95); MPV 9.7 fL (8.0-11.0); Monocytes % 13.5; Neutrophils % 69.5; Platelet Count 184 10^3/uL (130-400); RDW-SD 47.9 fL; WBC 5.87 10^3/uL (4.4-10.8)
[2023-11-12 06:52] LABS: Prothrombin Time 10.2 sec (9.1-11.1)
[2023-11-12 07:07] LABS: Iron 34 ug/dL (65-175); Total Iron Binding Capacity 445 ug/dL (250-450); Transferrin Sat 8 % (20-55)
[2023-11-12 07:24] LABS: ALT 31 U/L (16-63); AST 35 U/L (15-37); Alkaline Phosphatase 109 U/L (46-116); Anion Gap 6.4 mmol/L (3-11); BUN 6 mg/dL (7-18); Bilirubin, Direct 0.1 mg/dL (0.0-0.2); Bilirubin, Total 0.4 mg/dL (0.2-1.0); CO2 30.6 mmol/L (21.0-32.0); CREATININE 0.6 mg/dL (0.70-1.30); Calcium 8.5 mg/dL (8.5-10.1); Chloride 100 mmol/L (98-107); Estimated GFR 107.13 (mL/min/1.73m2); Ferritin 20 ng/mL (26-388); Glucose 107 mg/dL (74-106); Lipase 66 U/L (16-77); Magnesium 1.9 mg/dL (1.8-2.4); Potassium 3.6 mmol/L (3.5-5.1); Sodium 137 mmol/L (136-145); Total Protein 6.3 g/dL (6.4-8.2)
[2023-11-12 07:34] LABS: Folate 18.5 ng/mL (8.6-20.0); Vitamin B12 132 pg/mL (193-986)
[2023-11-12] MEDS: Thiamine 100 MG TAB PO (08:19)
[2023-11-12] MEDS: Ascorbic Acid 500 MG TAB PO ×2 (08:20→20:20)
[2023-11-12] MEDS: Multivitamin w/Minerals TAB 1 TAB PO (08:20)
[2023-11-12] MEDS: Ferrous Sulfate 325 MG TAB PO ×2 (08:20→20:20)
--- NOTE | 2023-11-12 11:48 | PGE_ITS ---
Date of Service Date of service: 11/12/23 Time of Service: 11:48 Assessment and Plan Assessment and plan (1) Alcohol withdrawal: Status: Acute Assessment and plan: S/p phenobarbital load. Doing well. Ok to transfer out of the ICU. (2) Acute pancreatitis: Status: Resolved Assessment and plan: I am not clinically impressed. CT abdomen also did not show pancreatitis. He may have had mild pancreatitis, gastritis, or simply alcohol withdrawal contributing to the n/v. Tolerating a diet, which has been advanced. (3) Fall: Status: Acute Assessment and plan: In setting of alcohol intoxication. Consult physical therapy. (4) Closed head injury: Status: Acute Assessment and plan: Monitor mental status (5) Alcohol use disorder: Status: Chronic Assessment and plan: The patient should receiving counseling once he is able to participate in this. Continue thiamine and MVI. Does have B12 deficiency. Replete b12. (6) Polysubstance use disorder: Status: Chronic Assessment and plan: As above (7) Anemia: Status: Chronic Assessment and plan: B12 deficient. Replete B12. (8) Liver cirrhosis: Status: Chronic Assessment and plan: INR 1.0. Careful monitoring of the phenobarbital levels. (9) DVT prophylaxis: Status: Acute Assessment and plan: SC heparin. (10) Discharge planning issues: Status: Acute Assessment and plan: Full code Transfer out of the ICU. Subjective Subjective Interval history since last seen: Mr Patrick is feeling well. He does report a sensation of pressure on the left side of his head, but denies a headache, dizziness, hallucinations, CP, SOB, n/v. Tolerated a diet. CIWA scores have been zero. He has been pleasant and cooperative. He is not retaining urine today. Exam Narrative Exam Narrative: General: Somnolent, arousable middle-aged male who is A&Ox2 (thinks it's December 2023), cooperative, not tremulous HEENT: EOMI, MMM Heart: RRR, ESTEFANÍA Lungs: CTAB Abdomen: soft, nontender, nondistended, has a well healed midline abdominal incision Extremities: no edema BLEs Objective Last Vital Signs Temp 36.1 C L 11/12/23 07:56 Pulse 81 11/12/23 07:56 Resp 17 11/12/23 07:56 BP 148/80 H 11/12/23 07:56 Pulse Ox 95 11/12/23 07:56 Laboratory Results - last 24 hr 11/11/23 11/12/23 12:57 05:18 WBC 5.87 RBC 3.50 L Hgb 8.5 L Hct 28.4 L MCV 81 MCH 24.3 L MCHC 29.9 L RDW 16.0 H Plt Count 184 MPV 9.7 Immature Gran % 0.3 Neutrophils % 69.5 Lymphocytes % 15.0 Monocytes % 13.5 Eosinophils % 1.4 Basophils % 0.3 Nucleated RBC % 0.0 Absolute Neutrophils 4.08 Absolute Lymphocytes 0.88 L Absolute Monocytes 0.79 Absolute Eosinophils 0.08 Absolute Basophils 0.02 PT 10.2 INR 1.0 Sodium 137 Potassium 3.6 Chloride 100 Carbon Dioxide 30.6 Anion Gap 6.4 BUN 6 L Creatinine 0.6 L Est GFR (CKD-EPI 2020) 107.13 Glucose 107 H Calcium 8.5 Magnesium 1.9 Iron 34 L TIBC 445 Transferrin % Sat 8 L Ferritin 20 L Total Bilirubin 0.4 Conjugated Bilirubin 0.1 AST 35 ALT 31 Alkaline Phosphatase 109 Total Protein 6.3 L Albumin 3.0 L Lipase 66 Vitamin B12 132 L Folate 18.5 Phenobarbital 7.8 L PAWSS Have you Been Recently Intoxicated or Drunk Within the Last 30 days?: Yes Have you Ever Experienced Previous Episodes of Alcohol Withdrawal?: Unable to Obtain Have you ever Experienced Withdrawal Seizures?: Unable to Obtain Have you ever Experienced Delirium Tremens(DT)s?: Unable to Obtain Have you ever undergone Alcohol Rehabilitation Treatment (i.e, inpt ot outpatient treatment programs)?: Unable to Obtain Have you ever Experienced Blackouts?: Unable to Obtain Have you ever Combined Alcohol with other Downers within the last 90 days?: Unable to Obtain Have you ever Combined Alcohol with any other Substance of Abuse during the last 90 days?: Unable to Obtain Positive Blood Alcohol level on Presentation? [PCS.BAL]: Unable to Obtain Evidence of Increased Autonomic Activity (i.e. HR>120, tremor, sweating, agitation, nausea)?: Unable to Obtain Result: 1 Time Spent with Patient Time Spent with Patient: 35-49 minutes Time was spent: preparing to see the patient(eg.review tests), obtaining and/or reviewing separately otained hiistory, ordering medications,tests, procedures, referring, communicating with other health director of healthcare systems, indepentently interpreting results, counseling the patient and care coordination
[2023-11-12] MEDS: Heparin 5,000 UNITS/ML VIAL 5000 UNITS SC ×2 (12:18→20:21)
[2023-11-12] MEDS: Metoprolol CR 50 MG TABCR PO (12:19)
--- NOTE | 2023-11-12 13:30 | CMPROGNOTE_ITS ---
Date of service: 11/12/23 Care Management Progress Note Progress Note Text Progress Note Text: S/O Annette was laying in bed when meeting with CM and able to engage in conversation. Pt advanced diet to have liquids and able to move from ICU to med surge. He described having a big egg on this head and thinking he had said the way he was feeling made him think he had fentanyl; this did not show on the ER report. 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 Annette asked about Torri and whether she was still was doing ok. Discussed caregiving being something that is hard and not liking the travel, especially in the winter. Annette mentioned selling [place] home since he built his home and didn't want to sell it. Checked in with Rhe about the [facility]; [email or web address], 3 at [facility] Confirmed with Emely Grajeda that she is providing care to all of the dogs at both places and asked that Rhe update her of when he may be going home so she doesn't go out if its not needed. ICU nursing notified CM pt let them know he had cocaine with him he no longer wants. CM called security for assist. A: Annette is a 67 year old male admitted to [facility] 11/11/23 for alcohol withdrawal. P: Annette will discharge when medically cleared and transport home via private vehicle. SDOH(Care Management) Screening Will the Patient Participate in the Screening?: Unable to obtain Social Determinants of Health Comments(SDOH Details): pt unable to answer questions
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
[2023-11-12] MEDS: Gabapentin 300 MG CAP PO (20:20)
[2023-11-12] MEDS: QUEtiapine 50 MG TAB PO (21:11)
[2023-11-13] VITALS (31 sets, daily range): BP systolic 107–166; BP diastolic 67–96; PULSE 63–95; RESP 9–22; TEMP 36.2–36.4; O2SAT 68–100
[2023-11-13] MEDS: Heparin 5,000 UNITS/ML VIAL 5000 UNITS SC ×3 (04:00→21:04)
[2023-11-13] MEDS: Sucralfate 1 GM TAB PO ×4 (04:01→21:04)
--- NOTE | 2023-11-13 04:11 | W.PC.ACHO ---
Registration Status: ADM IN Primary Language: Preferred Language: Urdu ED Information & Data Chief Complaint Fall/Non TraumaCriteria 11/11/23 01:56 Triage Note pt admitted to drinking a 11/11/23 00:57 lot of etoh tonight along with heroin and crack. ems report that pt fell and hit his head. Medical / Surgical History (Last Reviewed 11/11/23 @ 03:48 by Govind Miramontes MD) Pancreatitis, acute Pancytopenia Tendonitis of left rotator cuff Multiple injuries of head (06/23/17) Post concussion syndrome (06/23/17) Hypertension Hemorrhoids Skin lesion of face GERD (gastroesophageal reflux disease) Phobia Left thyroid nodule Post-traumatic headache Acquired insufficiency of aortic valve Hypoalbuminemia Postconcussion syndrome Electrolyte imbalance Vertigo Seizure after head injury Hyperlipidemia Aortic aneurysm Hemothorax Alcohol abuse Visual changes Right rib fracture Fractured nose Diverticulosis History of tobacco abuse Acute appendicitis (Last Reviewed 11/11/23 @ 03:48 by Govind Miramontes MD) EGD - MAC Appendectomy History of surgery Most Recent Vital Signs Temperature 36.4 C L 11/13/23 00:01 Temperature Source Temporal Artery Scan 11/12/23 07:56 Pulse 70 11/13/23 01:35 Pulse Rhythm Regular 11/13/23 02:03 Pulse 95 H 11/13/23 00:01 Respiratory Rate 12 11/13/23 01:35 Respiratory Effort Normal, Non-Labored 11/13/23 02:03 Respiratory Depth Normal 11/13/23 02:03 Respiratory Pattern Normal 11/13/23 02:03 Blood Pressure 166/96 H 11/13/23 00:01 Blood Pressure Mean 115 11/13/23 00:01 Blood Pressure Position Supine 11/12/23 07:56 Pulse Oximetry 98 11/13/23 03:04 Oxygen Delivery Method Nasal Cannula 11/13/23 03:04 Oxygen Flow Rate 3 11/13/23 03:04 Fraction of Inspired Oxygen (FIO2) 24 11/13/23 01:35 Pain Level 7 11/11/23 20:16 Allergies escitalopram oxalate [From Lexapro] Allergy (Severe, Unverified 11/11/23 03:24) Dizziness/Lighthead Active Medications Generic Name Dose Route Start Last Admin Trade Name Freq PRN Reason Stop Dose Admin Ascorbic Acid 500 mg 11/12/23 08:30 11/12/23 20:20 Ascorbic Acid 500 Mg Tab PO 500 mg BID ALBA Administration Ferrous Sulfate 325 mg 11/12/23 08:30 11/12/23 20:20 Ferrous Sulfate 325 Mg Tab PO 325 mg BID ALBA Administration Gabapentin 300 mg 11/12/23 20:00 11/12/23 20:20 Gabapentin 300 Mg Cap PO 300 mg BID ALBA Administration Heparin Sodium (Porcine) 5,000 units 11/12/23 12:00 11/13/23 04:00 Heparin 5,000 Units/Ml Vial SC 5,000 units Q8H ALBA Administration Iron/Minerals/Multivitamins 1 tab 11/12/23 08:30 11/12/23 08:20 Multivitamin W/Minerals Tab PO 1 tab DAILY ALBA Administration Ondansetron HCl 4 mg 11/11/23 07:28 11/12/23 11:43 Ondansetron 4 Mg/2 Ml Vial IVP 4 mg Q6H PRN PRN Administration Phenobarbital Sodium 130 mg 11/11/23 10:49 11/11/23 20:09 Phenobarbital 130 Mg/Ml Vial IVP 130 mg DIRECTED PRN Administration for mild anxiety/agitation Quetiapine Fumarate 50 mg 11/12/23 22:00 11/12/23 21:11 Quetiapine 50 Mg Tab PO 50 mg HS ALBA Administration Sodium Chloride 0 ml 11/11/23 08:30 11/12/23 20:20 Normal Saline Flush 10 Ml Syr IVP 10 ml PRN PRN Administration Sucralfate 1 gm 11/11/23 07:30 11/13/23 04:01 Sucralfate 1 Gm Tab PO 1 gm Q6H ALBA Administration Thiamine HCl 100 mg 11/12/23 08:30 11/12/23 08:19 Thiamine 100 Mg Tab PO 100 mg DAILY ALBA Administration IV IV Catheter Type [Left Wrist] Peripheral IV IV Catheter Type [Right] Saline Lock IV Catheter Gauge [Left Wrist] 22 IV Catheter Gauge [Right] 20 Diagnostics 11/13/23 11/12/23 Range/Units 05:35 05:18 WBC Pending 5.87 (4.4-10.8) 10^3/uL RBC Pending 3.50 L (4.36-5.78) 10^6/uL Hgb Pending 8.5 L (13.5-17.5) g/dL Hct Pending 28.4 L (40.0-50.0) % MCV Pending 81 (80-95) fL MCH Pending 24.3 L (27.0-33.0) pg MCHC Pending 29.9 L (32.0-36.0) % RDW Pending 16.0 H (11.8-14.1) % Plt Count Pending 184 (130-400) 10^3/uL MPV Pending 9.7 (8.0-11.0) fL Immature Gran % Pending 0.3 Neutrophils % Pending 69.5 Lymphocytes % Pending 15.0 Monocytes % Pending 13.5 Eosinophils % Pending 1.4 Basophils % Pending 0.3 Nucleated RBC % 0.0 (0.0-0.3) % Absolute Neutrophils Pending 4.08 (1.2-6.7) 10^3/uL Absolute Lymphocytes Pending 0.88 L (1.2-3.4) 10^3/uL Absolute Monocytes Pending 0.79 (0.1-0.8) 10^3/uL Absolute Eosinophils Pending 0.08 (0.0-0.7) 10^3/uL Absolute Basophils Pending 0.02 (0.0-0.2) 10^3/uL PT 10.2 (9.1-11.1) sec INR 1.0 (0.9-1.1) Sodium Pending 137 (136-145) mmol/L Potassium Pending 3.6 (3.5-5.1) mmol/L Chloride Pending 100 (98-107) mmol/L Carbon Dioxide Pending 30.6 (21.0-32.0) mmol/L Anion Gap Pending 6.4 (3-11) mmol/L BUN Pending 6 L (7-18) mg/dL Creatinine Pending 0.6 L (0.70-1.30) mg/dL Est GFR (CKD-EPI 2020) Pending 107.13 (mL/min/1.73m2) Glucose Pending 107 H (74-106) mg/dL Calcium Pending 8.5 (8.5-10.1) mg/dL Magnesium Pending 1.9 (1.8-2.4) mg/dL Iron 34 L (65-175) ug/dL TIBC 445 (250-450) ug/dL Transferrin % Sat 8 L (20-55) % Ferritin 20 L (26-388) ng/mL Total Bilirubin 0.4 (0.2-1.0) mg/dL Conjugated Bilirubin 0.1 (0.0-0.2) mg/dL AST 35 (15-37) U/L ALT 31 (16-63) U/L Alkaline Phosphatase 109 (46-116) U/L Total Protein 6.3 L (6.4-8.2) g/dL Albumin 3.0 L (3.4-5.0) g/dL Lipase 66 (16-77) U/L Vitamin B12 132 L (193-986) pg/mL Folate 18.5 (8.6-20.0) ng/mL Intake and Output - 24 Hour Total 11/11/23 00:49 thru 11/13/23 02:03 Intake Total 6422.9824 Output Total 3479 Balance 2943.9824 Weight 90.2 kg Intake: IV 5882.9824 Oral 540 Output: Urine 3479 Other: Urine Color Light Manjula Urine Appearance Clear Urine Odor Normal Comment some urine spilled from urinal. actual output ml is greater Stool Size Moderate Stool Characteristics Formed Voiding Methods Urinal Urinary Catheter Urinary Catheter Date of 11/11/23 Insertion [Uretheral ([place])] Time of insertion [Uretheral ( 09:20 [place])] Falls Risk Assessment History of Falls Admit Due to Fall 11/11/23 05:40 Contributing Factors Impairments 11/11/23 05:40 Ambulatory Aids Independent 11/11/23 05:40 Tubes/Lines With any additional score 11/11/23 05:40 Gait Evaluation No gait disturbance 11/11/23 05:40 Cognition Cognitive impairment 11/11/23 05:40 Fall Total Score 63 11/11/23 05:40 Level of Risk High Risk 11/11/23 05:40 Problems (Last Reviewed 11/11/23 @ 03:48 by Govind Miramontes MD) Polysubstance use disorder (Chronic) Closed head injury (Acute) Discharge planning issues (Acute) DVT prophylaxis (Acute) Alcohol withdrawal (Acute) Fall (Acute) Alcohol use disorder (Chronic) Anemia (Chronic) Liver cirrhosis (Chronic) v v v v v v v v v Sending and/or Receiving Nurses: Please use comment section below to note any information pertinent to the patient hand-off not included above. Information / Comments: Report received from: Winifred Pan RN at 05:05 11/11/23 all questions answered: yes
[2023-11-13 07:41] LABS: Abs Immature Grans 0.01 10^3/uL (0.0-0.06); Absolute Basophil Count 0.03 10^3/uL (0.0-0.2); Absolute Eosinophil Count 0.24 10^3/uL (0.0-0.7); Absolute Lymphocyte Count 1.17 10^3/uL (1.2-3.4); Absolute Monocyte Count 0.29 10^3/uL (0.1-0.8); Absolute Neutrophil Count 1.81 10^3/uL (1.2-6.7); Basophils % 0.8; Eosinophils % 6.8; HCT 27.4 % (40.0-50.0); HGB 8.1 g/dL (13.5-17.5); Immature Grans % 0.3; MCH 23.6 pg (27.0-33.0); MCHC 29.6 % (32.0-36.0); MCV 80 fL (80-95); MPV 9.2 fL (8.0-11.0); Monocytes % 8.2; Neutrophils % 50.9; Nucleated RBC 0.6 % (0.0-0.3); Platelet Count 195 10^3/uL (130-400); RBC 3.43 10^6/uL (4.36-5.78); RDW 15.9 % (11.8-14.1); RDW-SD 46.5 fL; WBC 3.55 10^3/uL (4.4-10.8)
[2023-11-13 08:02] LABS: Anion Gap 8.5 mmol/L (3-11); BUN 6 mg/dL (7-18); CO2 30.5 mmol/L (21.0-32.0); CREATININE 0.9 mg/dL (0.70-1.30); Calcium 8.8 mg/dL (8.5-10.1); Chloride 102 mmol/L (98-107); Estimated GFR 94.78 (mL/min/1.73m2); Glucose 106 mg/dL (74-106); Potassium 3.2 mmol/L (3.5-5.1); Sodium 141 mmol/L (136-145)
[2023-11-13] MEDS: Pantoprazole 20 MG TABCR PO (08:57)
[2023-11-13] MEDS: Lisinopril 10 MG TAB PO (08:58)
[2023-11-13] MEDS: Thiamine 100 MG TAB PO (08:58)
[2023-11-13] MEDS: Ascorbic Acid 500 MG TAB PO ×2 (08:58→21:04)
[2023-11-13] MEDS: Gabapentin 300 MG CAP PO ×2 (08:58→21:04)
[2023-11-13] MEDS: Potassium Chloride 20 MEQ TABCR 40 MEQ PO (08:58)
[2023-11-13] MEDS: Ferrous Sulfate 325 MG TAB PO ×2 (08:58→21:04)
[2023-11-13] MEDS: Multivitamin w/Minerals TAB 1 TAB PO (08:58)
[2023-11-13] MEDS: Escitalopram 20 MG TAB PO (08:58)
[2023-11-13] MEDS: Metoprolol CR 50 MG TABCR PO (09:04)
--- NOTE | 2023-11-13 09:11 | W.PM.PROGNOT ---
Date of Service Date of service: 11/13/23 Time of Service: 09:11 Assessment and Plan Assessment and plan (1) Alcohol withdrawal: Status: Acute Assessment and plan: S/p phenobarbital load. About to receive a dose of phenobarbital. COntinue to monitor CIWA. (2) Acute pancreatitis: Status: Resolved Assessment and plan: I am not clinically impressed. CT abdomen also did not show pancreatitis. He may have had mild pancreatitis, gastritis, or simply alcohol withdrawal contributing to the n/v. Tolerating a diet, which has been advanced. (3) Nocturnal hypoxia: Status: Acute Assessment and plan: Suspect TIFFANIE, but cannot rule out effects of phenobarbital on breathing. I have ordered nocturnal oximetry for tonight and discussed getting a sleep study with the patient. (4) Hypokalemia: Status: Acute Assessment and plan: Replete (5) Fall: Status: Acute Assessment and plan: In setting of alcohol intoxication. PT consulted and recommends home health PT. (6) Closed head injury: Status: Acute Assessment and plan: Monitor mental status (7) Alcohol use disorder: Status: Chronic Assessment and plan: The patient should receiving counseling once he is able to participate in this. Continue thiamine and MVI. Does have B12 deficiency. Replete b12. (8) Polysubstance use disorder: Status: Chronic Assessment and plan: As above (9) Anemia: Status: Chronic Assessment and plan: B12 deficient. Replete B12. (10) Liver cirrhosis: Status: Chronic Assessment and plan: INR 1.0. Careful monitoring of the phenobarbital levels. (11) DVT prophylaxis: Status: Acute Assessment and plan: SC heparin. (12) Discharge planning issues: Status: Acute Assessment and plan: Full code Anticipate discharge home in the next 24-48 hrs. Transferred out of the ICU On 11/12/2023. Subjective Subjective Interval history since last seen: Mr Patrick reports a headache and nausea. NO dizziness, CP, SOB. His CIWA score is 7. He is on RA now, but overnight had desaturated to 30s-50s, reportedly, with TIFFANIE-like breathing. He was started on CPAP and required 30% FiO2. Lost his IV access this morning. Exam Narrative Exam Narrative: General: Alert middle-aged male who is slurring words slightly, but looks more awake than yesterday, cooperative, not tremulous, does not appear to be feeling well. HEENT: EOMI, MMM Heart: RRR, ESTEFANÍA Lungs: CTAB Abdomen: soft, nontender, nondistended, has a well healed midline abdominal incision Extremities: no edema BLEs Objective Last Vital Signs Temp 36.4 C L 11/13/23 04:01 Pulse 88 11/13/23 08:00 Resp 17 11/13/23 08:00 BP 134/82 11/13/23 08:00 Pulse Ox 96 11/13/23 08:00 Laboratory Results - last 24 hr 11/13/23 05:30 WBC 3.55 L RBC 3.43 L Hgb 8.1 L Hct 27.4 L MCV 80 MCH 23.6 L MCHC 29.6 L RDW 15.9 H Plt Count 195 MPV 9.2 Immature Gran % 0.3 Neutrophils % 50.9 Lymphocytes % 33.0 Monocytes % 8.2 Eosinophils % 6.8 Basophils % 0.8 Nucleated RBC % 0.6 H Absolute Neutrophils 1.81 Absolute Lymphocytes 1.17 L Absolute Monocytes 0.29 Absolute Eosinophils 0.24 Absolute Basophils 0.03 Sodium 141 Potassium 3.2 L Chloride 102 Carbon Dioxide 30.5 Anion Gap 8.5 BUN 6 L Creatinine 0.9 Est GFR (CKD-EPI 2020) 94.78 Glucose 106 Calcium 8.8 Magnesium 2.0 PAWSS Have you Been Recently Intoxicated or Drunk Within the Last 30 days?: Yes Have you Ever Experienced Previous Episodes of Alcohol Withdrawal?: Unable to Obtain Have you ever Experienced Withdrawal Seizures?: Unable to Obtain Have you ever Experienced Delirium Tremens(DT)s?: Unable to Obtain Have you ever undergone Alcohol Rehabilitation Treatment (i.e, inpt ot outpatient treatment programs)?: Unable to Obtain Have you ever Experienced Blackouts?: Unable to Obtain Have you ever Combined Alcohol with other Downers within the last 90 days?: Unable to Obtain Have you ever Combined Alcohol with any other Substance of Abuse during the last 90 days?: Unable to Obtain Positive Blood Alcohol level on Presentation? [PCS.BAL]: Unable to Obtain Evidence of Increased Autonomic Activity (i.e. HR>120, tremor, sweating, agitation, nausea)?: Unable to Obtain Result: 1 Time Spent with Patient Time Spent with Patient: 25-34 minutes Time was spent: preparing to see the patient(eg.review tests), obtaining and/or reviewing separately otained hiistory, ordering medications,tests, procedures, referring, communicating with other health healthcare insurance sales agent, indepentently interpreting results, counseling the patient and care coordination
[2023-11-13] MEDS: Normal Saline Flush 10 ML SYR IVP (09:28)
[2023-11-13] MEDS: Ondansetron 4 MG/2 ML VIAL IVP (09:29)
[2023-11-13] MEDS: PHENobarbital 130 MG/ML VIAL IVP ×2 (09:29→11:47)
[2023-11-13] MEDS: Cyanocobalamin 1000 MCG/ML VIAL IM/SC (09:30)
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
--- NOTE | 2023-11-13 16:56 | PT.INTREAT ---
Date of service: 11/13/23 Time of Service: 11:09 PT Notes Visit Reasons: Alcohol withdrawal Inpatient Physical Therapy Treatment Note [facility] Date: 11/13/23 PRECAUTIONS: Fall, standard, activity as tolerated SUBJECTIVE: Patient reports being very tired, feeling confused, foggy-headed. States repeatedly I don't know what's wrong with me. 2 days ago I was walking fine. AFTERNOON: Patient reports feeling much better, less fatigued, less confused. OBJECTIVE: Patient supine in bed, asleep. Wakes easily. Agreeable to therapy. ? PAIN: none reported. VITALS: continuously monitored via telemetry. ? ? BED MOBILITY/TRANSFERS? Rolling L/R: modified independent with bilateral hand rails Supine-sit: modified independent with bilateral hand rails, mildly elevated HOB, verbal cues ? Sit-supine: modified independent with bilateral hand rails, mildly elevated HOB, verbal cues ? Sit-stand: CGA with mod verbal cues due to impulsiveness, lack of safety awareness ? Stand-sit: CGA with mod verbal cues due to impulsiveness, lack of safety awareness ? Bed-Chair: CGA with mod verbal cues due to impulsiveness, lack of safety awareness ? Chair-bed: CGA with mod verbal cues due to impulsiveness, lack of safety awareness ? Provided skilled cues and instruction on performance and technique throughout. Patient much less impulsive, more cognizant of safety in the afternoon. Gait Training (morning treatment session) ([id number]): Direct one-on-one instruction and skilled instruction in: [x] employing an assistive device [] modified weight-bearing status [x] movement sequencing [x] turning and movement with proper form [x] Provided verbal cues for equipment management and technique [x] Provided instruction in gait pattern [x] Patient education regarding pacing and breathing techniques to maximize activity tolerance? GAIT? Assistive Device: FWW ? Weight bearing: full Assist: min assist due to poor balance throughout morning treatment session.? Distance:? 250 feet? Deviation: Stooped posture, unsteady gait, multiple losses of balance, reduced amie, reduced step length. Patient on 4L/min supplemental O2, lowest observed SaO2 is 81%. Patient recovers in <1 minute once prompted to sit and take a few deep breaths. ? Therapeutic Exercises (afternoon treatment) ([id number]): Direct one-on-one instruction in therapeutic exercises to develop strength, endurance, range of motion and flexibility. Ambulation ? Assistive Device: FWW? Weight bearing: full Assist: CGA ? Distance:? 350 feet ? Deviation: Posture improved, LOB x1, increased amie compared to morning treatment session (continues to be slower than patient's baseline as established at patient's last admission.) Patient on RA, maintains SaO2 >92% throughout treatment session. ? Provided skilled instruction in proper exercise performance Provided skilled manual cues to facilitate proper muscle recruitment and/or form. ASSESSMENT:? Patient improves performance throughout the day today. PLAN: Continue global strengthening per plan of care until patient is medically cleared for discharge. TREATMENT CODE/TIME: 26 minutes beginning at 11:09 and 19 minutes beginning at 14:14 for a total of 45 minutes today.
[2023-11-13 17:18] LABS: PHENOBARBITAL 14.4 ug/mL (15.0-40.0)
[2023-11-13] MEDS: QUEtiapine 50 MG TAB PO (21:04)
[2023-11-13] MEDS: Pravastatin 40 MG TAB PO (21:09)
[2023-11-14] MEDS: Sucralfate 1 GM TAB PO ×2 (04:45→10:22)
[2023-11-14] MEDS: Heparin 5,000 UNITS/ML VIAL 5000 UNITS SC ×2 (04:45→11:42)
[2023-11-14] MEDS: Normal Saline Flush 10 ML SYR IVP ×2 (04:46→07:51)
[2023-11-14 06:58] LABS: Abs Immature Grans 0.03 10^3/uL (0.0-0.06); Absolute Basophil Count 0.05 10^3/uL (0.0-0.2); Absolute Eosinophil Count 0.34 10^3/uL (0.0-0.7); Absolute Lymphocyte Count 1.46 10^3/uL (1.2-3.4); Basophils % 1.3; Eosinophils % 8.8; HCT 27.6 % (40.0-50.0); HGB 8.2 g/dL (13.5-17.5); Immature Grans % 0.8; Lymphocytes % 37.6; MCH 23.8 pg (27.0-33.0); MCHC 29.7 % (32.0-36.0); MCV 80 fL (80-95); MPV 8.8 fL (8.0-11.0); Monocytes % 10.3; Neutrophils % 41.2; Nucleated RBC 0.5 % (0.0-0.3); Platelet Count 175 10^3/uL (130-400); RBC 3.44 10^6/uL (4.36-5.78); RDW 15.9 % (11.8-14.1); RDW-SD 46.2 fL; WBC 3.88 10^3/uL (4.4-10.8)
[2023-11-14 07:11] LABS: BUN 7 mg/dL (7-18); CREATININE 0.8 mg/dL (0.70-1.30); Calcium 8.8 mg/dL (8.5-10.1); Chloride 103 mmol/L (98-107); Estimated GFR 98.21 (mL/min/1.73m2); Glucose 91 mg/dL (74-106); Magnesium 1.8 mg/dL (1.8-2.4); Potassium 3.5 mmol/L (3.5-5.1); Sodium 141 mmol/L (136-145)
[2023-11-14] MEDS: Ascorbic Acid 500 MG TAB PO (07:49)
[2023-11-14] MEDS: Cyanocobalamin 500 MCG TAB 1000 MCG PO (07:49)
[2023-11-14] MEDS: Gabapentin 300 MG CAP PO (07:50)
[2023-11-14] MEDS: Ferrous Sulfate 325 MG TAB PO (07:50)
[2023-11-14] MEDS: Pantoprazole 20 MG TABCR PO (07:50)
[2023-11-14] MEDS: Thiamine 100 MG TAB PO (07:50)
[2023-11-14] MEDS: Multivitamin w/Minerals TAB 1 TAB PO (07:50)
[2023-11-14] MEDS: Escitalopram 20 MG TAB PO (07:51)
[2023-11-14] MEDS: Lisinopril 10 MG TAB PO (07:51)
[2023-11-14] MEDS: Metoprolol CR 50 MG TABCR PO (07:51)
[2023-11-14 08:06] VITALS: RESP 10
[2023-11-14 11:41] VITALS: BP 100/78; PULSE 63; RESP 16; TEMP 36.1; O2SAT 94
--- NOTE | 2023-11-14 13:02 | PT.INTREAT ---
PT Notes Visit Reasons: Alcohol withdrawal Inpatient Physical Therapy Treatment Note [facility] Date: 11/14/23 SUBJECTIVE: Rhe states that he is going home as soon as he eats his lunch. OBJECTIVE: []? Therapeutic Activities ([id number]): Direct one-on-one instruction in dynamic activities to improve functional performance. ? BED MOBILITY/TRANSFERS? Rolling L/R: I Supine-sit:I? Sit-stand: I ? Stand-sit: I ? Bed-Chair:SBA ? Provided skilled cues and instruction on performance and technique throughout. GAIT? Assistive Device: none ? Weight bearing: full Assist: CGA ? Distance:?75'x2 ? Deviation:cues to slow down Stair negotiation up and down 3-4 steps and 2-6 steps without using railings. SBA x2. ?balance ex: SLS 3x5-10 sec ea. March in place x30 sec. Sit to stand without the use of UE x5. ? ASSESSMENT:?still very impulsive. JARRED noted x2 when making quick turns, but he was able to recover independently. I did recommend he use a cane or walking stick to help steady himself. PLAN: possible dc home after lunch. If he remains here at hospital, will continue to work on his strength and fucntional mobility. TREATMENT CODE/TIME: 15 min [id number]
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
--- NOTE | 2023-11-14 16:41 | PDOC.CMDIS ---
Date of service: 11/14/23 Time of Service: 16:41 LACE Index Scoring Tool Questions: Length of Stay (in days): 3 Was the patient admitted via the E.D.?: Yes Comorbidities: Liver or Renal Disease E.D. Visits: 10 Answers: Total Score: 15 Risk of Readmission: High Risk Care Management Discharge Plan Reason for Hospitalization: Alcohol Withdrawal Discharge Plan: Annette will return home with no additional services-as reviewed with MD. Annette was walking independently in the hallways. He will follow up with his coach mechanic and PCP as well as [facility] as prescribed and transport via private vehicle. Patient/Family Education Needs: Review discharge instructions, discuss Ask Me Three. SDOH Health Related Social Needs: No Data to Display
== END 2023-11-14 15:57 | disposition home or self-care (01) | DRG 896 ==
LOC: ER 04:40 → ICU 06:39 → MS 11-13 20:50
PROVIDERS: Internal Medicine; Admitting Provider General Practice; Emergency Provider Student in an Organized Health Care Education/Training Program; PCP Nurse Practitioner Family; Visit Provider General Practice
DX: K85.10 Biliary acute pancreatitis without necrosis or infection; Q23.1 Congenital insufficiency of aortic valve; S09.90XA Unspecified injury of head, initial encounter; F19.10 Other psychoactive substance abuse, uncomplicated; K74.60 Unspecified cirrhosis of liver; E87.6 Hypokalemia; E78.00 Pure hypercholesterolemia, unspecified; I10 Essential (primary) hypertension; M54.2 Cervicalgia; G89.29 Other chronic pain; D53.9 Nutritional anemia, unspecified; F10.239 Alcohol dependence with withdrawal, unspecified; W01.0XXA Fall on same level from slipping, tripping and stumbling without subsequent striking against object, initial encounter; I71.21 Aneurysm of the ascending aorta, without rupture; G47.33 Obstructive sleep apnea (adult) (pediatric)
CPT/HCPCS: 00123; 36415; 71250; 80048; 80053; 80076; 80307; 83690; 85027; 96361; 96365; 96372; 96375; 97110; 97116; 97162; 97530; 99291; 70450; 70486; 72125; 74176; 80184; 80320; 82607; 82728; 82746; 83540; 83550; 83735; 85025; 85610; 94762; 99223; 99232; 99238; J1644; J2060; J2405; J2470; J2560; J3411; J3420; J3475; J3490

== ENCOUNTER 2023-12-14 07:21 | Emergency (ER) | payer MEDICARE, SELFPAY ==
[2023-12-14] VITALS (26 sets, daily range): BP systolic 166–182; BP diastolic 67–106; PULSE 64–124; RESP 13–22; TEMP 36.2; O2SAT 88–97
[2023-12-14] MEDS: LORazepam 2 MG/ML VIAL IVP (07:35)
[2023-12-14] MEDS: Ondansetron 4 MG/2 ML VIAL IVP (07:35)
[2023-12-14] MEDS: Lactated Ringers 1,000 ML 1000 ML IV (07:35)
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
[2023-12-14 07:59] LABS: Abs Immature Grans 0.01 10^3/uL (0.0-0.06); Absolute Basophil Count 0.04 10^3/uL (0.0-0.2); Absolute Eosinophil Count 0.09 10^3/uL (0.0-0.7); Absolute Lymphocyte Count 1.18 10^3/uL (1.2-3.4); Absolute Monocyte Count 0.35 10^3/uL (0.1-0.8); Absolute Neutrophil Count 1.45 10^3/uL (1.2-6.7); Basophils % 1.3; Eosinophils % 2.9; HGB 9.2 g/dL (13.5-17.5); Immature Grans % 0.3; Lymphocytes % 37.8; MCH 22.4 pg (27.0-33.0); MCHC 29.7 % (32.0-36.0); MCV 76 fL (80-95); MPV 8.3 fL (8.0-11.0); Monocytes % 11.2; Neutrophils % 46.5; Platelet Count 219 10^3/uL (130-400); RDW 17.8 % (11.8-14.1); RDW-SD 49.3 fL; WBC 3.12 10^3/uL (4.4-10.8)
[2023-12-14 08:14] LABS: ALT 34 U/L (16-63); AST 34 U/L (15-37); Albumin 3.5 g/dL (3.4-5.0); Alkaline Phosphatase 117 U/L (46-116); Anion Gap 18.3 mmol/L (3-11); BUN 14 mg/dL (7-18); Bilirubin, Total 0.4 mg/dL (0.2-1.0); CO2 21.7 mmol/L (21.0-32.0); Calcium 8.4 mg/dL (8.5-10.1); Chloride 101 mmol/L (98-107); Estimated GFR 83.52 (mL/min/1.73m2); Glucose 116 mg/dL (74-106); Magnesium 1.7 mg/dL (1.8-2.4); Potassium 3.6 mmol/L (3.5-5.1); Sodium 141 mmol/L (136-145); Total Protein 7.3 g/dL (6.4-8.2)
[2023-12-14 09:42] LABS: Lipase 28 U/L (16-77); TSH (W/Ref FT4) 2.19 uIU/mL (0.36-3.74)
[2023-12-14] MEDS: chlordiazePOXIDE 25 MG CAP PO (09:54)
[2023-12-14] MEDS: chlordiazePOXIDE 25 MG CAP 50 MG PO (10:37)
== END 2023-12-14 11:12 | disposition home or self-care (01) ==
PROVIDERS: Emergency Provider Student in an Organized Health Care Education/Training Program; PCP Nurse Practitioner Family
DX: F10.139 Alcohol abuse with withdrawal, unspecified (principal); I10 Essential (primary) hypertension; E78.00 Pure hypercholesterolemia, unspecified; Z87.891 Personal history of nicotine dependence; Y90.6 Blood alcohol level of 120-199 mg/100 ml
CPT/HCPCS: 80053; 83690; 96361; 96374; 96375; 99284; 80320; 83735; 84443; 85025; J2060; J2405

== ENCOUNTER 2024-01-13 19:16 | Outpatient (REF) | payer MEDICARE, MEDICAID, SELFPAY ==
[2024-01-13 20:16] LABS: Creatine Kinase 103 U/L (39-308); HDL Cholesterol 52 mg/dL (40-60); LDL CHOLESTEROL 117 mg/dL (<100)
== END 2024-01-13 19:17 | disposition home or self-care (01) ==
LOC: NCHCN 19:16
PROVIDERS: PCP Nurse Practitioner Family; Visit Provider Nurse Practitioner Family
DX: E78.5 Hyperlipidemia, unspecified (principal)
CPT/HCPCS: 82550; 83721; 83718

== ENCOUNTER 2024-04-30 02:43 | Emergency (ER) | payer MEDICARE, MEDICAID, SELFPAY ==
[2024-04-30] VITALS (49 sets, daily range): BP systolic 86–136; BP diastolic 50–75; PULSE 53–73; RESP 10–20; TEMP 36.7; O2SAT 92–97
--- NOTE | 2024-04-30 02:45 | DI.CT_ITS ---
Exam(s) CT HEAD CERV SPINE FACIAL WO EXAM: CT HEAD CERV SPINE FACIAL WO CLINICAL HISTORY: fall, etoh, hit head x2, left forehead/facial pain. TECHNIQUE: Imaging Protocol: Axial computed tomography images with coronal and sagittal reformatted images were created and reviewed COMPARISON: CT CT HEAD CERVICAL SPINE WO from 09/17/[address] HEAD CERV SPINE FACIAL WO from 11/11/2023 FINDINGS: CT Head: Ventricles and Extra axial spaces: Normal in size and morphology for the patient's age. Hemorrhage: None. Cerebral parenchyma: No mass effect is identified. No acute territorial infarct is seen. Midline shift: None. Brainstem/Cerebellum: Normal. Calvarium: Normal. Visualized Paranasal sinuses/Mastoids: Clear. Soft Tissues: There is soft tissue swelling over the left forehead. CT Face: Facial Bones: No definite fracture is noted in facial bones. There are old nasal bone deformities. Sinuses and Mastoids: Unremarkable. Globes, extraocular muscles, optic nerves and retrobulbar fat: Normal. Upper aerodigestive tract: Normal. Mandible and bilateral temporomandibular joints: Normal. Soft tissues: Normal. CT Cervical Spine: Bones: No acute fracture or subluxation. There are degenerative changes seen in the cervical spine pa rticularly at C5-C6. Soft Tissues: Unremarkable. Lung Apices: Clear. IMPRESSION: 1. No acute intracranial process. 2. No acute fracture or subluxation in the cervical spine. 3. No acute facial fracture. 4. Soft tissue swelling overlying the left frontal bone. This may represent a soft tissue contusion. RADIATION DOSE DELIVERED: Total DLP DATA REPOSITORY: All CT scans at this facility are submitted to the National Radiology Data Registry (NRDR) Dose Index Registry (DIR) with the [employer] ([employer]). RADIATION OPTIMIZATION: All CT scans at this facility use at least one of these dose optimization te chniques: automated exposure control; mA and/or kV adjustment per patient size (includes targeted exa ms where dose is matched to clinical indication); or iterative reconstruction.
--- NOTE | 2024-04-30 02:45 | DI.RAD_ITS ---
Exam(s) XR KNEE LT 3V AP,LAT,NIKOLE EXAM: XR KNEE LT 3V AP,LAT,NIKOLE CLINICAL HISTORY: fall, left knee pain. TECHNIQUE: 2D digital imaging was performed of the left knee. Three images were obtained. AP, late ral and PA tunnel views were obtained. COMPARISON: No exams were available for comparison FINDINGS: BONES: No acute fracture is present. No bony destructive lesion is seen. JOINTS: The knee is normally aligned. No joint effusion is seen. No loose body. SOFT TISSUE: Atherosclerotic calcification is present. IMPRESSION: No acute fracture or dislocation. DATA REPOSITORY: RADIATION DOSE DELIVERED:
--- NOTE | 2024-04-30 02:45 | RT.EKG_ITS ---
APPROVED REPORT Exam: Resting ECG Reason for Exam: fall struck head Patient Location: E HR:64 bpm ECG Measurements Heart Rate 64 AXIS IN 203 P 63 QRSd 123 QRS -11 QT 405 T 15 QTc 418 Conclusion Sinus rhythm...normal P axis, V-rate 60- 99 Nonspecific intraventricular conduction delay...QRSd >115mS, not LBBB/RBBB Physician: no stemi
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
[2024-04-30] MEDS: Lactated Ringers 1,000 ML 1000 ML IV ×2 (03:01→05:22)
[2024-04-30 03:19] LABS: PTT Activated 25.2 sec (23.6-32.8); Prothrombin Time 10.3 sec (9.1-11.1)
[2024-04-30 03:24] LABS: ALT 38 U/L (16-63); AST 28 U/L (15-37); Albumin 3.7 g/dL (3.4-5.0); Alkaline Phosphatase 99 U/L (46-116); Anion Gap 12.4 mmol/L (3-11); BUN 13 mg/dL (7-18); Bilirubin, Total 0.32 mg/dL (0.2-1.0); CO2 23.6 mmol/L (21.0-32.0); CREATININE 1.1 mg/dL (0.70-1.30); Calcium 8.6 mg/dL (8.5-10.1); Chloride 98 mmol/L (98-107); ETHANOL BLOOD 132.5 mg/dL (<10); Estimated GFR 74.04 (mL/min/1.73m2); Glucose 97 mg/dL (74-106); Lipase 177 U/L (16-77); Magnesium 1.9 mg/dL (1.8-2.4); Potassium 4.1 mmol/L (3.5-5.1); Sodium 134 mmol/L (136-145); Total Protein 7.1 g/dL (6.4-8.2); Troponin I < 50 ng/L (< or =60)
[2024-04-30 03:34] LABS: Abs Immature Grans 0.04 10^3/uL (0.0-0.06); Absolute Basophil Count 0.03 10^3/uL (0.0-0.2); Absolute Eosinophil Count 0.11 10^3/uL (0.0-0.7); Absolute Lymphocyte Count 1.18 10^3/uL (1.2-3.4); Absolute Monocyte Count 0.39 10^3/uL (0.1-0.8); Absolute Neutrophil Count 3.89 10^3/uL (1.2-6.7); Basophils % 0.5 %; HCT 34.7 % (40.0-50.0); HGB 11.5 g/dL (13.5-17.5); Immature Grans % 0.7 %; Lymphocytes % 20.9 %; MCH 27.6 pg (27.0-33.0); MCHC 33.1 % (32.0-36.0); MCV 83 fL (80-95); MPV 9.6 fL (8.0-11.0); Monocytes % 6.9 %; Platelet Count 211 10^3/uL (130-400); RBC 4.17 10^6/uL (4.36-5.78); RDW 17.2 % (11.8-14.1); RDW-SD 52.1 fL; WBC 5.64 10^3/uL (4.4-10.8)
--- NOTE | 2024-04-30 04:57 | DI.VRAD_ITS ---
PROCEDURE INFORMATION: Exam: XR Left Knee Exam date and time: 04/30/2024 3:44 AM Age: 68 years old Clinical indication: Injury or trauma; Blunt trauma; Injury details: Fall, left knee pain TECHNIQUE: Imaging protocol: Radiologic exam of the left knee. Views: 3 views. COMPARISON: CR LEFT TIB/FIB 12/29/2017 5:03 PM FINDINGS: Bones/joints: Normal. Soft tissues: Normal. IMPRESSION: No acute findings. Dictated and Authenticated by: Noe Brown MD. Ordering:JESSICA Woods MD
--- NOTE | 2024-04-30 05:10 | DI.VRAD_ITS ---
PROCEDURE INFORMATION: Exam: CT Head Without Contrast Exam date and time: 04/30/2024 3:48 AM Age: 68 years old Clinical indication: Injury or trauma; Blunt trauma (contusions or hematomas); Injury details: Fall, ETOH, hit head x2, left forehead/facial pain TECHNIQUE: Imaging protocol: Computed tomography of the head without contrast. COMPARISON: CT HEAD CERV SPINE FACIAL WO 11/11/2023 1:37 AM FINDINGS: Brain: No hemorrhage. Unremarkable white matter. No mass effect. Cerebral ventricles: No ventriculomegaly. Paranasal sinuses: Visualized sinuses are unremarkable. No fluid levels. Mastoid air cells: Visualized mastoid air cells are well aerated. Bones: Unremarkable. No acute fracture. Soft tissues: Unremarkable. IMPRESSION: No acute intracranial abnormality. PROCEDURE INFORMATION: Exam: CT Maxillofacial Without Contrast Exam date and time: 04/30/2024 3:48 AM Age: 68 years old Clinical indication: Injury or trauma; Blunt trauma (contusions or hematomas); Injury details: Fall, ETOH, hit head x2, left forehead/facial pain TECHNIQUE: Imaging protocol: Computed tomography of the face without contrast. COMPARISON: CT HEAD CERV SPINE FACIAL WO 11/11/2023 1:37 AM FINDINGS: Limitations: Multiple dental fillings with associated beam hardening artifact limits evaluation. Orbital cavities: Orbits are normal. Globes are unremarkable. Paranasal sinuses: Normal. No air-fluid levels. Bones: Chronic nasal bone fractures. No acute fracture. Soft tissues: Left supraorbital soft tissue swelling. IMPRESSION: No acute facial bone fracture. PROCEDURE INFORMATION: Exam: CT Cervical Spine Without Contrast Exam date and time: 04/30/2024 3:48 AM Age: 68 years old Clinical indication: Injury or trauma; Blunt trauma (contusions or hematomas); Injury details: Fall, ETOH, hit head x2, left forehead/facial pain TECHNIQUE: Imaging protocol: Computed tomography of the cervical spine without contrast. COMPARISON: CT HEAD CERV SPINE FACIAL WO 11/11/2023 1:37 AM FINDINGS: Bones: No acute fracture. Normal alignment. No significant disc bulge or herniation. No severe spinal canal stenosis. Multilevel neural foraminal narrowing secondary to facet arthrosis and degenerative disc disease. Lungs: Lung apices are normal. Soft tissues: Unremarkable. IMPRESSION: No acute fracture or traumatic listhesis. Dictated and Authenticated by: Elvira Lubin MD. Ordering:JESSICA Woods MD
== END 2024-04-30 07:49 | disposition home or self-care (01) ==
PROVIDERS: Emergency Provider Student in an Organized Health Care Education/Training Program; PCP Nurse Practitioner Family
DX: S00.83XA Contusion of other part of head, initial encounter; F10.10 Alcohol abuse, uncomplicated; R74.8 Abnormal levels of other serum enzymes; I71.21 Aneurysm of the ascending aorta, without rupture; I10 Essential (primary) hypertension; E78.5 Hyperlipidemia, unspecified; Z87.891 Personal history of nicotine dependence; Y90.6 Blood alcohol level of 120-199 mg/100 ml; W18.39XA Other fall on same level, initial encounter; Y93.89 Activity, other specified; Y92.89 Other specified places as the place of occurrence of the external cause
CPT/HCPCS: 36415; 73562; 80053; 83690; 93005; 99285; 70450; 70486; 72125; 80320; 83735; 84484; 85025; 85610; 85730; 93010; 99284

== ENCOUNTER 2024-07-26 22:21 | Outpatient (CLI) | payer MEDICARE, MEDICAID, SELFPAY ==
--- NOTE | 2024-07-26 | DI.RAD_ITS ---
Exam(s) XR HIP LT COMPLETE AP PELVIS EXAM: XR HIP LT COMPLETE AP PELVIS CLINICAL HISTORY: Pain in left hip, M25.552. TECHNIQUE: 2D digital imaging was performed of the left hip. Two views were obtained. AP pelvis an d lateral left hip views were obtained. COMPARISON: CR,XR XR HIP LT COMPLETE AP PELVIS from 12/21/2022 FINDINGS: BONES: No acute fracture is present. No bony destructive lesion is seen. JOINTS: No dislocation present. There is been marked progression of the degenerative changes involvin g the left hip tries by bone on bone in the superior joint space. Subchondral sclerosis is present. There osteophytes seen at the acetabular roof and the femoral head. Stable mild joint space narrowi ng is seen in the right hip. Sacroiliac joints and symphysis pubis are unremarkable. SOFT TISSUE: Normal. IMPRESSION: Marked degenerative changes seen in the left hip which have progressed since the prior examination. DATA REPOSITORY: RADIATION DOSE DELIVERED:
== END 2024-07-26 22:41 ==
PROVIDERS: PCP Nurse Practitioner Family; Visit Provider Nurse Practitioner Family
DX: M16.12 Unilateral primary osteoarthritis, left hip (principal)
CPT/HCPCS: 73502

== ENCOUNTER → 2024-10-17 13:29 | Outpatient (BNVA) | payer MEDICARE, SELFPAY | PROVIDERS: PCP Nurse Practitioner Family; Referring Provider Nurse Practitioner Family; Visit Provider Physician Assistant | DX: M16.12 Unilateral primary osteoarthritis, left hip (principal) | CPT/HCPCS: 20611; J1010 ==

== ENCOUNTER 2024-11-25 17:02 | Outpatient (REF) | payer MEDICARE, SELFPAY ==
[2024-11-25 18:59] LABS: HCT 43.5 % (40.0-50.0); HGB 14.9 g/dL (13.5-17.5); MCH 32.1 pg (27.0-33.0); MCHC 34.3 % (32.0-36.0); MCV 94 fL (80-95); MPV 9.5 fL (8.0-11.0); Platelet Count 199 10^3/uL (130-400); RBC 4.64 10^6/uL (4.36-5.78); RDW 12.3 % (11.8-14.1); RDW-SD 42.7 fL; WBC 4.88 10^3/uL (4.4-10.8)
[2024-11-25 19:22] LABS: ALT 42 U/L (16-63); AST 34 U/L (15-37); Alkaline Phosphatase 110 U/L (46-116); BUN 16 mg/dL (7-18); Bilirubin, Total 0.35 mg/dL (0.2-1.0); CREATININE 0.8 mg/dL (0.70-1.30); Calcium 9.4 mg/dL (8.5-10.1); Calculated LDL 171 mg/dL (<100); Chloride 103 mmol/L (98-107); Cholesterol 293 mg/dL (<200); Estimated GFR 97.61 (mL/min/1.73m2); Ferritin 91 ng/mL (26-388); Glucose 93 mg/dL (74-106); HDL Cholesterol 65 mg/dL (40-60); Potassium 4.3 mmol/L (3.5-5.1); Sodium 138 mmol/L (136-145); Total Protein 7.3 g/dL (6.4-8.2); Triglyceride 285 mg/dL (<150)
[2024-11-25 19:46] LABS: Iron 88 ug/dL (65-175); Total Iron Binding Capacity 387 ug/dL (250-450); Transferrin Sat 23 % (20-55)
[2024-11-28 12:20] LABS: Hepatitis A Antibody IgM Negative (Negative); Hepatitis B Core Antibody Positive (Negative); Hepatitis B surface Ag Negative (Negative); Hepatitis C Ab w Rflx HCV PCR Reactive (Negative)
[2024-11-30 10:03] LABS: HBc IgM Ab, S Negative (Negative)
[2024-11-30 12:09] LABS: HCV RNA Qualitative Undetected (Undetected)
== END 2024-11-25 17:03 | disposition home or self-care (01) ==
LOC: NCHCN 17:02
PROVIDERS: PCP Nurse Practitioner Family; Visit Provider Nurse Practitioner Family
DX: E78.5 Hyperlipidemia, unspecified (principal); D64.9 Anemia, unspecified
CPT/HCPCS: 80053; 80061; 85027; 86704; 86709; 86803; 87340; 87522; 82728; 83540; 83550; 86705

== ENCOUNTER 2025-03-15 20:57 | Emergency (ER) | payer MEDICARE, SELFPAY ==
[2025-03-15 21:15] VITALS: BP 113/72; PULSE 82; RESP 18; TEMP 36.7; O2SAT 93
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
== END 2025-03-15 22:44 | disposition home or self-care (01) ==
PROVIDERS: Emergency Provider Physician Assistant; PCP Nurse Practitioner Family
DX: U07.1 COVID-19 (principal)
CPT/HCPCS: 99283 ×2; 87428

== ENCOUNTER → 2025-04-03 13:53 | Outpatient (BNVA) | payer MEDICARE, SELFPAY | PROVIDERS: PCP Nurse Practitioner Family; Referring Provider Nurse Practitioner Family; Visit Provider Student in an Organized Health Care Education/Training Program | DX: M16.12 Unilateral primary osteoarthritis, left hip (principal) | CPT/HCPCS: 20611; J1010 ==

== ENCOUNTER 2025-08-28 14:04 | Inpatient (IN) | payer MEDICARE, SELFPAY ==
[2025-08-28] VITALS (72 sets, daily range): BP systolic 105–153; BP diastolic 60–122; PULSE 74–119; RESP 13–27; TEMP 36.4–37; O2SAT 91–98
--- NOTE | 2025-08-28 14:00 | RT.EKG_ITS ---
APPROVED REPORT Exam: Resting ECG Reason for Exam: GI bleed, ETOH w/d Patient Location: E HR:94 bpm ECG Measurements Heart Rate 94 AXIS NM 193 P 61 QRSd 110 QRS 34 QT 365 T 33 QTc 456 Conclusion Sinus rhythm, rate 94 No interval abnormalities No STEMI Borderline ST depression diffuse leads Otherwise, no significant changes from priors
--- NOTE | 2025-08-28 14:00 | DI.CT_ITS ---
Exam(s) CT ABDOMEN PELVIS CTA EXAM: CT ABDOMEN PELVIS CTA CLINICAL HISTORY: GI bleed. TECHNIQUE: Imaging Protocol: Axial CT angiography was performed with multi- slice acquisition and multi-planar and/or 3D reconstructions. CONTRAST MATERIAL: Intravenous: Omnipaque 350 Contrast volume:100 ml Oral: no COMPARISON: CT CT CHEST/ABD/PEL WO from 11/11/2023 CR XR HIP LT COMPLETE AP PELVIS from 07/26/2024 FINDINGS: Aorta: Ascending aorta measures 5.4 cm, increasing from the prior exam or measured 5.2 x 5 cm. There are calcifications at the aortic valve. No dissection. No significant stenosis. Mild atherosclerotic changes greater in the abdomen. Iliac Arteries: No evidence of stenosis. Common Femoral Arteries: No evidence of stenosis. Celiac [place]:No evidence of stenosis. SMA: No evidence of stenosis. Renal Arteries: No evidence of stenosis. There is a single renal artery perfusing each kidney. MARILIA: Patent. Venous structures: Patent. Lung bases:No acute findings. Metallic plates along the right ribs. Liver: Normal size. Hepatic steatosis. Stable cyst. No suspicious mass. Gallbladder and biliary tract: No evidence of calculi. No gallbladder wall thickening. No biliary dilation. Pancreas: Normal density, no abnormal calcifications or inflammatory process. Spleen: Normal. Kidneys: Normal size, contour and axis. No obstructive uropathy. No masses seen. No evidence of calculi. Adrenal glands: No masses seen. Bladder: No gross wall thickening. No evidence of calculi. No evidence of mass. Bowel: No obstruction or bowel wall thickening. Sigmoid diverticulosis of the descending and sigmoid colon. No evidence of diverticulitis. No evidence of active GI bleed. Normal quantity of stool. No evidence of fluid in the colon. Peritoneal cavity: No ascites. No focal collection. No mesenteric inflammatory response. Lymph nodes: Within normal limits. Reproductive: Unremarkable. Soft Tissues:Unremarkable. Bones: There are severe degenerative changes of the left hip, with severe joint space narrowing with a boxy-bt-yezf appearance and subchondral cyst formation on both sides of the joint. There is also flattening of the superior femoral head with some acetabular remodeling. There are moderate degenerative changes of the right hip. Degenerative changes also noted in the lumbar spine. Old bilateral L5 spondylolysis and slight spondylolisthesis. IMPRESSION: No evidence of active GI bleed. Diverticulosis without evidence of diverticulitis. Dilated ascending aorta to 5.4 cm. RADIATION DOSE DELIVERED: Total DLP DATA REPOSITORY: All CT scans at this facility are submitted to the National Radiology Data Registry (NRDR) Dose Index Registry (DIR) with the [employer] (ACR). RADIATION OPTIMIZATION: All CT scans at this facility use at least one of these dose optimization techniques: automated exposure control; mA and/or kV adjustment per patient size (includes targeted exams where dose is matched to clinical indication); or iterative reconstruction.
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
[2025-08-28 14:25] LABS: Abs Immature Grans 0.05 10^3/uL (0.0-0.06); HCT 28.8 % (40.0-50.0); HGB 9.2 g/dL (13.5-17.5); Immature Grans % 0.8 %; MCH 28.8 pg (27.0-33.0); MCHC 31.9 % (32.0-36.0); MCV 90 fL (80-95); MPV 9.5 fL (8.0-11.0); Platelet Count 154 10^3/uL (130-400); RBC 3.20 10^6/uL (4.36-5.78); RDW 14.4 % (11.8-14.1); RDW-SD 46.5 fL; WBC 5.98 10^3/uL (4.4-10.8)
[2025-08-28] MEDS: Pantoprazole 40 MG VIAL 80 MG IVP (14:37)
[2025-08-28] MEDS: cefTRIAXone 1 GM/50 ML BAG IVPB (14:38)
[2025-08-28] MEDS: ACETAMINOPHEN 1,000 MG/100 ML BAG 400 MG IVPB (14:38)
[2025-08-28] MEDS: Ondansetron 4 MG/2 ML VIAL IVP (14:38)
[2025-08-28 14:45] LABS: Lipase 37 U/L (<53)
[2025-08-28 14:46] LABS: Troponin I 9 ng/L (<54)
[2025-08-28 14:47] LABS: ALT 77 U/L (10-49); AST 64 U/L (<34); Albumin 4.3 g/dL (3.4-5.0); Alkaline Phosphatase 91 U/L (46-116); Anion Gap 10.1 mmol/L (3-11); BUN 23 mg/dL (9-23); Bilirubin, Total 0.40 mg/dL (0.2-1.2); CO2 26.9 mmol/L (20.0-31.0); Calcium 9.5 mg/dL (8.3-10.6); Chloride 102 mmol/L (98-107); Glucose 72 mg/dL (74-106); Magnesium 1.8 mg/dL (1.6-2.6); Potassium 4.2 mmol/L (3.5-5.1); Sodium 139 mmol/L (136-145); Total Protein 6.8 g/dL (5.7-8.2)
[2025-08-28] MEDS: Normal Saline Flush 10 ML SYR IVP ×3 (15:23→21:17)
[2025-08-28] MEDS: Omnipaque 350 MG/ML 100 ML BTL IJ (15:23)
[2025-08-28] MEDS: Normal Saline - Diluent 50 ML VIAL IJ (15:23)
[2025-08-28 15:42] LABS: Troponin I 8 ng/L (<54)
[2025-08-28] MEDS: NORMAL SALINE IVPB ×3 (15:50→21:16)
[2025-08-28] MEDS: PHENOBARBITAL IVPB ×3 (15:50→21:16)
[2025-08-28] MEDS: MULTIVITAMIN 10 ML, THIAMINE 100 MG, FOLIC ACID 1 MG, MAGNESIUM SULFATE 1,000 MG in Nor... 168.867 ML IV (16:50)
[2025-08-28 17:13] LABS: Troponin I 9 ng/L (<54)
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
--- NOTE | 2025-08-28 19:32 | W.PC.ACHO ---
Registration Status: REG ER Primary Language: Preferred Language: Mongolian ED Information & Data Chief Complaint GI Bleed 08/28/25 14:20 Triage Note Patient brought in my EMS 08/28/25 14:02 with history of GI bleed which started a couple days ago. Having bloody stool. Denies any vomiting but having dry heaves. Patient is a heavy alcohol intake has not had any alcoholic beverage for the past 3 days Medical / Surgical History (Last Reviewed 09/16/24 @ 21:01 by MARIA DEL ROSARIO Campos) Pancreatitis, acute Pancytopenia Tendonitis of left rotator cuff Multiple injuries of head (06/23/17) Post concussion syndrome (06/23/17) Hypertension Hemorrhoids Skin lesion of face GERD (gastroesophageal reflux disease) Phobia Left thyroid nodule Post-traumatic headache Acquired insufficiency of aortic valve Hypoalbuminemia Postconcussion syndrome Electrolyte imbalance Vertigo Seizure after head injury Hyperlipidemia Aortic aneurysm Hemothorax Alcohol abuse Visual changes Right rib fracture Fractured nose Diverticulosis History of tobacco abuse Acute appendicitis (Last Reviewed 09/16/24 @ 21:01 by MARIA DEL ROSARIO Campos) EGD - MAC Appendectomy History of surgery Most Recent Vital Signs Temperature 37.0 C 08/28/25 14:02 Pulse 79 08/28/25 19:16 Pulse 81 08/28/25 19:16 Respiratory Rate 16 08/28/25 19:16 Respiratory Pattern Normal 08/28/25 17:24 Blood Pressure 137/79 08/28/25 19:16 Blood Pressure Mean 92 08/28/25 19:16 Pulse Oximetry 97 08/28/25 19:16 Oxygen Delivery Method Room Air 08/28/25 14:09 Oxygen Flow Rate 0 08/28/25 14:09 Pain Level 4 08/28/25 14:02 Allergies escitalopram oxalate (From Lexapro) Allergy (Severe, Verified 08/28/25 14:24) Dizziness/Lighthead Active Medications Generic Name Dose Route Start Last Admin Trade Name Freq PRN Reason Stop Dose Admin Multivitamins 10 ml/ Thiamine 1,013.2 mls @ 168.867 mls/hr 08/28/25 14:10 08/28/25 16:50 HCl 100 mg/ Folic Acid 1 mg/ IV 08/28/25 20:09 168.867 mls/hr Magnesium Sulfate 1,000 mg/ INFUSION ONE Administration Sodium Chloride Iohexol 100 ml 08/28/25 15:30 08/28/25 15:23 Omnipaque 350 Mg/Ml 100 Ml Btl IJ 09/27/25 23:59 100 ml DIRECTED ALBA Administration Sodium Chloride 0 ml 08/28/25 15:22 08/28/25 15:23 Normal Saline Flush 10 Ml Syr IVP 10 ml PRN PRN Administration Sodium Chloride 50 ml 08/28/25 15:30 08/28/25 15:23 Normal Saline - Diluent 50 Ml Vial IJ 50 ml DIRECTED ALBA Administration IV IV Catheter Type [Right Saline Lock Forearm] IV Catheter Gauge [Right 18 Forearm] Diagnostics 08/28/25 08/28/25 08/28/25 Range/Units 16:50 15:20 14:15 WBC 5.98 (4.4-10.8) 10^3/uL RBC 3.20 L (4.36-5.78) 10^6/uL Hgb 9.2 L (13.5-17.5) g/dL Hct 28.8 L (40.0-50.0) % MCV 90 (80-95) fL MCH 28.8 (27.0-33.0) pg MCHC 31.9 L (32.0-36.0) % RDW 14.4 H (11.8-14.1) % Plt Count 154 (130-400) 10^3/uL MPV 9.5 (8.0-11.0) fL Immature Gran % 0.8 % Neutrophils % 82.1 % Lymphocytes % 6.9 % Monocytes % 9.5 % Eosinophils % 0.2 % Basophils % 0.5 % Nucleated RBC % 0.0 (0.0-0.3) % Absolute Neutrophils 4.91 (1.2-6.7) 10^3/uL Absolute Lymphocytes 0.41 L (1.2-3.4) 10^3/uL Absolute Monocytes 0.57 (0.1-0.8) 10^3/uL Absolute Eosinophils 0.01 (0.0-0.7) 10^3/uL Absolute Basophils 0.03 (0.0-0.2) 10^3/uL Sodium 139 (136-145) mmol/L Potassium 4.2 (3.5-5.1) mmol/L Chloride 102 (98-107) mmol/L Carbon Dioxide 26.9 (20.0-31.0) mmol/L Anion Gap 10.1 (3-11) mmol/L BUN 23 (9-23) mg/dL Creatinine 0.72 L (0.73-1.18) mg/dL Est GFR (CKD-EPI 2020) 108.67 (mL/min/1.73m2) Glucose 72 L (74-106) mg/dL Calcium 9.5 (8.3-10.6) mg/dL Phosphorus 1.9 L (2.4-5.1) mg/dL Magnesium 1.8 (1.6-2.6) mg/dL Total Bilirubin 0.40 (0.2-1.2) mg/dL AST 64 H (<34) U/L ALT 77 H (10-49) U/L Alkaline Phosphatase 91 (46-116) U/L Troponin I 9 8 9 (<54) ng/L Total Protein 6.8 (5.7-8.2) g/dL Albumin 4.3 (3.4-5.0) g/dL Lipase 37 (<53) U/L Ethyl Alcohol < 3.0 (<3) mg/dL ABO/Rh B Positive Antibody Screen NEGATIVE Intake and Output - 24 Hour Total 08/28/25 13:49 thru 08/28/25 18:58 Intake Total 252.9077 Output Total 200 Balance 52.9077 Weight 90.718 kg Intake: IV 252.9077 Output: Urine 200 Other: Emesis Description None Falls Risk Assessment History of Falls Previous History 08/28/25 19:28 Contributing Factors Impairments 08/28/25 19:28 Ambulatory Aids Uses ambulatory device 08/28/25 19:28 Tubes/Lines None 08/28/25 19:28 Fall Total Score 33 08/28/25 19:28 Level of Risk Moderate Risk 08/28/25 19:28 Problems (Last Reviewed 09/16/24 @ 21:01 by MARIA DEL ROSARIO Campos) Alcohol withdrawal (Acute) Alcoholic cirrhosis (Acute) GI bleed (Chronic) Benign hypertension (Active) Attestation Statement: By documenting the first initial, last name, and credentials of the reporting nurse below, both parties acknowledge that all relevant information regarding the patient handoff has been communicated, and that all questions have been addressed to ensure continuity and safety of care. Additional Patient Information/Comments: Report Received From: Alejo FELICIANO
[2025-08-28] MEDS: Pantoprazole 40 MG VIAL IVP (21:09)
[2025-08-28] MEDS: QUEtiapine 50 MG TAB PO (21:19)
[2025-08-28 22:07] LABS: Glucose Negative (Negative)
[2025-08-28] MEDS: Miconazole 2% Topical Powder 85 GM BTL (22:12)
[2025-08-28 22:27] LABS: Cannabinoids THC Negative (Negative)
[2025-08-29] VITALS (88 sets, daily range): BP systolic 90–142; BP diastolic 44–108; PULSE 68–91; RESP 9–29; TEMP 36.3–37; O2SAT 30–100
[2025-08-29] MEDS: Normal Saline Flush 10 ML SYR IVP ×6 (00:09→21:54)
[2025-08-29] MEDS: PHENobarbital 130 MG/ML VIAL IVP ×2 (01:51→05:07)
[2025-08-29 06:33] LABS: HCT 25.0 % (40.0-50.0); MCH 29.4 pg (27.0-33.0); MCHC 32.0 % (32.0-36.0); MCV 92 fL (80-95); MPV 9.9 fL (8.0-11.0); Platelet Count 127 10^3/uL (130-400); RBC 2.72 10^6/uL (4.36-5.78); RDW 14.7 % (11.8-14.1); RDW-SD 49.1 fL; WBC 3.06 10^3/uL (4.4-10.8)
[2025-08-29 06:48] LABS: Anion Gap 4.6 mmol/L (3-11); BUN 14 mg/dL (9-23); CO2 27.4 mmol/L (20.0-31.0); Calcium 8.3 mg/dL (8.3-10.6); Chloride 106 mmol/L (98-107); Glucose 88 mg/dL (74-106); HGB 8.0 g/dL (13.5-17.5); Potassium 3.3 mmol/L (3.5-5.1); Sodium 138 mmol/L (136-145)
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
[2025-08-29] MEDS: Normal Saline 10 ML VIAL IJ (09:11)
[2025-08-29] MEDS: Metoprolol CR 50 MG TABCR PO (09:11)
[2025-08-29] MEDS: Pantoprazole 40 MG VIAL IVP ×2 (09:11→21:54)
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
--- NOTE | 2025-08-29 16:43 | PGE_ITS ---
Date of Service Date of service: 08/29/25 Time of Service: 08:00 Assessment and Plan Assessment and plan (1) GI bleed: Status: Chronic Assessment and plan: - Patient with reported dark stools and decreased hemoglobin, down to 9.2 in the ED, was most recently 14.9 in November 2024 - Patient hemodynamically stable, not having bright red blood per rectum - Will monitor patient overnight, consult general surgery in the morning for consideration of scope - However, it was noted by anesthesia in 2022 that it be recommended patient be endotracheally intubated for procedures requiring sedation Aug 29: AAA > 5 cm likely the reason for high risk scope procedure. Appreciate general surgery evaluation. Likely DC Aug 30. (2) Alcohol withdrawal: Status: Acute Assessment and plan: - History of alcoholism and alcohol withdrawal - Patient stopped drinking alcohol 3 days ago when he noticed his dark stools - CIWA was 10 in the emergency department and was started on phenobarb CIWA protocol - After loading dose patient will have IV as needed phenobarbital as per prot ocol Aug 29: CIWA < 5 overnight, stopped phenobarbital. Continue cardiac monitoring (3) Alcoholic cirrhosis: Status: Acute Assessment and plan: - History of - T. bili within normal limits, AST and ALT very mildly elevated above upper limits - Follow-up a.m. CMP (4) Benign hypertension: Status: Active Assessment and plan: - Continue home metoprolol - Patient reports having not taken home lisinopril Subjective Subjective Interval history since last seen: Mr. Patrick is comfortable in bed. No high scores on CIWA. To be evaluated by general surgery for GIB Exam Narrative Exam Narrative: General: This is a pleasant man in no distress HEENT: Normocephalic, atraumatic CV: RRR Resp: CTAB Abd: soft, NTND. Midline scar. MSK: voluntary motion x4 Neuro: awake, alert, no focal deficits Objective Last Vital Signs Temp 36.7 C 08/29/25 13:03 Pulse 73 08/29/25 13:05 Resp 16 08/29/25 13:05 BP 104/66 08/29/25 13:05 Pulse Ox 93 08/29/25 13:05 Laboratory Results - last 24 hr 08/28/25 08/28/25 08/29/25 16:50 20:40 05:20 WBC 3.06 L RBC 2.72 L Hgb 8.0 L Hct 25.0 L MCV 92 MCH 29.4 MCHC 32.0 RDW 14.7 H Plt Count 127 L MPV 9.9 Sodium 138 Potassium 3.3 L Chloride 106 Carbon Dioxide 27.4 Anion Gap 4.6 BUN 14 Creatinine 0.65 L Est GFR (CKD-EPI 2020) 122.28 Glucose 88 Calcium 8.3 Troponin I 9 Urine Color Yellow Urine Clarity Clear Urine pH 7.5 Ur Specific [place] 1.010 Urine Protein Negative Urine Ketones Negative Urine Blood Negative Urine Nitrite Negative Urine Bilirubin Negative Urine Urobilinogen 0.2 Ur Leukocyte Esterase Negative Urine Glucose Negative Urine Opiates Screen Negative Urine Methadone Screen Negative Ur Barbiturates Screen Positive A Ur Tricyclics Screen Negative Ur Amphetamines Screen Negative U Benzodiazepines Scrn Negative Urine Cocaine Screen Negative U Cannabinoids Screen Negative PAWSS Have you Been Recently Intoxicated or Drunk Within the Last 30 days?: Yes Have you Ever Experienced Previous Episodes of Alcohol Withdrawal?: Yes Have you ever Experienced Withdrawal Seizures?: Yes Have you ever Experienced Delirium Tremens(DT)s?: Yes Have you ever undergone Alcohol Rehabilitation Treatment (i.e, inpt ot outpatient treatment programs)?: Yes Have you ever Experienced Blackouts?: Yes Have you ever Combined Alcohol with other Downers within the last 90 days?: No Have you ever Combined Alcohol with any other Substance of Abuse during the last 90 days?: Yes Positive Blood Alcohol level on Presentation? [PCS.BAL]: No Evidence of Increased Autonomic Activity (i.e. HR>120, tremor, sweating, agitation, nausea)?: Yes Result: 9 VTE Prohylaxis Risk Level: Low Risk Contraindications: Active bleed/high bleed risk Prophylaxis: Mechanical Time Spent with Patient Time Spent with Patient: 25-34 minutes Time was spent: preparing to see the patient(eg.review tests), obtaining and/or reviewing separately otained hiistory, ordering medications,tests, procedures, referring, communicating with other health health care / medical job titles, indepentently interpreting results, counseling the patient and care coordination
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
[2025-08-29] MEDS: Acetaminophen 325 MG TAB 650 MG PO (21:54)
[2025-08-29] MEDS: QUEtiapine 50 MG TAB PO (21:54)
[2025-08-29] MEDS: Escitalopram 20 MG TAB PO (23:39)
[2025-08-30 03:23] VITALS: BP 107/63; PULSE 72; RESP 17; TEMP 36; O2SAT 98
[2025-08-30 07:25] VITALS: BP 127/74; PULSE 73; RESP 16; TEMP 36.4; O2SAT 95
[2025-08-30] MEDS: Pantoprazole 40 MG VIAL IVP (08:06)
[2025-08-30] MEDS: Normal Saline Flush 10 ML SYR IVP (08:06)
[2025-08-30] MEDS: Metoprolol CR 50 MG TABCR PO (08:07)
[2025-08-30] MEDS: Pravastatin 40 MG TAB 80 MG PO (08:07)
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
[2025-08-30 11:40] VITALS: BP 111/68; PULSE 77; RESP 17; TEMP 36.6; O2SAT 96
--- NOTE | 2025-08-30 12:17 | PDOC.CMDIS ---
Date of service: 08/30/25 Time of Service: 12:17 LACE Index Scoring Tool Questions: Length of Stay (in days): 2 Was the patient admitted via the E.D.?: Yes Comorbidities: Liver or Renal Disease E.D. 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 Referral was also sent to [place] [facility] for help with light housekeeping and meal prep. Annette will f/u with his PCP and continue per his plan of care. Annette will transport home via [facility] wheelchair van, with his partner who is also discharged today. SDOH Health Related Social Needs: Health related social needs house/econ circumstance Health related social needs details reports struggles buying enough food i got to learn how to hang onto my money, Health related social needs details: reports struggles buying enough food i got to learn how to hang onto my money,
--- NOTE | 2025-08-30 13:02 | PDOC.HHF2F_ITS ---
Date of service: 08/30/25 Time of Service: 13:02 Home Health Referral Physical Therapist: Check all that apply Home safety evaluation and teaching/gait training including stair management (if applicable): Ordered Global Chief Creative Officer: Assist with community resources: Ordered Assist with ferry terminal supervisor care planning: Ordered Home Bound Status Requires the aid of supportive device (check all that apply): Walker Encounter Date and Reason: I certify that a FTF encounter for this patient was performed on August 30, 2025 and that such encounter was related to the primary reason the patient requires home health services. The encounter was conducted in the following manner: * By me as the certifying physician, MEDICAL ANTHROPOLOGY DIRECTOR, PA or * By an inpatient physician, MEDICAL ANTHROPOLOGY DIRECTOR or PA during an inpatient stay who communicated findings to me, Certification And Authentication I certify that I composed the above information based on my clinical judgment relating to this patient's medical condition and, if applicable, clinical findings communicated to me by the NPP or inpatient physician who performed the FTF encounter. Name of Provider that will be monitoring home health services: Carmen Sr
== END 2025-08-30 16:14 | disposition home health service (06) | DRG 378 ==
LOC: ER 19:11 → ICU 20:03 → MS 08-29 14:58
PROVIDERS: Admitting Provider Family Medicine; Emergency Provider Emergency Medicine; PCP Nurse Practitioner Family; Responsible Provider Family Medicine; Visit Provider Family Medicine
DX: K92.1 Melena (principal); K70.30 Alcoholic cirrhosis of liver without ascites; I10 Essential (primary) hypertension; I71.21 Aneurysm of the ascending aorta, without rupture; F10.239 Alcohol dependence with withdrawal, unspecified; Z87.11 Personal history of peptic ulcer disease; R74.01 Elevation of levels of liver transaminase levels; D64.9 Anemia, unspecified; I35.1 Nonrheumatic aortic (valve) insufficiency; Q23.81 Bicuspid aortic valve; E78.00 Pure hypercholesterolemia, unspecified; M54.2 Cervicalgia; G89.29 Other chronic pain; K21.9 Gastro-esophageal reflux disease without esophagitis; Z87.891 Personal history of nicotine dependence; Z59.89 Other problems related to housing and economic circumstances; Z59.41 Food insecurity
CPT/HCPCS: 00123; 36415; 80048; 80053; 80307; 83690; 85027; 86850; 86900; 86901; 93005; 96365; 96366; 96367; 96375; 99222; 99285; 74174; 80320; 81003; 83735; 84100; 84484; 85025; 93010; 94760; 99223; 99232; 99238; J0131; J0696; J2405; J2470; J2560; J3411; J3475; J3490

== ENCOUNTER 2025-09-14 15:55 | Outpatient (CLI) | payer MEDICARE, SELFPAY ==
[2025-09-14 15:49] LABS: Abs Immature Grans 0.03 10^3/uL (0.0-0.06); HCT 29.5 % (40.0-50.0); HGB 9.1 g/dL (13.5-17.5); Immature Grans % 0.5 %; MCH 26.5 pg (27.0-33.0); MCHC 30.8 % (32.0-36.0); MCV 86 fL (80-95); MPV 9.0 fL (8.0-11.0); Platelet Count 455 10^3/uL (130-400); RBC 3.43 10^6/uL (4.36-5.78); RDW 15.8 % (11.8-14.1); RDW-SD 49.1 fL; WBC 5.90 10^3/uL (4.4-10.8)
[2025-09-14 16:10] LABS: ALT 40 U/L (10-49); AST 34 U/L (<34); Albumin 4.5 g/dL (3.2-5.0); Alkaline Phosphatase 120 U/L (46-116); Anion Gap 10.2 mmol/L (3-11); BUN 9 mg/dL (9-23); Bilirubin, Total 0.3 mg/dL (0.2-1.2); CO2 26.8 mmol/L (20.0-31.0); Calcium 9.5 mg/dL (8.3-10.6); Chloride 104 mmol/L (98-107); Glucose 83 mg/dL (74-106); Potassium 3.9 mmol/L (3.5-5.1); Sodium 141 mmol/L (136-145); Total Protein 7.1 g/dL (5.7-8.2)
[2025-09-14 16:12] LABS: Vitamin D 25 Total 29 ng/mL (30-100)
[2025-09-14 16:14] LABS: Folate > 24.0 ng/mL (>5.38); Vitamin B12 335 pg/mL (211-911)
[2025-09-14 16:25] LABS: Iron 15 ug/dL (65-175); Total Iron Binding Capacity 403 ug/dL (250-425)
== END 2025-09-14 15:56 | disposition home or self-care (01) ==
LOC: LBO 15:55
PROVIDERS: PCP Nurse Practitioner Family; Visit Provider Family Medicine
DX: F10.20 Alcohol dependence, uncomplicated (principal)
CPT/HCPCS: 36415; 80053; 82306; 82607; 82746; 83540; 83550; 85025